=== PATIENT | female | born 1950 | race Caucasian/White ===

== ENCOUNTER 2017-01-17 09:24 | Emergency (ER) | payer MEDICARE, OTHER ==
[2017-01-17] MEDS ORDERED: SODIUM CHLORIDE 0.9% 1,000 ML IV STA (09:45)
[2017-01-17] MEDS ORDERED: ONDANSETRON 4 MG/2 ML VIAL IVP STA (09:45)
[2017-01-17] MEDS ORDERED: ACETAMINOPHEN IV (For NPO) 1,000 MG in SALINE 100 100ML.BAG IVPB STA (09:46)
--- NOTE | 2017-01-17 09:56 | ED ---
General Adult HPI - General Chief complaint: ENT Stated complaint: hip pain Time Seen by Provider: 01/17/17 09:39 Source: patient, RN notes reviewed Mode of arrival: ambulatory Limitations: no limitations - History of Present Illness Initial comments: 66-year-old female who presents emergency room today with multiple. Per patient does admit some chronic left hip pain after hip replacement. She admits that she's had a sore throat for 3 days. States she's been using some cough drops. Admits that she's had some nausea and vomiting and diarrhea for the past 3 days as well. She denies any other recent travel other than coming up from [place]. She states her is here trying to get some business taken care of. Patient admits some abdominal cramping. She denies any signs of blood in the emesis or stool. She denies any other complaints or symptoms at this time. Patient denies any recent fever, chills, shortness of breath, chest pain, back pain, numbness or tingling, dysuria or hematuria, constipation, headaches or visual changes, or any other complaints. - Related Data Home Medications Medication Instructions Recorded Confirmed Aspirin [Adult Low Dose Aspirin EC] 81 mg PO DAILY 01/17/17 01/17/17 Esomeprazole Magnesium [NexIUM] 40 mg PO BID 01/17/17 01/17/17 FLUoxetine HCL [PROzac] 40 mg PO DAILY 01/17/17 01/17/17 Folic Acid 1 mg PO BID 01/17/17 01/17/17 Gabapentin [Neurontin] 100 mg PO TID 01/17/17 01/17/17 Insulin Glargine [Lantus] 30 unit SQ HS 01/17/17 01/17/17 Zolpidem Tartrate [Ambien] 10 mg PO HS 01/17/17 01/17/17 diphenhydrAMINE HCL [Benadryl] 25 mg PO HS PRN 01/17/17 01/17/17 Previous Rx's Medication Instructions Recorded Dicyclomine [Bentyl] 10 mg PO QID #20 capsule 01/17/17 Ondansetron Odt [Zofran ODT] 4 mg PO Q8HR PRN #20 tab 01/17/17 Allergies Allergy/AdvReac Type Severity Reaction Status Date / Time iodine Allergy Swelling Verified 01/17/17 09:52 Penicillins Allergy Swelling Verified 01/17/17 09:52 Sulfa (Sulfonamide Allergy Rash/Hives Verified 01/17/17 09:52 Antibiotics) SEAFOOD Allergy Rash/Hives Uncoded 01/17/17 09:52 Review of Systems ROS Statement: Those systems with pertinent positive or pertinent negative responses have been documented in the HPI. ROS Other: All systems not noted in ROS Statement are negative. Past Medical History Past Medical History: Diabetes Mellitus Additional Past Medical History / Comment(s): anemia History of Any Multi-Drug Resistant Organisms: None Reported Past Surgical History: Joint Replacement Past Psychological History: Bipolar, Depression Smoking Status: Never smoker Past Alcohol Use History: None Reported Past Drug Use History: None Reported General Exam - General Exam Comments Initial Comments: General: The patient is awake and alert, in no distress, and does not appear acutely ill. Eye: Pupils are equal, round and reactive to light, extra-ocular movements are intact. No nystagmus. There is normal conjunctiva bilaterally. No signs of icterus. Ears, nose, mouth and throat: There are moist mucous membranes and no oral lesions. Neck: The neck is supple, there is no tenderness or JVD. Cardiovascular: There is a regular rate and rhythm. No murmur, rub or gallop is appreciated. Respiratory: Lungs are clear to auscultation, respirations are non-labored, breath sounds are equal. No wheezes, stridor, rales, or rhonchi. Gastrointestinal: Soft, non-distended, non-tender abdomen without masses or organomegaly noted. There is no rebound or guarding present. No CVA tenderness. Bowel sounds are unremarkable. Musculoskeletal: Normal ROM, no tenderness. Strength 5/5. Sensation intact. Pulses equal bilaterally 2+. Neurological: A&O x 3. CN II-XII intact, There are no obvious motor or sensory deficits. Coordination appears grossly intact. Speech is normal. Skin: Skin is warm and dry and no rashes or lesions are noted. Psychiatric: Cooperative, appropriate mood & affect, normal judgment. Limitations: no limitations Course Vital Signs 01/17/17 09:26 Temperature 98.1 F Pulse Rate 114 H Respiratory 18 Rate Blood Pressure 188/79 O2 Sat by Pulse 98 Oximetry Medical Decision Making - Medical Decision Making Case discussed in detail with attending physician Dr. Hadley. Patient reexamined at this time shows no signs of distress resting comfortably. Patient has been reviewed. Does show hemoglobin 8.7. Patient does admit to history anemia states she usually runs between 9 and 10. Patient's remaining labs have been reviewed. At this time patient's feeling better after fluids here in the emergency room. She does admit some nausea vomiting diarrhea over the last 3 days. Patient guaiac negative here in the emergency room. Patient will be discharged advised close follow-up the family doctor over the next 2 days. Advised return here to emergency room if any symptoms increase or worsen or for any other concerns. - Lab Data Result diagrams: 01/17/17 10:19 01/17/17 10:19 Lab Results 01/17/17 01/17/17 01/17/17 Range/Units 10:19 10:19 10:19 WBC 2.8 L (3.8-10.6) k/uL RBC 2.66 L (3.80-5.40) m/uL Hgb 8.7 L (11.4-16.0) gm/dL Hct 26.2 L (34.0-46.0) % MCV 98.7 (80.0-100.0) fL MCH 32.8 (25.0-35.0) pg MCHC 33.3 (31.0-37.0) g/dL RDW 19.1 H (11.5-15.5) % Plt Count 250 (150-450) k/uL Neutrophils % 66 % Lymphocytes % 26 % Monocytes % 4 % Eosinophils % 1 % Basophils % 1 % Neutrophils # 1.8 (1.3-7.7) k/uL Lymphocytes # 0.7 L (1.0-4.8) k/uL Monocytes # 0.1 (0-1.0) k/uL Eosinophils # 0.0 (0-0.7) k/uL Basophils # 0.0 (0-0.2) k/uL Anisocytosis Slight Macrocytosis Slight Sodium 138 (137-145) mmol/L Potassium 3.7 (3.5-5.1) mmol/L Chloride 103 (98-107) mmol/L Carbon Dioxide 25 (22-30) mmol/L Anion Gap 10 mmol/L BUN 7 (7-17) mg/dL Creatinine 0.40 L (0.52-1.04) mg/dL Est GFR (MDRD) Af Amer >60 (>60 ml/min/1.73 sqM) Est GFR (MDRD) Non-Af >60 (>60 ml/min/1.73 sqM) Glucose 205 H (74-99) mg/dL Calcium 8.7 (8.4-10.2) mg/dL Total Bilirubin 1.8 H (0.2-1.3) mg/dL AST 67 H (14-36) U/L ALT 100 H (9-52) U/L Alkaline Phosphatase 165 H (38-126) U/L Total Protein 6.4 (6.3-8.2) g/dL Albumin 3.4 L (3.5-5.0) g/dL Amylase <30 L (30-110) U/L Lipase 46 (23-300) U/L Urine Color Yellow Urine Appearance Clear (Clear) Urine pH 7.5 (5.0-8.0) Ur Specific Brule 1.011 (1.001-1.035) Urine Protein 3+ H (Negative) Urine Glucose (UA) Trace H (Negative) Urine Ketones Negative (Negative) Urine Blood Small H (Negative) Urine Nitrite Negative (Negative) Urine Bilirubin Negative (Negative) Urine Urobilinogen <2.0 (<2.0) mg/dL Ur Leukocyte Esterase Small H (Negative) Urine RBC 2 (0-5) /hpf Urine WBC 15 H (0-5) /hpf Ur Squamous Epith Cells 1 (0-4) /hpf Urine Bacteria Rare H (None) /hpf Urine Mucus Rare H (None) /hpf Group A Strep Rapid (Negative) 01/17/17 Range/Units 10:19 WBC (3.8-10.6) k/uL RBC (3.80-5.40) m/uL Hgb (11.4-16.0) gm/dL Hct (34.0-46.0) % MCV (80.0-100.0) fL MCH (25.0-35.0) pg MCHC (31.0-37.0) g/dL RDW (11.5-15.5) % Plt Count (150-450) k/uL Neutrophils % % Lymphocytes % % Monocytes % % Eosinophils % % Basophils % % Neutrophils # (1.3-7.7) k/uL Lymphocytes # (1.0-4.8) k/uL Monocytes # (0-1.0) k/uL Eosinophils # (0-0.7) k/uL Basophils # (0-0.2) k/uL Anisocytosis Macrocytosis Sodium (137-145) mmol/L Potassium (3.5-5.1) mmol/L Chloride (98-107) mmol/L Carbon Dioxide (22-30) mmol/L Anion Gap mmol/L BUN (7-17) mg/dL Creatinine (0.52-1.04) mg/dL Est GFR (MDRD) Af Amer (>60 ml/min/1.73 sqM) Est GFR (MDRD) Non-Af (>60 ml/min/1.73 sqM) Glucose (74-99) mg/dL Calcium (8.4-10.2) mg/dL Total Bilirubin (0.2-1.3) mg/dL AST (14-36) U/L ALT (9-52) U/L Alkaline Phosphatase (38-126) U/L Total Protein (6.3-8.2) g/dL Albumin (3.5-5.0) g/dL Amylase (30-110) U/L Lipase (23-300) U/L Urine Color Urine Appearance (Clear) Urine pH (5.0-8.0) Ur Specific Brule (1.001-1.035) Urine Protein (Negative) Urine Glucose (UA) (Negative) Urine Ketones (Negative) Urine Blood (Negative) Urine Nitrite (Negative) Urine Bilirubin (Negative) Urine Urobilinogen (<2.0) mg/dL Ur Leukocyte Esterase (Negative) Urine RBC (0-5) /hpf Urine WBC (0-5) /hpf Ur Squamous Epith Cells (0-4) /hpf Urine Bacteria (None) /hpf Urine Mucus (None) /hpf Group A Strep Rapid Negative (Negative) Disposition Clinical Impression: Nausea and vomiting Disposition: HOME SELF-CARE Condition: Good Instructions: Acute Nausea and Vomiting (ED) Additional Instructions: Please use medication as discussed. Please follow-up with family doctor in the next 2 days of symptoms have not improved. Please return to emergency room if the symptoms increase or worsen or for any other concerns. Prescriptions: Dicyclomine [Bentyl] 10 mg PO QID #20 capsule Ondansetron Odt [Zofran ODT] 4 mg PO Q8HR PRN #20 tab PRN Reason: Nausea Referrals: None,Stated [Primary Care Provider] - 1-2 days Time of Disposition: 11:50
[2017-01-17 10:45] LABS: CH 33.1; CHCM 33.6; HCT 26.2 % (34.0-46.0); HDW 2.73; HGB 8.7 gm/dL (11.4-16.0); MCH 32.8 pg (25.0-35.0); MCHC 33.3 g/dL (31.0-37.0); MCV 98.7 fL (80.0-100.0); Mean Platelet Volume 9.4; RBC 2.66 m/uL (3.80-5.40); RDW 19.1 % (11.5-15.5); WBC 2.8 k/uL (3.8-10.6); WBC (Perox) 2.85
[2017-01-17 10:46] LABS: Anisocytosis Slight; Basophils % (A) 1 %; Eosinophils % (A) 1 %; Luc # (Auto) 0.07; Luc % (Auto) 2; Lymphocytes # (A) 0.7 k/uL (1.0-4.8); Lymphocytes % (A) 26 %; Macrocytosis Slight; Monocytes # (A) 0.1 k/uL (0-1.0); Monocytes % (A) 4 %; Neutrophils # (A) 1.8 k/uL (1.3-7.7); Neutrophils % (A) 66 %
[2017-01-17 10:48] LABS: Appearance,Urine Clear (Clear); Bacteria,Urine Rare /hpf; Bilirubin,Urine Negative (Negative); Glucose,Urine (UA) Trace (Negative); Ketones,Urine Negative (Negative); Leukocyte Esterase,Urine Small (Negative); Mucus,Urine Rare /hpf; Nitrite,Urine Negative (Negative); PH, Urine 7.5 (5.0-8.0); Particle Count 6307; Protein,Urine 3+ (Negative); RBC,Urine 2 /hpf (0-5); Specific Gravity,Urine 1.011 (1.001-1.035); Squamous Epithelial Cell,Urine 1 /hpf (0-4); UA Billing (MACRO vs. MICRO) MICRO; Urobilinogen,Urine <2.0 mg/dL (<2.0); WBC,Urine 15 /hpf (0-5)
--- NOTE | 2017-01-17 10:53 | XR ---
EXAMINATION TYPE: XR KUB DATE OF EXAM: 01/17/2017 10:39 AM CLINICAL HISTORY: Abdominal pain and vomiting TECHNIQUE: 2 supine KUB images of the abdomen are obtained. COMPARISON: None. FINDINGS: Scattered gas is seen in non-distended small bowel loops. Gas and fecal material is seen in non-distended colon. Scattered pelvic phleboliths are present. Metallic hardware from left hip arthr oplasty is seen. There is vertebroplasty at L1 level. No pneumoperitoneum is present. Lung bases are clear. Cholecystectomy clips are noted. IMPRESSION: Overall nonobstructive bowel gas pattern.
[2017-01-17 10:58] LABS: ALT 100 U/L (9-52); AST 67 U/L (14-36); Alkaline Phosphatase 165 U/L (38-126); Amylase <30 U/L (30-110); Blood Urea Nitrogen 7 mg/dL (7-17); Calcium 8.7 mg/dL (8.4-10.2); Carbon Dioxide 25 mmol/L (22-30); Glucose 205 mg/dL (74-99); Non-African American GFR(MDRD) >60 (>60 ml/min/1.73 sqM); Potassium 3.7 mmol/L (3.5-5.1); Sodium 138 mmol/L (137-145); Total Bilirubin 1.8 mg/dL (0.2-1.3); Total Protein 6.4 g/dL (6.3-8.2)
[2017-01-17 11:00] LABS: Anion Gap 10 mmol/L; Chloride 103 mmol/L (98-107)
[2017-01-17 12:03] VITALS: BP 126/58; PULSE 93; RESP 16; TEMP 97.8
== END 2017-01-17 12:03 | disposition home or self-care (01) ==
LOC: EC 09:24
DX: R11.2 Nausea with vomiting, unspecified (principal); G89.29 Other chronic pain; M25.552 Pain in left hip; R19.7 Diarrhea, unspecified; J02.9 Acute pharyngitis, unspecified; R05 Cough; R10.9 Unspecified abdominal pain; E11.9 Type 2 diabetes mellitus without complications; F31.9 Bipolar disorder, unspecified; D64.9 Anemia, unspecified; Z96.642 Presence of left artificial hip joint; Z88.0 Allergy status to penicillin; Z88.2 Allergy status to sulfonamides; Z91.013 Allergy to seafood; Z91.048 Other nonmedicinal substance allergy status; Z79.4 Long term (current) use of insulin; Z79.82 Long term (current) use of aspirin; Z79.899 Other long term (current) drug therapy
CPT/HCPCS: 99284; 96374; 36415; 80053; 82150; 83690; 85025; 81001; 87081; 87430; 74000; J2405; J0131

== ENCOUNTER 2017-08-31 11:46 | Inpatient (IN) | payer MEDICARE, OTHER ==
[2017-08-31 13:10] LABS: Anisocytosis Moderate; Basophils % (A) 0 %; Eosinophils # (A) 0.1 k/uL (0-0.7); Eosinophils % (A) 3 %; Hypochromasia Slight; Lymphocytes # (A) 1.2 k/uL (1.0-4.8); Lymphocytes % (A) 49 %; MCH 31.5 pg (25.0-35.0); MCHC 31.8 g/dL (31.0-37.0); MCV 98.9 fL (80.0-100.0); Macrocytosis Moderate; Mean Platelet Volume 9.1; Monocytes # (A) 0.1 k/uL (0-1.0); Monocytes % (A) 3 %; Neutrophils % (A) 42 %; Platelet Count 176 k/uL (150-450); RBC 1.69 m/uL (3.80-5.40); WBC 2.3 k/uL (3.8-10.6)
[2017-08-31 13:15] LABS: INR 1.1 (<1.2); Partial Thromboplastin Time 25.4 sec (22.0-30.0); Prothrombin Time 10.8 sec (9.0-12.0)
[2017-08-31 13:16] LABS: HCT 16.7 % (34.0-46.0); HGB 5.3 gm/dL (11.4-16.0)
[2017-08-31 13:21] LABS: ALT 83 U/L (9-52); AST 67 U/L (14-36); Albumin 2.3 g/dL (3.5-5.0); Alkaline Phosphatase 114 U/L (38-126); Anion Gap 7 mmol/L; Blood Urea Nitrogen 17 mg/dL (7-17); Calcium 7.3 mg/dL (8.4-10.2); Carbon Dioxide 27 mmol/L (22-30); Chloride 106 mmol/L (98-107); Glucose 136 mg/dL (74-99); Magnesium 1.7 mg/dL (1.6-2.3); Potassium 3.9 mmol/L (3.5-5.1); Sodium 140 mmol/L (137-145); Total Bilirubin 0.6 mg/dL (0.2-1.3); Total Protein 4.8 g/dL (6.3-8.2)
[2017-08-31] MEDS ORDERED: FUROSEMIDE 10 MG/ML 4 ML VIAL IV PRN (14:29)
[2017-08-31] MEDS ORDERED: ONDANSETRON 4 MG/2 ML VIAL IVP PRN (14:32)
[2017-08-31] MEDS ORDERED: NALOXONE 0.4 MG/ML 1 ML VIAL IV PRN (14:32)
--- NOTE | 2017-08-31 14:32 | ED ---
Weakness HPI - General Chief complaint: Weakness Stated complaint: Weakness Time Seen by Provider: 08/31/17 11:53 Source: patient Mode of arrival: EMS Limitations: no limitations - History of Present Illness Initial comments: Patient presents with generalized weakness. She states that she has a history of myelodysplastic syndrome. Her weakness has been getting worse. She denies any belly or back pain. She has no chest pain. She has shortness of breath. Nothing makes her symptoms better or worse. She has taken no medication for the symptoms. She had routine lab work done at her nursing facility. They found her to be very anemic. - Related Data Home Medications Medication Instructions Recorded Confirmed Esomeprazole Magnesium [NexIUM] 40 mg PO BID 01/17/17 08/31/17 Insulin Glargine [Lantus] 20 unit SQ HS 01/17/17 08/31/17 FLUoxetine HCL [PROzac] 40 mg PO DAILY 08/31/17 08/31/17 Gabapentin [Neurontin] 300 mg PO QID 08/31/17 08/31/17 clonazePAM [KlonoPIN] 1 mg PO TID PRN 08/31/17 08/31/17 Previous Rx's Medication Instructions Recorded Zolpidem Tartrate [Ambien] 10 mg PO HS #20 tablet 03/03/17 Allergies Allergy/AdvReac Type Severity Reaction Status Date / Time codeine Allergy Swelling Verified 08/31/17 12:24 iodine Allergy Swelling Verified 08/31/17 12:24 iron Allergy Swelling Verified 08/31/17 12:24 Penicillins Allergy Swelling Verified 08/31/17 12:24 Sulfa (Sulfonamide Allergy Swelling Verified 08/31/17 12:24 Antibiotics) SEAFOOD Allergy Swelling Uncoded 08/31/17 12:24 Review of Systems ROS Statement: Those systems with pertinent positive or pertinent negative responses have been documented in the HPI. ROS Other: All systems not noted in ROS Statement are negative. Past Medical History Past Medical History: Diabetes Mellitus Additional Past Medical History / Comment(s): anemia, myelobastoma anemia, leukemia, aricept shots (last on 08/01/2017). no chemo or radiation as of 2017 History of Any Multi-Drug Resistant Organisms: MRSA Date of last positivie culture/infection: 02/08/17 MDRO Source:: URINE Past Surgical History: Joint Replacement Additional Past Surgical History / Comment(s): left hip rx, right foot and ankle rx, back fusion "in the middle" Past Psychological History: Bipolar, Depression Smoking Status: Former smoker Past Alcohol Use History: None Reported Past Drug Use History: None Reported General Exam Limitations: no limitations General appearance: alert, in no apparent distress Head exam: Present: atraumatic, normocephalic, normal inspection Eye exam: Present: normal appearance, PERRL, EOMI. Absent: scleral icterus, conjunctival injection, periorbital swelling ENT exam: Present: normal exam, mucous membranes moist Neck exam: Present: normal inspection. Absent: tenderness, meningismus, lymphadenopathy Respiratory exam: Present: normal lung sounds bilaterally. Absent: respiratory distress, wheezes, rales, rhonchi, stridor Cardiovascular Exam: Present: regular rate, normal rhythm, normal heart sounds. Absent: systolic murmur, diastolic murmur, rubs, gallop, clicks GI/Abdominal exam: Present: soft, normal bowel sounds. Absent: distended, tenderness, guarding, rebound, rigid Extremities exam: Present: normal inspection, full ROM, normal capillary refill. Absent: tenderness, pedal edema, joint swelling, calf tenderness Back exam: Present: normal inspection Neurological exam: Present: alert, oriented X3, CN II-XII intact Psychiatric exam: Present: normal affect, normal mood Skin exam: Present: warm, dry, intact, normal color. Absent: rash Course Vital Signs 08/31/17 08/31/17 08/31/17 12:00 12:59 13:04 Temperature 98.3 F Pulse Rate 97 90 87 Respiratory Rate Blood Pressure 103/53 82/45 102/50 O2 Sat by Pulse 98 97 96 Oximetry EKG Findings - EKG Comments: EKG Findings:: Twelve-lead EKG shows ventricular rate 96 bpm, normal DC interval and Tom complexes, no ST elevation or depression, interpreted by me as normal sinus rhythm. Medical Decision Making - Medical Decision Making Patient presents with shortness of breath, weakness. Laboratory workup reveals profound anemia. I have ordered transfusion of packed red blood cells. Patient will be admitted to the hospital. - Lab Data Result diagrams: 08/31/17 12:50 08/31/17 12:50 Lab Results 08/31/17 08/31/17 08/31/17 Range/Units 12:50 12:50 12:50 WBC 2.3 L (3.8-10.6) k/uL RBC 1.69 L (3.80-5.40) m/uL Hgb 5.3 L* D (11.4-16.0) gm/dL Hct 16.7 L* (34.0-46.0) % MCV 98.9 (80.0-100.0) fL MCH 31.5 (25.0-35.0) pg MCHC 31.8 (31.0-37.0) g/dL RDW 23.0 H (11.5-15.5) % Plt Count 176 (150-450) k/uL Neutrophils % 42 % Lymphocytes % 49 % Monocytes % 3 % Eosinophils % 3 % Basophils % 0 % Neutrophils # 1.0 L (1.3-7.7) k/uL Lymphocytes # 1.2 (1.0-4.8) k/uL Monocytes # 0.1 (0-1.0) k/uL Eosinophils # 0.1 (0-0.7) k/uL Basophils # 0.0 (0-0.2) k/uL Hypochromasia Slight Anisocytosis Moderate Macrocytosis Moderate PT 10.8 (9.0-12.0) sec INR 1.1 (<1.2) APTT 25.4 (22.0-30.0) sec Sodium 140 (137-145) mmol/L Potassium 3.9 (3.5-5.1) mmol/L Chloride 106 (98-107) mmol/L Carbon Dioxide 27 (22-30) mmol/L Anion Gap 7 mmol/L BUN 17 (7-17) mg/dL Creatinine 0.47 L (0.52-1.04) mg/dL Est GFR (CKD-EPI)AfAm >90 (>60 ml/min/1.73 sqM) Est GFR (CKD-EPI)NonAf >90 (>60 ml/min/1.73 sqM) Glucose 136 H (74-99) mg/dL Calcium 7.3 L (8.4-10.2) mg/dL Magnesium 1.7 (1.6-2.3) mg/dL Total Bilirubin 0.6 (0.2-1.3) mg/dL AST 67 H (14-36) U/L ALT 83 H (9-52) U/L Alkaline Phosphatase 114 (38-126) U/L Troponin I (0.000-0.034) ng/mL Total Protein 4.8 L (6.3-8.2) g/dL Albumin 2.3 L (3.5-5.0) g/dL Stool Occult Blood (Negative) Blood Type Blood Type Recheck Antibody Screen Crossmatch Spec Expiration Date 08/31/17 08/31/17 08/31/17 Range/Units 12:50 12:50 12:50 WBC (3.8-10.6) k/uL RBC (3.80-5.40) m/uL Hgb (11.4-16.0) gm/dL Hct (34.0-46.0) % MCV (80.0-100.0) fL MCH (25.0-35.0) pg MCHC (31.0-37.0) g/dL RDW (11.5-15.5) % Plt Count (150-450) k/uL Neutrophils % % Lymphocytes % % Monocytes % % Eosinophils % % Basophils % % Neutrophils # (1.3-7.7) k/uL Lymphocytes # (1.0-4.8) k/uL Monocytes # (0-1.0) k/uL Eosinophils # (0-0.7) k/uL Basophils # (0-0.2) k/uL Hypochromasia Anisocytosis Macrocytosis PT (9.0-12.0) sec INR (<1.2) APTT (22.0-30.0) sec Sodium (137-145) mmol/L Potassium (3.5-5.1) mmol/L Chloride (98-107) mmol/L Carbon Dioxide (22-30) mmol/L Anion Gap mmol/L BUN (7-17) mg/dL Creatinine (0.52-1.04) mg/dL Est GFR (CKD-EPI)AfAm (>60 ml/min/1.73 sqM) Est GFR (CKD-EPI)NonAf (>60 ml/min/1.73 sqM) Glucose (74-99) mg/dL Calcium (8.4-10.2) mg/dL Magnesium (1.6-2.3) mg/dL Total Bilirubin (0.2-1.3) mg/dL AST (14-36) U/L ALT (9-52) U/L Alkaline Phosphatase (38-126) U/L Troponin I 0.024 (0.000-0.034) ng/mL Total Protein (6.3-8.2) g/dL Albumin (3.5-5.0) g/dL Stool Occult Blood Negative (Negative) Blood Type A Positive Blood Type Recheck CABO Indicated Antibody Screen NEGATIVE Crossmatch See Detail Spec Expiration Date 09/03/20178 Disposition Clinical Impression: Anemia Disposition: ADMITTED IP TO THIS [facility] Condition: Serious Is patient prescribed a controlled substance at discharge?: No Referrals: Axel Perez MD [Primary Care Provider] - 1-2 days
[2017-08-31 19:09] LABS: Appearance,Urine Cloudy (Clear); Bacteria,Urine Many /hpf; Bilirubin,Urine Negative (Negative); Blood,Urine Small (Negative); Color,Urine Yellow; Glucose,Urine (UA) Negative (Negative); Hyaline Casts,Urine 2 /lpf (0-2); Ketones,Urine Negative (Negative); Leukocyte Esterase,Urine Small (Negative); Mucus,Urine Rare /hpf; Nitrite,Urine Negative (Negative); Protein,Urine 1+ (Negative); Specific Gravity,Urine 1.013 (1.001-1.035); Squamous Epithelial Cell,Urine <1 /hpf (0-4); Urobilinogen,Urine <2.0 mg/dL (<2.0); WBC,Urine 29 /hpf (0-5)
[2017-08-31] MEDS: GABAPENTIN 300 MG CAP PO SCH ×2 (20:31→22:10)
[2017-08-31] MEDS ORDERED: clonazePAM 1 MG TAB PO PRN (20:52)
[2017-08-31] MEDS ORDERED: ZOLPIDEM 10 MG TAB PO SCH (21:00)
[2017-08-31] MEDS ORDERED: INSULIN DETEMIR 100 UNIT/ML 10 ML VIAL SQ SCH (21:00)
[2017-08-31] MEDS: FAMOTIDINE 20 MG TAB PO SCH (22:10)
[2017-08-31] MEDS: PANTOPRAZOLE 40 MG TABLET PO SCH (22:10)
--- NOTE | 2017-08-31 23:00 | HP ---
HISTORY AND PHYSICAL CHIEF COMPLAINTS: Generalized weakness and anemia. HISTORY OF PRESENT ILLNESS: This 67-year-old woman with past medical history of multiple medical problems including COPD, diabetes, GERD, sleep apnea, history of myelodysplastic syndrome, history of bipolar depression being followed by Dr. Perez in the outpatient setting was receiving treatment from hematology Oncology and periodic transfusions. Dr. Perez checked hemoglobin and it was found to be low and the patient was directed to go to the hospital. Current hemoglobin is 5.3, transfusion arranged. There is no history of fever, rigors. No history of headache, loss of consciousness, seizures at this time. Patient also had apparent UTI also. PAST MEDICAL HISTORY: History of myelodysplastic syndrome, history of COPD, history of diabetes, GERD, sleep apnea, history of appendectomy, cholecystectomy. MEDICATIONS: Prior to admission include home medications are: 1. Klonopin 1 mg p.o. t.i.d. p.r.n. 2. Ambien 10 mg q.h.s. p.r.n. 3. Lantus 20 units subcu q.h.s. 4. Neurontin 300 mg p.o. q.i.d. 5. Prozac 40 mg. 6. Nexium 40 mg p.o. b.i.d. ALLERGIES: CODEINE, IODINE, IRON, PENICILLIN, SULFA, SEAFOOD. FAMILY HISTORY: History myocardial infarction, alcoholism. SOCIAL HISTORY: Previous history of smoking, no history of alcohol intake. REVIEW OF SYSTEMS: ENT: No diminished vision, no diminished hearing. Cardiovascular no angina. Respiratory: No cough. No hemoptysis. GI no nausea or vomiting. : No dysuria. NERVOUS SYSTEM: As mentioned earlier. Allergies: No asthma or hayfever. MUSCULOSKELETAL: As mentioned earlier. Hematology/oncology: As mentioned earlier. Endocrine: history of diabetes. No hypothyroidism. Constitutional: As mentioned earlier. Dermatology negative. Rheumatology: As mentioned earlier. Psychiatric: As mentioned earlier. PHYSICAL EXAMINATION: Alert and oriented x2. Pulse 81. Blood pressure 130/60, respiration 18, temperature 99.9, pulse ox 98% on room air. HEENT is conjunctivae pale. Oral mucosa moist. Neck is no jugular venous distention. No carotid bruit. No lymph node enlargement. Cardiovascular: S1-S2. No S3. No S4. Respiratory: Breath sounds diminished in the bases. A few rhonchi. No crackles. ABDOMEN: Soft, nontender. No mass palpable. Legs no edema. No swelling. NERVOUS SYSTEM: Higher functions as mentioned earlier, moves all 4 limbs. No focal deficits. Lymphatics: No lymph nodes palpable in the neck, axillae or groin. Skin no ulcers, rash or bleeding. LAB STUDIES: WBC 2.3, hemoglobin is 5.3. Other labs are noted. ASSESSMENT: 1. Severe anemia secondary to myelodysplastic syndrome. 2. Leukopenia. 3. Urinary tract infection. 4. Chronic obstructive pulmonary disease. 5. Diabetes type 2. 6. Gastroesophageal reflux disease. 7. Sleep apnea. 8. History of bipolar depression. 9. Remote history of nicotine dependence. RECOMMENDATIONS AND DISCUSSION: In this 67-year-old woman who presented with multiple complex medical issues, we will monitor the patient closely. Continue the current medications, continue symptomatic treatment. Management and two units of transfusions. Otherwise I would also recommend labs in the morning. Resume the home medications and we will follow the patient closely and further recommendations to follow. A copy of dictation being forwarded to Dr. Perez, who is the primary physician. MMODL / IJN: [id number] /
[2017-09-01 05:53] LABS: Glucose,Whole Blood 114 mg/dL (75-99)
[2017-09-01] MEDS: PANTOPRAZOLE 40 MG TABLET PO SCH (06:37)
[2017-09-01 06:38] LABS: Anion Gap 9 mmol/L; Blood Urea Nitrogen 16 mg/dL (7-17); Calcium 8.3 mg/dL (8.4-10.2); Carbon Dioxide 29 mmol/L (22-30); Chloride 103 mmol/L (98-107); Glucose 110 mg/dL (74-99); Potassium 4.4 mmol/L (3.5-5.1); Sodium 141 mmol/L (137-145)
[2017-09-01 07:08] LABS: Anisocytosis Moderate; HCT 26.1 % (34.0-46.0); MCH 30.9 pg (25.0-35.0); MCHC 33.5 g/dL (31.0-37.0); Macrocytosis Slight; Mean Platelet Volume 8.7; Platelet Count 188 k/uL (150-450); Poikilocytosis Slight; RBC 2.83 m/uL (3.80-5.40); WBC 3.5 k/uL (3.8-10.6)
[2017-09-01 07:34] LABS: HGB 8.7 gm/dL (11.4-16.0)
[2017-09-01 07:35] LABS: MCV 92.3 fL (80.0-100.0)
[2017-09-01 08:20] VITALS: RESP 18
[2017-09-01] MEDS: GABAPENTIN 300 MG CAP PO SCH ×2 (08:25→12:06)
[2017-09-01] MEDS: FAMOTIDINE 20 MG TAB PO SCH (08:26)
[2017-09-01 08:40] LABS: Eosinophils # (M) 0.21 k/uL (0-0.7); Lymphocytes # (M) 1.79 k/uL (1.0-4.8); Monocytes # (M) 0.14 k/uL (0-1.0); Neutrophils # (M) 1.37 k/uL (1.3-7.7); Neutrophils % (M) 39 %; Nucleated Red Blood Cells 0 /100 WBC (0-0); Total Cells Counted 100
[2017-09-01] MEDS ORDERED: FLUoxetine HCL 20 MG CAP PO SCH (09:00)
[2017-09-01] MEDS ORDERED: traMADol 50 MG TAB PO PRN (09:26)
[2017-09-01 11:36] VITALS: BP 139/75; PULSE 88; TEMP 97.8
[2017-09-01 12:02] LABS: Glucose,Whole Blood 112 mg/dL (75-99)
[2017-09-01 15:29] LABS: Hemoglobin A1C 6.5 % (4.0-6.0)
--- NOTE | 2017-09-02 00:46 | DS ---
DISCHARGE SUMMARY DATE OF SERVICE: 09/01/2017 FINAL DIAGNOSES: 1. Severe anemia secondary to myelodysplastic syndrome. 2. Leukopenia. 3. Urinary tract infection. 4. Chronic obstructive pulmonary disease. 5. Diabetes type 2. 6. Gastroesophageal reflux disease. DISCHARGE DISPOSITION: The patient being discharged in stable condition with guarded prognosis. HISTORY OF PRESENT ILLNESS: This 67-year-old woman with past medical history of myelodysplastic syndrome was admitted with severe anemia, transfused 2 units and hemoglobin improved to 8.7. The patient is being discharged in a stable condition with a guarded prognosis. On exam, vitals are stable. CARDIOVASCULAR: S1 and S2. ABDOMEN: Soft. NERVOUS SYSTEM: No focal deficits. DISCHARGE MEDICATIONS AND ADVICE: 1. Diet is cardiac diet. 2. Activity until follow up. 3. Follow up with Dr. Perez as advised. 4. Follow up with Hematology/Oncology as advised. MEDICATIONS: 1. Klonopin 1 mg t.i.d. p.r.n. 2. Nexium 40 mg p.o. b.i.d. 3. Prozac 40 mg p.o. daily. 4. Neurontin 200 mg p.o. q.i.d. 5. Lantus 20 units subcu q.h.s. 6. Ambien 10 mg p.o. q.h.s. Once again, the patient is being discharged in stable condition with guarded prognosis. MMODL / IJN: [id number] /
== END 2017-09-01 13:10 | disposition home or self-care (01) | DRG 812 ==
LOC: EC 11:46 → 6SEL 14:32
PROVIDERS: ADMIT Hospitalist; ATTEND Hospitalist
PROC: 30233N1 Transfusion of Nonautologous Red Blood Cells into Peripheral Vein, Percutaneous Approach (ICD-10-PCS; principal; 2017-08-31)
DX: D46.9 Myelodysplastic syndrome, unspecified (principal); N39.0 Urinary tract infection, site not specified; D63.8 Anemia in other chronic diseases classified elsewhere; E11.9 Type 2 diabetes mellitus without complications; F31.9 Bipolar disorder, unspecified; G47.30 Sleep apnea, unspecified; J44.9 Chronic obstructive pulmonary disease, unspecified; K21.9 Gastro-esophageal reflux disease without esophagitis; Z82.49 Family history of ischemic heart disease and other diseases of the circulatory system; Z87.891 Personal history of nicotine dependence; Z81.1 Family history of alcohol abuse and dependence; Z88.2 Allergy status to sulfonamides; Z88.8 Allergy status to other drugs, medicaments and biological substances; Z88.5 Allergy status to narcotic agent; Z88.0 Allergy status to penicillin; Z91.013 Allergy to seafood; Z79.4 Long term (current) use of insulin; Z79.899 Other long term (current) drug therapy
CPT/HCPCS: 36415; 80048; 80053; 81001; 82150; 82272; 82746; 83036; 83735; 84439; 84443; 84481; 84484; 85025; 85027; 85610; 85730; 86677; 86850; 86900; 86901; 86920; 93005; 99285

== ENCOUNTER 2017-11-02 11:49 | Inpatient (IN) | payer MEDICARE, OTHER ==
[2017-11-02] MEDS ORDERED: HYDROcodone/APAP 10-325MG 1 EACH TAB PO PRN (12:55)
[2017-11-02] MEDS ORDERED: HYDROcodone/APAP 5-325MG 1 EACH TAB PO PRN (13:36)
[2017-11-02] MEDS ORDERED: NALOXONE 0.4 MG/ML 1 ML VIAL IV PRN (13:36)
[2017-11-02] MEDS ORDERED: ALBUTEROL INHALER 60 PUFF/8 GM INHALER INHALATION PRN (13:55)
[2017-11-02] MEDS ORDERED: clonazePAM 1 MG TAB PO PRN (13:55)
--- NOTE | 2017-11-02 13:55 | P.HPIM ---
History of Present Illness 67-year-old female came in for sent to medical anemia patient was seen in the Dr. Esquivel's clinic was sent here because of symptoms of lightheadedness fatigue found to have hemoglobin of around 5.5 patient will receive 2 units of hemoglobin patient does have history of mild dysplastic syndrome. Patient does have a less discoloration of the skin patient may have hyperbilirubinemia will order LDH, reticulocyte count and the comprehensive metabolic profile. Patient other symptoms including dry cough block and a chest x-ray and patient is also complaining of right flank pain has been there for sometime, chronic secondary to bruising his kidney as per the patient. Patient denied any other symptoms denied any dysuria denied any nausea vomiting diarrhea. Review of Systems REVIEW OF SYSTEMS: CONSTITUTIONAL: As mentioned in HPI HEENT: No recent visual problems or hearing problems. Denied any sore throat. CARDIOVASCULAR: No chest pain, orthopnea, PND, no palpitations, no syncope. PULMONARY: No shortness of breath, no cough, no hemoptysis. GASTROINTESTINAL: No diarrhea, no nausea, no vomiting, no abdominal pain. Normoactive bowel sounds. NEUROLOGICAL: No headaches, no weakness, no numbness. HEMATOLOGICAL: Denies any bleeding or petechiae. GENITOURINARY: Denies any burning micturition, frequency, or urgency. MUSCULOSKELETAL/RHEUMATOLOGICAL: Denies any joint pain, swelling, or any muscle pain. ENDOCRINE: Denies any polyuria or polydipsia. The rest of the 14-point review of systems is negative. Past Medical History Past Medical History: Cancer, COPD, Diabetes Mellitus, Eye Disorder, GERD/Reflux , Sleep Apnea/CPAP/BIPAP Additional Past Medical History / Comment(s): Myelodysplastic syndrome, leukemia -started oral chemo about 1 week ago, myoblastic anemia, IDDM type II, PATRICIA without device, thoracic back pain, R eye cataract. History of Any Multi-Drug Resistant Organisms: MRSA Date of last positivie culture/infection: 02/08/17 MDRO Source:: URINE Past Surgical History: Appendectomy, Cholecystectomy, Hysterectomy, Joint Replacement, Tonsillectomy Additional Past Surgical History / Comment(s): left hip fracture with sugery, right foot and right ankle fractures with sx, thoracic back fusion, lt eye cataract, partial hysterectomy, "dislocation rt shoulder-put back in place", rt chest mediport, colonoscopy. Past Anesthesia/Blood Transfusion Reactions: Blood Transfusion Reaction Additional Past Anesthesia/Blood Transfusion Reaction / Comment(s): with a blood transfusion got hives/itching was given benadryl Smoking Status: Former smoker - Past Family History Mother Additional Family Medical History / Comment(s): alcoholic Father Family Medical History: Myocardial Infarction ([place]) Additional Family Medical History / Comment(s): Father of a [place] at the age of 65yrs. Medications and Allergies Home Medications Medication Instructions Recorded Confirmed Type Zolpidem Tartrate [Ambien] 10 mg PO HS #20 tablet 03/03/17 11/02/17 Rx FLUoxetine HCL [PROzac] 40 mg PO DAILY 08/31/17 11/02/17 History clonazePAM [KlonoPIN] 1 mg PO DAILY PRN 08/31/17 11/02/17 History Albuterol Sulfate [Proair Hfa] 1 puff INHALATION RT-Q6H PRN 11/02/17 11/02/17 History Deferasirox [Jadenu] 90 mg PO DAILY 11/02/17 11/02/17 History Deferasirox [Jadenu] 720 mg PO DAILY 11/02/17 11/02/17 History Epoetin Chris [Procrit] 40,000 unit SQ WEEKLY PRN 11/02/17 11/02/17 History Folic Acid 1 mg PO BID 11/02/17 11/02/17 History Gabapentin 600 mg PO QID 11/02/17 11/02/17 History Hydrocodone/Acetaminophen [[place] 1 tab PO DAILY PRN 11/02/17 11/02/17 History 10-325] Lenalidomide [Revlimid] 10 mg PO DAILY 11/02/17 11/02/17 History Allergies Allergy/AdvReac Type Severity Reaction Status Date / Time codeine Allergy Unknown Verified 11/02/17 13:31 iodine Allergy Swelling Verified 11/02/17 13:31 iron Allergy Swelling Verified 11/02/17 13:31 Penicillins Allergy Swelling Verified 11/02/17 13:31 shellfish derived [Shellfish] Allergy Swelling Verified 11/02/17 13:31 Sulfa (Sulfonamide Allergy Swelling Verified 11/02/17 13:31 Antibiotics) SEAFOOD Allergy Swelling Uncoded 08/31/17 12:24 Physical Exam Vitals: Vital Signs Temp Pulse Resp BP Pulse Ox 11/02/17 12:38 97.3 F L 99 16 107/54 100 Intake and Output 11/01/17 11/02/17 11/02/17 22:59 06:59 14:59 Other: Weight 55.792 kg PHYSICAL EXAMINATION: GENERAL: The patient is alert and oriented x3, not in any acute distress. Well developed, well nourished. Patient does have a little discoloration of skin HEENT: Pupils are round and equally reacting to light. EOMI. does have scleral icterus. No conjunctival pallor. Normocephalic, atraumatic. No pharyngeal erythema. No thyromegaly. CARDIOVASCULAR: S1 and S2 present. No murmurs, rubs, or gallops. PULMONARY: Chest is clear to auscultation, no wheezing or crackles. ABDOMEN: Soft, nontender, nondistended, normoactive bowel sounds. No palpable organomegaly. MUSCULOSKELETAL: No joint swelling or deformity. EXTREMITIES: No cyanosis, clubbing, or pedal edema. NEUROLOGICAL: Gross neurological examination did not reveal any focal deficits. SKIN: No rashes. Thrombosis Risk Factor Assmnt - Choose All That Apply Any of the Below Risk Factors Present?: Yes Each Factor Represents 1 point: Abnormal pulmonary function (COPD) Other Risk Factors: Yes Each Risk Factor Represents 2 Points: Age 61-74 years, Malignancy Other congenital or acquired thrombophilia - If yes, enter type in comment: No Thrombosis Risk Factor Assessment Total Risk Factor Score: 5 Thrombosis Risk Factor Assessment Level: High Risk Assessment and Plan Plan: -Symptomatic anemia: Patient will receive 2 units of blood transfusion at [place] was consulted patient does have mild dysplastic syndrome. -Possible hyperbilirubinemia because of his discoloration of the skin will await [facility] metabolic profile depending on that we'll do further workup -Type 2 diabetes mellitus: We'll continue her home regimen -sleep apnea -Bipolar disorder For above-mentioned chronic medical problems patient will be resumed and continued on appropriate home medications.
--- NOTE | 2017-11-02 14:08 | XR ---
EXAMINATION TYPE: XR chest 1V DATE OF EXAM: 11/02/2017 COMPARISON: NONE HISTORY: 67-year-old female with cough and shortness of breath TECHNIQUE: Single frontal view of the chest is obtained. FINDINGS: Right anterior chest wall injection port with catheter tip at the caval atrial junction. Heart upper limits of normal in size. Aorta and pulmonary vasculature within normal limits. Focal patchy density projecting just adjacent to the right-sided chest port. Left-sided chest wall generator device with l alessandro extending to the lung bases of the neck. Surgical lewis at the right glenoid. No pleural effus ion. IMPRESSION: Focal patchy density projecting at the right upper lobe adjacent to the chest port. Developing pneumo raulito here is difficult to exclude. Follow-up recommended to ensure clearance after treatment.
[2017-11-02] MEDS: GABAPENTIN 300 MG CAP PO SCH ×2 (14:11→16:16)
[2017-11-02 15:11] LABS: Reticulocyte % 1.1 % (0.5-2.0)
[2017-11-02 15:28] LABS: ALT 65 U/L (9-52); AST 52 U/L (14-36); Albumin 2.8 g/dL (3.5-5.0); Alkaline Phosphatase 108 U/L (38-126); Anion Gap 9 mmol/L; Blood Urea Nitrogen 21 mg/dL (7-17); Calcium 8.8 mg/dL (8.4-10.2); Carbon Dioxide 29 mmol/L (22-30); Chloride 98 mmol/L (98-107); Glucose 148 mg/dL (74-99); LDH 266 U/L (313-618); Potassium 4.6 mmol/L (3.5-5.1); Sodium 136 mmol/L (137-145); Total Bilirubin 2.1 mg/dL (0.2-1.3); Total Protein 5.8 g/dL (6.3-8.2)
[2017-11-02] MEDS: ALBUTEROL NEBULIZED 2.5 MG/3 ML INHALATION PRN ×2 (16:29→20:42)
[2017-11-02] MEDS: HYDROcodone/APAP 10-325MG 1 EACH TAB PO PRN (16:34)
[2017-11-02] MEDS ORDERED: NON-FORMULARY DRUG (Gabapentin [Gabapentin] 600 MG) PO SCH (18:00)
[2017-11-02 20:51] LABS: Glucose,Whole Blood 200 mg/dL (75-99)
[2017-11-02] MEDS ORDERED: FOLIC ACID 1 MG TAB PO SCH (21:00)
[2017-11-02] MEDS: FAMOTIDINE 20 MG TAB PO SCH (21:51)
[2017-11-02] MEDS: FOLIC ACID 1 MG TAB PO SCH (21:52)
[2017-11-02] MEDS: HEPARIN SODIUM,PORCINE 5,000 UNIT/ML 1 ML VIAL SQ SCH (21:52)
[2017-11-02] MEDS: INSULIN DETEMIR 100 UNIT/ML 10 ML VIAL SQ SCH (21:52)
[2017-11-02] MEDS: ZOLPIDEM 10 MG TAB PO PRN (21:53)
[2017-11-02 22:34] LABS: Amorphous Sediment,Urine Occasional /hpf; Appearance,Urine Cloudy (Clear); Bacteria,Urine Many /hpf; Bilirubin,Urine Negative (Negative); Blood,Urine Trace (Negative); Color,Urine Yellow; Glucose,Urine (UA) Negative (Negative); Hyaline Casts,Urine 3 /lpf (0-2); Ketones,Urine Negative (Negative); Leukocyte Esterase,Urine Large (Negative); Mucus,Urine Rare /hpf; Nitrite,Urine Negative (Negative); Protein,Urine 1+ (Negative); RBC,Urine 2 /hpf (0-5); Specific Gravity,Urine 1.014 (1.001-1.035); Squamous Epithelial Cell,Urine 1 /hpf (0-4); Urobilinogen,Urine <2.0 mg/dL (<2.0); WBC,Urine 94 /hpf (0-5)
[2017-11-03] MEDS: GABAPENTIN 300 MG CAP PO SCH ×5 (00:10→23:39)
[2017-11-03 03:30] LABS: Hemoglobin A1C 6.3 % (4.0-6.0)
[2017-11-03 07:04] LABS: Anisocytosis Marked; Basophils % (A) 0 %; Eosinophils # (A) 0.1 k/uL (0-0.7); Eosinophils % (A) 6 %; HCT 22.7 % (34.0-46.0); HGB 7.7 gm/dL (11.4-16.0); Lymphocytes # (A) 0.9 k/uL (1.0-4.8); Lymphocytes % (A) 43 %; MCH 32.7 pg (25.0-35.0); MCHC 34.1 g/dL (31.0-37.0); MCV 96.1 fL (80.0-100.0); Macrocytosis Moderate; Mean Platelet Volume 11.1; Monocytes # (A) 0.1 k/uL (0-1.0); Monocytes % (A) 3 %; Neutrophils % (A) 44 %; Platelet Count 113 k/uL (150-450); Poikilocytosis Slight; RBC 2.36 m/uL (3.80-5.40); WBC 2.2 k/uL (3.8-10.6)
[2017-11-03 07:19] LABS: RDW 25.5 % (11.5-15.5)
[2017-11-03 07:21] LABS: Anion Gap 6 mmol/L; Blood Urea Nitrogen 16 mg/dL (7-17); Calcium 8.1 mg/dL (8.4-10.2); Carbon Dioxide 30 mmol/L (22-30); Chloride 100 mmol/L (98-107); Glucose 96 mg/dL (74-99); Potassium 4.5 mmol/L (3.5-5.1); Sodium 136 mmol/L (137-145)
[2017-11-03 07:32] LABS: Glucose,Whole Blood 101 mg/dL (75-99)
[2017-11-03 08:27] LABS: Large Platelets Present; Ovalocytes Present; Tear Drop Cells Present
[2017-11-03] MEDS: DEFERASIROX PO SCH (08:54)
[2017-11-03] MEDS: DEFERASIROX 720 MG PO SCH (08:54)
[2017-11-03] MEDS: Lenalidomide [Revlimid] 10 MG PO SCH (08:56)
[2017-11-03] MEDS: FAMOTIDINE 20 MG TAB PO SCH ×2 (08:56→21:42)
[2017-11-03] MEDS: HEPARIN SODIUM,PORCINE 5,000 UNIT/ML 1 ML VIAL SQ SCH ×2 (08:56→21:42)
[2017-11-03] MEDS: FLUoxetine HCL 20 MG CAP PO SCH (08:56)
[2017-11-03] MEDS: FOLIC ACID 1 MG TAB PO SCH ×2 (08:56→21:42)
[2017-11-03] MEDS ORDERED: FLUoxetine HCL 20 MG CAP PO SCH (09:00)
[2017-11-03] MEDS ORDERED: DEFERASIROX PO SCH (09:00)
[2017-11-03] MEDS ORDERED: REVLIMID 10MG PO SCH (09:00)
[2017-11-03] MEDS: HYDROcodone/APAP 10-325MG 1 EACH TAB PO PRN (10:43)
[2017-11-03] MEDS: LEVOFLOXACIN 500MG-D5W PMX 500 MG in DEXTROSE/WATER 1 100ML.BAG IVPB SCH (11:35)
[2017-11-03 11:51] LABS: Glucose,Whole Blood 120 mg/dL (75-99)
[2017-11-03 13:25] VITALS: BMI 21.7
[2017-11-03] MEDS: ALBUTEROL NEBULIZED 2.5 MG/3 ML INHALATION PRN ×2 (15:20→20:11)
[2017-11-03 17:21] LABS: Glucose,Whole Blood 140 mg/dL (75-99)
--- NOTE | 2017-11-03 17:24 | P.CONS ---
History of Present Illness - Reason for Consult Consult date: 11/03/17 symptomatic anemia - Chief Complaint SOB - History of Present Illness Mrs. Funez is a pleasant female pt who eventually established care with Dr. Esquivel in Feb 2017 after moving to [place] from [place] in Dec. She was diagnosed with myelodysplastic syndrome around 2009, treated by Dr. Ray in [place], [place], with Aranesp and intermittent blood transfusions , she was also on iron chelation therapy, with desferioxamine. She had not had any treatment or care so she was using the hospital with multiple hospitalizations for symptomatic anemia and getting blood transfusions. Pt was seen once and then went back to [facility]. She did continue Aranesp there q 2 wks and did not require any transfusions. She came back to [place] in late . She has not had any LENNY after coming back to [place]. Her records from [facility] indicated a 5 q deletion which made her a candidate for Revlimid therapy. She was educated on Revlimid and Jadneu treatment 10/29 and was due for 1 week treatment follow up and was seen in office yesterday, she was found to be profoundly anemic with Hgb 5.5, symptomatic with SOB, MEME and weakness. She denied bleeding, fever, recent illness/infections, appetite is fair, no nausea, vomiting, diarrhea, constipation, she is having difficulty ambulating, no swelling or pain today, she cannot remember if she took the medications or not, she cannot remember if they were delivered to her home. She feels better after transfusion. Review of Systems 10 point ROS as stated in HPI Past Medical History Past Medical History: Cancer, COPD, Diabetes Mellitus, Eye Disorder, GERD/Reflux , Sleep Apnea/CPAP/BIPAP Additional Past Medical History / Comment(s): Myelodysplastic syndrome, leukemia -started oral chemo about 1 week ago, myoblastic anemia, IDDM type II, PATRICIA without device, thoracic back pain, R eye cataract. History of Any Multi-Drug Resistant Organisms: MRSA Year Discovered:: 02/08/17 MDRO Source:: URINE Past Surgical History: Appendectomy, Cholecystectomy, Hysterectomy, Joint Replacement, Tonsillectomy Additional Past Surgical History / Comment(s): left hip fracture with sugery, right foot and right ankle fractures with sx, thoracic back fusion, lt eye cataract, partial hysterectomy, "dislocation rt shoulder-put back in place", rt chest mediport, colonoscopy. Past Anesthesia/Blood Transfusion Reactions: Blood Transfusion Reaction Additional Past Anesthesia/Blood Transfusion Reaction / Comm: with a blood transfusion got hives/itching was given benadryl Smoking Status: Former smoker - Past Family History Mother Additional Family Medical History / Comment(s): alcoholic Father Family Medical History: Myocardial Infarction ([place]) Additional Family Medical History / Comment(s): Father of a [place] at the age of 65yrs. Medications and Allergies Home Medications Medication Instructions Recorded Confirmed Type Zolpidem Tartrate [Ambien] 10 mg PO HS #20 tablet 03/03/17 11/02/17 Rx FLUoxetine HCL [PROzac] 40 mg PO DAILY 08/31/17 11/02/17 History clonazePAM [KlonoPIN] 1 mg PO DAILY PRN 08/31/17 11/02/17 History Albuterol Sulfate [Proair Hfa] 1 puff INHALATION RT-Q6H PRN 11/02/17 11/02/17 History Deferasirox [Jadenu] 90 mg PO DAILY 11/02/17 11/02/17 History Deferasirox [Jadenu] 720 mg PO DAILY 11/02/17 11/02/17 History Epoetin Chris [Procrit] 40,000 unit SQ WEEKLY PRN 11/02/17 11/02/17 History Folic Acid 1 mg PO BID 11/02/17 11/02/17 History Gabapentin 600 mg PO QID 11/02/17 11/02/17 History Hydrocodone/Acetaminophen [[place] 1 tab PO DAILY PRN 11/02/17 11/02/17 History 10-325] Lenalidomide [Revlimid] 10 mg PO DAILY 11/02/17 11/02/17 History Allergies Allergy/AdvReac Type Severity Reaction Status Date / Time codeine Allergy Unknown Verified 11/02/17 13:31 iodine Allergy Swelling Verified 11/02/17 13:31 iron Allergy Swelling Verified 11/02/17 13:31 Penicillins Allergy Swelling Verified 11/02/17 13:31 shellfish derived [Shellfish] Allergy Swelling Verified 11/02/17 13:31 Sulfa (Sulfonamide Allergy Swelling Verified 11/02/17 13:31 Antibiotics) SEAFOOD Allergy Swelling Uncoded 08/31/17 12:24 Physical Exam Vitals: Vital Signs Temp Pulse Pulse Resp BP BP Pulse Ox 11/03/17 06:03 98.7 F 76 18 124/58 98 11/03/17 01:45 97.9 F 97 18 122/58 95 11/03/17 01:30 97.9 F 91 18 114/55 97 11/03/17 01:00 97.9 F 99 18 119/59 96 11/03/17 00:30 97.8 F 18 L 96 H 109/58 98 11/03/17 00:00 89 16 116/56 11/02/17 23:30 97.6 F 99 18 129/60 95 11/02/17 23:15 97.5 F L 96 18 116/60 95 11/02/17 23:00 97.8 F 99 18 119/59 95 11/02/17 22:43 97.0 F L 96 18 115/56 96 11/02/17 22:33 98 F 96 16 115/56 100 11/02/17 20:56 104 H 11/02/17 20:50 97.8 F 89 18 105/53 100 11/02/17 20:42 100 11/02/17 19:08 97.8 F 103 H 18 108/50 97 11/02/17 18:38 97.8 F 102 H 18 110/50 98 11/02/17 18:08 97.7 F 101 H 18 107/52 97 11/02/17 17:54 97.8 F 103 H 12 110/55 97 11/02/17 17:38 98 F 104 H 12 109/51 97 11/02/17 17:28 96.5 F L 104 H 12 117/57 96 11/02/17 16:38 102 H 11/02/17 16:29 100 11/02/17 15:35 97.2 F L 107 H 16 122/52 98 Intake and Output 11/02/17 11/03/17 11/03/17 22:59 06:59 14:59 Intake Total 550 310 Balance 550 310 Intake: Oral 240 Blood Product 310 310 Rc Irr As1 Unit 0 310 [id number] Rc Irr As1 Unit 310 [id number] Other: Voiding Method Toilet Toilet # Voids 1 1 Weight 55.792 kg Results CBC & Chem 7: 11/03/17 06:32 11/03/17 06:32 Labs: Abnormal Lab Results - Last 24 Hours (Table) 11/02/17 11/02/17 11/02/17 Range/Units 14:40 14:40 14:40 WBC (3.8-10.6) k/uL RBC (3.80-5.40) m/uL Hgb (11.4-16.0) gm/dL Hct (34.0-46.0) % RDW (11.5-15.5) % Plt Count (150-450) k/uL Neutrophils # (1.3-7.7) k/uL Lymphocytes # (1.0-4.8) k/uL Sodium 136 L (137-145) mmol/L BUN 21 H (7-17) mg/dL Creatinine (0.52-1.04) mg/dL Glucose 148 H (74-99) mg/dL POC Glucose (mg/dL) (75-99) mg/dL Hemoglobin A1c 6.3 H (4.0-6.0) % Calcium (8.4-10.2) mg/dL Total Bilirubin 2.1 H (0.2-1.3) mg/dL AST 52 H (14-36) U/L ALT 65 H (9-52) U/L Lactate Dehydrogenase 266 L (313-618) U/L Total Protein 5.8 L (6.3-8.2) g/dL Albumin 2.8 L (3.5-5.0) g/dL Urine Appearance (Clear) Urine Protein (Negative) Urine Blood (Negative) Ur Leukocyte Esterase (Negative) Urine WBC (0-5) /hpf Urine WBC Clumps (None) /hpf Amorphous Sediment (None) /hpf Urine Bacteria (None) /hpf Hyaline Casts (0-2) /lpf Urine Mucus (None) /hpf Crossmatch See Detail 11/02/17 11/02/17 11/03/17 Range/Units 20:50 21:45 06:32 WBC 2.2 L (3.8-10.6) k/uL RBC 2.36 L (3.80-5.40) m/uL Hgb 7.7 L (11.4-16.0) gm/dL Hct 22.7 L (34.0-46.0) % RDW 25.5 H (11.5-15.5) % Plt Count 113 L (150-450) k/uL Neutrophils # 1.0 L (1.3-7.7) k/uL Lymphocytes # 0.9 L (1.0-4.8) k/uL Sodium (137-145) mmol/L BUN (7-17) mg/dL Creatinine (0.52-1.04) mg/dL Glucose (74-99) mg/dL POC Glucose (mg/dL) 200 H (75-99) mg/dL Hemoglobin A1c (4.0-6.0) % Calcium (8.4-10.2) mg/dL Total Bilirubin (0.2-1.3) mg/dL AST (14-36) U/L ALT (9-52) U/L Lactate Dehydrogenase (313-618) U/L Total Protein (6.3-8.2) g/dL Albumin (3.5-5.0) g/dL Urine Appearance Cloudy H (Clear) Urine Protein 1+ H (Negative) Urine Blood Trace H (Negative) Ur Leukocyte Esterase Large H (Negative) Urine WBC 94 H (0-5) /hpf Urine WBC Clumps Many H (None) /hpf Amorphous Sediment Occasional H (None) /hpf Urine Bacteria Many H (None) /hpf Hyaline Casts 3 H (0-2) /lpf Urine Mucus Rare H (None) /hpf Crossmatch 11/03/17 11/03/17 11/03/17 Range/Units 06:32 07:09 11:39 WBC (3.8-10.6) k/uL RBC (3.80-5.40) m/uL Hgb (11.4-16.0) gm/dL Hct (34.0-46.0) % RDW (11.5-15.5) % Plt Count (150-450) k/uL Neutrophils # (1.3-7.7) k/uL Lymphocytes # (1.0-4.8) k/uL Sodium 136 L (137-145) mmol/L BUN (7-17) mg/dL Creatinine 0.47 L (0.52-1.04) mg/dL Glucose (74-99) mg/dL POC Glucose (mg/dL) 101 H 120 H (75-99) mg/dL Hemoglobin A1c (4.0-6.0) % Calcium 8.1 L (8.4-10.2) mg/dL Total Bilirubin (0.2-1.3) mg/dL AST (14-36) U/L ALT (9-52) U/L Lactate Dehydrogenase (313-618) U/L Total Protein (6.3-8.2) g/dL Albumin (3.5-5.0) g/dL Urine Appearance (Clear) Urine Protein (Negative) Urine Blood (Negative) Ur Leukocyte Esterase (Negative) Urine WBC (0-5) /hpf Urine WBC Clumps (None) /hpf Amorphous Sediment (None) /hpf Urine Bacteria (None) /hpf Hyaline Casts (0-2) /lpf Urine Mucus (None) /hpf Crossmatch Microbiology - Last 24 Hours (Table) 11/02/17 21:45 Urine Culture - Preliminary Urine,Clean Catch Assessment and Plan (1) Anemia Narrative/Plan: Symptomatic, S/P 2 units PRBCs with appropriate increase in Hgb, less symptomatic, conservative transfusions to keep Hgb 7 range. Current Visit: Yes Status: Chronic Priority: High Code(s): D64.9 - ANEMIA , UNSPECIFIED SNOMED Code(s): 212535627 (2) MDS (myelodysplastic syndrome) Narrative/Plan: Pt blood counts are being affected due to MDS, and will continue to be affected without treatment. Pt was supposed to start revlimid but, she cannot remember if she did. We will check with specialty pharmacy to see if drug delivered and then try to confirm with . Current Visit: Yes Status: Acute Priority: High Code(s): D46.9 - MYELODYSPLASTIC SYNDROME, UNSPECIFIED SNOMED Code(s): 536910830 (3) Iron overload due to repeated red blood cell transfusions Narrative/Plan: Pt was also supposed to start chelation treatment with oral deferasirox, pt not sure if she has, again will confirm with specialty pharmacy delivery and with if taking Current Visit: Yes Status: Acute Priority: High Code(s): E83.111 - HEMOCHROMATOSIS DUE TO REPEATED RED BLOOD CELL TRANSFUSIONS SNOMED Code(s): 720211218 (4) COPD (chronic obstructive pulmonary disease) Current Visit: Yes Status: Chronic Priority: Medium Code(s): J44.9 - CHRONIC OBSTRUCTIVE PULMONARY DISEASE, UNSPECIFIED SNOMED Code(s): 43849485 (5) Weakness Current Visit: Yes Status: Chronic Priority: Medium Code(s): R53.1 - WEAKNESS SNOMED Code(s): 34788751 Plan: Dr. Esquivel has recommended conservative transfusions only and to start the recommended oral therapies. The revlimid will reduce the disease burden in the marrow which will help her Hgb. Chelation can help reduce organ damage from the transfusion iron overload. Pt verbalized understanding. Due to multiple medical diagnoses affecting mobility wheelchair is recommended for family to assist with transport of pt. Doctor attests:I have performed a history and physical exam of this pt, discussed with dictator. I agree with dictated note, documented as a scribe.
--- NOTE | 2017-11-03 17:25 | PN ---
PROGRESS NOTE DATE OF SERVICE: 11/03/2017 This 67-year-old woman who was admitted with anemia had hemoglobin 5.2, after transfusion hemoglobin increased to 7.7. Patient also had features of UTI. No chest pain. No palpitations. No fever. The patient complained of some tiredness at this time. There is no history of fever, rigors or chills. EXAM: Alert and oriented x3. The pulse is 76. Blood pressure 124/58, respiration 18, temperature 98.7, pulse ox 98% on room air. HEENT: Conjunctivae pale. Oral mucosa moist. NECK: No jugular venous distention. No carotid bruit. No lymph node enlargement. Cardiovascular systems: S1, S2. Respiration: Breath sounds diminished in the bases. Scattered rhonchi. No crackles. ABDOMEN: Soft, nontender. LEGS: No edema. No swelling. CENTRAL NERVOUS SYSTEM: No focal deficits. LAB STUDIES: WBC 2.8, hemoglobin 7.7, platelets 113. Sodium is 136. UA noted. ASSESSMENT: 1. Symptomatic anemia, status post transfusion. 2. Acute urinary tract infection present on admission. 3. Possible hyperbilirubinemia. 4. Diabetes type 2. 5. Sleep apnea. 6. Bipolar. 7. Gait dysfunction. RECOMMENDATIONS AND DISCUSSION: In this 67-year-old woman who presented with multiple medical issues, at this time, I recommend to continue the current medications, continue symptomatic treatment, management and I would recommend initiate broad-spectrum IV antibiotics. Follow the cultures. I would also recommend continue to monitor. Prognosis guarded. Further recommendations to follow. See orders for further details. I will order a hepatitis panel also. MMODL / IJN: [id number] /
[2017-11-03] MEDS: traMADol 50 MG TAB PO PRN (19:32)
[2017-11-03 20:21] LABS: Glucose,Whole Blood 161 mg/dL (75-99)
[2017-11-03] MEDS: ZOLPIDEM 10 MG TAB PO PRN (21:42)
[2017-11-03] MEDS: INSULIN DETEMIR 100 UNIT/ML 10 ML VIAL SQ SCH (21:43)
[2017-11-04 00:38] LABS: Hepatitis A Antibody IgM Non-Reactive (Non-Reactive); Hepatitis B Core IgM Non-Reactive (Non-Reactive)
[2017-11-04] MEDS: GABAPENTIN 300 MG CAP PO SCH ×4 (06:15→23:04)
[2017-11-04 07:11] LABS: Glucose,Whole Blood 80 mg/dL (75-99)
[2017-11-04] MEDS: ALBUTEROL NEBULIZED 2.5 MG/3 ML INHALATION PRN ×3 (08:19→18:53)
[2017-11-04] MEDS: FOLIC ACID 1 MG TAB PO SCH ×2 (08:52→20:41)
[2017-11-04] MEDS: FAMOTIDINE 20 MG TAB PO SCH ×2 (08:52→20:41)
[2017-11-04] MEDS: FLUoxetine HCL 20 MG CAP PO SCH (08:52)
[2017-11-04] MEDS: DEFERASIROX PO SCH (08:52)
[2017-11-04] MEDS: Lenalidomide [Revlimid] 10 MG PO SCH (08:53)
[2017-11-04] MEDS: HEPARIN SODIUM,PORCINE 5,000 UNIT/ML 1 ML VIAL SQ SCH ×2 (08:54→20:41)
[2017-11-04] MEDS: DEFERASIROX 720 MG PO SCH (08:54)
[2017-11-04 11:11] LABS: Glucose,Whole Blood 169 mg/dL (75-99)
[2017-11-04 12:13] LABS: Anisocytosis Marked; Basophils % (A) 1 %; Eosinophils # (A) 0.1 k/uL (0-0.7); Eosinophils % (A) 6 %; HCT 21.6 % (34.0-46.0); Hypochromasia Slight; Lymphocytes # (A) 0.5 k/uL (1.0-4.8); Lymphocytes % (A) 34 %; MCH 32.4 pg (25.0-35.0); MCHC 31.8 g/dL (31.0-37.0); Macrocytosis Marked; Mean Platelet Volume 10.5; Monocytes # (A) 0.1 k/uL (0-1.0); Monocytes % (A) 4 %; Neutrophils # (A) 0.8 k/uL (1.3-7.7); Neutrophils % (A) 53 %; RBC 2.13 m/uL (3.80-5.40)
[2017-11-04 12:17] LABS: HGB 6.9 gm/dL (11.4-16.0); MCV 101.7 fL (80.0-100.0); RDW 25.6 % (11.5-15.5); WBC 1.6 k/uL (3.8-10.6)
[2017-11-04] MEDS: HYDROcodone/APAP 10-325MG 1 EACH TAB PO PRN (12:21)
[2017-11-04] MEDS: LEVOFLOXACIN 500MG-D5W PMX 500 MG in DEXTROSE/WATER 1 100ML.BAG IVPB SCH (12:23)
[2017-11-04 12:39] LABS: Platelet Count 86 k/uL (150-450); Poikilocytosis (M) Present
[2017-11-04 17:09] LABS: Glucose,Whole Blood 161 mg/dL (75-99)
--- NOTE | 2017-11-04 17:47 | PN ---
PROGRESS NOTE DATE OF SERVICE: 11/04/2017 This 67-year-old woman with a past medical history of multiple medical problems was admitted with severe anemia and myelodysplastic syndrome. Patient also has UTI. Hemoglobin was 7.6 yesterday after transfusion. Today it is 6.9. There is no history of any fever, rigor or chills. No history of headache, loss of consciousness, seizures. No chest pain or palpitation. One unit of transfusion has been arranged. Irradiated red cells need to be given. Past medical history reviewed. PHYSICAL EXAMINATION: Patient is alert and oriented x3. Vitals are noted stable. Continues pale. CARDIOVASCULAR SYSTEM: S1, S2 muffled. No S3. No S4. RESPIRATORY SYSTEM: Breath sounds diminished at the bases. No rhonchi. No crackles. ABDOMEN: Soft, non-tender. No mass palpable. LEGS: No edema. No swelling. NERVOUS SYSTEM: Higher functions as mentioned earlier. Moves all 4 limbs. No focal motor or sensory deficit. LYMPHATICS: No lymph node palpable in neck, axillae or groin. SKIN: No ulcer, rash, bleeding. LABS AT THIS TIME: Labs are noted. ASSESSMENT: 1. Symptomatic anemia secondary to myelodysplastic syndrome, status post transfusion. 2. Acute urinary tract infection, present on admission. 3. Possible hyperbilirubinemia. 4. Diabetes mellitus, type 2. 5. Sleep apnea. 6. Bipolar. 7. Gait dysfunction. RECOMMENDATIONS AND DISCUSSION: I recommend to continue current medication, continue symptomatic treatment. Otherwise at this time I recommend 1 unit transfusion. Check hemoglobin tomorrow. Otherwise, continue the rest of the medications, including antibiotics. Further recommendations to follow. MMODL / IJN: [id number] /
[2017-11-04 20:24] LABS: Glucose,Whole Blood 168 mg/dL (75-99)
[2017-11-04] MEDS: traMADol 50 MG TAB PO PRN (20:40)
[2017-11-04] MEDS: INSULIN DETEMIR 100 UNIT/ML 10 ML VIAL SQ SCH (20:41)
[2017-11-04] MEDS: ZOLPIDEM 10 MG TAB PO PRN (20:44)
[2017-11-04 23:38] VITALS: RESP 16
[2017-11-05 01:21] VITALS: PULSE 83
[2017-11-05 05:37] VITALS: BP 118/62; TEMP 98.1
[2017-11-05] MEDS: GABAPENTIN 300 MG CAP PO SCH (05:46)
[2017-11-05 07:43] LABS: Glucose,Whole Blood 75 mg/dL (75-99)
[2017-11-05 08:07] LABS: Anisocytosis Marked; Basophils % (A) 0 %; Eosinophils # (A) 0.2 k/uL (0-0.7); Eosinophils % (A) 7 %; HCT 26.1 % (34.0-46.0); Lymphocytes # (A) 0.8 k/uL (1.0-4.8); Lymphocytes % (A) 36 %; MCH 32.4 pg (25.0-35.0); MCHC 32.9 g/dL (31.0-37.0); MCV 98.5 fL (80.0-100.0); Macrocytosis Moderate; Monocytes # (A) 0.1 k/uL (0-1.0); Monocytes % (A) 4 %; Neutrophils # (A) 1.1 k/uL (1.3-7.7); Neutrophils % (A) 50 %; Poikilocytosis Slight; RBC 2.65 m/uL (3.80-5.40); RDW 24.1 % (11.5-15.5); WBC 2.1 k/uL (3.8-10.6)
[2017-11-05 08:08] LABS: HGB 8.6 gm/dL (11.4-16.0); Platelet Count 88 k/uL (150-450)
[2017-11-05] MEDS ORDERED: LEVOFLOXACIN 500 MG TAB PO SCH (09:00)
[2017-11-05] MEDS: DEFERASIROX PO SCH (09:21)
[2017-11-05] MEDS: DEFERASIROX 720 MG PO SCH (09:21)
[2017-11-05] MEDS: Lenalidomide [Revlimid] 10 MG PO SCH (09:21)
[2017-11-05] MEDS: FAMOTIDINE 20 MG TAB PO SCH (09:22)
[2017-11-05] MEDS: FLUoxetine HCL 20 MG CAP PO SCH (09:22)
[2017-11-05] MEDS: HEPARIN SODIUM,PORCINE 5,000 UNIT/ML 1 ML VIAL SQ SCH (09:23)
[2017-11-05] MEDS: FOLIC ACID 1 MG TAB PO SCH (09:23)
--- NOTE | 2017-11-05 17:57 | DS ---
DISCHARGE SUMMARY FINAL DIAGNOSES: 1. Symptomatic anemia secondary to myelodysplastic syndrome, status post transfusions, multiple. 2. Acute urinary tract infection present on admission. 3. Possible hyperbilirubinemia. 4. Diabetes type 2. 5. Sleep apnea. 6. Bipolar. 7. Gait dysfunction. DISCHARGE DISPOSITION: The patient is being discharged in stable condition with guarded prognosis. HISTORY OF PRESENT ILLNESS: This 67 -year-old woman with past medical history of multiple medical problems , was admitted with anemia. Patient was transfused. Patient improved significantly. The patient also had urinary tract infection treated with antibiotics. Hemoglobin is stabilized at 8.6. At this time white count 2.1. Recommended outpatient followup. On exam, vital signs stable. CARDIOVASCULAR: S1, S2 muffled. Abdomen soft. Nervous system: No focal deficits. DISCHARGE ADVICE AND MEDICATIONS: 1. Diet is cardiac diet. 2. Activity limited until followup. 3. Follow up with primary. MEDICATIONS ARE: 1. Albuterol p.r.n. 2. Klonopin 1 mg p.o. daily. 3. Gidnu 720 mg p.o. daily and 90 mg p.o. daily. 4. Procrit 44,000 daily. 5. Prozac 40 mg p.o. daily. 6. Folic acid 1 mg p.o. b.i.d. 7. Gabapentin 600 mg p.o. q.i.d. 8. Hydrocodone 1 tablet p.o. daily. 9. Revlimid 10 mg p.o. daily. 10.Levaquin 500 daily for 5 days. 11.Ambien 10 mg p.o. q.h.s. Follow up with Dr. Perez and Dr. Esquivel as recommended. Once again, the patient is being discharged in stable condition with guarded prognosis. MMODL / IJN: [id number] / MTDD
== END 2017-11-05 11:50 | disposition home or self-care (01) | DRG 812 ==
LOC: 5ONC 12:11
PROVIDERS: ADMIT Internal Medicine; ATTEND Internal Medicine
PROC: 30243N1 Transfusion of Nonautologous Red Blood Cells into Central Vein, Percutaneous Approach (ICD-10-PCS; principal; 2017-11-02)
DX: D46.9 Myelodysplastic syndrome, unspecified (principal); N39.0 Urinary tract infection, site not specified; D63.8 Anemia in other chronic diseases classified elsewhere; E11.9 Type 2 diabetes mellitus without complications; E83.111 Hemochromatosis due to repeated red blood cell transfusions; F31.9 Bipolar disorder, unspecified; G47.33 Obstructive sleep apnea (adult) (pediatric); J44.9 Chronic obstructive pulmonary disease, unspecified; K21.9 Gastro-esophageal reflux disease without esophagitis; H26.9 Unspecified cataract; R26.9 Unspecified abnormalities of gait and mobility; E80.6 Other disorders of bilirubin metabolism; Z79.899 Other long term (current) drug therapy; Z90.710 Acquired absence of both cervix and uterus; Z87.891 Personal history of nicotine dependence; Z86.14 Personal history of Methicillin resistant Staphylococcus aureus infection; Z90.49 Acquired absence of other specified parts of digestive tract; Z98.1 Arthrodesis status; Z96.60 Presence of unspecified orthopedic joint implant; Z98.42 Cataract extraction status, left eye; Z88.5 Allergy status to narcotic agent; Z88.0 Allergy status to penicillin; Z88.2 Allergy status to sulfonamides; Z91.041 Radiographic dye allergy status; Z91.013 Allergy to seafood; Z82.49 Family history of ischemic heart disease and other diseases of the circulatory system
CPT/HCPCS: 71045; 80048; 80053; 80074; 81001; 83036; 83615; 85025; 85045; 86850; 86900; 86901; 86920; 87040; 87077; 87086; 87186; 94640

== ENCOUNTER 2017-11-14 16:37 | Inpatient (IN) | payer MEDICARE, OTHER ==
[2017-11-14] MEDS ORDERED: HYDROcodone/APAP 10-325MG 1 EACH TAB PO PRN (19:06)
[2017-11-14] MEDS ORDERED: clonazePAM 1 MG TAB PO PRN (19:07)
[2017-11-14] MEDS ORDERED: SODIUM CHLORIDE 0.9% 1,000 ML IV SCH (19:15)
--- NOTE | 2017-11-14 19:32 | XR ---
EXAMINATION TYPE: XR chest 2V DATE OF EXAM: 11/14/2017 COMPARISON: 11/02/2017 HISTORY: Possible pneumonia. Myelodysplastic syndrome. TECHNIQUE: Frontal and lateral views of the chest are obtained. FINDINGS: Heart and mediastinum are normal. There is small linear density at the left lung base. The re is no heart failure. There is right central venous catheter with tip in the superior vena cava. Th ere is no pneumothorax. There is a neurostimulator over the left axilla. There is no pleural effusion . IMPRESSION: Small area of subsegmental atelectasis at the left lung base is new compared to old exam . No pulmonary consolidation.
[2017-11-14 19:53] LABS: Anisocytosis Moderate; Hypochromasia Slight; MCH 33.1 pg (25.0-35.0); MCHC 32.3 g/dL (31.0-37.0); MCV 102.5 fL (80.0-100.0); Macrocytosis Marked; Mean Platelet Volume 11.2; RBC 1.82 m/uL (3.80-5.40); RDW 21.3 % (11.5-15.5)
[2017-11-14 20:02] LABS: ALT 146 U/L (9-52); AST 124 U/L (14-36); Albumin 2.7 g/dL (3.5-5.0); Alkaline Phosphatase 159 U/L (38-126); Anion Gap 9 mmol/L; Blood Urea Nitrogen 23 mg/dL (7-17); Calcium 7.8 mg/dL (8.4-10.2); Carbon Dioxide 27 mmol/L (22-30); Chloride 101 mmol/L (98-107); Glucose 121 mg/dL (74-99); Magnesium 1.5 mg/dL (1.6-2.3); Phosphorus 4.8 mg/dL (2.5-4.5); Potassium 4.1 mmol/L (3.5-5.1); Sodium 137 mmol/L (137-145); Total Bilirubin 1.7 mg/dL (0.2-1.3); Total Protein 5.3 g/dL (6.3-8.2)
[2017-11-14 20:05] LABS: HCT 18.6 % (34.0-46.0)
[2017-11-14 20:08] LABS: Creatine Kinase <20 U/L (30-135)
[2017-11-14 20:17] LABS: Creatine Kinase MB <0.2 ng/mL (0.0-2.4)
[2017-11-14] MEDS ORDERED: ZOLPIDEM 10 MG TAB PO SCH (21:00)
[2017-11-14] MEDS ORDERED: ALBUTEROL NEBULIZED 2.5 MG/3 ML INHALATION PRN (21:02)
[2017-11-14] MEDS ORDERED: Magnesium Replacement Protocol 1 EACH MISC MISCELLANE PRN (21:04)
[2017-11-14] MEDS: GABAPENTIN 300 MG CAP PO SCH (21:11)
[2017-11-14 21:26] LABS: Band Neutrophils % 6 %; Eosinophils # (M) 0.34 k/uL (0-0.7); Lymphocytes # (M) 0.58 k/uL (1.0-4.8); Monocytes # (M) 0.06 k/uL (0-1.0); Neutrophils % (M) 33 %; Nucleated Red Blood Cells 0 /100 WBC (0-0); Total Cells Counted 100
[2017-11-14 21:33] LABS: Poikilocytosis (M) Present; Polychromasia Present; Tear Drop Cells Present
[2017-11-14 21:34] LABS: Large Platelets Present; Platelet Count 46 k/uL (150-450)
[2017-11-14 21:37] LABS: Appearance,Urine Clear (Clear); Bilirubin,Urine Negative (Negative); Blood,Urine Moderate (Negative); Color,Urine Light Red; Glucose,Urine (UA) Negative (Negative); Ketones,Urine Negative (Negative); Leukocyte Esterase,Urine Negative (Negative); Mucus,Urine Occasional /hpf; Nitrite,Urine Negative (Negative); PH, Urine 5.5 (5.0-8.0); Protein,Urine 1+ (Negative); RBC,Urine 1 /hpf (0-5); Specific Gravity,Urine 1.016 (1.001-1.035); Squamous Epithelial Cell,Urine 1 /hpf (0-4); Urobilinogen,Urine <2.0 mg/dL (<2.0); WBC,Urine 2 /hpf (0-5)
[2017-11-14] MEDS ORDERED: INSULIN DETEMIR 100 UNIT/ML 10 ML VIAL SQ SCH (22:30)
[2017-11-15 01:02] VITALS: RESP 16
[2017-11-15] MEDS: MAGNESIUM SULFATE-D5W PMX 1 GM in DEXTROSE/WATER 1 100ML.BAG IVPB SCH ×2 (03:42→04:44)
[2017-11-15 05:38] LABS: Glucose,Whole Blood 163 mg/dL (75-99)
[2017-11-15 06:36] LABS: ALT 138 U/L (9-52); AST 113 U/L (14-36); Albumin 2.4 g/dL (3.5-5.0); Alkaline Phosphatase 138 U/L (38-126); Anion Gap 8 mmol/L; Blood Urea Nitrogen 22 mg/dL (7-17); Calcium 7.7 mg/dL (8.4-10.2); Carbon Dioxide 27 mmol/L (22-30); Chloride 102 mmol/L (98-107); Glucose 143 mg/dL (74-99); Magnesium 2.5 mg/dL (1.6-2.3); Potassium 4.2 mmol/L (3.5-5.1); Sodium 137 mmol/L (137-145); Total Bilirubin 1.6 mg/dL (0.2-1.3); Total Protein 4.9 g/dL (6.3-8.2)
--- NOTE | 2017-11-15 07:03 | P.CONS ---
History of Present Illness - Reason for Consult Consult date: 11/15/17 Symptomatic Anemia Requesting physician: Jose Eduardo Nichole - Chief Complaint Weakness, Dizziness - History of Present Illness Mrs. Funez is a pleasant female pt who eventually established care with Dr. Esquivel in Feb 2017 after moving to [place] from [place] in Dec. She was diagnosed with myelodysplastic syndrome around 2009, treated by Dr. Ray in [place], [place], with Aranesp and intermittent blood transfusions , she was also on iron chelation therapy, with desferioxamine. She had not had any treatment or care so she was using the hospital with multiple hospitalizations for symptomatic anemia and getting blood transfusions. Pt was seen once and then went back to [facility]. She did continue Aranesp there q 2 wks and did not require any transfusions. She came back to [place] in late . She has not had any LENNY after coming back to [place]. THis has been reordered and plan to restart as outpatient. Her records from [facility] indicated a 5 q deletion which made her a candidate for Revlimid therapy. Revlimid Was ordered and was to begin around 11/02/2017 and Jadenue was all ordered as a chelating agent secondary to need for chronic transfusion support. She was seen in office on Tuesday, very weak, fatigue, unsteady. Subjective signs of fever with chills and malaise, although no thermometer. Her hemoglobin 6 in office and with her overall symptoms, pancytopenia and need for Leuko- reduced, irradiated blood products she was admitted for infection work-up and transfusion support. Since beginning her Revlimid she has had a significant drop in platelet Count, although it is not completely clear when she began, she is a poor historian when it comes to her medications. Her assists. Review of Systems A 14 point review of systems assessed and completed and all negative except HPI Past Medical History Past Medical History: Cancer, COPD, Diabetes Mellitus, Eye Disorder, GERD/Reflux , Sleep Apnea/CPAP/BIPAP Additional Past Medical History / Comment(s): Myelodysplastic syndrome, leukemia -PT TOOK ORAL CHEMO TODAY 11-14-17, myoblastic anemia, IDDM type II, PATRICIA without device, thoracic back pain, R eye cataract. History of Any Multi-Drug Resistant Organisms: MRSA Year Discovered:: 02/08/17 MDRO Source:: URINE Past Surgical History: Appendectomy, Cholecystectomy, Hysterectomy, Joint Replacement, Tonsillectomy Additional Past Surgical History / Comment(s): left hip fracture with sugery, right foot and right ankle fractures with sx, thoracic back fusion, lt eye cataract, partial hysterectomy, "dislocation rt shoulder-put back in place", rt chest mediport, colonoscopy. Past Anesthesia/Blood Transfusion Reactions: Blood Transfusion Reaction Additional Past Anesthesia/Blood Transfusion Reaction / Comm: with a blood transfusion got hives/itching was given benadryl Smoking Status: Former smoker - Past Family History Mother Additional Family Medical History / Comment(s): alcoholic Father Family Medical History: Myocardial Infarction ([place]) Additional Family Medical History / Comment(s): Father of a [place] at the age of 65yrs. Medications and Allergies Home Medications Medication Instructions Recorded Confirmed Type Zolpidem Tartrate [Ambien] 10 mg PO HS #20 tablet 03/03/17 11/14/17 Rx FLUoxetine HCL [PROzac] 40 mg PO DAILY 08/31/17 11/14/17 History clonazePAM [KlonoPIN] 1 mg PO DAILY PRN 08/31/17 11/14/17 History Albuterol Sulfate [Proair Hfa] 1 puff INHALATION RT-Q6H PRN 11/02/17 11/14/17 History Deferasirox [Jadenu] 90 mg PO DAILY 11/02/17 11/14/17 History Deferasirox [Jadenu] 720 mg PO DAILY 11/02/17 11/14/17 History Epoetin Chris [Procrit] 40,000 unit SQ WEEKLY PRN 11/02/17 11/14/17 History Folic Acid 1 mg PO BID 11/02/17 11/14/17 History Gabapentin 600 mg PO QID 11/02/17 11/14/17 History Hydrocodone/Acetaminophen [[place] 1 tab PO DAILY PRN 11/02/17 11/14/17 History 10-325] Lenalidomide [Revlimid] 10 mg PO DAILY 11/02/17 11/14/17 History Insulin Glargine [Lantus] 20 unit SQ HS 11/14/17 11/14/17 History Allergies Allergy/AdvReac Type Severity Reaction Status Date / Time codeine Allergy Unknown Verified 11/14/17 20:04 iodine Allergy Swelling Verified 11/14/17 20:04 iron Allergy Swelling Verified 11/14/17 20:04 Penicillins Allergy Swelling Verified 11/14/17 20:04 shellfish derived [Shellfish] Allergy Swelling Verified 11/14/17 20:04 Sulfa (Sulfonamide Allergy Swelling Verified 11/14/17 20:04 Antibiotics) SEAFOOD Allergy Swelling Uncoded 08/31/17 12:24 Physical Exam Vitals: Vital Signs Temp Pulse Pulse Resp BP BP Pulse Ox 11/15/17 03:41 98.3 F 81 81 16 113/56 113/56 98 11/15/17 02:10 98.5 F 85 16 100/51 97 11/15/17 01:40 98.5 F 87 16 100/53 96 11/15/17 01:30 98.5 F 87 16 106/56 96 11/15/17 00:59 98.1 F 85 16 103/55 98 11/14/17 23:15 98.3 F 88 18 109/54 95 11/14/17 22:53 98.3 F 84 16 97/58 98 11/14/17 22:23 98.2 F 82 16 97/52 98 11/14/17 22:13 98.3 F 84 16 104/54 98 11/14/17 20:00 77 16 11/14/17 19:50 98.2 F 77 18 102/77 99 11/14/17 19:15 77 20 11/14/17 19:13 97.7 F 77 20 113/72 100 Intake and Output 11/14/17 11/14/17 11/15/17 14:59 22:59 06:59 Intake Total 220 1560 Output Total 150 200 Balance 70 1360 Intake: Intake, IV Titration 100 200 Amount Magnesium Sulfate-D5w Pmx 200 1 gm In Dextrose/Water 1 100ml.bag @ 100 mls/hr IVPB Q1H MONAE Rx#: [id number] Sodium Chloride 0.9% 1, 100 000 ml @ 50 mls/hr IV . Q20H MONAE Rx#:[id number] Oral 120 120 Blood Product 0 1240 Rc Irr As1 Unit 0 310 [id number] Rc Irr As1 Unit 310 [id number] Output: Urine 150 200 Other: Voiding Method Toilet Toilet Weight 58.3 kg 59.7 kg Thin, Chronicall Ill in appearance - Constitutional General appearance: no acute distress, thin - EENT Eyes: PERRLA, poor dentition ENT: NA/AT, normal oropharynx - Neck Supple, Trachea Midline - Respiratory Respiratory: bilateral: diminished (Lower Lobes bbasilar, No increased effort) - Cardiovascular Rhythm: regular Heart sounds: normal: S1, S2 - Gastrointestinal General gastrointestinal: normal bowel sounds, soft - Integumentary Integumentary: pale - Neurologic No focal Defect Neurologic: CNII-XII intact - Musculoskeletal Musculoskeletal: generalized weakness, strength equal bilaterally - Psychiatric Psychiatric: A&O x's 3, appropriate affect, intact judgment & insight Results CBC & Chem 7: 11/15/17 05:37 11/15/17 05:37 Labs: Abnormal Lab Results - Last 24 Hours (Table) 11/14/17 11/14/17 11/14/17 Range/Units 19:14 19:27 19:27 WBC 1.6 L* (3.8-10.6) k/uL RBC 1.82 L (3.80-5.40) m/uL Hgb 6.0 L* D (11.4-16.0) gm/dL Hct 18.6 L* (34.0-46.0) % MCV 102.5 H (80.0-100.0) fL RDW 21.3 H (11.5-15.5) % Plt Count 46 L* (150-450) k/uL Neutrophils # (Manual) 0.60 L (1.3-7.7) k/uL Lymphocytes # (Manual) 0.58 L (1.0-4.8) k/uL BUN (7-17) mg/dL Glucose (74-99) mg/dL POC Glucose (mg/dL) (75-99) mg/dL Calcium (8.4-10.2) mg/dL Phosphorus (2.5-4.5) mg/dL Magnesium (1.6-2.3) mg/dL Total Bilirubin (0.2-1.3) mg/dL AST (14-36) U/L ALT (9-52) U/L Alkaline Phosphatase (38-126) U/L Total Creatine Kinase <20 L (30-135) U/L Total Protein (6.3-8.2) g/dL Albumin (3.5-5.0) g/dL Urine Protein (Negative) Urine Blood (Negative) Urine Mucus (None) /hpf Crossmatch See Detail 11/14/17 11/14/17 11/15/17 Range/Units 19:27 21:15 05:36 WBC (3.8-10.6) k/uL RBC (3.80-5.40) m/uL Hgb (11.4-16.0) gm/dL Hct (34.0-46.0) % MCV (80.0-100.0) fL RDW (11.5-15.5) % Plt Count (150-450) k/uL Neutrophils # (Manual) (1.3-7.7) k/uL Lymphocytes # (Manual) (1.0-4.8) k/uL BUN 23 H (7-17) mg/dL Glucose 121 H (74-99) mg/dL POC Glucose (mg/dL) 163 H (75-99) mg/dL Calcium 7.8 L (8.4-10.2) mg/dL Phosphorus 4.8 H (2.5-4.5) mg/dL Magnesium 1.5 L (1.6-2.3) mg/dL Total Bilirubin 1.7 H (0.2-1.3) mg/dL AST 124 H (14-36) U/L ALT 146 H (9-52) U/L Alkaline Phosphatase 159 H (38-126) U/L Total Creatine Kinase (30-135) U/L Total Protein 5.3 L (6.3-8.2) g/dL Albumin 2.7 L (3.5-5.0) g/dL Urine Protein 1+ H (Negative) Urine Blood Moderate H (Negative) Urine Mucus Occasional H (None) /hpf Crossmatch Microbiology - Last 24 Hours (Table) 11/14/17 21:15 Urine Culture - Preliminary Urine,Voided Chest x-ray: report reviewed Assessment and Plan Plan: Assessment anf Recommendations: 1. Pancytopenia - Secondary to Underlying MDS and Treatment with Revlimid Macrocytic Anemia - - Chronic Transfusion Support - On Jadnu (Chelating Agent) - Transfusions with Leuko-Reduced, Irradiated Blood Products when Hemoglobin is less than 7 - Check MMA and CBC this AM THrombocytopenia - Secondary to underlying MDS and Revlimid - Hold Revlimid until Somewhat Recover, as platelet devrease may be increased with Revlimid, it is important to continue treatment for MDS. MOnitor Signs and symptoms of bleeding. Neutropenia - Secondary to underlying MDS and potenially worsened with Treatment of Revlimid - Monitor for s/s infection - If Summers Cultures negative and remains afebrile continue to mointor, then will likely resume revlimid sfter discharged 2. Elevated Liver Transiminitis - Increased Ferritin secondary to Chronic need for Blood Transfusion Support - COntinue on Chelating Agent with Jadnu - Will Check Coags today with drop in platelets, RBC idenified in Urine Sample DISPO PLAN: Stable blood Counts, Remains afebrile, OK to discharge today from Our standpoint, will have CBC check and DIRECTOR HOME HEALTH visit on Physician Attestation: I have completed the full history and physical of this patient and agree with above dictation by yM Pabon NP Dictated as a scribe.
[2017-11-15 07:12] LABS: INR 1.1 (<1.2); Prothrombin Time 10.5 sec (9.0-12.0)
[2017-11-15 07:21] LABS: Anisocytosis Slight; Basophils % (A) 0 %; Eosinophils # (A) 0.1 k/uL (0-0.7); Eosinophils % (A) 7 %; Lymphocytes # (A) 0.8 k/uL (1.0-4.8); Lymphocytes % (A) 40 %; MCH 31.6 pg (25.0-35.0); MCHC 32.3 g/dL (31.0-37.0); MCV 97.9 fL (80.0-100.0); Macrocytosis Slight; Mean Platelet Volume 11.2; Monocytes # (A) 0.1 k/uL (0-1.0); Monocytes % (A) 4 %; Neutrophils # (A) 0.9 k/uL (1.3-7.7); Neutrophils % (A) 46 %; RBC 2.65 m/uL (3.80-5.40); RDW 19.4 % (11.5-15.5)
[2017-11-15] MEDS ORDERED: PANTOPRAZOLE 40 MG TABLET PO SCH (07:30)
[2017-11-15 07:34] LABS: Platelet Count 42 k/uL (150-450); WBC 1.9 k/uL (3.8-10.6)
[2017-11-15 07:35] LABS: HGB 8.4 gm/dL (11.4-16.0)
[2017-11-15] MEDS ORDERED: JADENU PO SCH (09:00)
[2017-11-15] MEDS ORDERED: DEFERASIROX PO SCH (09:00)
[2017-11-15] MEDS ORDERED: FLUoxetine HCL 20 MG CAP PO SCH (09:00)
[2017-11-15] MEDS: GABAPENTIN 300 MG CAP PO SCH (09:29)
[2017-11-15 09:34] VITALS: BP 112/59; PULSE 83; TEMP 97
[2017-11-15 10:03] VITALS: BMI 24.0
--- NOTE | 2017-11-15 10:18 | ECHOF ---
Referral Reason:troponin MEASUREMENTS -------- HEIGHT: 157.5 cm WEIGHT: 59.4 kg BP: 113/56 RVIDd: 2.8 cm (< 3.3) IVSd: 1.0 cm (0.6 - 1.1) LVIDd: 4.6 cm (3.9 - 5.3) LVPWd: 1.6 cm (0.6 - 1.1) IVSs: 1.5 cm LVIDs: 3.3 cm LVPWs: 2.2 cm LA Diam: 3.8 cm (2.7 - 3.8) LAESV Index (A-L): 31.89 ml/m Ao Diam: 3.4 cm (2.0 - 3.7) AV Cusp: 1.9 cm (1.5 - 2.6) MV EXCURSION: 19.523 mm (> 18.000) MV EF SLOPE: 114 mm/s (70 - 150) EPSS: 0.7 cm MV E [place]: 0.84 m/s MV DecT: 251 ms MV A [place]: 0.66 m/s MV E/A Ratio: 1.27 RAP: 5.00 mmHg RVSP: 37.23 mmHg FINDINGS -------- Sinus rhythm. This was a technically good study. The left ventricular size is normal. Left ventricular wall thickness is normal. Overall left vent ricular systolic function is low-normal with, an EF between 50 - 55 %. The right ventricle is normal in size. LA is midly dilated 29-33ml/m2. The right atrium is normal in size. There is mild aortic valve sclerosis. Mild mitral regurgitation is present. Mild tricuspid regurgitation present. There is mild pulmonary hypertension. The right ventricular systolic pressure, as measured by Doppler, is 37.23mmHg. Trace/mild (physiologic) pulmonic regurgitation. The aortic root size is normal. Normal inferior vena cava with normal inspiratory collapse consistent with estimated right atrial pre ssure of 5 mmHg. There is no pericardial effusion. CONCLUSIONS -------- 1. Sinus rhythm. 2. This was a technically good study. 3. The left ventricular size is normal. 4. Left ventricular wall thickness is normal. 5. Overall left ventricular systolic function is low-normal with, an EF between 50 - 55 %. 6. The right ventricle is normal in size. 7. LA is midly dilated 29-33ml/m2. 8. The right atrium is normal in size. 9. There is mild aortic valve sclerosis. 10. Mild mitral regurgitation is present. 11. Mild tricuspid regurgitation present. 12. There is mild pulmonary hypertension. 13. The right ventricular systolic pressure, as measured by Doppler, is 37.23mmHg. 14. Trace/mild (physiologic) pulmonic regurgitation. 15. The aortic root size is normal. 16. Normal inferior vena cava with normal inspiratory collapse consistent with estimated right atrial pressure of 5 mmHg. 17. There is no pericardial effusion. HIGHWAY TRUCK DRIVER: Jenny Harris RDCS
--- NOTE | 2017-11-15 11:48 | CONS ---
CONSULTATION CHIEF COMPLAINT: Elevated troponin. This is a 67-year-old lady with history of myelodysplastic syndrome who is on oral chemotherapy and intermittent blood transfusions, COPD, diabetes, sleep apnea, who presented to hospital primarily complaining of fatigue and tiredness and was found to have profound anemia with a hemoglobin of 6. She had been transfused and the hemoglobin had gone up to 8.4 and she is feeling better. She has pancytopenia with a white cell count of 1.6 and platelet count of 46. Her troponin came back slightly elevated at 0.042 for which Cardiology had been consulted. She does not have any chest pain. We do not have an EKG on her. Rhythm strips show that she is in sinus rhythm. At the time of my evaluation, she appears comfortable at rest and free of symptoms and is eager to go home. I believe the troponin elevation is related to profound anemia and supply demand mismatch. I will obtain a 2D echo to repeat another set of troponin and obtain an EKG. She does not require further cardiac workup at this time. PAST MEDICAL HISTORY: Significant for diabetes, myelodysplastic syndrome and pancytopenia. MEDICATIONS: At home include insulin, Ambien, [place], Neurontin, folic acid, Prozac, Procrit, Klonopin. Multiple drug allergies including CODEINE, IODINE, IRON, PENICILLIN, SHELLFISH, SULFIDE, SEAFOOD. FAMILY HISTORY: Negative for premature coronary artery disease. SOCIAL HISTORY: Negative for smoking, EtOH abuse or drug abuse. REVIEW OF SYSTEMS: HEENT is unremarkable. CARDIAC: As described above. RESPIRATORY: Negative. GI: Negative. GENITOURINARY: Negative. ALLERGY/IMMUNOLOGY: Negative. SKIN: Negative. MUSCULOSKELETAL: Significant for arthritis. PSYCHOSOCIAL: Negative. ENDOCRINE: Negative CONSTITUTIONAL: Negative. ONCOLOGICAL: Significant for myelodysplastic syndrome. PHYSICAL EXAM: Comfortable at rest. Afebrile. Heart rate is 80 beats and blood pressure is 112/59, respiratory rate is 18, O2 sat is 97% on room and there is no jugular venous distention. Carotid upstroke is diminished. There is no bruit. Chest exam reveals good air entry bilaterally. heart exam reveals first and second heart sounds. No gallop. No murmur. No rub. Abdomen is soft, nontender. Exam of extremities did not reveal any edema. Peripheral pulses are felt. ASSESSMENT: 1. Elevated troponin. 2. Myelodysplastic syndrome with severe symptomatic anemia. PLAN: I will obtain an echo, EKG and a set of troponin. She does not require further cardiac workup at this time. I believe troponin elevation is due to supply-demand mismatch and Plavix. MMDOROTHYL / IJN: [id number] /
--- NOTE | 2017-11-15 13:08 | P.DS ---
Providers Date of admission: 11/14/17 18:09 Attending physician: Jose Eduardo Nichole Consults: 11/14/17 21:01 Consult Physician Routine Consulting Provider: Curly Esquivel Consult Reason/Comments: anemia Do you want consulting provider notified?: Yes, Notify in am 11/15/17 07:02 Consult Physician Routine Consulting Provider: Chelita Guerrero Consult Reason/Comments: elevated troponin Do you want consulting provider notified?: Yes Primary care physician: [facility] Course: Please refer to my HPI Patient Condition at Discharge: Stable Plan - Discharge Summary Discharge Rx Participant: Yes New Discharge Prescriptions: No Action Zolpidem Tartrate [Ambien] 10 mg PO HS #20 tablet clonazePAM [KlonoPIN] 1 mg PO DAILY PRN PRN Reason: Anxiety FLUoxetine HCL [PROzac] 40 mg PO DAILY Hydrocodone/Acetaminophen [[place] 10-325] 1 tab PO DAILY PRN PRN Reason: Pain Epoetin Chris [Procrit] 40,000 unit SQ WEEKLY PRN PRN Reason: HGB <11 Albuterol Sulfate [Proair Hfa] 1 puff INHALATION RT-Q6H PRN PRN Reason: Shortness Of Breath Gabapentin 600 mg PO QID Deferasirox [Jadenu] 90 mg PO DAILY Deferasirox [Jadenu] 720 mg PO DAILY Folic Acid 1 mg PO BID Lenalidomide [Revlimid] 10 mg PO DAILY Insulin Glargine [Lantus] 20 unit SQ HS Discharge Medication List Zolpidem Tartrate [Ambien] 10 mg PO HS #20 tablet 03/03/17 [Rx] FLUoxetine HCL [PROzac] 40 mg PO DAILY 08/31/17 [History] clonazePAM [KlonoPIN] 1 mg PO DAILY PRN 08/31/17 [History] Albuterol Sulfate [Proair Hfa] 1 puff INHALATION RT-Q6H PRN 11/02/17 [History] Deferasirox [Jadenu] 90 mg PO DAILY 11/02/17 [History] Deferasirox [Jadenu] 720 mg PO DAILY 11/02/17 [History] Epoetin Chris [Procrit] 40,000 unit SQ WEEKLY PRN 11/02/17 [History] Folic Acid 1 mg PO BID 11/02/17 [History] Gabapentin 600 mg PO QID 11/02/17 [History] Hydrocodone/Acetaminophen [[place] 10-325] 1 tab PO DAILY PRN 11/02/17 [History] Lenalidomide [Revlimid] 10 mg PO DAILY 11/02/17 [History] Insulin Glargine [Lantus] 20 unit SQ HS 11/14/17 [History] Follow up Appointment(s)/Referral(s): Axel Perez MD [Primary Care Provider] - 11/22/17 1:20 pm My Pabon ANPBC [Nurse Practitioner] - 11/17/17 1:00 pm Patient Instructions/Handouts: Myelodysplastic Syndromes (DC) Activity/Diet/Wound Care/Special Instructions: [facility] ([phone]) and [facility] ([phone]) both deliver to the home. Discharge Disposition: HOME SELF-CARE
--- NOTE | 2017-11-15 13:08 | P.HPIM ---
History of Present Illness Patient is a very pleasant 67-year-old female known to me from her previous hospitalization came in for elective blood transfusion patient requires irradiated blood cells because of her minor dysplastic syndrome patient received blood transfusion after which a patient the hemoglobin went up to 8.2 and patient is being discharged today. Patient is on chelating agent desferioxamine because of elevated ferritin in the body because of multiple transfusions in the past. Patient also has mildly elevated liver enzymes which are fairly stable. Patient is clinically doing well denied any fever chills nausea vomiting. 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 Patient will be discharged today Review of Systems REVIEW OF SYSTEMS: CONSTITUTIONAL: No fever, no malaise, no fatigue. HEENT: No recent visual problems or hearing problems. Denied any sore throat. CARDIOVASCULAR: No chest pain, orthopnea, PND, no palpitations, no syncope. PULMONARY: No shortness of breath, no cough, no hemoptysis. GASTROINTESTINAL: No diarrhea, no nausea, no vomiting, no abdominal pain. Normoactive bowel sounds. NEUROLOGICAL: No headaches, no weakness, no numbness. HEMATOLOGICAL: Denies any bleeding or petechiae. GENITOURINARY: Denies any burning micturition, frequency, or urgency. MUSCULOSKELETAL/RHEUMATOLOGICAL: Denies any joint pain, swelling, or any muscle pain. ENDOCRINE: Denies any polyuria or polydipsia. The rest of the 14-point review of systems is negative. Past Medical History Past Medical History: Cancer, COPD, Diabetes Mellitus, Eye Disorder, GERD/Reflux , Sleep Apnea/CPAP/BIPAP Additional Past Medical History / Comment(s): Myelodysplastic syndrome, leukemia -PT TOOK ORAL CHEMO TODAY 11-14-17, myoblastic anemia, IDDM type II, PATRICIA without device, thoracic back pain, R eye cataract. History of Any Multi-Drug Resistant Organisms: MRSA Date of last positivie culture/infection: 02/08/17 MDRO Source:: URINE Past Surgical History: Appendectomy, Cholecystectomy, Hysterectomy, Joint Replacement, Tonsillectomy Additional Past Surgical History / Comment(s): left hip fracture with sugery, right foot and right ankle fractures with sx, thoracic back fusion, lt eye cataract, partial hysterectomy, "dislocation rt shoulder-put back in place", rt chest mediport, colonoscopy. Past Anesthesia/Blood Transfusion Reactions: Blood Transfusion Reaction Additional Past Anesthesia/Blood Transfusion Reaction / Comment(s): with a blood transfusion got hives/itching was given benadryl Smoking Status: Former smoker - Past Family History Mother Additional Family Medical History / Comment(s): alcoholic Father Family Medical History: Myocardial Infarction ([place]) Additional Family Medical History / Comment(s): Father of a [place] at the age of 65yrs. Medications and Allergies Home Medications Medication Instructions Recorded Confirmed Type Zolpidem Tartrate [Ambien] 10 mg PO HS #20 tablet 03/03/17 11/14/17 Rx FLUoxetine HCL [PROzac] 40 mg PO DAILY 08/31/17 11/14/17 History clonazePAM [KlonoPIN] 1 mg PO DAILY PRN 08/31/17 11/14/17 History Albuterol Sulfate [Proair Hfa] 1 puff INHALATION RT-Q6H PRN 11/02/17 11/14/17 History Deferasirox [Jadenu] 90 mg PO DAILY 11/02/17 11/14/17 History Deferasirox [Jadenu] 720 mg PO DAILY 11/02/17 11/14/17 History Epoetin Chris [Procrit] 40,000 unit SQ WEEKLY PRN 11/02/17 11/14/17 History Folic Acid 1 mg PO BID 11/02/17 11/14/17 History Gabapentin 600 mg PO QID 11/02/17 11/14/17 History Hydrocodone/Acetaminophen [[place] 1 tab PO DAILY PRN 11/02/17 11/14/17 History 10-325] Lenalidomide [Revlimid] 10 mg PO DAILY 11/02/17 11/14/17 History Insulin Glargine [Lantus] 20 unit SQ HS 11/14/17 11/14/17 History Allergies Allergy/AdvReac Type Severity Reaction Status Date / Time codeine Allergy Unknown Verified 11/14/17 20:04 iodine Allergy Swelling Verified 11/14/17 20:04 iron Allergy Swelling Verified 11/14/17 20:04 Penicillins Allergy Swelling Verified 11/14/17 20:04 shellfish derived [Shellfish] Allergy Swelling Verified 11/14/17 20:04 Sulfa (Sulfonamide Allergy Swelling Verified 11/14/17 20:04 Antibiotics) SEAFOOD Allergy Swelling Uncoded 08/31/17 12:24 Physical Exam Vitals: Vital Signs Temp Pulse Pulse Resp BP BP Pulse Ox 11/15/17 08:00 97 F L 83 16 112/59 97 11/15/17 03:41 98.3 F 81 81 16 113/56 113/56 98 11/15/17 02:10 98.5 F 85 16 100/51 97 11/15/17 01:40 98.5 F 87 16 100/53 96 11/15/17 01:30 98.5 F 87 16 106/56 96 11/15/17 00:59 98.1 F 85 16 103/55 98 11/14/17 23:15 98.3 F 88 18 109/54 95 11/14/17 22:53 98.3 F 84 16 97/58 98 11/14/17 22:23 98.2 F 82 16 97/52 98 11/14/17 22:13 98.3 F 84 16 104/54 98 11/14/17 20:00 77 16 11/14/17 19:50 98.2 F 77 18 102/77 99 11/14/17 19:15 77 20 11/14/17 19:13 97.7 F 77 20 113/72 100 Intake and Output 11/14/17 11/15/17 11/15/17 22:59 06:59 14:59 Intake Total 220 1560 120 Output Total 150 200 Balance 70 1360 120 Intake: Intake, IV Titration 100 200 Amount Magnesium Sulfate-D5w Pmx 200 1 gm In Dextrose/Water 1 100ml.bag @ 100 mls/hr IVPB Q1H [facility] Rx#: [id number] Sodium Chloride 0.9% 1, 100 000 ml @ 50 mls/hr IV . Q20H [facility] Rx#:[id number] Oral 120 120 120 Blood Product 0 1240 Rc Irr As1 Unit 0 310 [id number] Rc Irr As1 Unit 310 [id number] Output: Urine 150 200 Other: Voiding Method Toilet Toilet Toilet Weight 58.3 kg 59.7 kg 59.7 kg PHYSICAL EXAMINATION: GENERAL: The patient is alert and oriented x3, not in any acute distress. Well developed, well nourished. HEENT: Pupils are round and equally reacting to light. EOMI. No scleral icterus. Patient does have conjunctival pallor. Normocephalic, atraumatic. No pharyngeal erythema. No thyromegaly. CARDIOVASCULAR: S1 and S2 present. No murmurs, rubs, or gallops. PULMONARY: Chest is clear to auscultation, no wheezing or crackles. ABDOMEN: Soft, nontender, nondistended, normoactive bowel sounds. No palpable organomegaly. MUSCULOSKELETAL: No joint swelling or deformity. EXTREMITIES: No cyanosis, clubbing, or pedal edema. NEUROLOGICAL: Gross neurological examination did not reveal any focal deficits. SKIN: No rashes. Results CBC & Chem 7: 11/15/17 05:37 11/15/17 05:37 Labs: Abnormal Lab Results - Last 24 Hours (Table) 11/14/17 11/14/17 11/14/17 Range/Units 19:14 19:27 19:27 WBC 1.6 L* (3.8-10.6) k/uL RBC 1.82 L (3.80-5.40) m/uL Hgb 6.0 L* D (11.4-16.0) gm/dL Hct 18.6 L* (34.0-46.0) % MCV 102.5 H (80.0-100.0) fL RDW 21.3 H (11.5-15.5) % Plt Count 46 L* (150-450) k/uL Neutrophils # (1.3-7.7) k/uL Neutrophils # (Manual) 0.60 L (1.3-7.7) k/uL Lymphocytes # (1.0-4.8) k/uL Lymphocytes # (Manual) 0.58 L (1.0-4.8) k/uL BUN (7-17) mg/dL Creatinine (0.52-1.04) mg/dL Glucose (74-99) mg/dL POC Glucose (mg/dL) (75-99) mg/dL Calcium (8.4-10.2) mg/dL Phosphorus (2.5-4.5) mg/dL Magnesium (1.6-2.3) mg/dL Total Bilirubin (0.2-1.3) mg/dL AST (14-36) U/L ALT (9-52) U/L Alkaline Phosphatase (38-126) U/L Total Creatine Kinase <20 L (30-135) U/L Troponin I (0.000-0.034) ng/mL Total Protein (6.3-8.2) g/dL Albumin (3.5-5.0) g/dL Urine Protein (Negative) Urine Blood (Negative) Urine Mucus (None) /hpf Crossmatch See Detail 11/14/17 11/14/17 11/15/17 Range/Units 19:27 21:15 05:36 WBC (3.8-10.6) k/uL RBC (3.80-5.40) m/uL Hgb (11.4-16.0) gm/dL Hct (34.0-46.0) % MCV (80.0-100.0) fL RDW (11.5-15.5) % Plt Count (150-450) k/uL Neutrophils # (1.3-7.7) k/uL Neutrophils # (Manual) (1.3-7.7) k/uL Lymphocytes # (1.0-4.8) k/uL Lymphocytes # (Manual) (1.0-4.8) k/uL BUN 23 H (7-17) mg/dL Creatinine (0.52-1.04) mg/dL Glucose 121 H (74-99) mg/dL POC Glucose (mg/dL) 163 H (75-99) mg/dL Calcium 7.8 L (8.4-10.2) mg/dL Phosphorus 4.8 H (2.5-4.5) mg/dL Magnesium 1.5 L (1.6-2.3) mg/dL Total Bilirubin 1.7 H (0.2-1.3) mg/dL AST 124 H (14-36) U/L ALT 146 H (9-52) U/L Alkaline Phosphatase 159 H (38-126) U/L Total Creatine Kinase (30-135) U/L Troponin I (0.000-0.034) ng/mL Total Protein 5.3 L (6.3-8.2) g/dL Albumin 2.7 L (3.5-5.0) g/dL Urine Protein 1+ H (Negative) Urine Blood Moderate H (Negative) Urine Mucus Occasional H (None) /hpf Crossmatch 11/15/17 11/15/17 11/15/17 Range/Units 05:37 05:37 05:37 WBC 1.9 L* (3.8-10.6) k/uL RBC 2.65 L (3.80-5.40) m/uL Hgb 8.4 L D (11.4-16.0) gm/dL Hct 26.0 L (34.0-46.0) % MCV (80.0-100.0) fL RDW 19.4 H (11.5-15.5) % Plt Count 42 L* (150-450) k/uL Neutrophils # 0.9 L (1.3-7.7) k/uL Neutrophils # (Manual) (1.3-7.7) k/uL Lymphocytes # 0.8 L (1.0-4.8) k/uL Lymphocytes # (Manual) (1.0-4.8) k/uL BUN 22 H (7-17) mg/dL Creatinine 0.49 L (0.52-1.04) mg/dL Glucose 143 H (74-99) mg/dL POC Glucose (mg/dL) (75-99) mg/dL Calcium 7.7 L (8.4-10.2) mg/dL Phosphorus (2.5-4.5) mg/dL Magnesium 2.5 H (1.6-2.3) mg/dL Total Bilirubin 1.6 H (0.2-1.3) mg/dL AST 113 H (14-36) U/L ALT 138 H (9-52) U/L Alkaline Phosphatase 138 H (38-126) U/L Total Creatine Kinase (30-135) U/L Troponin I 0.042 H* (0.000-0.034) ng/mL Total Protein 4.9 L (6.3-8.2) g/dL Albumin 2.4 L (3.5-5.0) g/dL Urine Protein (Negative) Urine Blood (Negative) Urine Mucus (None) /hpf Crossmatch 11/15/17 Range/Units 10:23 WBC (3.8-10.6) k/uL RBC (3.80-5.40) m/uL Hgb (11.4-16.0) gm/dL Hct (34.0-46.0) % MCV (80.0-100.0) fL RDW (11.5-15.5) % Plt Count (150-450) k/uL Neutrophils # (1.3-7.7) k/uL Neutrophils # (Manual) (1.3-7.7) k/uL Lymphocytes # (1.0-4.8) k/uL Lymphocytes # (Manual) (1.0-4.8) k/uL BUN (7-17) mg/dL Creatinine (0.52-1.04) mg/dL Glucose (74-99) mg/dL POC Glucose (mg/dL) (75-99) mg/dL Calcium (8.4-10.2) mg/dL Phosphorus (2.5-4.5) mg/dL Magnesium (1.6-2.3) mg/dL Total Bilirubin (0.2-1.3) mg/dL AST (14-36) U/L ALT (9-52) U/L Alkaline Phosphatase (38-126) U/L Total Creatine Kinase (30-135) U/L Troponin I 0.043 H* (0.000-0.034) ng/mL Total Protein (6.3-8.2) g/dL Albumin (3.5-5.0) g/dL Urine Protein (Negative) Urine Blood (Negative) Urine Mucus (None) /hpf Crossmatch Microbiology - Last 24 Hours (Table) 11/14/17 21:15 Urine Culture - Preliminary Urine,Voided Thrombosis Risk Factor Assmnt - Choose All That Apply Any of the Below Risk Factors Present?: No Other Risk Factors: Yes Each Risk Factor Represents 2 Points: Age 61-74 years Other congenital or acquired thrombophilia - If yes, enter type in comment: No Thrombosis Risk Factor Assessment Total Risk Factor Score: 2 Thrombosis Risk Factor Assessment Level: Low Risk Assessment and Plan Plan: -Symptomatically anemia: Status post blood transfusion patient does have an cytopenia secondary to minor dysplastic syndrome. Serial blood transfusion with the irradiated PRBC. -Mild transaminitis fairly stable secondary probably secondary to increased ferritin and patient is on a chelating agent for that -Type 2 diabetes mellitus -COPD without any acute exacerbation Heparin sleep apnea Patient will continue rest of home medications without any changes patient will follow-up with the PCP as an outpatient and Dr. sEquivel as an outpatient.
[2017-11-16 10:10] LABS: WBC 1.6 k/uL (3.8-10.6)
[2017-11-20] MEDS ORDERED: EPOETIN ALFA 40000 UNIT SQ SCH (09:00)
== END 2017-11-15 11:30 | disposition home or self-care (01) | DRG 810 ==
LOC: 6SEL 18:09
PROVIDERS: ADMIT Hospitalist; ATTEND Hospitalist
PROC: 30233N1 Transfusion of Nonautologous Red Blood Cells into Peripheral Vein, Percutaneous Approach (ICD-10-PCS; principal; 2017-11-14)
DX: D61.818 Other pancytopenia (principal); D46.9 Myelodysplastic syndrome, unspecified; E11.9 Type 2 diabetes mellitus without complications; G47.33 Obstructive sleep apnea (adult) (pediatric); J44.9 Chronic obstructive pulmonary disease, unspecified; K21.9 Gastro-esophageal reflux disease without esophagitis; Z79.4 Long term (current) use of insulin; Z79.899 Other long term (current) drug therapy; Z82.49 Family history of ischemic heart disease and other diseases of the circulatory system; Z87.891 Personal history of nicotine dependence; Z90.710 Acquired absence of both cervix and uterus; R74.8 Abnormal levels of other serum enzymes; Z88.2 Allergy status to sulfonamides; Z88.8 Allergy status to other drugs, medicaments and biological substances; Z88.3 Allergy status to other anti-infective agents; Z88.5 Allergy status to narcotic agent; Z88.0 Allergy status to penicillin; Z91.013 Allergy to seafood; Z90.49 Acquired absence of other specified parts of digestive tract; Z98.1 Arthrodesis status; Z98.42 Cataract extraction status, left eye
CPT/HCPCS: 71046; 80053; 81001; 82550; 82553; 83735; 83921; 84100; 84484; 85025; 85610; 86850; 86900; 86901; 86920; 87040; 87086; 93306

== ENCOUNTER 2017-11-28 10:07 | Inpatient (IN) | payer MEDICARE, OTHER ==
[2017-11-28] MEDS ORDERED: SODIUM CHLORIDE 0.9% 1,000 ML IV STA (10:43)
[2017-11-28] MEDS ORDERED: MORPHINE SULFATE 4 MG/ML SYRINGE IVP STA (10:43)
--- NOTE | 2017-11-28 10:44 | ED ---
General Adult HPI - General Chief complaint: Recheck/Abnormal Lab/Rx Stated complaint: abn labs Time Seen by Provider: 11/28/17 10:42 Source: patient, family, RN notes reviewed, old records reviewed Mode of arrival: ambulatory Limitations: no limitations - History of Present Illness Initial comments: This is a 67-year-old female the ER for evaluation. This patient presents for evaluation regards to weakness. Patient has no history of leukemia, known history of anemia. Patient states her hemoglobin most recently has been 5.3. She feels very weak lightheaded and dizzy. Denies bleeding or bladder, denies bleeding in her stool, no vomiting of blood - Related Data Home Medications Medication Instructions Recorded Confirmed FLUoxetine HCL [PROzac] 40 mg PO DAILY 08/31/17 11/28/17 Deferasirox [Jadenu] 90 mg PO DAILY 11/02/17 11/28/17 Deferasirox [Jadenu] 720 mg PO DAILY 11/02/17 11/28/17 Epoetin Chris [Procrit] 40,000 unit SQ REECE 11/02/17 11/28/17 Gabapentin 600 mg PO QID 11/02/17 11/28/17 Lenalidomide [Revlimid] 10 mg PO DAILY 11/02/17 11/28/17 Insulin Glargine [Lantus] See Protocol SQ HS PRN 11/14/17 11/28/17 Previous Rx's Medication Instructions Recorded Zolpidem Tartrate [Ambien] 10 mg PO HS #20 tablet 03/03/17 Allergies Allergy/AdvReac Type Severity Reaction Status Date / Time codeine Allergy Unknown Verified 11/28/17 11:09 iodine Allergy Swelling Verified 11/28/17 11:09 iron Allergy Swelling Verified 11/28/17 11:09 Penicillins Allergy Swelling Verified 11/28/17 11:09 shellfish derived [Shellfish] Allergy Swelling Verified 11/28/17 11:09 Sulfa (Sulfonamide Allergy Swelling Verified 11/28/17 11:09 Antibiotics) SEAFOOD Allergy Swelling Uncoded 11/28/17 10:34 Review of Systems ROS Statement: Those systems with pertinent positive or pertinent negative responses have been documented in the HPI. ROS Other: All systems not noted in ROS Statement are negative. Past Medical History Past Medical History: Cancer, COPD, Diabetes Mellitus, Eye Disorder, GERD/Reflux , Sleep Apnea/CPAP/BIPAP Additional Past Medical History / Comment(s): Myelodysplastic syndrome, leukemia -PT TOOK ORAL CHEMO TODAY 11-14-17, myoblastic anemia, IDDM type II, PATRICIA without device, thoracic back pain, R eye cataract. History of Any Multi-Drug Resistant Organisms: MRSA Date of last positivie culture/infection: 02/08/17 MDRO Source:: URINE Past Surgical History: Appendectomy, Cholecystectomy, Hysterectomy, Joint Replacement, Tonsillectomy Additional Past Surgical History / Comment(s): left hip fracture with sugery, right foot and right ankle fractures with sx, thoracic back fusion, lt eye cataract, partial hysterectomy, "dislocation rt shoulder-put back in place", rt chest mediport, colonoscopy. Past Anesthesia/Blood Transfusion Reactions: Blood Transfusion Reaction Additional Past Anesthesia/Blood Transfusion Reaction / Comment(s): with a blood transfusion got hives/itching was given benadryl Past Psychological History: Anxiety, Bipolar, Depression Smoking Status: Former smoker Past Alcohol Use History: None Reported Past Drug Use History: None Reported - Past Family History Mother Additional Family Medical History / Comment(s): alcoholic Father Family Medical History: Myocardial Infarction ([place]) Additional Family Medical History / Comment(s): Father of a [place] at the age of 65yrs. General Exam Limitations: no limitations General appearance: alert, in no apparent distress Head exam: Present: atraumatic, normocephalic, normal inspection Eye exam: Present: normal appearance, PERRL, EOMI. Absent: scleral icterus, conjunctival injection, periorbital swelling ENT exam: Present: normal exam, mucous membranes moist Neck exam: Present: normal inspection. Absent: tenderness, meningismus, lymphadenopathy Respiratory exam: Present: normal lung sounds bilaterally. Absent: respiratory distress, wheezes, rales, rhonchi, stridor Cardiovascular Exam: Present: regular rate, normal rhythm, normal heart sounds. Absent: systolic murmur, diastolic murmur, rubs, gallop, clicks GI/Abdominal exam: Present: soft, normal bowel sounds. Absent: distended, tenderness, guarding, rebound, rigid Extremities exam: Present: normal inspection, full ROM, normal capillary refill. Absent: tenderness, pedal edema, joint swelling, calf tenderness Back exam: Present: normal inspection Neurological exam: Present: alert, oriented X3, CN II-XII intact Psychiatric exam: Present: normal affect, normal mood Skin exam: Present: warm, dry, intact, normal color. Absent: rash Course Vital Signs 11/28/17 10:30 Temperature 98.1 F Pulse Rate 82 Respiratory 18 Rate Blood Pressure 111/71 O2 Sat by Pulse 100 Oximetry EKG Findings - EKG Comments: EKG Findings:: EKG shows sinus rhythm rate of 83, MN 134, QRS 86, QTc 455 Medical Decision Making - Medical Decision Making 67 female DEL with leukemia on chemo, will be admitted for transfusion in regards to chronic and low anemia - Lab Data Result diagrams: 11/28/17 10:50 11/28/17 10:50 Lab Results 11/28/17 11/28/17 11/28/17 Range/Units 10:50 10:50 10:50 WBC 2.8 L (3.8-10.6) k/uL RBC 1.66 L (3.80-5.40) m/uL Hgb 5.3 L* D (11.4-16.0) gm/dL Hct 16.4 L* (34.0-46.0) % MCV 99.2 (80.0-100.0) fL MCH 32.0 (25.0-35.0) pg MCHC 32.2 (31.0-37.0) g/dL RDW 19.3 H (11.5-15.5) % Plt Count 10 L* D (150-450) k/uL Neutrophils % Not Reportable Neutrophils % (Manual) 19 % Lymphocytes % Not Reportable Lymphocytes % (Manual) 39 % Monocytes % Not Reportable Monocytes % (Manual) 1 % Eosinophils % Not Reportable Eosinophils % (Manual) 41 % Basophils % Not Reportable Neutrophils # Not Reportable Neutrophils # (Manual) 0.53 L (1.3-7.7) k/uL Lymphocytes # Not Reportable Lymphocytes # (Manual) 1.09 (1.0-4.8) k/uL Monocytes # Not Reportable Monocytes # (Manual) 0.03 (0-1.0) k/uL Eosinophils # Not Reportable Eosinophils # (Manual) 1.15 H (0-0.7) k/uL Basophils # Not Reportable Nucleated RBCs 0 (0-0) /100 WBC Manual Slide Review Performed Anisocytosis Slight Macrocytosis Moderate PT (9.0-12.0) sec INR (<1.2) APTT (22.0-30.0) sec Sodium 140 (137-145) mmol/L Potassium 4.0 (3.5-5.1) mmol/L Chloride 106 (98-107) mmol/L Carbon Dioxide 27 (22-30) mmol/L Anion Gap 7 mmol/L BUN 18 H (7-17) mg/dL Creatinine 0.48 L (0.52-1.04) mg/dL Est GFR (CKD-EPI)AfAm >90 (>60 ml/min/1.73 sqM) Est GFR (CKD-EPI)NonAf >90 (>60 ml/min/1.73 sqM) Glucose 136 H (74-99) mg/dL Calcium 8.0 L (8.4-10.2) mg/dL Magnesium 1.8 (1.6-2.3) mg/dL Total Bilirubin 1.3 (0.2-1.3) mg/dL AST 103 H (14-36) U/L ALT 177 H (9-52) U/L Alkaline Phosphatase 171 H (38-126) U/L Total Creatine Kinase <20 L (30-135) U/L CK-MB (CK-2) <0.2 (0.0-2.4) ng/mL CK-MB (CK-2) Rel Index Troponin I 0.063 H* (0.000-0.034) ng/mL Total Protein 5.1 L (6.3-8.2) g/dL Albumin 2.8 L (3.5-5.0) g/dL Lipase 36 (23-300) U/L Blood Type Blood Type Recheck Antibody Screen Spec Expiration Date 11/28/17 11/28/17 Range/Units 10:50 10:50 WBC (3.8-10.6) k/uL RBC (3.80-5.40) m/uL Hgb (11.4-16.0) gm/dL Hct (34.0-46.0) % MCV (80.0-100.0) fL MCH (25.0-35.0) pg MCHC (31.0-37.0) g/dL RDW (11.5-15.5) % Plt Count (150-450) k/uL Neutrophils % Neutrophils % (Manual) % Lymphocytes % Lymphocytes % (Manual) % Monocytes % Monocytes % (Manual) % Eosinophils % Eosinophils % (Manual) % Basophils % Neutrophils # Neutrophils # (Manual) (1.3-7.7) k/uL Lymphocytes # Lymphocytes # (Manual) (1.0-4.8) k/uL Monocytes # Monocytes # (Manual) (0-1.0) k/uL Eosinophils # Eosinophils # (Manual) (0-0.7) k/uL Basophils # Nucleated RBCs (0-0) /100 WBC Manual Slide Review Anisocytosis Macrocytosis PT 10.0 (9.0-12.0) sec INR 1.0 (<1.2) APTT 22.7 (22.0-30.0) sec Sodium (137-145) mmol/L Potassium (3.5-5.1) mmol/L Chloride (98-107) mmol/L Carbon Dioxide (22-30) mmol/L Anion Gap mmol/L BUN (7-17) mg/dL Creatinine (0.52-1.04) mg/dL Est GFR (CKD-EPI)AfAm (>60 ml/min/1.73 sqM) Est GFR (CKD-EPI)NonAf (>60 ml/min/1.73 sqM) Glucose (74-99) mg/dL Calcium (8.4-10.2) mg/dL Magnesium (1.6-2.3) mg/dL Total Bilirubin (0.2-1.3) mg/dL AST (14-36) U/L ALT (9-52) U/L Alkaline Phosphatase (38-126) U/L Total Creatine Kinase (30-135) U/L CK-MB (CK-2) (0.0-2.4) ng/mL CK-MB (CK-2) Rel Index Troponin I (0.000-0.034) ng/mL Total Protein (6.3-8.2) g/dL Albumin (3.5-5.0) g/dL Lipase (23-300) U/L Blood Type A Positive Blood Type Recheck No Antibody Screen NEGATIVE Spec Expiration Date 12/01/2017 - 235 Disposition Clinical Impression: Anemia, Weakness, MDS (myelodysplastic syndrome) Disposition: ADMITTED IP TO THIS [facility] Condition: Fair Is patient prescribed a controlled substance at d/c from ED?: No
[2017-11-28 11:12] LABS: Anisocytosis Slight; MCHC 32.2 g/dL (31.0-37.0); MCV 99.2 fL (80.0-100.0); Macrocytosis Moderate; Mean Platelet Volume 14.5; RBC 1.66 m/uL (3.80-5.40); RDW 19.3 % (11.5-15.5); WBC 2.8 k/uL (3.8-10.6)
[2017-11-28 11:16] LABS: Partial Thromboplastin Time 22.7 sec (22.0-30.0)
[2017-11-28 11:26] LABS: HGB 5.3 gm/dL (11.4-16.0)
[2017-11-28 11:29] LABS: HCT 16.4 % (34.0-46.0)
[2017-11-28 11:31] LABS: ALT 177 U/L (9-52); AST 103 U/L (14-36); Albumin 2.8 g/dL (3.5-5.0); Alkaline Phosphatase 171 U/L (38-126); Anion Gap 7 mmol/L; Blood Urea Nitrogen 18 mg/dL (7-17); Carbon Dioxide 27 mmol/L (22-30); Chloride 106 mmol/L (98-107); Glucose 136 mg/dL (74-99); Lipase 36 U/L (23-300); Magnesium 1.8 mg/dL (1.6-2.3); Sodium 140 mmol/L (137-145); Total Bilirubin 1.3 mg/dL (0.2-1.3); Total Protein 5.1 g/dL (6.3-8.2)
[2017-11-28 11:42] LABS: Eosinophils # (M) 1.15 k/uL (0-0.7); Lymphocytes # (M) 1.09 k/uL (1.0-4.8); Monocytes # (M) 0.03 k/uL (0-1.0); Neutrophils # (M) 0.53 k/uL (1.3-7.7); Neutrophils % (M) 19 %; Nucleated Red Blood Cells 0 /100 WBC (0-0); Total Cells Counted 100
[2017-11-28 11:43] LABS: Platelet Count 10 k/uL (150-450)
[2017-11-28 11:45] LABS: Creatine Kinase <20 U/L (30-135)
[2017-11-28 11:57] LABS: Creatine Kinase MB <0.2 ng/mL (0.0-2.4)
[2017-11-28 12:02] LABS: Troponin I 0.063 ng/mL (0.000-0.034)
[2017-11-28] MEDS: MORPHINE SULFATE 4 MG/ML SYRINGE IVP PRN (16:22)
[2017-11-28] MEDS: ZOLPIDEM 10 MG TAB PO SCH (20:32)
[2017-11-28] MEDS: INSULIN DETEMIR 100 UNIT/ML 10 ML VIAL SQ SCH (20:33)
[2017-11-28] MEDS: GABAPENTIN 300 MG CAP PO SCH ×2 (20:33→20:35)
--- NOTE | 2017-11-28 21:58 | HP ---
HISTORY AND PHYSICAL CHIEF COMPLAINTS: Generalized tiredness and weakness and anemia. HISTORY OF PRESENT ILLNESS: This 67-year-old woman with a past medical history of myelodysplastic syndrome with multiple transfusions, history of hyperbilirubinemia, diabetes mellitus, type 2, bipolar, gait dysfunction, being followed by Dr. Perez in the outpatient setting, was noted to have extreme tiredness and weakness. The patient came to [facility] and hemoglobin was found to be 5.3 and platelets of 10. Patient was admitted for further evaluation and treatment. There is no history of any active bleeding. No history of chest pain, palpitations, history of headache, loss of consciousness, seizures. Multiple abnormalities, including troponin elevated up to 0.063 and elevated AST and ALT were also noted. Platelet transfusion and blood transfusion are also being arranged. PAST MEDICAL HISTORY: 1. History of myelodysplastic syndrome. 2. History of COPD. 3. History of diabetes mellitus, type 2. 4. GERD. 5. Sleep apnea. 6. History of urine MRSA. HOME MEDICATIONS: 1. Ambien 10 mg p.o. at bedtime. 2. Revlimid 10 mg p.o. daily. 3. Lantus at bedtime p.r.n. 4. Gabapentin 600 mg p.o. q.i.d. 5. Prozac 40 mg p.o. daily. 6. Procrit 40,000 subcutaneously. 7. Jadenu 90 mg p.o. daily. 8. Jadenu 720 mg p.o. daily. ALLERGIES: 1. CODEINE. 2. IODINE. 3. IRON. 4. PENICILLIN. 5. SHELLFISH. 6. SULFA. 7. SEAFOOD. FAMILY HISTORY: History of myocardial infarction and alcohol. SOCIAL HISTORY: No history of smoking. No history of alcohol intake. REVIEW OF SYSTEMS: ENT: No diminished hearing. No diminished vision. CARDIOVASCULAR SYSTEM: No angina, palpitations. RESPIRATORY SYSTEM: No cough, hemoptysis. GI: No nausea, vomiting. : No dysuria or retention. NERVOUS SYSTEM: No numbness, weakness. ALLERGY/IMMUNOLOGY: No asthma, hayfever. MUSCULOSKELETAL: As mentioned earlier. HEMATOLOGY/ONCOLOGY: As mentioned earlier. ENDOCRINE: Diabetes mellitus. CONSTITUTIONAL: As mentioned earlier. DERMATOLOGY: Negative. RHEUMATOLOGY: Negative. PSYCHIATRY: As mentioned earlier. PHYSICAL EXAMINATION: Patient is alert and oriented x3. Pulse 83, blood pressure 117/60, respiration 18, temperature 98.1, pulse ox 94% on room air. HEENT: Conjunctivae pale. Oral mucosa moist. NECK: No jugular venous distention. No carotid bruit. No lymph node enlargement. CARDIOVASCULAR SYSTEM: S1, S2 muffled. No S3. No S4. RESPIRATORY SYSTEM: Breath sounds diminished at the bases. Scattered rhonchi. No crackles. ABDOMEN: Soft, non-tender. No mass palpable. LEGS: No edema. No swelling. NERVOUS SYSTEM: Higher functions as mentioned earlier. Moves all 4 limbs. No focal motor or sensory deficit. LYMPHATICS: No lymph node palpable in neck, axillae or groin. SKIN: No ulcer, rash, bleeding. LABS: WBC 2.8, hemoglobin 5.3, platelets 10, eosinophils 1.15. INR is 1. Sodium 140, potassium 4, creatinine 0.48, glucose 136, calcium 8. AST is 103. ALT is 177. Troponin 0.063. Albumin is 2.8. ASSESSMENT: 1. Severe anemia, possibly secondary to MDS acute exacerbation. 2. Severe thrombocytopenia. 3. Severe pancytopenia. 4. History of MDS. 5. Elevated AST ALT, possibly hepatitis. 6. Troponin 0.063, indeterminate. 7. History of chronic obstructive pulmonary disease. 8. Diabetes mellitus, type 2. 9. Gastroesophageal reflux disease. 10.Sleep apnea. 11.History of leukemia with myeloblastic anemia. 12.History of Methicillin-resistant Staphylococcus aureus. 13.History of anxiety, bipolar, depression. RECOMMENDATIONS AND DISCUSSION: In this 67-year-old woman who presented with multiple complex medical issues, we will monitor the patient closely. At least 2 units of platelet transfusion have been arranged. The patient also had multiple other medical problems, including elevated AST and ALT, which have been fluctuating. Will repeat the labs. We will also obtain evaluation by Dr. Esquivel regarding the possible leukemic transformation. Troponins are noted. I would recommend remote telemetry and cardiology consultation as well. Overall prognosis is extremely guarded. I would also recommend medication reconciliation. Discussed with the family and discussed with staff. Further recommendations to follow. See orders for further details. A 2D echo with Doppler which was done earlier this year by Cardiology showed ejection fraction about 50% to 55%. A copy of this dictation is being forwarded to Dr. Perez, who is the primary physician. MMODL / IJN: [id number] /
[2017-11-29] MEDS: MORPHINE SULFATE 4 MG/ML SYRINGE IVP PRN ×3 (05:28→19:22)
[2017-11-29 07:06] LABS: Glucose,Whole Blood 84 mg/dL (75-99)
[2017-11-29] MEDS: INSULIN ASPART 100 UNIT/ML 1 ML 10 ML VIAL SQ SCH ×4 (07:45→20:44)
[2017-11-29 08:11] LABS: Anion Gap 3 mmol/L; Blood Urea Nitrogen 18 mg/dL (7-17); Calcium 7.7 mg/dL (8.4-10.2); Carbon Dioxide 26 mmol/L (22-30); Chloride 109 mmol/L (98-107); Glucose 79 mg/dL (74-99); Potassium 3.8 mmol/L (3.5-5.1); Sodium 138 mmol/L (137-145)
[2017-11-29 08:19] LABS: Anisocytosis Slight; MCH 31.8 pg (25.0-35.0); MCHC 32.8 g/dL (31.0-37.0); MCV 96.9 fL (80.0-100.0); Macrocytosis Slight; Mean Platelet Volume 11.4; RBC 1.94 m/uL (3.80-5.40); RDW 18.9 % (11.5-15.5); WBC 2.1 k/uL (3.8-10.6)
[2017-11-29 08:22] LABS: HCT 18.8 % (34.0-46.0); HGB 6.2 gm/dL (11.4-16.0)
[2017-11-29 08:24] LABS: Platelet Count 9 k/uL (150-450)
[2017-11-29] MEDS: FLUoxetine HCL 20 MG CAP PO SCH (09:18)
[2017-11-29] MEDS: LENALIDOMIDE 10 MG PO SCH (09:39)
[2017-11-29] MEDS: DEFERASIROX PO SCH (09:40)
[2017-11-29] MEDS: DEFERASIROX 180 MG PO SCH (09:41)
[2017-11-29] MEDS: GABAPENTIN 300 MG CAP PO SCH ×4 (09:42→23:00)
[2017-11-29 10:39] LABS: Eosinophils # (M) 0.76 k/uL (0-0.7); Lymphocytes # (M) 1.07 k/uL (1.0-4.8); Monocytes # (M) 0.06 k/uL (0-1.0); Neutrophils # (M) 0.21 k/uL (1.3-7.7); Neutrophils % (M) 10 %; Nucleated Red Blood Cells 0 /100 WBC (0-0); Total Cells Counted 100
--- NOTE | 2017-11-29 11:01 | P.CRDCN ---
History of Present Illness History of present illness: Mrs. Funez is a pleasant 67-year-old female past medical history significant for myelodysplasia, diabetes mellitus, gastroesophageal reflux disease and former tobacco use. She denies history of coronary artery disease. We have been asked to see her in consultation for elevated troponins. She was sent in by her primary care physician for low hemoglobin of 5.3. She follows with Dr. Esquivel for myelodysplasia. She denies black or bloody stools or any acute blood loss recently. She complains of intermittent non-specific chest tightness in left precordial region and shortness of breath with exertion over the last few days. She denies dizziness, nausea, vomiting, palpitations or diaphoresis. She was seen here in November for similar situation with anemia and mildly elevated troponin. Most recent echocardiogram 11/2017 reveals low-normal LV systolic function with EF 50-55%, mildly dilated LA, mild AV sclerosis, mild MR, mild TR and mild PH with RVSP 37.23 mmHg. Laboratory data reviewed, hemoglobin on admission 5.3 after 1 unit packed red blood cells repeat this morning 6.2, WBC 2.1, platelets 9, sodium 138, potassium 3.8, creatinine 0.5, magnesium on admission 1.8. Troponin on admission 0.063. Current medications include Ambien, Revlimid, Lantus, gabapentin, Prozac, Procardia and Jadenu. Review of Systems At the time of my exam: CONSTITUTIONAL: Denies fever. Denies chills. EYES: Denies blurred vision. Denies vision changes. Denies eye pain. EARS, NOSE, MOUTH & THROAT: Denies headache. Denies sore throat. Denies ear pain. CARDIOVASCULAR: Denies chest pain. Denies shortness of breath. Denies orthopnea. Denies PND. Denies palpitations. RESPIRATORY: Denies cough. GASTROINTESTINAL: Denies abdominal pain. Denies diarrhea. Denies constipation. Denies nausea. Denies vomiting. MUSCULOSKELETAL: Denies myalgias. INTEGUMENTARY: Denies pruitis. Denies rash. NEUROLOGIC: Denies numbness. Denies tingling. Denies weakness. PSYCHIATRIC: Denies anxiety. Denies depression. ENDOCRINE: Denies fatigue. Denies weight change. Denies polydipsia. Denies polyurina. GENITOURINARY: Denies burning, hematuria or urgency with micturation. HEMATOLOGIC: Denies history of anemia. Denies bleeding. Past Medical History Past Medical History: Cancer, COPD, Diabetes Mellitus, Eye Disorder, GERD/Reflux , Sleep Apnea/CPAP/BIPAP Additional Past Medical History / Comment(s): Myelodysplastic syndrome, leukemia -on oral chemo, myoblastic anemia, IDDM type II, PATRICIA without device, thoracic back pain, R eye cataract.uti, rt eye cataract History of Any Multi-Drug Resistant Organisms: MRSA, Other MDRO Date of last positivie culture/infection: 02/08/17-mrsa MDRO Source:: URINE-mrsa Past Surgical History: Appendectomy, Cholecystectomy, Hysterectomy, Joint Replacement, Tonsillectomy Additional Past Surgical History / Comment(s): left hip fracture with sugery, right foot and right ankle fractures with sx, thoracic back fusion, lt eye cataract, partial hysterectomy, "dislocation rt shoulder-put back in place", rt chest mediport, colonoscopy. Past Anesthesia/Blood Transfusion Reactions: Blood Transfusion Reaction Additional Past Anesthesia/Blood Transfusion Reaction / Comment(s): with a blood transfusion got hives/itching was given benadryl Smoking Status: Former smoker - Past Family History Mother Additional Family Medical History / Comment(s): alcoholic Father Family Medical History: Myocardial Infarction ([place]) Additional Family Medical History / Comment(s): Father of a [place] at the age of 65yrs. Medications and Allergies Home Medications Medication Instructions Recorded Confirmed Type Zolpidem Tartrate [Ambien] 10 mg PO HS #20 tablet 03/03/17 11/28/17 Rx FLUoxetine HCL [PROzac] 40 mg PO DAILY 08/31/17 11/28/17 History Deferasirox [Jadenu] 90 mg PO DAILY 11/02/17 11/28/17 History Deferasirox [Jadenu] 720 mg PO DAILY 11/02/17 11/28/17 History Epoetin Chris [Procrit] 40,000 unit SQ GREENE 11/02/17 11/28/17 History Gabapentin 600 mg PO QID 11/02/17 11/28/17 History Lenalidomide [Revlimid] 10 mg PO DAILY 11/02/17 11/28/17 History Insulin Glargine [Lantus] See Protocol SQ HS PRN 11/14/17 11/28/17 History Allergies Allergy/AdvReac Type Severity Reaction Status Date / Time codeine Allergy Unknown Verified 11/28/17 11:09 iodine Allergy Swelling Verified 11/28/17 11:09 iron Allergy Swelling Verified 11/28/17 11:09 Penicillins Allergy Swelling Verified 11/28/17 11:09 shellfish derived [Shellfish] Allergy Swelling Verified 11/28/17 11:09 Sulfa (Sulfonamide Allergy Swelling Verified 11/28/17 11:09 Antibiotics) SEAFOOD Allergy Swelling Uncoded 11/28/17 10:34 Physical Exam Vitals: Vital Signs Temp Pulse Pulse Resp BP BP Pulse Ox 11/29/17 06:14 97.9 F 87 16 132/62 95 11/29/17 03:52 98 F 87 22 141/65 95 11/29/17 01:33 98.2 F 88 22 128/57 11/29/17 01:05 92 20 11/29/17 01:03 98.5 F 83 20 123/57 11/29/17 00:53 98.4 F 92 22 110/56 94 L 11/29/17 00:31 98.6 F 92 14 106/46 11/28/17 21:25 97.8 F 92 18 125/60 94 L 11/28/17 18:35 68 18 98 11/28/17 16:20 83 18 117/60 94 L 11/28/17 13:29 83 18 136/94 99 11/28/17 10:30 98.1 F 82 18 111/71 100 Intake and Output 11/28/17 11/29/17 11/29/17 22:59 06:59 14:59 Intake Total 1420 Balance 1420 Intake: Intake, IV Titration 800 Amount Sodium Chloride 0.9% 1, 800 000 ml @ 100 mls/hr IV . Q10H STA Rx#:[id number] Blood Product 620 Rc Irr As1 Unit 310 [id number] Other: Weight 58.196 kg Blood pressure 132/62 heart rate 87 afebrile maintaining oxygen saturation on room air GENERAL: This is a 67-year-old female in no apparent distress at the time of my examination. HEENT: Head is atraumatic, normocephalic. Pupils are equal, round. Sclerae anicteric. Conjunctivae are clear. Mucous membranes of the mouth are moist. Neck is supple. There is no jugular venous distention. No carotid bruit is heard. LUNGS: Clear to auscultation no wheezes, rales or rhonchi. No chest wall tenderness is noted on palpation or with deep breathing. HEART: Regular rate and rhythm without murmurs, rubs or gallops. S1 and S2 heard. ABDOMEN: Soft, nontender. Bowel sounds are heard. No organomegaly noted. EXTREMITIES: No evidence of peripheral edema and no calf tenderness noted. VASCULAR: Radial and dorsalis pedis pulses palpated, no evidence of clubbing. NEUROLOGIC: Patient is awake, alert and oriented x3. Results 11/29/17 07:29 11/29/17 07:29 Cardiac Enzymes 11/28/17 11/28/17 Range/Units 10:50 10:50 AST 103 H (14-36) U/L CK-MB (CK-2) <0.2 (0.0-2.4) ng/mL Troponin I 0.063 H* (0.000-0.034) ng/mL Coagulation 11/28/17 Range/Units 10:50 PT 10.0 (9.0-12.0) sec APTT 22.7 (22.0-30.0) sec CBC 11/28/17 11/29/17 Range/Units 10:50 07:29 WBC 2.8 L 2.1 L (3.8-10.6) k/uL RBC 1.66 L 1.94 L (3.80-5.40) m/uL Hgb 5.3 L* D 6.2 L* (11.4-16.0) gm/dL Hct 16.4 L* 18.8 L* (34.0-46.0) % Plt Count 10 L* D 9 L* (150-450) k/uL Comprehensive Metabolic Panel 11/28/17 11/29/17 Range/Units 10:50 07:29 Sodium 140 138 (137-145) mmol/L Potassium 4.0 3.8 (3.5-5.1) mmol/L Chloride 106 109 H (98-107) mmol/L Carbon Dioxide 27 26 (22-30) mmol/L BUN 18 H 18 H (7-17) mg/dL Creatinine 0.48 L 0.50 L (0.52-1.04) mg/dL Glucose 136 H 79 (74-99) mg/dL Calcium 8.0 L 7.7 L (8.4-10.2) mg/dL AST 103 H (14-36) U/L ALT 177 H (9-52) U/L Alkaline Phosphatase 171 H (38-126) U/L Total Protein 5.1 L (6.3-8.2) g/dL Albumin 2.8 L (3.5-5.0) g/dL Current Medications Generic Name Dose Route Start Last Admin Trade Name Freq PRN Reason Stop Dose Admin Darbepoetin Chris 100 mcg 12/04/17 09:00 Aranesp SQ Greene@0900 MONAE Fluoxetine HCl 40 mg 11/29/17 09:00 11/29/17 09:18 Prozac PO 40 mg DAILY MONAE Administration Gabapentin 600 mg 11/28/17 18:00 11/29/17 09:42 Neurontin PO 600 mg QID MONAE Administration Insulin Aspart 0 unit 11/29/17 07:30 11/29/17 07:45 Novolog SQ Not Given ACHS [facility] Protocol Insulin Detemir 15 unit 11/28/17 21:00 11/28/17 20:33 Levemir SQ 15 unit HS MONAE Administration Morphine Sulfate 4 mg 11/28/17 14:52 11/29/17 05:28 Morphine Sulfate (Inj) IVP 4 mg Q4HR PRN Administration Pain Patient's Own Med ( 720 mg 11/29/17 09:00 11/29/17 09:41 Deferasirox [Jadenu] PO 720 mg 180 Mg) DAILY MONAE Administration Patient's Own Med ( 90 mg 11/29/17 09:00 11/29/17 09:40 Deferasirox [Jadenu] PO 90 mg 90 Mg) DAILY MONAE Administration Patient's Own Med ( 10 mg 11/29/17 09:00 11/29/17 09:39 Lenalidomide [ PO 10 mg Revlimid] 10 Mg) DAILY MONAE Administration Zolpidem Tartrate 10 mg 11/28/17 21:00 11/28/17 20:32 Ambien PO 10 mg HS MONAE Administration Intake and Output 11/28/17 11/29/17 11/29/17 22:59 06:59 14:59 Intake Total 1420 Balance 1420 Intake: Intake, IV Titration 800 Amount Sodium Chloride 0.9% 1, 800 000 ml @ 100 mls/hr IV . Q10H STA Rx#:[id number] Blood Product 620 Rc Irr As1 Unit 310 [id number] Other: Weight 58.196 kg 11/29/17 07:29 18 07:29 Assessment and Plan Assessment: ASSESSMENT Myelodysplastic syndrome Elevated troponin, not indicative of an acute coronary event. Secondary to oxygen supply demand mismatch due to anemia COPD, history of Diabetes mellitus PLAN Obtain EKG. No need for repeat echocardiogram. Study from earlier this month reviewed. Mild troponin leak related to oxygen supply demand mismatch. Thank you kindly for this consultation. Nurse Practitioner note has been reviewed, I agree with a documented findings and plan of care. Patient was seen and examined.
[2017-11-29 11:37] LABS: Glucose,Whole Blood 101 mg/dL (75-99)
--- NOTE | 2017-11-29 16:11 | PN ---
PROGRESS NOTE DATE OF SERVICE: 11/29/2017. This 67-year-old woman who was admitted with severe anemia, pancytopenia and thrombocytopenia is being closely monitored after 1 unit of platelets and RBC transfusion. Still the patient has thrombocytopenia as well as anemia. Hematology- Oncology following the patient closely. No chest pain. No palpitations. No fever. EXAM: Alert and oriented x3. Pulse is 85, blood pressure 127/76, respiration 14, temperature 98.1, pulse ox 98% on room air. HEENT: Conjunctivae pale. NECK: No jugular venous distention. CARDIOVASCULAR: S1, S2. RESPIRATORY: Breath sounds diminished in the bases. No rhonchi, no crackles. ABDOMEN: Soft, nontender. LEGS: No focal deficits. LABS: WBC 2.1, hemoglobin 6.2, and platelets are 9. Glucose 101. Troponin 0.075. ASSESSMENT: 1. Severe anemia possibly secondary to myelodysplastic syndrome acute exacerbation. 2. Severe thrombocytopenia. 3. Severe pancytopenia. 4. History of MDS. 5. Increased AST ALT, possibly hepatitis. 6. Troponin 0.06 indeterminate. 7. History of chronic obstructive pulmonary disease. 8. Diabetes mellitus type 2. 9. Gastroesophageal reflux disease. 10.Sleep apnea. 11.History of leukemia with myeloblasts. 12.History of MRSA. 13.History of anxiety, bipolar depression. RECOMMENDATIONS AND DISCUSSION: I recommend to continue current management, continue with symptomatic treatment. Otherwise at this time, will monitor closely. One more unit of platelet transfusion. Closely follow with Cardiology. Prognosis guarded because of above mentioned multiple complex medical issues. further recommendations to follow. MMODL / IJN: [id number] /
[2017-11-29 17:05] LABS: Glucose,Whole Blood 130 mg/dL (75-99)
--- NOTE | 2017-11-29 18:43 | P.CONS ---
History of Present Illness - Reason for Consult Consult date: 11/29/17 MDS, on treatment Requesting physician: Lui Avila - Chief Complaint anemia - History of Present Illness Mrs. Funez is a pleasant female who moved to [place] from [place] 12/30, she was diagnosed with myelodysplastic syndrome around 2009, treated by Dr. Rya in [place], [place], with aranesp and intermittent blood transfusions, she did iron chelation therapy with desferrioxamine. patient was seen twice in the hospital in late 2016 secondary to symptoms of anemia, patient did not follow-up after an initial visit in the office in February 2017 as she went back to [place]. She returned to [place] in July 2017. 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 She started Revlimid and Jadenu in 10/31, along with Procrit weekly. She has required PRBC transfusions several times in the last month. She is tolerating treatment fairly well, denied, fever, nausea, vomiting, mild upset stomach after meds, occasional palpitations, appetite fair, denies bleeding, diarrhea, pain or swelling. Review of Systems 10 point review of systems is as stated in HPI Past Medical History Past Medical History: Cancer, COPD, Diabetes Mellitus, Eye Disorder, GERD/Reflux , Sleep Apnea/CPAP/BIPAP Additional Past Medical History / Comment(s): Myelodysplastic syndrome, leukemia -on oral chemo, myoblastic anemia, IDDM type II, PATRICIA without device, thoracic back pain, R eye cataract.uti, rt eye cataract History of Any Multi-Drug Resistant Organisms: MRSA, Other MDRO Year Discovered:: 02/08/17-mrsa MDRO Source:: URINE-mrsa Past Surgical History: Appendectomy, Cholecystectomy, Hysterectomy, Joint Replacement, Tonsillectomy Additional Past Surgical History / Comment(s): left hip fracture with sugery, right foot and right ankle fractures with sx, thoracic back fusion, lt eye cataract, partial hysterectomy, "dislocation rt shoulder-put back in place", rt chest mediport, colonoscopy. Past Anesthesia/Blood Transfusion Reactions: Blood Transfusion Reaction Additional Past Anesthesia/Blood Transfusion Reaction / Comm: with a blood transfusion got hives/itching was given benadryl Smoking Status: Former smoker - Past Family History Mother Additional Family Medical History / Comment(s): alcoholic Father Family Medical History: Myocardial Infarction ([place]) Additional Family Medical History / Comment(s): Father of a [place] at the age of 65yrs. Medications and Allergies Home Medications Medication Instructions Recorded Confirmed Type Zolpidem Tartrate [Ambien] 10 mg PO HS #20 tablet 03/03/17 11/28/17 Rx FLUoxetine HCL [PROzac] 40 mg PO DAILY 08/31/17 11/28/17 History Deferasirox [Jadenu] 90 mg PO DAILY 11/02/17 11/28/17 History Deferasirox [Jadenu] 720 mg PO DAILY 11/02/17 11/28/17 History Epoetin Chris [Procrit] 40,000 unit SQ REECE 11/02/17 11/28/17 History Gabapentin 600 mg PO QID 11/02/17 11/28/17 History Lenalidomide [Revlimid] 10 mg PO DAILY 11/02/17 11/28/17 History Insulin Glargine [Lantus] See Protocol SQ HS PRN 11/14/17 11/28/17 History Allergies Allergy/AdvReac Type Severity Reaction Status Date / Time codeine Allergy Unknown Verified 11/28/17 11:09 iodine Allergy Swelling Verified 11/28/17 11:09 iron Allergy Swelling Verified 11/28/17 11:09 Penicillins Allergy Swelling Verified 11/28/17 11:09 shellfish derived [Shellfish] Allergy Swelling Verified 11/28/17 11:09 Sulfa (Sulfonamide Allergy Swelling Verified 11/28/17 11:09 Antibiotics) SEAFOOD Allergy Swelling Uncoded 11/28/17 10:34 Physical Exam Vitals: Vital Signs Temp Pulse Pulse Resp BP BP Pulse Ox 11/29/17 17:41 97.7 F 87 14 122/66 94 L 11/29/17 17:11 98.5 F 82 14 105/57 94 L 11/29/17 17:01 98.2 F 82 14 122/55 94 L 11/29/17 15:03 98.1 F 85 14 127/76 96 11/29/17 14:41 122/53 11/29/17 14:36 97.7 F 83 20 96 11/29/17 13:29 98.1 F 81 14 122/66 94 L 11/29/17 12:59 98.1 F 84 14 135/77 97 11/29/17 12:49 98.0 F 85 14 140/73 96 11/29/17 06:14 97.9 F 87 16 132/62 95 11/29/17 03:52 98 F 87 22 141/65 95 11/29/17 01:33 98.2 F 88 22 128/57 11/29/17 01:05 92 20 11/29/17 01:03 98.5 F 83 20 123/57 11/29/17 00:53 98.4 F 92 22 110/56 94 L 11/29/17 00:31 98.6 F 92 14 106/46 11/28/17 21:25 97.8 F 92 18 125/60 94 L 11/28/17 18:35 68 18 98 Intake and Output 11/29/17 11/29/17 11/29/17 06:59 14:59 22:59 Intake Total 1420 800 310 Balance 1420 800 310 Intake: Intake, IV Titration 800 800 Amount Sodium Chloride 0.9% 1, 800 800 000 ml @ 100 mls/hr IV . Q10H STA Rx#:[id number] Blood Product 620 0 310 Platelet Irr Pheresis 2 0 Acda Unit [id number] Rc Irr As1 Unit 0 310 [id number] Rc Irr As1 Unit 310 [id number] Other: Weight 58.196 kg - Constitutional General appearance: average body habitus, cooperative, no acute distress - EENT Eyes: anicteric sclerae, normal appearance ENT: hearing grossly normal, normal oropharynx - Neck Neck: no lymphadenopathy - Respiratory Respiratory: bilateral: CTA - Cardiovascular Rhythm: regular Heart sounds: normal: S1, S2 leg Peripheral Edema: bilateral: None - Gastrointestinal General gastrointestinal: no absent bowel sounds, no decreased bowel sounds, no distended, no hepatomegaly, no hyperactive bowel sounds, normal bowel sounds, no organomegaly, no rigid, no scaphoid, soft, no splenomegaly, no tenderness, no umbilical hernia, no ventral hernia - Integumentary Integumentary: pale - Neurologic Neurologic: CNII-XII intact - Musculoskeletal Musculoskeletal: strength equal bilaterally - Psychiatric Psychiatric: A&O x's 3, appropriate affect, intact judgment & insight Results CBC & Chem 7: 11/29/17 07:29 11/29/17 07:29 Labs: Abnormal Lab Results - Last 24 Hours (Table) 11/28/17 11/29/17 11/29/17 Range/Units 10:50 07:29 07:29 WBC 2.1 L (3.8-10.6) k/uL RBC 1.94 L (3.80-5.40) m/uL Hgb 6.2 L* (11.4-16.0) gm/dL Hct 18.8 L* (34.0-46.0) % RDW 18.9 H (11.5-15.5) % Plt Count 9 L* (150-450) k/uL Neutrophils # (Manual) 0.21 L (1.3-7.7) k/uL Eosinophils # (Manual) 0.76 H (0-0.7) k/uL Chloride 109 H (98-107) mmol/L BUN 18 H (7-17) mg/dL Creatinine 0.50 L (0.52-1.04) mg/dL POC Glucose (mg/dL) (75-99) mg/dL Calcium 7.7 L (8.4-10.2) mg/dL Troponin I (0.000-0.034) ng/mL Crossmatch See Detail 11/29/17 11/29/17 11/29/17 Range/Units 07:29 11:34 17:03 WBC (3.8-10.6) k/uL RBC (3.80-5.40) m/uL Hgb (11.4-16.0) gm/dL Hct (34.0-46.0) % RDW (11.5-15.5) % Plt Count (150-450) k/uL Neutrophils # (Manual) (1.3-7.7) k/uL Eosinophils # (Manual) (0-0.7) k/uL Chloride (98-107) mmol/L BUN (7-17) mg/dL Creatinine (0.52-1.04) mg/dL POC Glucose (mg/dL) 101 H 130 H (75-99) mg/dL Calcium (8.4-10.2) mg/dL Troponin I 0.075 H* (0.000-0.034) ng/mL Crossmatch Assessment and Plan (1) MDS (myelodysplastic syndrome) Narrative/Plan: Treatment was just started. It is common for blood counts to initially drop and to require transfusions. Patient will continue on Revlimid for 2-3 more weeks before decisions are made about treatment. Continue Procrit 40,000 units weekly for anemia. Transfuse conservatively to keep hemoglobin greater than 7 Current Visit: Yes Status: Chronic Priority: Medium Code(s): D46.9 - MYELODYSPLASTIC SYNDROME, UNSPECIFIED SNOMED Code(s): 242784388 (2) Iron overload due to repeated red blood cell transfusions Narrative/Plan: patient will continue on prescribed chelation therapy. Current Visit: No Status: Chronic Priority: High Code(s): E83.111 - HEMOCHROMATOSIS DUE TO REPEATED RED BLOOD CELL TRANSFUSIONS SNOMED Code(s): 036970836 Plan: Patient is okay from a Hem/Onc on standpoint to be discharged after transfusion if she is stable and cleared by Attending Doctor attests: I performed a history and physical examination of this patient, discussed with dictator. I agree with dictators note, documented as a scribe.
[2017-11-29 19:17] LABS: Hemoglobin A1C 6.1 % (4.0-6.0)
[2017-11-29 19:59] LABS: Glucose,Whole Blood 156 mg/dL (75-99)
[2017-11-29] MEDS: INSULIN DETEMIR 100 UNIT/ML 10 ML VIAL SQ SCH (20:44)
[2017-11-29] MEDS: ZOLPIDEM 10 MG TAB PO SCH (20:44)
[2017-11-30 07:14] LABS: Glucose,Whole Blood 69 mg/dL (75-99)
[2017-11-30 07:36] LABS: Anisocytosis Slight; Basophils % (A) 1 %; Eosinophils # (A) 0.5 k/uL (0-0.7); Eosinophils % (A) 21 %; HCT 20.2 % (34.0-46.0); Lymphocytes % (A) 42 %; MCV 93.9 fL (80.0-100.0); Macrocytosis Slight; Mean Platelet Volume 10.7; Monocytes # (A) 0.1 k/uL (0-1.0); Monocytes % (A) 3 %; Neutrophils # (A) 0.7 k/uL (1.3-7.7); Neutrophils % (A) 31 %; RBC 2.15 m/uL (3.80-5.40); RDW 18.1 % (11.5-15.5); WBC 2.3 k/uL (3.8-10.6)
[2017-11-30 07:39] LABS: Glucose,Whole Blood 86 mg/dL (75-99)
[2017-11-30 07:50] LABS: HGB 6.7 gm/dL (11.4-16.0)
[2017-11-30 07:51] LABS: Platelet Count 19 k/uL (150-450)
[2017-11-30 08:18] LABS: Anion Gap 2 mmol/L; Blood Urea Nitrogen 16 mg/dL (7-17); Calcium 7.5 mg/dL (8.4-10.2); Carbon Dioxide 28 mmol/L (22-30); Chloride 108 mmol/L (98-107); Glucose 64 mg/dL (74-99); Potassium 4.1 mmol/L (3.5-5.1); Sodium 138 mmol/L (137-145)
[2017-11-30 08:42] LABS: Poikilocytosis (M) Present
[2017-11-30] MEDS: INSULIN ASPART 100 UNIT/ML 1 ML 10 ML VIAL SQ SCH ×2 (09:24→13:28)
[2017-11-30] MEDS: DEFERASIROX PO SCH (09:25)
[2017-11-30] MEDS: LENALIDOMIDE 10 MG PO SCH (09:26)
[2017-11-30] MEDS: DEFERASIROX 180 MG PO SCH (09:26)
[2017-11-30] MEDS: FLUoxetine HCL 20 MG CAP PO SCH (09:27)
[2017-11-30] MEDS: GABAPENTIN 300 MG CAP PO SCH ×2 (09:27→13:29)
[2017-11-30] MEDS: MORPHINE SULFATE 4 MG/ML SYRINGE IVP PRN (09:31)
[2017-11-30 11:19] LABS: Glucose,Whole Blood 115 mg/dL (75-99)
[2017-11-30 11:55] VITALS: RESP 14
[2017-11-30 12:37] VITALS: TEMP 98
[2017-11-30 15:29] VITALS: BP 119/62; PULSE 81
--- NOTE | 2017-11-30 18:42 | DS ---
DISCHARGE SUMMARY FINAL DIAGNOSIS: 1. Severe anemia, possibly secondary to myelodysplastic syndrome, acute exacerbation. 2. Severe thrombocytopenia and severe pancytopenia. 3. History of MDS. 4. Increased AST ALT, possibly hepatitis. 5. Troponin 0.06, indeterminate. 6. Chronic obstructive pulmonary disease. 7. Diabetes type 2. 8. Gastroesophageal reflux disease. 9. Sleep apnea. 10.History of leukemia with myeloblasts. 11.History of MRSA. 12.Anxiety/bipolar depression. DISCHARGED DISPOSITION: Patient being discharged in a stable condition with guarded prognosis. HISTORY OF PRESENT ILLNESS: This 67-year-old woman with a past medical history of multiple medical problems was admitted with severe anemia and also thrombocytopenia. After transfusions, hemoglobin improved to 6.7 and platelets are 19 and the patient being discharged in stable condition with guarded prognosis. On exam, vital signs are stable. Cardiac system: S1, S2. Abdomen soft. Nervous system: No focal deficits. DISCHARGE ADVICE AND MEDICATIONS: 1. Discharge diet is cardiac diet. 2. Activity limited until followup. 3. Follow up with Dr. Perez in 2-3 days. 4. Follow up with Dr. Esquivel as advised. MEDICATIONS ARE: 1. Jadenu 810 mg p.o. daily. 2. Procrit 40,000 subcu Tuesday. 3. Prozac 40 mg p.o. daily. 4. Gabapentin 600 mg q.i.d. 5. Revlimid 10 mg p.o. daily. 6. Lantus 10 units subcu q.h.s. 7. Ambien 10 mg q.h.s. MMODL / IJN: [id number] /
[2017-12-04] MEDS ORDERED: DARBEPOETIN ALFA 100MCG/0.5ML SYRINGE SQ SCH (09:00)
== END 2017-11-30 16:33 | disposition home or self-care (01) | DRG 812 ==
LOC: EC 10:07 → 6SEL 11:16 → 5ONC 16:41
PROVIDERS: ADMIT Hospitalist; ATTEND Hospitalist
PROC: 30243R1 Transfusion of Nonautologous Platelets into Central Vein, Percutaneous Approach (ICD-10-PCS; principal; 2017-11-29)
PROC: 30243N1 Transfusion of Nonautologous Red Blood Cells into Central Vein, Percutaneous Approach (ICD-10-PCS; 2017-11-29)
DX: D46.9 Myelodysplastic syndrome, unspecified (principal); D61.818 Other pancytopenia; C95.90 Leukemia, unspecified not having achieved remission; E83.111 Hemochromatosis due to repeated red blood cell transfusions; J44.9 Chronic obstructive pulmonary disease, unspecified; K21.9 Gastro-esophageal reflux disease without esophagitis; G47.33 Obstructive sleep apnea (adult) (pediatric); H26.9 Unspecified cataract; E11.9 Type 2 diabetes mellitus without complications; F31.9 Bipolar disorder, unspecified; R26.9 Unspecified abnormalities of gait and mobility; F41.9 Anxiety disorder, unspecified; R77.9 Abnormality of plasma protein, unspecified; Z79.4 Long term (current) use of insulin; Z79.899 Other long term (current) drug therapy; Z86.14 Personal history of Methicillin resistant Staphylococcus aureus infection; Z90.49 Acquired absence of other specified parts of digestive tract; Z90.710 Acquired absence of both cervix and uterus; Z98.1 Arthrodesis status; Z98.42 Cataract extraction status, left eye; Z87.891 Personal history of nicotine dependence; Z96.60 Presence of unspecified orthopedic joint implant; Z88.2 Allergy status to sulfonamides; Z88.8 Allergy status to other drugs, medicaments and biological substances; Z88.5 Allergy status to narcotic agent; Z88.0 Allergy status to penicillin; Z91.013 Allergy to seafood; Z82.49 Family history of ischemic heart disease and other diseases of the circulatory system; Z81.1 Family history of alcohol abuse and dependence
CPT/HCPCS: 36415; 80048; 80053; 82550; 82553; 83036; 83690; 83735; 84484; 85025; 85610; 85730; 86850; 86900; 86901; 86920; 93005; 96361; 96374; 96376; 99284

== ENCOUNTER → 2017-12-06 | Outpatient (CLI) | payer MEDICARE, OTHER ==
--- NOTE | 2017-12-06 10:36 | US ---
EXAMINATION TYPE: US abdomen complete DATE OF EXAM: 12/06/2017 COMPARISON: 02/08/2017 CLINICAL HISTORY: R94.5 Abnormal liver function. Lower abdominal pain, elevated liver enzymes, cholec ystectomy EXAM MEASUREMENTS: Liver Length: 14.6 cm Gallbladder Wall: Surgically absent CBD: 0.5 cm Spleen: 10.3 cm Right Kidney: 11.2 x 3.5 x 4.6 cm Left Kidney: 10.0 x 4.9 x 4.1 cm Pancreas: visualized portions appear slightly heterogeneous, limited evaluation due to overlying bow el Liver: heterogeneous with perihepatic fluid and somewhat lobulated margins suspicious for underlying hepatocellular disease and early cirrhosis. Gallbladder: Surgically absent Evidence for sonographic Curtis's sign: no CBD: wnl Spleen: wnl Right Kidney: no evidence of hydronephrosis Left Kidney: cystic areas noted, largest lower pole = 1.2 x 1.2 x 1.2cm Upper IVC: wnl Abd Aorta: wnl Bilateral pleural effusions Free fluid adjacent to liver and spleen IMPRESSION: 1. Coarsened hepatic echotexture and perihepatic fluid with subtle lobulated hepatic contour. Finding s are concerning for hepatocellular disease and early cirrhosis. Correlate with liver function tests to determine the need for random liver biopsy. 2. Suboptimal evaluation of the pancreas although it is slightly heterogenous and could relate to und erlying acute or chronic pancreatitis. 2. Incidentally noted partially visualized pleural effusions although they appear small.
== END | disposition home or self-care (01) ==
LOC: RADUSWWP 08:12
PROVIDERS: ATTEND Internal Medicine Hematology & Oncology
DX: R94.5 Abnormal results of liver function studies (principal)
CPT/HCPCS: 76700

== ENCOUNTER 2017-12-07 11:49 | Inpatient (IN) | payer MEDICARE, OTHER ==
--- NOTE | 2017-12-07 12:52 | ED ---
General Adult HPI - General Chief complaint: Recheck/Abnormal Lab/Rx Stated complaint: Needs Blood Tranfusion Time Seen by Provider: 12/07/17 12:00 Source: patient, RN notes reviewed Mode of arrival: wheelchair Limitations: no limitations - History of Present Illness Initial comments: This is a 67-year-old female presents emergency Department with a known history of leukemia and was told to come to the emergency department because her platelets and hemoglobin is low. Patient stated her hemoglobin was 6 something. Patient states she's been lightheaded and feeling very weak lately. Patient states she is undergoing chemo for her leukemia. Patient denies any chest pain palpitations difficulty breathing [place] of breath. Patient denies any headache patient denies numbness or focal weakness. Patient denies any increase in abdominal pain she states she's had abdominal pain for quite a while now but it is unchanged. Patient denies any vomiting or diarrhea. Patient denies any recent fever chills or cough. - Related Data Home Medications Medication Instructions Recorded Confirmed FLUoxetine HCL [PROzac] 40 mg PO DAILY 08/31/17 12/07/17 Deferasirox [Jadenu] 90 mg PO DAILY 11/02/17 12/07/17 Deferasirox [Jadenu] 720 mg PO DAILY 11/02/17 12/07/17 Epoetin Chris [Procrit] 40,000 unit SQ REECE 11/02/17 12/07/17 Gabapentin 600 mg PO QID 11/02/17 12/07/17 Lenalidomide [Revlimid] 10 mg PO DAILY 11/02/17 12/07/17 Esomeprazole Magnesium [NexIUM] 40 mg PO DAILY 12/07/17 12/07/17 Previous Rx's Medication Instructions Recorded Zolpidem Tartrate [Ambien] 10 mg PO HS #20 tablet 03/03/17 Insulin Glargine [Lantus] 10 unit SQ HS #1 vial 11/30/17 Allergies Allergy/AdvReac Type Severity Reaction Status Date / Time codeine Allergy Unknown Verified 12/07/17 12:54 iodine Allergy Swelling Verified 12/07/17 12:54 iron Allergy Unknown Verified 12/07/17 12:54 Penicillins Allergy Rash/Hives Verified 12/07/17 12:54 quetiapine [From Seroquel] Allergy Unknown Verified 12/07/17 13:21 shellfish derived [Shellfish] Allergy Swelling Verified 12/07/17 12:54 Sulfa (Sulfonamide Allergy Rash/Hives Verified 12/07/17 12:54 Antibiotics) SEAFOOD Allergy Swelling Uncoded 12/07/17 11:57 Review of Systems ROS Statement: Those systems with pertinent positive or pertinent negative responses have been documented in the HPI. ROS Other: All systems not noted in ROS Statement are negative. Past Medical History Past Medical History: Cancer, COPD, Diabetes Mellitus, Eye Disorder, GERD/Reflux , Sleep Apnea/CPAP/BIPAP Additional Past Medical History / Comment(s): Myelodysplastic syndrome, leukemia -on oral chemo, myoblastic anemia, IDDM type II, PATRICIA without device, thoracic back pain, R eye cataract.uti, rt eye cataract History of Any Multi-Drug Resistant Organisms: MRSA, Other MDRO Date of last positivie culture/infection: 02/08/17-mrsa MDRO Source:: URINE-mrsa Past Surgical History: Appendectomy, Cholecystectomy, Hysterectomy, Joint Replacement, Tonsillectomy Additional Past Surgical History / Comment(s): left hip fracture with sugery, right foot and right ankle fractures with sx, thoracic back fusion, lt eye cataract, partial hysterectomy, "dislocation rt shoulder-put back in place", rt chest mediport, colonoscopy. Past Anesthesia/Blood Transfusion Reactions: Blood Transfusion Reaction Additional Past Anesthesia/Blood Transfusion Reaction / Comment(s): with a blood transfusion got hives/itching was given benadryl Past Psychological History: Anxiety, Bipolar, Depression Smoking Status: Former smoker Past Alcohol Use History: None Reported Past Drug Use History: None Reported - Past Family History Mother Additional Family Medical History / Comment(s): alcoholic Father Family Medical History: Myocardial Infarction (PR) Additional Family Medical History / Comment(s): Father of a PR at the age of 65yrs. General Exam - General Exam Comments Initial Comments: GENERAL: Patient is well-developed and well-nourished. Patient is nontoxic and well- hydrated and is in mild distress. ENT: Neck is soft and supple. No significant lymphadenopathy is noted. Oropharynx is clear. Moist mucous membranes. EYES: The sclera were anicteric and conjunctiva were pink and moist. Extraocular movements were intact and pupils were equal round and reactive to light. Eyelids were unremarkable. PULMONARY: Unlabored respirations. Good breath sounds bilaterally. No audible rales rhonchi or wheezing was noted. CARDIOVASCULAR: There is a regular rate and rhythm without any murmurs gallops or rubs. ABDOMEN: Soft and nontender with normal bowel sounds. SKIN: Skin is clear with no lesions or rashes and otherwise unremarkable. NEUROLOGIC: Patient is alert and oriented x3. Cranial nerves II through XII are grossly intact. Motor and sensory are also intact. Normal speech, volume and content. Symmetrical smile. MUSCULOSKELETAL: Normal extremities with adequate strength and full range of motion. LYMPHATICS: No significant lymphadenopathy is noted PSYCHIATRIC: Normal psychiatric evaluation. Limitations: no limitations Course Vital Signs 12/07/17 11:55 Temperature 98.1 F Pulse Rate 87 Respiratory 20 Rate Blood Pressure 133/54 O2 Sat by Pulse 98 Oximetry Medical Decision Making - Medical Decision Making I spoke with Dr. Sierra Esquivel while the patient admitted and wanted the patient blood and platelets. Patient will be admitted for 23 observation. - Lab Data Result diagrams: 12/07/17 13:00 12/07/17 13:00 Lab Results 12/07/17 12/07/17 12/07/17 Range/Units 09:00 13:00 13:00 WBC 1.5 L* (3.8-10.6) k/uL RBC 1.93 L (3.80-5.40) m/uL Hgb 6.3 L* (11.4-16.0) gm/dL Hct 18.6 L* (34.0-46.0) % MCV 96.2 (80.0-100.0) fL MCH 32.6 (25.0-35.0) pg MCHC 33.9 (31.0-37.0) g/dL RDW 17.1 H (11.5-15.5) % Plt Count 6 L* D (150-450) k/uL Neutrophils % (Manual) 14 % Lymphocytes % (Manual) 61 % Monocytes % (Manual) 1 % Eosinophils % (Manual) 24 % Neutrophils # (Manual) 0.21 L (1.3-7.7) k/uL Lymphocytes # (Manual) 0.92 L (1.0-4.8) k/uL Monocytes # (Manual) 0.02 (0-1.0) k/uL Eosinophils # (Manual) 0.36 (0-0.7) k/uL Nucleated RBCs 0 (0-0) /100 WBC Manual Slide Review Performed Poikilocytosis (manual Present Anisocytosis Slight Macrocytosis Slight PT (9.0-12.0) sec INR (<1.2) APTT (22.0-30.0) sec Sodium (137-145) mmol/L Potassium (3.5-5.1) mmol/L Chloride (98-107) mmol/L Carbon Dioxide (22-30) mmol/L Anion Gap mmol/L BUN (7-17) mg/dL Creatinine (0.52-1.04) mg/dL Est GFR (CKD-EPI)AfAm (>60 ml/min/1.73 sqM) Est GFR (CKD-EPI)NonAf (>60 ml/min/1.73 sqM) Glucose (74-99) mg/dL Calcium (8.4-10.2) mg/dL Magnesium (1.6-2.3) mg/dL Total Bilirubin (0.2-1.3) mg/dL AST (14-36) U/L ALT (9-52) U/L Alkaline Phosphatase (38-126) U/L Total Creatine Kinase <20 L (30-135) U/L Total Protein (6.3-8.2) g/dL Albumin (3.5-5.0) g/dL Blood Type A Positive Blood Type Recheck No Antibody Screen NEGATIVE Crossmatch See Detail Transfuse Platelets 12/07/2017 Spec Expiration Date 12/10/2017 - 229912/07/17 12/07/17 Range/Units 13:00 13:00 WBC (3.8-10.6) k/uL RBC (3.80-5.40) m/uL Hgb (11.4-16.0) gm/dL Hct (34.0-46.0) % MCV (80.0-100.0) fL MCH (25.0-35.0) pg MCHC (31.0-37.0) g/dL RDW (11.5-15.5) % Plt Count (150-450) k/uL Neutrophils % (Manual) % Lymphocytes % (Manual) % Monocytes % (Manual) % Eosinophils % (Manual) % Neutrophils # (Manual) (1.3-7.7) k/uL Lymphocytes # (Manual) (1.0-4.8) k/uL Monocytes # (Manual) (0-1.0) k/uL Eosinophils # (Manual) (0-0.7) k/uL Nucleated RBCs (0-0) /100 WBC Manual Slide Review Poikilocytosis (manual Anisocytosis Macrocytosis PT 10.5 (9.0-12.0) sec INR 1.1 (<1.2) APTT 22.8 (22.0-30.0) sec Sodium 137 (137-145) mmol/L Potassium 4.0 (3.5-5.1) mmol/L Chloride 106 (98-107) mmol/L Carbon Dioxide 27 (22-30) mmol/L Anion Gap 4 mmol/L BUN 15 (7-17) mg/dL Creatinine 0.49 L (0.52-1.04) mg/dL Est GFR (CKD-EPI)AfAm >90 (>60 ml/min/1.73 sqM) Est GFR (CKD-EPI)NonAf >90 (>60 ml/min/1.73 sqM) Glucose 214 H (74-99) mg/dL Calcium 7.9 L (8.4-10.2) mg/dL Magnesium 1.6 (1.6-2.3) mg/dL Total Bilirubin 1.7 H (0.2-1.3) mg/dL AST 78 H (14-36) U/L ALT 127 H (9-52) U/L Alkaline Phosphatase 171 H (38-126) U/L Total Creatine Kinase (30-135) U/L Total Protein 4.7 L (6.3-8.2) g/dL Albumin 2.5 L (3.5-5.0) g/dL Blood Type Blood Type Recheck Antibody Screen Crossmatch Transfuse Platelets Spec Expiration Date Disposition Clinical Impression: Anemia, Thrombocytopenia, History of leukemia Disposition: ADMITTED IP TO THIS [facility] Referrals: Axel Perez MD [Primary Care Provider] - 1-2 days Time of Disposition: 14:07
[2017-12-07 13:31] LABS: Anisocytosis Slight; MCH 32.6 pg (25.0-35.0); MCHC 33.9 g/dL (31.0-37.0); MCV 96.2 fL (80.0-100.0); Macrocytosis Slight; Mean Platelet Volume 11.8; RBC 1.93 m/uL (3.80-5.40); RDW 17.1 % (11.5-15.5)
[2017-12-07 13:38] LABS: HCT 18.6 % (34.0-46.0)
[2017-12-07 13:41] LABS: INR 1.1 (<1.2); Partial Thromboplastin Time 22.8 sec (22.0-30.0); Prothrombin Time 10.5 sec (9.0-12.0)
[2017-12-07 13:42] LABS: ALT 127 U/L (9-52); AST 78 U/L (14-36); Albumin 2.5 g/dL (3.5-5.0); Alkaline Phosphatase 171 U/L (38-126); Anion Gap 4 mmol/L; Blood Urea Nitrogen 15 mg/dL (7-17); Calcium 7.9 mg/dL (8.4-10.2); Carbon Dioxide 27 mmol/L (22-30); Chloride 106 mmol/L (98-107); Glucose 214 mg/dL (74-99); Magnesium 1.6 mg/dL (1.6-2.3); Sodium 137 mmol/L (137-145); Total Bilirubin 1.7 mg/dL (0.2-1.3); Total Protein 4.7 g/dL (6.3-8.2)
[2017-12-07 13:43] LABS: WBC 1.5 k/uL (3.8-10.6)
[2017-12-07 13:44] LABS: HGB 6.3 gm/dL (11.4-16.0)
[2017-12-07 13:49] LABS: Eosinophils # (M) 0.36 k/uL (0-0.7); Lymphocytes # (M) 0.92 k/uL (1.0-4.8); Monocytes # (M) 0.02 k/uL (0-1.0); Neutrophils # (M) 0.21 k/uL (1.3-7.7); Neutrophils % (M) 14 %; Nucleated Red Blood Cells 0 /100 WBC (0-0); Poikilocytosis (M) Present; Total Cells Counted 100
[2017-12-07 13:50] LABS: Platelet Count 6 k/uL (150-450)
[2017-12-07 13:52] LABS: Creatine Kinase <20 U/L (30-135)
[2017-12-07 14:05] LABS: Creatine Kinase MB 0.4 ng/mL (0.0-2.4)
[2017-12-07 14:07] LABS: Troponin I 0.088 ng/mL (0.000-0.034)
[2017-12-07] MEDS ORDERED: HYDROcodone/APAP 5-325MG 1 EACH TAB PO STA (15:25)
[2017-12-07] MEDS ORDERED: TEMAZEPAM 15 MG CAP PO PRN (15:27)
[2017-12-07] MEDS ORDERED: ACETAMINOPHEN TAB 500 MG TAB PO PRN (15:27)
[2017-12-07] MEDS ORDERED: ALPRAZolam 0.25 MG TAB PO PRN (15:27)
--- NOTE | 2017-12-07 16:32 | HP ---
HISTORY AND PHYSICAL CHIEF COMPLAINTS: Anemia and thrombocytopenia. HISTORY OF PRESENT ILLNESS: This is a 67 -year-old woman with a past medical history of myelodysplastic syndrome, history of iron overload, history of MDS, AST, ALT, COPD, diabetes, GERD, sleep apnea, being followed by Dr. Perez and Hematology/Oncology team in the outpatient setting recently admitted to [facility] with complaints of anemia, thrombocytopenic. Patient had patient had transfusion. Patient improved significantly. Patient evaluated in the office today and the hemoglobin was found to be 6.3. Platelets were 610. The patient was directed to [facility] for further evaluation. There is no history of fever, rigors. No history of headache, loss of consciousness or seizures. PAST MEDICAL HISTORY: Myelodysplastic syndrome, history of COPD, diabetes, GERD, history of appendectomy, cholecystectomy, history of leukemia transformation. MEDICATIONS: Prior to admission include home medications include: 1. Lantus 10 units subcu q.h.s. 2. Procrit 40,000 subcu Tuesday. 3. Ambien 10 mg q.h.s. 4. Revlimid 10 mg daily. 5. Prozac 40 mg daily. 6. Gabapentin 600 mg q.i.d. 7. Nexium 40 mg p.o. daily. 8. Jadnu 90 mg p.o. daily and 70 mg p.o. daily. ALLERGIES: ARE CODEINE , IODINE, IRON, PENICILLIN, SEROQUEL, SHELLFISH, SULFA, SEAFOOD. FAMILY HISTORY: History of myocardial infarction and alcohol. SOCIAL HISTORY: Previous history of smoking. No history of current smoking. No history of current alcohol intake. REVIEW OF SYSTEMS: ENT: Diminished hearing and vision. CARDIOVASCULAR: No angina or palpitations. RESPIRATIONS: No cough. GI mentioned earlier. : As mentioned earlier. CENTRAL NERVOUS SYSTEM: No numbness or weakness. ALLERGY/IMMUNOLOGY: No asthma or hayfever. MUSCULOSKELETAL as mentioned earlier. HEMATOLOGY/ONCOLOGY: As mentioned earlier. ENDOCRINE: As mentioned earlier. CONSTITUTIONAL: As mentioned earlier. DERMATOLOGY: Negative. RHEUMATOLOGY: Negative. PSYCHIATRY: As mentioned earlier. PHYSICAL EXAMINATION: GENERAL: Alert and oriented x3. VITAL SIGNS: Pulse is 82. Blood pressure 130/67. Respiration 18. Temperature is 98 degrees, pulse ox 98% on room air HEENT: Conjunctivae pale. Oral mucosa moist. NECK is no jugular venous distention. No carotid bruit. No lymph node enlargement. CARDIOVASCULAR system: S1, S2 muffled. RESPIRATORY: Breath sounds diminished in the bases. No rhonchi. No crackles. ABDOMEN: Soft, nontender. No mass. LEGS are no edema. No swelling. CENTRAL NERVOUS SYSTEM: No focal deficits. LABS: WBC 1.5, hemoglobin 6.3, platelets 6 and glucose 214. Total bilirubin is 1.7. ASSESSMENT: 1. Severe anemia, thrombocytopenia, pancytopenia secondary to myelodysplastic syndrome. 2. History of iron overload from repeated transfusions. 3. Increased bilirubin. 4. Increased AST/ALT. 5. Diabetes type 2. 6. Troponin 0.088 indeterminate which is rather chronic in nature. 7. Chronic obstructive pulmonary disease. 8. Diabetes type 2. 9. Gastroesophageal reflux disease. 10.Sleep apnea. 11.History of leukemia with myeloblasts. 12.History of Methicillin-resistant Staphylococcus aureus. 13.Anxiety/bipolar depression. RECOMMENDATIONS AND DISCUSSION: In this 67-year-old woman who presented with multiple complex medical issues, we will monitor the patient closely. Continue the current medications, management and symptomatic treatment. Recommend transfusions and I would also recommend closely follow with Hematology/Oncology. Guarded prognosis. Further recommendations. See orders for details. MMODL / IJN: [id number] / MTDD
[2017-12-07] MEDS: GABAPENTIN 300 MG CAP PO SCH ×2 (19:25→21:32)
[2017-12-07] MEDS: INSULIN ASPART 100 UNIT/ML 1 ML 10 ML VIAL SQ SCH ×2 (20:56→21:33)
[2017-12-07] MEDS ORDERED: INSULIN DETEMIR 100 UNIT/ML 10 ML VIAL SQ SCH (21:00)
[2017-12-07] MEDS ORDERED: ZOLPIDEM 10 MG TAB PO SCH (21:00)
[2017-12-07 21:04] VITALS: BMI 23.6
[2017-12-07 21:30] LABS: Glucose,Whole Blood 120 mg/dL (75-99)
[2017-12-08 06:28] LABS: Glucose,Whole Blood 130 mg/dL (75-99)
[2017-12-08 06:32] LABS: Anisocytosis Slight; HCT 21.4 % (34.0-46.0); HGB 7.2 gm/dL (11.4-16.0); MCH 31.7 pg (25.0-35.0); MCHC 33.8 g/dL (31.0-37.0); MCV 93.6 fL (80.0-100.0); RBC 2.28 m/uL (3.80-5.40); RDW 17.5 % (11.5-15.5)
[2017-12-08] MEDS: INSULIN ASPART 100 UNIT/ML 1 ML 10 ML VIAL SQ SCH ×2 (06:34→11:54)
[2017-12-08 06:45] LABS: Platelet Count 18 k/uL (150-450); WBC 1.5 k/uL (3.8-10.6)
[2017-12-08 07:26] LABS: Anion Gap 3 mmol/L; Blood Urea Nitrogen 13 mg/dL (7-17); Calcium 8.1 mg/dL (8.4-10.2); Carbon Dioxide 27 mmol/L (22-30); Chloride 106 mmol/L (98-107); Glucose 119 mg/dL (74-99); Potassium 4.2 mmol/L (3.5-5.1); Sodium 136 mmol/L (137-145)
[2017-12-08] MEDS ORDERED: PANTOPRAZOLE 40 MG TABLET PO SCH (07:30)
[2017-12-08 07:47] LABS: Eosinophils # (M) 0.54 k/uL (0-0.7); Lymphocytes # (M) 0.78 k/uL (1.0-4.8); Monocytes # (M) 0.03 k/uL (0-1.0); Neutrophils # (M) 0.17 k/uL (1.3-7.7); Neutrophils % (M) 11 %; Nucleated Red Blood Cells 0 /100 WBC (0-0); Total Cells Counted 200
[2017-12-08] MEDS: GABAPENTIN 300 MG CAP PO SCH ×2 (08:32→11:55)
[2017-12-08 08:48] LABS: Hemoglobin A1C 6.7 % (4.0-6.0)
[2017-12-08] MEDS ORDERED: DEFERASIROX PO SCH ×2 (09:00)
[2017-12-08] MEDS ORDERED: NON-FORMULARY DRUG (Esomeprazole Magnesium [Nexium] 40 MG) PO SCH (09:00)
[2017-12-08] MEDS ORDERED: Lenalidomide [Revlimid] PO SCH (09:00)
[2017-12-08] MEDS ORDERED: FLUoxetine HCL 20 MG CAP PO SCH (09:00)
[2017-12-08 09:10] VITALS: TEMP 97.4
[2017-12-08 11:28] VITALS: BP 134/77; PULSE 80; RESP 16
[2017-12-08] MEDS ORDERED: HYDROcodone/APAP 10-325MG 1 EACH TAB PO PRN (11:38)
[2017-12-08 11:59] LABS: Glucose,Whole Blood 145 mg/dL (75-99)
--- NOTE | 2017-12-08 18:35 | P.CONS ---
History of Present Illness - Reason for Consult Consult date: 12/08/17 MDS on treatment Requesting physician: Lui Donaldson - Chief Complaint abn labs - History of Present Illness Please refer to Consult dated 11/29 for malignancy history details. Pt is admitted for observation until blood products can be administered. Pt denies any acute physical c/o, no MEME, chest pain, palpitations, bleeding or pain. She continues on Revlimid and Jadenu as prescribed. Review of Systems See HPI Past Medical History Past Medical History: Cancer, COPD, Diabetes Mellitus, Eye Disorder, GERD/Reflux , Sleep Apnea/CPAP/BIPAP Additional Past Medical History / Comment(s): Myelodysplastic syndrome, leukemia -on oral chemo, myoblastic anemia, IDDM type II, PATRICIA without device, thoracic back pain, R eye cataract.uti, rt eye cataract History of Any Multi-Drug Resistant Organisms: MRSA, Other MDRO Year Discovered:: 02/08/17-mrsa MDRO Source:: URINE-mrsa Past Surgical History: Appendectomy, Cholecystectomy, Hysterectomy, Joint Replacement, Tonsillectomy Additional Past Surgical History / Comment(s): left hip fracture with sugery, right foot and right ankle fractures with sx, thoracic back fusion, lt eye cataract, partial hysterectomy, "dislocation rt shoulder-put back in place", rt chest mediport, colonoscopy. Past Anesthesia/Blood Transfusion Reactions: Blood Transfusion Reaction Additional Past Anesthesia/Blood Transfusion Reaction / Comm: with a blood transfusion got hives/itching was given benadryl Past Psychological History: Anxiety, Bipolar, Depression Additional Psychological History / Comment(s): Pt resides with her spouse of 28 yrs at [facility]. She has 2 walkers and a wheelchair that has no legs-soon to get new wheelchair. She does not drive and her spouse does not drive d/t seizures. She gets to [facility] by using her walker or her spouse pushes her in her wheelchair of they use [employer] or [employer] on [employer] [address]. Smoking Status: Former smoker Past Alcohol Use History: None Reported Additional Past Alcohol Use History / Comment(s): started smoking `1974 and quit 2010 smoked 1.5 ppd. Past Drug Use History: None Reported - Past Family History Mother Additional Family Medical History / Comment(s): alcoholic Father Family Medical History: Myocardial Infarction ([place]) Additional Family Medical History / Comment(s): Father of a [place] at the age of 65yrs. Medications and Allergies Home Medications Medication Instructions Recorded Confirmed Type Zolpidem Tartrate [Ambien] 10 mg PO HS #20 tablet 03/03/17 12/07/17 Rx FLUoxetine HCL [PROzac] 40 mg PO DAILY 08/31/17 12/07/17 History Deferasirox [Jadenu] 90 mg PO DAILY 11/02/17 12/07/17 History Deferasirox [Jadenu] 720 mg PO DAILY 11/02/17 12/07/17 History Epoetin Chris [Procrit] 40,000 unit SQ REECE 11/02/17 12/07/17 History Gabapentin 600 mg PO QID 11/02/17 12/07/17 History Lenalidomide [Revlimid] 10 mg PO DAILY 11/02/17 12/07/17 History Insulin Glargine [Lantus] 10 unit SQ HS #1 vial 11/30/17 12/07/17 Rx Esomeprazole Magnesium [NexIUM] 40 mg PO DAILY 12/07/17 12/07/17 History Acetaminophen Tab [Tylenol] 500 mg PO Q6HR PRN tab 12/08/17 Rx Allergies Allergy/AdvReac Type Severity Reaction Status Date / Time codeine Allergy Unknown Verified 12/07/17 12:54 iodine Allergy Swelling Verified 12/07/17 12:54 iron Allergy Unknown Verified 12/07/17 12:54 Penicillins Allergy Rash/Hives Verified 12/07/17 12:54 quetiapine [From Seroquel] Allergy Unknown Verified 12/07/17 13:21 shellfish derived [Shellfish] Allergy Swelling Verified 12/07/17 12:54 Sulfa (Sulfonamide Allergy Rash/Hives Verified 12/07/17 12:54 Antibiotics) SEAFOOD Allergy Swelling Uncoded 12/07/17 11:57 Physical Exam Vitals: Vital Signs Temp Pulse Pulse Resp BP BP Pulse Ox 12/08/17 11:27 97.4 F L 80 16 134/77 99 12/08/17 08:00 97.4 F L 96 18 136/63 94 L 12/08/17 04:00 97.1 F L 78 16 129/70 98 12/07/17 21:35 97.9 F 67 16 106/55 99 12/07/17 20:39 98.4 F 78 16 162/88 98 12/07/17 19:21 98.3 F 79 18 152/87 12/07/17 18:57 98.4 F 85 16 163/95 Intake and Output 12/08/17 12/08/17 12/08/17 06:59 14:59 22:59 Intake Total 480 600 Balance 480 600 Intake: Oral 480 600 Other: Voiding Method Toilet # Voids 2 2 Weight 60.5 kg - Constitutional General appearance: average body habitus, cooperative, no acute distress - EENT Eyes: anicteric sclerae - Respiratory Respiratory: bilateral: CTA - Cardiovascular Heart sounds: normal: S1, S2 leg Peripheral Edema: bilateral: None - Gastrointestinal General gastrointestinal: normal bowel sounds, soft - Neurologic Neurologic: CNII-XII intact - Musculoskeletal Musculoskeletal: strength equal bilaterally - Psychiatric Psychiatric: A&O x's 3, appropriate affect, intact judgment & insight Results CBC & Chem 7: 12/08/17 06:02 12/08/17 06:02 Labs: Abnormal Lab Results - Last 24 Hours (Table) 12/07/17 12/07/17 12/08/17 Range/Units 13:00 21:26 06:02 WBC 1.5 L* (3.8-10.6) k/uL RBC 2.28 L (3.80-5.40) m/uL Hgb 7.2 L (11.4-16.0) gm/dL Hct 21.4 L (34.0-46.0) % RDW 17.5 H (11.5-15.5) % Plt Count 18 L* D (150-450) k/uL Neutrophils # (Manual) 0.17 L (1.3-7.7) k/uL Lymphocytes # (Manual) 0.78 L (1.0-4.8) k/uL Sodium (137-145) mmol/L Creatinine (0.52-1.04) mg/dL Glucose (74-99) mg/dL POC Glucose (mg/dL) 120 H (75-99) mg/dL Hemoglobin A1c 6.7 H (4.0-6.0) % Calcium (8.4-10.2) mg/dL 12/08/17 12/08/17 12/08/17 Range/Units 06:02 06:26 11:35 WBC (3.8-10.6) k/uL RBC (3.80-5.40) m/uL Hgb (11.4-16.0) gm/dL Hct (34.0-46.0) % RDW (11.5-15.5) % Plt Count (150-450) k/uL Neutrophils # (Manual) (1.3-7.7) k/uL Lymphocytes # (Manual) (1.0-4.8) k/uL Sodium 136 L (137-145) mmol/L Creatinine 0.46 L (0.52-1.04) mg/dL Glucose 119 H (74-99) mg/dL POC Glucose (mg/dL) 130 H 145 H (75-99) mg/dL Hemoglobin A1c (4.0-6.0) % Calcium 8.1 L (8.4-10.2) mg/dL Assessment and Plan (1) Anemia Narrative/Plan: Transfused Status: Chronic Priority: High Code(s): D64.9 - ANEMIA, UNSPECIFIED SNOMED Code(s): 923444665 (2) Thrombocytopenia Narrative/Plan: Transfused Status: Chronic Priority: High Code(s): D69.6 - THROMBOCYTOPENIA, UNSPECIFIED SNOMED Code(s): 907369566 (3) Iron overload due to repeated red blood cell transfusions Narrative/Plan: Treating with Jadenu-cont treatment Status: Chronic Priority: Medium Code(s): E83.111 - HEMOCHROMATOSIS DUE TO REPEATED RED BLOOD CELL TRANSFUSIONS SNOMED Code(s): 961840649 (4) MDS (myelodysplastic syndrome) Narrative/Plan: Underlying cause of anemia and thrombocytopenia. Cont revlimid. Plans are for at least 3 mo of therapy as the benefits may not be notable for some time. Status: Chronic Priority: Medium Code(s): D46.9 - MYELODYSPLASTIC SYNDROME, UNSPECIFIED SNOMED Code(s): 527919719 Plan: Going to try and adjust pt follow up appts so that she is seen before requiring admission to hospital for critically low labs.
--- NOTE | 2017-12-08 20:48 | DS ---
DISCHARGE SUMMARY FINAL DIAGNOSES: 1. Severe anemia, thrombocytopenia, pancytopenia secondary to myelodysplastic syndrome. 2. History of iron overload from repeated transfusions. 3. Increased bilirubin. 4. Increased AST, ALT. 5. Diabetes mellitus type 2. 6. Troponin 0.8, indeterminate, which is rather chronic in nature. 7. Chronic obstructive pulmonary disease. 8. Gastroesophageal reflux disease. 9. Sleep apnea. 10.History of leukemia with myeloblasts. 11.History of methicillin-resistant Staphylococcus aureus. 12.Anxiety. 13.Bipolar depression. DISCHARGE DISPOSITION: The patient will be discharged in stable condition with guarded prognosis. HISTORY: This 67-year-old woman with a past medical history of multiple medical problems admitted with anemia, thrombocytopenia. Patient was transfused, improved significantly. Hemoglobin improved to 7.2, platelets 18. EXAM: Vitals are stable. CARDIOVASCULAR: S1, S2 muffled. ABDOMEN: Soft, nontender. DISCHARGE ADVICE AND MEDICATIONS: Diet is cardiac. Activity limited until followup. Follow up with Dr. Perez in 2 -[address] Esquivel as advised. MEDICATIONS: 1. Jadenu 720+ 90 mg p.o. daily. 2. Procrit 40,000 subcu Tuesday. 3. esmoprazole 40 mg p.o. daily. 4. Prozac 40 mg p.o. daily. 5. Gabapentin 600 mg p.o. q.i.d. 6. Revlimid 10 mg p.o. daily. 7. Tylenol 500 mg every 6 hours p.r.n. 8. Lantus 10 units subcu q.h.s. 9. Ambien 10 mg q.h.s. Once again, the patient will be discharged in stable condition with a guarded prognosis. MMODL / IJN: [id number] / MTDD
[2017-12-11] MEDS ORDERED: DARBEPOETIN ALFA 100MCG/0.5ML SYRINGE SQ SCH (09:00)
== END 2017-12-08 14:37 | disposition home or self-care (01) | DRG 812 ==
LOC: EC 11:49 → 6SEL 14:03 → OBSVTOIN 12-08 09:14
PROVIDERS: ADMIT Hospitalist; ATTEND Hospitalist
PROC: 30233R1 Transfusion of Nonautologous Platelets into Peripheral Vein, Percutaneous Approach (ICD-10-PCS; principal; 2017-12-07)
PROC: 30233N1 Transfusion of Nonautologous Red Blood Cells into Peripheral Vein, Percutaneous Approach (ICD-10-PCS; principal; 2017-12-07)
DX: D46.9 Myelodysplastic syndrome, unspecified (principal); D61.818 Other pancytopenia; C95.90 Leukemia, unspecified not having achieved remission; J44.9 Chronic obstructive pulmonary disease, unspecified; E11.9 Type 2 diabetes mellitus without complications; K21.9 Gastro-esophageal reflux disease without esophagitis; G47.33 Obstructive sleep apnea (adult) (pediatric); E83.111 Hemochromatosis due to repeated red blood cell transfusions; F31.9 Bipolar disorder, unspecified; F41.9 Anxiety disorder, unspecified; R77.8 Other specified abnormalities of plasma proteins; Z92.21 Personal history of antineoplastic chemotherapy; Z90.49 Acquired absence of other specified parts of digestive tract; Z90.711 Acquired absence of uterus with remaining cervical stump; Z79.4 Long term (current) use of insulin; Z79.899 Other long term (current) drug therapy; Z82.49 Family history of ischemic heart disease and other diseases of the circulatory system; Z86.14 Personal history of Methicillin resistant Staphylococcus aureus infection; Z87.891 Personal history of nicotine dependence; Z90.710 Acquired absence of both cervix and uterus; Z98.1 Arthrodesis status; Z88.2 Allergy status to sulfonamides; Z91.041 Radiographic dye allergy status; Z88.5 Allergy status to narcotic agent; Z88.0 Allergy status to penicillin; Z91.013 Allergy to seafood
CPT/HCPCS: 36415; 76700; 80048; 80053; 82550; 82553; 83036; 83735; 84484; 85025; 85610; 85730; 86850; 86900; 86901; 86920; 99284

== ENCOUNTER → 2018-01-04 | Outpatient (CLI) | payer MEDICARE, OTHER | END | disposition home or self-care (01) | LOC: LABWHC1 16:30 | PROVIDERS: ATTEND Internal Medicine Hematology & Oncology | DX: Z53.9 Procedure and treatment not carried out, unspecified reason (principal) | CPT/HCPCS: 86850; 86900; 86901; 86920 ==

== ENCOUNTER 2018-01-23 10:35 | Inpatient (IN) | payer MEDICARE, OTHER ==
--- NOTE | 2018-01-23 11:10 | ED ---
General Adult HPI - General Stated complaint: Weakness/Dizziness Time Seen by Provider: 01/23/18 10:35 Source: RN notes reviewed - History of Present Illness Initial comments: This a 67-year-old female who presents emergency Department complaining that she is fatigued and weak and also mildly short of breath. Patient states this happens all the time when her hemoglobin gets down. Patient thinks her hemoglobin is low again today. Patient states hemoglobin is usually low because she has leukemia and every few weeks her hemoglobin drops. Patient denies any chest pain or palpitations. Patient denies any recent fever chills or cough. Patient denies abdominal pain patient denies nausea vomiting diarrhea. Patient denies any black or bloody stools. Patient denies any lightheadedness or dizziness. - Related Data Home Medications Medication Instructions Recorded Confirmed Deferasirox [Jadenu] 90 mg PO DAILY 11/02/17 01/23/18 Deferasirox [Jadenu] 720 mg PO DAILY 11/02/17 01/23/18 Epoetin Chris [Procrit] 40,000 unit SQ REECE 11/02/17 01/23/18 Gabapentin 600 mg PO QID 11/02/17 01/23/18 Esomeprazole Magnesium [NexIUM] 40 mg PO DAILY 12/07/17 01/23/18 Allergies Allergy/AdvReac Type Severity Reaction Status Date / Time codeine Allergy Unknown Verified 01/23/18 11:09 iodine Allergy Swelling Verified 01/23/18 11:09 iron Allergy Unknown Verified 01/23/18 11:09 Penicillins Allergy Rash/Hives Verified 01/23/18 11:09 quetiapine [From Seroquel] Allergy Unknown Verified 01/23/18 11:09 shellfish derived [Shellfish] Allergy Swelling Verified 01/23/18 11:09 Sulfa (Sulfonamide Allergy Rash/Hives Verified 01/23/18 11:09 Antibiotics) SEAFOOD Allergy Swelling Uncoded 01/23/18 11:09 Review of Systems ROS Statement: Those systems with pertinent positive or pertinent negative responses have been documented in the HPI. ROS Other: All systems not noted in ROS Statement are negative. Past Medical History Past Medical History: Cancer, COPD, Diabetes Mellitus, Eye Disorder, GERD/Reflux , Sleep Apnea/CPAP/BIPAP Additional Past Medical History / Comment(s): Myelodysplastic syndrome, leukemia -on oral chemo, myoblastic anemia, IDDM type II, PATRICIA without device, thoracic back pain, R eye cataract.uti, rt eye cataract History of Any Multi-Drug Resistant Organisms: MRSA, Other MDRO Date of last positivie culture/infection: 02/08/17-mrsa MDRO Source:: URINE-mrsa Past Surgical History: Appendectomy, Cholecystectomy, Hysterectomy, Joint Replacement, Tonsillectomy Additional Past Surgical History / Comment(s): left hip fracture with sugery, right foot and right ankle fractures with sx, thoracic back fusion, lt eye cataract, partial hysterectomy, "dislocation rt shoulder-put back in place", rt chest mediport, colonoscopy. Past Anesthesia/Blood Transfusion Reactions: Blood Transfusion Reaction Additional Past Anesthesia/Blood Transfusion Reaction / Comment(s): with a blood transfusion got hives/itching was given benadryl Smoking Status: Former smoker - Past Family History Mother Additional Family Medical History / Comment(s): alcoholic Father Family Medical History: Myocardial Infarction ([place]) Additional Family Medical History / Comment(s): Father of a [place] at the age of 65yrs. General Exam - General Exam Comments Initial Comments: GENERAL: Patient is well-developed and well-nourished. Patient is nontoxic and well- hydrated and is in mild distress. ENT: Neck is soft and supple. No significant lymphadenopathy is noted. Oropharynx is clear. Moist mucous membranes. Neck has full range of motion without eliciting any pain. EYES: The sclera were anicteric and conjunctiva were pink and moist. Extraocular movements were intact and pupils were equal round and reactive to light. Eyelids were unremarkable. PULMONARY: Unlabored respirations. Good breath sounds bilaterally. No audible rales rhonchi or wheezing was noted. CARDIOVASCULAR: There is a regular rate and rhythm without any murmurs gallops or rubs. ABDOMEN: Soft and nontender with normal bowel sounds. No palpable organomegaly was noted. There is no palpable pulsatile mass. SKIN: Skin is pale NEUROLOGIC: Patient is alert and oriented x3. Cranial nerves II through XII are grossly intact. Motor and sensory are also intact. Normal speech, volume and content. Symmetrical smile. MUSCULOSKELETAL: Normal extremities with adequate strength and full range of motion. No lower extremity swelling or edema. No calf tenderness. LYMPHATICS: No significant lymphadenopathy is noted PSYCHIATRIC: Normal psychiatric evaluation. Course Vital Signs 01/23/18 01/23/18 11: 12:26 Temperature 98.0 F Pulse Rate 103 H 102 H Respiratory 18 18 Rate Blood Pressure 119/68 100/79 O2 Sat by Pulse 99 100 Oximetry Medical Decision Making - Medical Decision Making EKG shows sinus tachycardia at 103 bpm SD interval 132 QRS is 76 QT interval 04 QTC is 398. Patient's EKG shows no ST segment elevation or depression Chest x-ray shows large pleural effusion on the left that was new from an old x- ray in November. - Lab Data Result diagrams: 01/23/18 11:30 01/23/18 11:30 Lab Results 01/23/18 01/23/18 01/23/18 Range/Units 11:30 11:30 11:30 WBC 4.5 (3.8-10.6) k/uL RBC 2.42 L (3.80-5.40) m/uL Hgb 8.9 L (11.4-16.0) gm/dL Hct 28.7 L (34.0-46.0) % MCV 118.3 H D (80.0-100.0) fL MCH 36.8 H (25.0-35.0) pg MCHC 31.1 (31.0-37.0) g/dL RDW 25.1 H (11.5-15.5) % PT (9.0-12.0) sec INR (<1.2) APTT (22.0-30.0) sec Sodium (137-145) mmol/L Potassium (3.5-5.1) mmol/L Chloride (98-107) mmol/L Carbon Dioxide (22-30) mmol/L Anion Gap mmol/L BUN (7-17) mg/dL Creatinine (0.52-1.04) mg/dL Est GFR (CKD-EPI)AfAm (>60 ml/min/1.73 sqM) Est GFR (CKD-EPI)NonAf (>60 ml/min/1.73 sqM) Glucose (74-99) mg/dL Calcium (8.4-10.2) mg/dL Total Bilirubin (0.2-1.3) mg/dL AST (14-36) U/L ALT (9-52) U/L Alkaline Phosphatase (38-126) U/L Total Creatine Kinase <20 L (30-135) U/L CK-MB (CK-2) 1.0 (0.0-2.4) ng/mL CK-MB (CK-2) Rel Index Troponin I 0.191 H* (0.000-0.034) ng/mL Total Protein (6.3-8.2) g/dL Albumin (3.5-5.0) g/dL Blood Type A Positive Blood Type Recheck No Antibody Screen NEGATIVE Spec Expiration Date 01/26/2018 - 232901/23/18 01/23/18 Range/Units 11:30 11:30 WBC (3.8-10.6) k/uL RBC (3.80-5.40) m/uL Hgb (11.4-16.0) gm/dL Hct (34.0-46.0) % MCV (80.0-100.0) fL MCH (25.0-35.0) pg MCHC (31.0-37.0) g/dL RDW (11.5-15.5) % PT 11.8 (9.0-12.0) sec INR 1.2 H (<1.2) APTT 36.4 H (22.0-30.0) sec Sodium 135 L (137-145) mmol/L Potassium 4.6 (3.5-5.1) mmol/L Chloride 101 (98-107) mmol/L Carbon Dioxide 21 L (22-30) mmol/L Anion Gap 13 mmol/L BUN 60 H (7-17) mg/dL Creatinine 0.96 (0.52-1.04) mg/dL Est GFR (CKD-EPI)AfAm 71 (>60 ml/min/1.73 sqM) Est GFR (CKD-EPI)NonAf 61 (>60 ml/min/1.73 sqM) Glucose 437 H (74-99) mg/dL Calcium 9.1 (8.4-10.2) mg/dL Total Bilirubin 3.9 H (0.2-1.3) mg/dL AST 122 H (14-36) U/L ALT 214 H (9-52) U/L Alkaline Phosphatase 226 H (38-126) U/L Total Creatine Kinase (30-135) U/L CK-MB (CK-2) (0.0-2.4) ng/mL CK-MB (CK-2) Rel Index Troponin I (0.000-0.034) ng/mL Total Protein 5.6 L (6.3-8.2) g/dL Albumin 2.7 L (3.5-5.0) g/dL Blood Type Blood Type Recheck Antibody Screen Spec Expiration Date Disposition Clinical Impression: Fatigue, Pleural effusion, Elevated troponin, Elevated liver enzymes Disposition: ADMITTED IP TO THIS HOSP Referrals: Axel Perez MD [Primary Care Provider] - 1-2 days Time of Disposition: 13:13
[2018-01-23 11:55] LABS: INR 1.2 (<1.2); Partial Thromboplastin Time 36.4 sec (22.0-30.0); Prothrombin Time 11.8 sec (9.0-12.0)
--- NOTE | 2018-01-23 11:59 | XR ---
EXAMINATION TYPE: XR chest 2V DATE OF EXAM: 01/23/2018 COMPARISON: November 14, 2017 HISTORY: Shortness of breath TECHNIQUE: Frontal and lateral views of the chest are obtained. FINDINGS: Scattered senescent parenchymal changes noted. Hyperinflation compatible with COPD. Increased left lower lobe density with pleural effusion. Infiltrate or atelectasis not excluded. Ther e is evidence of cardiomegaly. No evidence for congestive failure at this time. MediPort catheter is in place. Mediastinal structures are stable and grossly unremarkable. No evidence for hilar prominence. Degenerative changes dorsal spine. IMPRESSION: 1. Increased left lower lobe density with pleural effusion. Infiltrate or atelectasis not excluded. T here is evidence of cardiomegaly.
[2018-01-23 12:04] LABS: Creatine Kinase <20 U/L (30-135)
[2018-01-23 12:09] LABS: Anisocytosis Marked; HCT 28.7 % (34.0-46.0); HGB 8.9 gm/dL (11.4-16.0); Hypochromasia Marked; MCH 36.8 pg (25.0-35.0); MCHC 31.1 g/dL (31.0-37.0); Macrocytosis Marked; Mean Platelet Volume 14.2; Platelet Count 24 k/uL (150-450); RBC 2.42 m/uL (3.80-5.40)
[2018-01-23 12:14] LABS: Albumin 2.7 g/dL (3.5-5.0); Calcium 9.1 mg/dL (8.4-10.2); Potassium 4.6 mmol/L (3.5-5.1); Total Bilirubin 3.9 mg/dL (0.2-1.3); Total Protein 5.6 g/dL (6.3-8.2)
[2018-01-23 12:42] LABS: Troponin I 0.191 ng/mL (0.000-0.034)
[2018-01-23 13:00] LABS: RDW 25.1 % (11.5-15.5)
[2018-01-23 13:01] LABS: MCV 118.3 fL (80.0-100.0)
[2018-01-23] MEDS ORDERED: SODIUM CHLORIDE 0.9% 1,000 ML IV ONE (13:13)
[2018-01-23] MEDS: SODIUM CHLORIDE 0.9% 1,000 ML IV SCH ×2 (13:49→23:29)
[2018-01-23 13:56] LABS: Band Neutrophils % 1 %; Metamyelocytes % 1 %; Neutrophils % (M) 77 %; Nucleated Red Blood Cells 2 /100 WBC (0-0); Total Cells Counted 200
[2018-01-23 13:57] LABS: Lymphocytes # (M) 0.79 k/uL (1.0-4.8); Metamyelocytes # (M) 0.04 k/uL (0); Monocytes # (M) 0.22 k/uL (0-1.0); Poikilocytosis (M) Present; WBC 4.4 k/uL (3.8-10.6)
[2018-01-23 13:58] LABS: Polychromasia Present; RBC Fragments Present; Target Cells Present
--- NOTE | 2018-01-23 14:35 | P.HPIM ---
History of Present Illness This is a pleasant 67 years old female with past medical history of COPD, insulin-dependent diabetes mellitus, GERD, sleep apnea , myelodysplastic syndrome, leukemia on chemotherapy, blood transfusion reaction [times/itching] and MRSA infection. Presents because of chest pain on the left side, nonradiating, comes and goes over the last 2 days associated with dyspnea, orthopnea and generalized weakness. Patient denies any change in urine or bowel habits. She denies fever. And emergency room patient was noticed to be slightly tachycardic at 102-103. TROPONIN WERE ELEVATED AT 0.191, PREVIOUS TROPONIN WERE 0.08 AND 0.04 ON 2017. WBC 4.4, HEMOGLOBIN 8.9. PLATELETS LOW AT 24 Review of Systems CONSTITUTIONAL: No fever, no malaise, no fatigue. HEENT: No recent visual problems or hearing problems. Denied any sore throat. CARDIOVASCULAR: No orthopnea, PND, no palpitations, no syncope. PULMONARY: No shortness of breath, no cough, no hemoptysis. GASTROINTESTINAL: No diarrhea, no nausea, no vomiting, no abdominal pain. Normoactive bowel sounds. NEUROLOGICAL: No headaches, no weakness, no numbness. HEMATOLOGICAL: Denies any bleeding or petechiae. GENITOURINARY: Denies any burning micturition, frequency, or urgency. MUSCULOSKELETAL/RHEUMATOLOGICAL: Denies any joint pain, swelling, or any muscle pain. ENDOCRINE: Denies any polyuria or polydipsia. Past Medical History Past Medical History: Cancer, COPD, Diabetes Mellitus, Eye Disorder, GERD/Reflux , Sleep Apnea/CPAP/BIPAP Additional Past Medical History / Comment(s): Myelodysplastic syndrome, leukemia -on oral chemo, myoblastic anemia, IDDM type II, PATRICIA without device, thoracic back pain, R eye cataract.uti, rt eye cataract History of Any Multi-Drug Resistant Organisms: MRSA, Other MDRO Date of last positivie culture/infection: 02/08/17-mrsa MDRO Source:: URINE-mrsa Past Surgical History: Appendectomy, Cholecystectomy, Hysterectomy, Joint Replacement, Tonsillectomy Additional Past Surgical History / Comment(s): left hip fracture with sugery, right foot and right ankle fractures with sx, thoracic back fusion, lt eye cataract, partial hysterectomy, "dislocation rt shoulder-put back in place", rt chest mediport, colonoscopy. Past Anesthesia/Blood Transfusion Reactions: Blood Transfusion Reaction Additional Past Anesthesia/Blood Transfusion Reaction / Comment(s): with a blood transfusion got hives/itching was given benadryl Smoking Status: Former smoker - Past Family History Mother Additional Family Medical History / Comment(s): alcoholic Father Family Medical History: Myocardial Infarction ([place]) Additional Family Medical History / Comment(s): Father of a [place] at the age of 65yrs. Medications and Allergies Home Medications Medication Instructions Recorded Confirmed Type Deferasirox [Jadenu] 90 mg PO DAILY 11/02/17 01/23/18 History Deferasirox [Jadenu] 720 mg PO DAILY 11/02/17 01/23/18 History Epoetin Chris [Procrit] 40,000 unit SQ REECE 11/02/17 01/23/18 History Gabapentin 600 mg PO QID 11/02/17 01/23/18 History Esomeprazole Magnesium [NexIUM] 40 mg PO DAILY 12/07/17 01/23/18 History Allergies Allergy/AdvReac Type Severity Reaction Status Date / Time codeine Allergy Unknown Verified 01/23/18 11:09 iodine Allergy Swelling Verified 01/23/18 11:09 iron Allergy Unknown Verified 01/23/18 11:09 Penicillins Allergy Rash/Hives Verified 01/23/18 11:09 quetiapine [From Seroquel] Allergy Unknown Verified 01/23/18 11:09 shellfish derived [Shellfish] Allergy Swelling Verified 01/23/18 11:09 Sulfa (Sulfonamide Allergy Rash/Hives Verified 01/23/18 11:09 Antibiotics) SEAFOOD Allergy Swelling Uncoded 01/23/18 11:09 Physical Exam Vitals: Vital Signs Temp Pulse Resp BP Pulse Ox 01/23/18 13:49 103 H 18 96/65 98 01/23/18 12:26 102 H 18 100/79 100 01/23/18 11:09 98.0 F 103 H 18 119/68 99 Intake and Output 01/22/18 01/23/18 01/23/18 22:59 06:59 14:59 Other: Weight 77.111 kg GENERAL: The patient is alert and oriented x3, not in any acute distress. Well developed, well nourished. HEENT: Pupils are round and equally reacting to light. EOMI. No scleral icterus. No conjunctival pallor. Normocephalic, atraumatic. No pharyngeal erythema. No thyromegaly. CARDIOVASCULAR: S1 and S2 present. No murmurs, rubs, or gallops. PULMONARY: Chest is clear to auscultation, no wheezing or crackles. ABDOMEN: Soft, nontender, nondistended, normoactive bowel sounds. No palpable organomegaly. MUSCULOSKELETAL: No joint swelling or deformity. EXTREMITIES: No cyanosis, clubbing, or pedal edema. NEUROLOGICAL: Gross neurological examination did not reveal any focal deficits. SKIN: No rashes. Results CBC & Chem 7: 01/23/18 11:30 01/23/18 11:30 Labs: Abnormal Lab Results - Last 24 Hours (Table) 01/23/18 01/23/18 01/23/18 Range/Units 11:30 11:30 11:30 RBC 2.42 L (3.80-5.40) m/uL Hgb 8.9 L (11.4-16.0) gm/dL Hct 28.7 L (34.0-46.0) % MCV 118.3 H D (80.0-100.0) fL MCH 36.8 H (25.0-35.0) pg RDW 25.1 H (11.5-15.5) % Plt Count 24 L (150-450) k/uL Lymphocytes # (Manual) 0.79 L (1.0-4.8) k/uL Metamyelocytes # (Man) 0.04 H (0) k/uL Nucleated RBCs 2 H (0-0) /100 WBC INR (<1.2) APTT (22.0-30.0) sec Sodium 135 L (137-145) mmol/L Carbon Dioxide 21 L (22-30) mmol/L BUN 60 H (7-17) mg/dL Glucose 437 H (74-99) mg/dL Total Bilirubin 3.9 H (0.2-1.3) mg/dL AST 122 H (14-36) U/L ALT 214 H (9-52) U/L Alkaline Phosphatase 226 H (38-126) U/L Total Creatine Kinase <20 L (30-135) U/L Troponin I 0.191 H* (0.000-0.034) ng/mL Total Protein 5.6 L (6.3-8.2) g/dL Albumin 2.7 L (3.5-5.0) g/dL 01/23/18 Range/Units 11:30 RBC (3.80-5.40) m/uL Hgb (11.4-16.0) gm/dL Hct (34.0-46.0) % MCV (80.0-100.0) fL MCH (25.0-35.0) pg RDW (11.5-15.5) % Plt Count (150-450) k/uL Lymphocytes # (Manual) (1.0-4.8) k/uL Metamyelocytes # (Man) (0) k/uL Nucleated RBCs (0-0) /100 WBC INR 1.2 H (<1.2) APTT 36.4 H (22.0-30.0) sec Sodium (137-145) mmol/L Carbon Dioxide (22-30) mmol/L BUN (7-17) mg/dL Glucose (74-99) mg/dL Total Bilirubin (0.2-1.3) mg/dL AST (14-36) U/L ALT (9-52) U/L Alkaline Phosphatase (38-126) U/L Total Creatine Kinase (30-135) U/L Troponin I (0.000-0.034) ng/mL Total Protein (6.3-8.2) g/dL Albumin (3.5-5.0) g/dL Assessment and Plan Assessment: Chest pain with Elevated troponin, rule out cardiac cause. 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 Plan: This is a pleasant 67 years old female presents with fatigue and dyspnea, found to have elevated troponin of 0.19. Continue with same treatment. Continue with symptomatic treatment. Resume home medications. Monitor lytes and vitals. Cardiology consult.Hematology/Oncology input for myelodysplastic syndrome and history of leukemia. DVT and GI prophylaxis. Further recommendation is based on the clinical course of the patient DVT prophylaxis: No heparin in view of low platelets GI prophylaxis: Pepcid PT/OT: Hold for now Prognosis is guarded
[2018-01-23 15:23] LABS: Glucose,Whole Blood 430 mg/dL (75-99)
[2018-01-23 17:03] LABS: Glucose,Whole Blood 385 mg/dL (75-99)
[2018-01-23] MEDS: INSULIN ASPART 100 UNIT/ML 1 ML 10 ML VIAL SQ SCH ×2 (17:12→23:00)
[2018-01-23 22:54] LABS: Glucose,Whole Blood 298 mg/dL (75-99)
[2018-01-23] MEDS: FAMOTIDINE 20 MG/2 ML VIAL IV SCH (23:00)
[2018-01-24 06:11] LABS: Glucose,Whole Blood 179 mg/dL (75-99)
[2018-01-24] MEDS: INSULIN ASPART 100 UNIT/ML 1 ML 10 ML VIAL SQ SCH ×4 (06:14→21:48)
[2018-01-24 06:33] LABS: Albumin 2.7 g/dL (3.5-5.0); Potassium 4.6 mmol/L (3.5-5.1); Total Bilirubin 4.2 mg/dL (0.2-1.3); Total Protein 5.5 g/dL (6.3-8.2)
[2018-01-24 07:05] LABS: Anisocytosis Marked; Basophils % (A) 1 %; Eosinophils % (A) 1 %; HGB 8.7 gm/dL (11.4-16.0); Hypochromasia Marked; Lymphocytes # (A) 1.3 k/uL (1.0-4.8); Lymphocytes % (A) 36 %; MCH 37.1 pg (25.0-35.0); MCV 119.6 fL (80.0-100.0); Macrocytosis Marked; Mean Platelet Volume 14.5; Monocytes # (A) 0.2 k/uL (0-1.0); Monocytes % (A) 5 %; Neutrophils % (A) 55 %; RBC 2.34 m/uL (3.80-5.40); WBC 3.7 k/uL (3.8-10.6)
[2018-01-24 07:19] LABS: RDW 25.3 % (11.5-15.5)
[2018-01-24 07:20] LABS: Platelet Count 19 k/uL (150-450)
[2018-01-24 08:00] LABS: Mixed Population RBC Present; Poikilocytosis (M) Present; Polychromasia Present
[2018-01-24] MEDS: FAMOTIDINE 20 MG/2 ML VIAL IV SCH ×2 (08:06→21:56)
[2018-01-24] MEDS: SODIUM CHLORIDE 0.9% 1,000 ML IV SCH (08:06)
--- NOTE | 2018-01-24 09:18 | P.CRDCN ---
History of Present Illness Consult date: 01/24/18 Requesting physician: Randolph E An Consult reason: chest pain Chief complaint: Chest pain History of present illness: This is a 67-year-old female with history of diabetes, myelodysplasia , hyperlipidemia, GERD, prior tobacco use, leukemia, on chemotherapy, sleep apnea, who presented to the hospital with symptoms of chest discomfort. Patient describes his symptoms as chest pressure and heaviness, she states that she had associated shortness of breath and mild diaphoresis, she denies any nausea. Patient had been in the hospital in November of this year with similar symptoms, she was noted at that time to have abnormality in her troponin which was felt to be secondary to supply and demand mismatch she did have an echocardiogram with Doppler study performed in November which revealed an ejection fraction of 50-55%. EKG performed on this admission showed sinus tachycardia with nonspecific ST-T wave changes. Chest x-ray showed increased left lower lobe density with pleural effusion. Blood pressure on arrival 120/60 with a heart rate of 103, 99% on room air. Blood pressure this morning 98/60 with a heart rate of 114, 97% on room air. White blood cell count 3.7, hemoglobin 8.7 , platelet count 19. Sodium 134, potassium 4.6, BUN 61, creatinine 0.9. Blood glucose on arrival 437, 171 this morning. Total bilirubin 4.2 AST 128 ALT 202 alk phos 2:15 BNP level 10,400. Troponin 0.19, 0.21, 0.20. At the time of my examination this morning, patient feels quite sleepy, she denies any chest discomfort at present. Upon review of the patient's prior troponins when she was here in November, her troponins went from 0.04 to.08. Past Medical History Past Medical History: Cancer, COPD, Diabetes Mellitus, Eye Disorder, GERD/Reflux , Sleep Apnea/CPAP/BIPAP Additional Past Medical History / Comment(s): Myelodysplastic syndrome, leukemia -on oral chemo, myoblastic anemia, IDDM type II, PATRICIA without device, thoracic back pain, R eye cataract.uti, rt eye cataract History of Any Multi-Drug Resistant Organisms: MRSA, Other MDRO Date of last positivie culture/infection: 02/08/17-mrsa MDRO Source:: URINE-mrsa Past Surgical History: Appendectomy, Cholecystectomy, Hysterectomy, Joint Replacement, Tonsillectomy Additional Past Surgical History / Comment(s): left hip fracture with sugery, right foot and right ankle fractures with sx, thoracic back fusion, lt eye cataract, partial hysterectomy, "dislocation rt shoulder-put back in place", rt chest mediport, colonoscopy. Past Anesthesia/Blood Transfusion Reactions: Blood Transfusion Reaction Additional Past Anesthesia/Blood Transfusion Reaction / Comment(s): with a blood transfusion got hives/itching was given benadryl Smoking Status: Former smoker - Past Family History Mother Additional Family Medical History / Comment(s): alcoholic Father Family Medical History: Myocardial Infarction ([place]) Additional Family Medical History / Comment(s): Father of a [place] at the age of 65yrs. Medications and Allergies Home Medications Medication Instructions Recorded Confirmed Type Deferasirox [Jadenu] 90 mg PO DAILY 11/02/17 01/23/18 History Deferasirox [Jadenu] 720 mg PO DAILY 11/02/17 01/23/18 History Epoetin Chris [Procrit] 40,000 unit SQ REECE 11/02/17 01/23/18 History Gabapentin 600 mg PO QID 11/02/17 01/23/18 History Esomeprazole Magnesium [NexIUM] 40 mg PO DAILY 12/07/17 01/23/18 History Allergies Allergy/AdvReac Type Severity Reaction Status Date / Time codeine Allergy Unknown Verified 01/23/18 11:09 iodine Allergy Swelling Verified 01/23/18 11:09 iron Allergy Unknown Verified 01/23/18 11:09 Penicillins Allergy Rash/Hives Verified 01/23/18 11:09 quetiapine [From Seroquel] Allergy Unknown Verified 01/23/18 11:09 shellfish derived [Shellfish] Allergy Swelling Verified 01/23/18 11:09 Sulfa (Sulfonamide Allergy Rash/Hives Verified 01/23/18 11:09 Antibiotics) SEAFOOD Allergy Swelling Uncoded 01/23/18 11:09 Physical Exam Vitals: Vital Signs Temp Pulse Pulse Resp BP BP Pulse Ox 01/24/18 08:06 97.6 F 114 H 18 98/66 97 01/24/18 04:00 97.5 F L 118 H 17 104/71 98 01/23/18 23:56 97.5 F L 70 16 103/65 97 01/23/18 23:03 97.1 F L 01/23/18 22:06 53 L 18 119/72 98 01/23/18 21:35 99 18 104/67 99 01/23/18 19:56 97.9 F 100 18 104/65 99 01/23/18 17:42 102 H 18 120/79 97 01/23/18 17:14 106 H 18 115/96 97 01/23/18 15:25 104 H 18 124/69 98 01/23/18 13:49 103 H 18 96/65 98 01/23/18 12:26 102 H 18 100/79 100 01/23/18 11:09 98.0 F 103 H 18 119/68 99 Intake and Output 01/23/18 01/24/18 01/24/18 22:59 06:59 14:59 Intake Total 1000 120 Balance 1000 120 Intake: Intake, IV Titration 1000 Amount Sodium Chloride 0.9% 1, 1000 000 ml @ 100 mls/hr IV . Q10H ONE Rx#:[id number] Oral 120 Other: Weight 63.1 kg PHYSICAL EXAMINATION: GENERAL: 67-year-old female in no acute distress at the time of my examination HEENT: Head is atraumatic, normocephalic. Pupils equal, round. Sclera anicteric. Conjunctiva are clear. Mucous membranes of the mouth are moist. Neck is supple. There is no elevated jugular venous pressure. No carotid bruit is heard. HEART EXAMINATION: Heart S1, S2 normal. No murmur or gallop heard. CHEST EXAMINATION: Lungs are clear to auscultation and precussion. No chest wall tenderness is noted on palpation or with deep breathing. ABDOMEN: Soft, nontender. Bowel sounds are heard. No organomegaly noted. EXTREMITIES: 2+ peripheral pulses with no evidence of peripheral edema and no calf tenderness noted. NEUROLOGIC patient is awake, alert and oriented ?-3. . Results 01/24/18 05:57 01/24/18 05:57 Cardiac Enzymes 01/23/18 01/23/18 01/23/18 Range/Units 11:30 11:30 17:40 AST 122 H (14-36) U/L CK-MB (CK-2) 1.0 (0.0-2.4) ng/mL Troponin I 0.191 H* 0.212 H* (0.000-0.034) ng/mL 01/24/18 01/24/18 Range/Units 00:18 05:57 AST 128 H (14-36) U/L CK-MB (CK-2) (0.0-2.4) ng/mL Troponin I 0.209 H* (0.000-0.034) ng/mL Coagulation 01/23/18 Range/Units 11:30 PT 11.8 (9.0-12.0) sec APTT 36.4 H (22.0-30.0) sec CBC 01/23/18 01/24/18 Range/Units 11:30 05:57 WBC 4.4 3.7 L (3.8-10.6) k/uL RBC 2.42 L 2.34 L (3.80-5.40) m/uL Hgb 8.9 L 8.7 L (11.4-16.0) gm/dL Hct 28.7 L 28.0 L (34.0-46.0) % Plt Count 24 L 19 L* (150-450) k/uL Comprehensive Metabolic Panel 01/23/18 01/24/18 Range/Units 11:30 05:57 Sodium 135 L 134 L (137-145) mmol/L Potassium 4.6 4.6 (3.5-5.1) mmol/L Chloride 101 106 (98-107) mmol/L Carbon Dioxide 21 L 22 (22-30) mmol/L BUN 60 H 61 H (7-17) mg/dL Creatinine 0.96 0.91 (0.52-1.04) mg/dL Glucose 437 H 171 H (74-99) mg/dL Calcium 9.1 9.0 (8.4-10.2) mg/dL AST 122 H 128 H (14-36) U/L ALT 214 H 202 H (9-52) U/L Alkaline Phosphatase 226 H 215 H (38-126) U/L Total Protein 5.6 L 5.5 L (6.3-8.2) g/dL Albumin 2.7 L 2.7 L (3.5-5.0) g/dL Current Medications Generic Name Dose Route Start Last Admin Trade Name Freq PRN Reason Stop Dose Admin Famotidine 20 mg 01/23/18 21:00 01/24/18 08:06 Pepcid IV 20 mg Q12HR MONAE Administration Insulin Aspart 0 unit 01/23/18 17:30 01/24/18 06:14 Novolog SQ 2 unit ACHS MONAE Administration Protocol Intake and Output 01/23/18 01/24/18 01/24/18 22:59 06:59 14:59 Intake Total 1000 120 Balance 1000 120 Intake: Intake, IV Titration 1000 Amount Sodium Chloride 0.9% 1, 1000 000 ml @ 100 mls/hr IV . Q10H ONE Rx#:[id number] Oral 120 Other: Weight 63.1 kg 01/24/18 05:57 01/24/18 05:57 EKG Interpretations (text) EKG shows a sinus tachycardia with nonspecific ST-T wave changes. Assessment and Plan Plan: Assessment and plan #1 chest discomfort which patient describes as chest heaviness with associated diaphoresis and shortness of breath. EKG shows a sinus tachycardia with nonspecific ST-T wave changes. Troponins 0.19, 0.21, 0.20. #2 elevated liver enzymes #3 COPD #4 diabetes #5 sleep apnea #6 myelodysplastic syndrome #7 leukemia on chemotherapy #8 history of MRSA #9 prior history of smoking #10 elevated BNP level, chest x-ray shows increased left lower lobe density with pleural effusion. Plan Patient did have an echocardiogram with Doppler study performed in November which revealed a normal left ventricular systolic function. Because of the significantly elevated BNP level, we will discontinue the IV fluids which have been going at 100 mL per hour. Patient is not currently on an aspirin because of the thrombocytopenia, not on a statin at this time because of abnormal liver enzymes, not on beta alana because of hypotension. We will request a d-dimer , add small dose of nitro paste, further recommendations to follow. DNP note has been reviewed, I agree with a documented findings and plan of care. Patient was seen and examined.
[2018-01-24 11:19] LABS: Glucose,Whole Blood 207 mg/dL (75-99)
--- NOTE | 2018-01-24 11:34 | ECHOF ---
Referral Reason:elevated troponin MEASUREMENTS -------- HEIGHT: 160.0 cm WEIGHT: 63.0 kg BP: 104/71 RVIDd: 3.6 cm (< 3.3) IVSd: 1.2 cm (0.6 - 1.1) LVIDd: 4.7 cm (3.9 - 5.3) LVPWd: 1.2 cm (0.6 - 1.1) IVSs: 1.4 cm LVIDs: 4.2 cm LVPWs: 1.6 cm LA Diam: 3.3 cm (2.7 - 3.8) LAESV Index (A-L): 32.29 ml/m Ao Diam: 3.3 cm (2.0 - 3.7) AV Cusp: 1.9 cm (1.5 - 2.6) MV EXCURSION: 18.525 mm (> 18.000) MV EF SLOPE: 147 mm/s (70 - 150) EPSS: 1.6 cm MV E Timur: 0.67 m/s MV DecT: 234 ms MV A Timur: 0.34 m/s MV E/A Ratio: 2.00 RAP: 15.00 mmHg RVSP: 39.68 mmHg FINDINGS -------- This was a technically good study. The left ventricular size is normal. There is borderline concentric left ventricular hypertrophy. Overall left ventricular systolic function is severely impaired with, an EF < 20%. The right ventricle is mildly enlarged. LA is midly dilated 29-33ml/m2. The right atrium is normal in size. The aortic valve is trileaflet and appears structurally normal. The mitral valve leaflets are mildly thickened. Mild mitral annular calcification present. Mild-t o-moderate mitral regurgitation is present. Mild tricuspid regurgitation present. There is mild pulmonary hypertension. The right ventricular systolic pressure, as measured by Doppler, is 39.68mmHg. Trace/mild (physiologic) pulmonic regurgitation. The aortic root size is normal. The inferior vena cava is dilated with poor inspiratory collapse which is consistent with estimated r ight atrial pressure of 15 mmHg. There is a trivial pericardial effusion present. Moderate Pleural Effusion. CONCLUSIONS -------- 1. This was a technically good study. 2. The left ventricular size is normal. 3. There is borderline concentric left ventricular hypertrophy. 4. Overall left ventricular systolic function is severely impaired with, an EF < 20%. 5. The right ventricle is mildly enlarged. 6. LA is midly dilated 29-33ml/m2. 7. The right atrium is normal in size. 8. The aortic valve is trileaflet and appears structurally normal. 9. The mitral valve leaflets are mildly thickened. 10. Mild mitral annular calcification present. 11. [id number] mitral regurgitation is present. 12. Mild tricuspid regurgitation present. 13. There is mild pulmonary hypertension. 14. The right ventricular systolic pressure, as measured by Doppler, is 39.68mmHg. 15. Trace/mild (physiologic) pulmonic regurgitation. 16. The aortic root size is normal. 17. The inferior vena cava is dilated with poor inspiratory collapse which is consistent with estimat ed right atrial pressure of 15 mmHg. 18. There is a trivial pericardial effusion present. 19. Moderate Pleural Effusion. LIFE ENRICHMENT ASSISTANT: Jenny Harris RDCS
[2018-01-24] MEDS: METOPROLOL TARTRATE 12.5 MG TAB PO SCH ×3 (11:50→23:00)
[2018-01-24] MEDS: NITROGLYCERIN OINT 1 INCH/GM PACKET TOPICAL SCH ×3 (11:50→23:00)
[2018-01-24] MEDS ORDERED: ADENOSINE 3 MG/ML 2 ML VIAL IVP ONE (13:18)
--- NOTE | 2018-01-24 13:33 | P.CONS ---
History of Present Illness - Reason for Consult Consult date: 01/24/18 Treatment for MDS and hemachromotosis Requesting physician: Randolph E Sheet - Chief Complaint chest pain - History of Present Illness Mrs. Funez is a very pleasant female patient of Dr. Esquivel with a history of myelodysplastic syndrome diagnosed around 2009 in [place]. Patient was treated with Aranesp and intermittent blood transfusions which in turn will lead to the need for iron chelation therapy. Patient has moved to [place], back to [place] and back to [place] in the last 2 years. Patient was most recently on Revlimid and dexamethasone for treatment of MDS, Procrit for anemia and Regis new for iron chelation therapy. Due to her persistently low counts despite therapy she had a bone marrow on 01/04/2018, consistent with RA ROS, no increased blasts, fish was negative and 5 every deletion was no longer noted. Revlimid was discontinued. The plan was to continue iron chelation therapy, supportive transfusions conservatively for anemia and thrombocytopenia and continue Procrit. Further discussion regarding chemotherapy was planned in the next few weeks. Patient states she came to the hospital due to persistent, progressive tiredness , also chest pain radiating across the chest, associated with nausea and some shortness of breath. Patient states feeling better since admission. She denied vision changes, difficulty swallowing, vomiting, abdominal pain, persistent diarrhea or constipation, bleeding or swelling. Patient is being followed by cardiology for elevated troponins. Patient's bilirubin and LFTs are also noted to be elevated. Review of Systems 10 point ROS as stated in HPI Past Medical History Past Medical History: Cancer, COPD, Diabetes Mellitus, Eye Disorder, GERD/Reflux , Sleep Apnea/CPAP/BIPAP Additional Past Medical History / Comment(s): Myelodysplastic syndrome, leukemia -on oral chemo, myoblastic anemia, IDDM type II, PATRICIA without device, thoracic back pain, R eye cataract.uti, rt eye cataract History of Any Multi-Drug Resistant Organisms: MRSA, Other MDRO Year Discovered:: 02/08/17-mrsa MDRO Source:: URINE-mrsa Past Surgical History: Appendectomy, Cholecystectomy, Hysterectomy, Joint Replacement, Tonsillectomy Additional Past Surgical History / Comment(s): left hip fracture with sugery, right foot and right ankle fractures with sx, thoracic back fusion, lt eye cataract, partial hysterectomy, "dislocation rt shoulder-put back in place", rt chest mediport, colonoscopy. Past Anesthesia/Blood Transfusion Reactions: Blood Transfusion Reaction Additional Past Anesthesia/Blood Transfusion Reaction / Comm: with a blood transfusion got hives/itching was given benadryl Past Psychological History: Unable to Obtain Smoking Status: Former smoker Past Alcohol Use History: Unable to Obtain Past Drug Use History: Unable to Obtain - Past Family History Mother Additional Family Medical History / Comment(s): alcoholic Father Family Medical History: Myocardial Infarction (MT) Additional Family Medical History / Comment(s): Father of a MT at the age of 65yrs. Medications and Allergies Home Medications Medication Instructions Recorded Confirmed Type Deferasirox [Jadenu] 90 mg PO DAILY 11/02/17 01/23/18 History Deferasirox [Jadenu] 720 mg PO DAILY 11/02/17 01/23/18 History Epoetin Chris [Procrit] 40,000 unit SQ REECE 11/02/17 01/23/18 History Gabapentin 600 mg PO QID 11/02/17 01/23/18 History Esomeprazole Magnesium [NexIUM] 40 mg PO DAILY 12/07/17 01/23/18 History Allergies Allergy/AdvReac Type Severity Reaction Status Date / Time codeine Allergy Unknown Verified 01/23/18 11:09 iodine Allergy Swelling Verified 01/23/18 11:09 iron Allergy Unknown Verified 01/23/18 11:09 Penicillins Allergy Rash/Hives Verified 01/23/18 11:09 quetiapine [From Seroquel] Allergy Unknown Verified 01/23/18 11:09 shellfish derived [Shellfish] Allergy Swelling Verified 01/23/18 11:09 Sulfa (Sulfonamide Allergy Rash/Hives Verified 01/23/18 11:09 Antibiotics) SEAFOOD Allergy Swelling Uncoded 01/23/18 11:09 Physical Exam Vitals: Vital Signs Temp Pulse Pulse Resp BP BP Pulse Ox 01/24/18 12:00 97.7 F 98 16 102/61 98 01/24/18 08:06 97.6 F 114 H 18 98/66 97 01/24/18 04:00 97.5 F L 118 H 17 104/71 98 01/23/18 23:56 97.5 F L 70 16 103/65 97 01/23/18 23:03 97.1 F L 01/23/18 22:06 53 L 18 119/72 98 09/10/18 21:35 99 18 104/67 99 01/23/18 19:56 97.9 F 100 18 104/65 99 01/23/18 17:42 102 H 18 120/79 97 01/23/18 17:14 106 H 18 115/96 97 01/23/18 15:25 104 H 18 124/69 98 01/23/18 13:49 103 H 18 96/65 98 Intake and Output 01/23/18 01/24/18 01/24/18 22:59 06:59 14:59 Intake Total 1000 360 Balance 1000 360 Intake: Intake, IV Titration 1000 Amount Sodium Chloride 0.9% 1, 1000 000 ml @ 100 mls/hr IV . Q10H ONE Rx#:[id number] Oral 360 Other: Weight 63.1 kg - Constitutional General appearance: average body habitus, cooperative, no acute distress - EENT Eyes: anicteric sclerae, EOMI, normal appearance ENT: normal oropharynx - Neck Neck: no lymphadenopathy - Respiratory Respiratory: bilateral: CTA, diminished (bases) - Cardiovascular Rhythm: regular leg Peripheral Edema: bilateral: Trace - Gastrointestinal General gastrointestinal: normal bowel sounds, soft - Integumentary Integumentary: pale - Musculoskeletal Musculoskeletal: generalized weakness - Psychiatric Psychiatric: A&O x's 3, appropriate affect, intact judgment & insight Results CBC & Chem 7: 01/24/18 05:57 01/24/18 05:57 Labs: Abnormal Lab Results - Last 24 Hours (Table) 01/23/18 01/23/18 01/23/18 Range/Units 11:30 15:20 16:59 WBC (3.8-10.6) k/uL RBC 2.42 L (3.80-5.40) m/uL Hgb 8.9 L (11.4-16.0) gm/dL Hct 28.7 L (34.0-46.0) % MCV 118.3 H D (80.0-100.0) fL MCH 36.8 H (25.0-35.0) pg RDW 25.1 H (11.5-15.5) % Plt Count 24 L (150-450) k/uL Lymphocytes # (Manual) 0.79 L (1.0-4.8) k/uL Metamyelocytes # (Man) 0.04 H (0) k/uL Nucleated RBCs 2 H (0-0) /100 WBC D-Dimer (<0.60) mg/L FEU Sodium (137-145) mmol/L BUN (7-17) mg/dL Glucose (74-99) mg/dL POC Glucose (mg/dL) 430 H 385 H (75-99) mg/dL Total Bilirubin (0.2-1.3) mg/dL AST (14-36) U/L ALT (9-52) U/L Alkaline Phosphatase (38-126) U/L Troponin I (0.000-0.034) ng/mL Total Protein (6.3-8.2) g/dL Albumin (3.5-5.0) g/dL 01/23/18 01/23/18 01/24/18 Range/Units 17:40 22:52 00:18 WBC (3.8-10.6) k/uL RBC (3.80-5.40) m/uL Hgb (11.4-16.0) gm/dL Hct (34.0-46.0) % MCV (80.0-100.0) fL MCH (25.0-35.0) pg RDW (11.5-15.5) % Plt Count (150-450) k/uL Lymphocytes # (Manual) (1.0-4.8) k/uL Metamyelocytes # (Man) (0) k/uL Nucleated RBCs (0-0) /100 WBC D-Dimer (<0.60) mg/L FEU Sodium (137-145) mmol/L BUN (7-17) mg/dL Glucose (74-99) mg/dL POC Glucose (mg/dL) 298 H (75-99) mg/dL Total Bilirubin (0.2-1.3) mg/dL AST (14-36) U/L ALT (9-52) U/L Alkaline Phosphatase (38-126) U/L Troponin I 0.212 H* 0.209 H* (0.000-0.034) ng/mL Total Protein (6.3-8.2) g/dL Albumin (3.5-5.0) g/dL 09/11/18 09/11/18 09/11/18 Range/Units 05:57 05:57 06:08 WBC 3.7 L (3.8-10.6) k/uL RBC 2.34 L (3.80-5.40) m/uL Hgb 8.7 L (11.4-16.0) gm/dL Hct 28.0 L (34.0-46.0) % MCV 119.6 H (80.0-100.0) fL MCH 37.1 H (25.0-35.0) pg RDW 25.3 H (11.5-15.5) % Plt Count 19 L* (150-450) k/uL Lymphocytes # (Manual) (1.0-4.8) k/uL Metamyelocytes # (Man) (0) k/uL Nucleated RBCs (0-0) /100 WBC D-Dimer (<0.60) mg/L FEU Sodium 134 L (137-145) mmol/L BUN 61 H (7-17) mg/dL Glucose 171 H (74-99) mg/dL POC Glucose (mg/dL) 179 H (75-99) mg/dL Total Bilirubin 4.2 H (0.2-1.3) mg/dL AST 128 H (14-36) U/L ALT 202 H (9-52) U/L Alkaline Phosphatase 215 H (38-126) U/L Troponin I (0.000-0.034) ng/mL Total Protein 5.5 L (6.3-8.2) g/dL Albumin 2.7 L (3.5-5.0) g/dL 01/24/18 01/24/18 Range/Units 09:49 11:13 WBC (3.8-10.6) k/uL RBC (3.80-5.40) m/uL Hgb (11.4-16.0) gm/dL Hct (34.0-46.0) % MCV (80.0-100.0) fL MCH (25.0-35.0) pg RDW (11.5-15.5) % Plt Count (150-450) k/uL Lymphocytes # (Manual) (1.0-4.8) k/uL Metamyelocytes # (Man) (0) k/uL Nucleated RBCs (0-0) /100 WBC D-Dimer 2.17 H (<0.60) mg/L FEU Sodium (137-145) mmol/L BUN (7-17) mg/dL Glucose (74-99) mg/dL POC Glucose (mg/dL) 207 H (75-99) mg/dL Total Bilirubin (0.2-1.3) mg/dL AST (14-36) U/L ALT (9-52) U/L Alkaline Phosphatase (38-126) U/L Troponin I (0.000-0.034) ng/mL Total Protein (6.3-8.2) g/dL Albumin (3.5-5.0) g/dL Assessment and Plan (1) Anemia Narrative/Plan: Anemia is multifactorial including myelodysplastic syndrome as well as chronic kidney disease. Patient is transfusion dependent, on epogen. No transfusion today for hemoglobin of 8.7. We will verify last dose of epogen and supplement as appropriate. Current Visit: Yes Status: Chronic Priority: Medium Code(s): D64.9 - ANEMIA, UNSPECIFIED SNOMED Code(s): 096202333 (2) Iron overload due to repeated red blood cell transfusions Narrative/Plan: Suspect as an underlying cause for elevated bilirubin and liver enzymes. Continue Jadenu iron chelation therapy Current Visit: Yes Status: Chronic Priority: Medium Code(s): E83.111 - HEMOCHROMATOSIS DUE TO REPEATED RED BLOOD CELL TRANSFUSIONS SNOMED Code(s): 875531510 (3) MDS (myelodysplastic syndrome) Narrative/Plan: Patient recently had bone marrow biopsy and aspirate. She is no longer 5 every deletion therefore, Revlimid is no longer indicated. The most recent plan of care is for conservative transfusions as needed, continue erythropoietin supplementation and iron chelation therapy with Jadenu. Patient will follow-up with Dr. Esquivel Current Visit: Yes Status: Chronic Priority: Medium Code(s): D46.9 - MYELODYSPLASTIC SYNDROME, UNSPECIFIED SNOMED Code(s): 291886735 (4) Thrombocytopenia Narrative/Plan: Secondary to MDS, pt has needed plt transfusions recently. Transfuse for plt <10K or if symptomatic. No asa, NSAIDs, anticoagulation. Close monitoring for bleeding Current Visit: No Status: Chronic Priority: High Code(s): D69.6 - THROMBOCYTOPENIA, UNSPECIFIED SNOMED Code(s): 989747368
[2018-01-24] MEDS ORDERED: DILTIAZEM DRIP BOLUS FROM BAG 1 MG SOLN IV ONE (13:40)
[2018-01-24] MEDS ORDERED: DILTIAZEM 50 MG in SODIUM CHLORIDE 0.9% 40 ML IV SCH (13:45)
--- NOTE | 2018-01-24 15:11 | P.PN ---
Subjective This is a pleasant 67 years old female with past medical history of COPD, insulin-dependent diabetes mellitus, GERD, sleep apnea , myelodysplastic syndrome, leukemia on chemotherapy, blood transfusion reaction [times/itching] and MRSA infection. Presents because of chest pain on the left side, nonradiating, comes and goes over the last 2 days associated with dyspnea, orthopnea and generalized weakness. Patient denies any change in urine or bowel habits. She denies fever. And emergency room patient was noticed to be slightly tachycardic at 102-103. TROPONIN WERE ELEVATED AT 0.191, PREVIOUS TROPONIN WERE 0.08 AND 0.04 ON 2017. WBC 4.4, HEMOGLOBIN 8.9. PLATELETS LOW AT 24 01/24/2018 Patient feels a little better, she still have some chest discomfort and still dyspneic. No change in mental status. No fever. Labs reviewed showing pancytopenia with a drop in platelets 219. WBC 3.7K and hemoglobin 8.7. Oncology team evaluated patient and recommended to transfuse platelets when less than 10 K however no need for more chemotherapy, transfuse as needed and follow-up as an outpatient, however they recommended aren't chilly tip therapy with GA DD continue for iron overload from previous multiple red blood cell transfusions. Cardiology was consulted evaluated the patient We'll check liver ultrasound and hepatitis panel. We'll consult GI DC IV fluids as per cardiology Objective - Vital Signs Vital signs: Vital Signs Temp 97.6 F 01/24/18 08:06 Pulse 118 H 01/24/18 08:06 Resp 18 01/24/18 08:06 BP 98/66 01/24/18 08:06 Pulse Ox 97 01/24/18 08:06 Intake & Output 01/23/18 01/24/18 01/24/18 18:59 06:59 18:59 Intake Total 1000 120 Balance 1000 120 Weight 77.111 kg 63.1 kg Intake: Intake, IV Titration 1000 Amount Sodium Chloride 0.9% 1, 1000 000 ml @ 100 mls/hr IV . Q10H ONE Rx#:[id number] Oral 120 - Exam GENERAL: The patient is alert and oriented x3, not in any acute distress. Well developed, well nourished. HEENT: Pupils are round and equally reacting to light. EOMI. No scleral icterus. No conjunctival pallor. Normocephalic, atraumatic. No pharyngeal erythema. No thyromegaly. CARDIOVASCULAR: S1 and S2 present. No murmurs, rubs, or gallops. PULMONARY: Chest is clear to auscultation, no wheezing or crackles. ABDOMEN: Soft, nontender, nondistended, normoactive bowel sounds. No palpable organomegaly. MUSCULOSKELETAL: No joint swelling or deformity. EXTREMITIES: No cyanosis, clubbing, or pedal edema. NEUROLOGICAL: Gross neurological examination did not reveal any focal deficits. SKIN: No rashes. - Labs CBC & Chem 7: 01/24/18 05:57 01/24/18 05:57 Labs: Abnormal Lab Results - Last 24 Hours (Table) 01/23/18 01/23/18 01/23/18 Range/Units 11:30 11:30 11:30 WBC (3.8-10.6) k/uL RBC 2.42 L (3.80-5.40) m/uL Hgb 8.9 L (11.4-16.0) gm/dL Hct 28.7 L (34.0-46.0) % MCV 118.3 H D (80.0-100.0) fL MCH 36.8 H (25.0-35.0) pg RDW 25.1 H (11.5-15.5) % Plt Count 24 L (150-450) k/uL Lymphocytes # (Manual) 0.79 L (1.0-4.8) k/uL Metamyelocytes # (Man) 0.04 H (0) k/uL Nucleated RBCs 2 H (0-0) /100 WBC INR (<1.2) APTT (22.0-30.0) sec D-Dimer (<0.60) mg/L FEU Sodium 135 L (137-145) mmol/L Carbon Dioxide 21 L (22-30) mmol/L BUN 60 H (7-17) mg/dL Glucose 437 H (74-99) mg/dL POC Glucose (mg/dL) (75-99) mg/dL Total Bilirubin 3.9 H (0.2-1.3) mg/dL AST 122 H (14-36) U/L ALT 214 H (9-52) U/L Alkaline Phosphatase 226 H (38-126) U/L Total Creatine Kinase <20 L (30-135) U/L Troponin I 0.191 H* (0.000-0.034) ng/mL Total Protein 5.6 L (6.3-8.2) g/dL Albumin 2.7 L (3.5-5.0) g/dL 01/23/18 01/23/18 01/23/18 Range/Units 11:30 15:20 16:59 WBC (3.8-10.6) k/uL RBC (3.80-5.40) m/uL Hgb (11.4-16.0) gm/dL Hct (34.0-46.0) % MCV (80.0-100.0) fL MCH (25.0-35.0) pg RDW (11.5-15.5) % Plt Count (150-450) k/uL Lymphocytes # (Manual) (1.0-4.8) k/uL Metamyelocytes # (Man) (0) k/uL Nucleated RBCs (0-0) /100 WBC INR 1.2 H (<1.2) APTT 36.4 H (22.0-30.0) sec D-Dimer (<0.60) mg/L FEU Sodium (137-145) mmol/L Carbon Dioxide (22-30) mmol/L BUN (7-17) mg/dL Glucose (74-99) mg/dL POC Glucose (mg/dL) 430 H 385 H (75-99) mg/dL Total Bilirubin (0.2-1.3) mg/dL AST (14-36) U/L ALT (9-52) U/L Alkaline Phosphatase (38-126) U/L Total Creatine Kinase (30-135) U/L Troponin I (0.000-0.034) ng/mL Total Protein (6.3-8.2) g/dL Albumin (3.5-5.0) g/dL 01/23/18 01/23/18 01/24/18 Range/Units 17:40 22:52 00:18 WBC (3.8-10.6) k/uL RBC (3.80-5.40) m/uL Hgb (11.4-16.0) gm/dL Hct (34.0-46.0) % MCV (80.0-100.0) fL MCH (25.0-35.0) pg RDW (11.5-15.5) % Plt Count (150-450) k/uL Lymphocytes # (Manual) (1.0-4.8) k/uL Metamyelocytes # (Man) (0) k/uL Nucleated RBCs (0-0) /100 WBC INR (<1.2) APTT (22.0-30.0) sec D-Dimer (<0.60) mg/L FEU Sodium (137-145) mmol/L Carbon Dioxide (22-30) mmol/L BUN (7-17) mg/dL Glucose (74-99) mg/dL POC Glucose (mg/dL) 298 H (75-99) mg/dL Total Bilirubin (0.2-1.3) mg/dL AST (14-36) U/L ALT (9-52) U/L Alkaline Phosphatase (38-126) U/L Total Creatine Kinase (30-135) U/L Troponin I 0.212 H* 0.209 H* (0.000-0.034) ng/mL Total Protein (6.3-8.2) g/dL Albumin (3.5-5.0) g/dL 01/24/18 01/24/18 01/24/18 Range/Units 05:57 05:57 06:08 WBC 3.7 L (3.8-10.6) k/uL RBC 2.34 L (3.80-5.40) m/uL Hgb 8.7 L (11.4-16.0) gm/dL Hct 28.0 L (34.0-46.0) % MCV 119.6 H (80.0-100.0) fL MCH 37.1 H (25.0-35.0) pg RDW 25.3 H (11.5-15.5) % Plt Count 19 L* (150-450) k/uL Lymphocytes # (Manual) (1.0-4.8) k/uL Metamyelocytes # (Man) (0) k/uL Nucleated RBCs (0-0) /100 WBC INR (<1.2) APTT (22.0-30.0) sec D-Dimer (<0.60) mg/L FEU Sodium 134 L (137-145) mmol/L Carbon Dioxide (22-30) mmol/L BUN 61 H (7-17) mg/dL Glucose 171 H (74-99) mg/dL POC Glucose (mg/dL) 179 H (75-99) mg/dL Total Bilirubin 4.2 H (0.2-1.3) mg/dL AST 128 H (14-36) U/L ALT 202 H (9-52) U/L Alkaline Phosphatase 215 H (38-126) U/L Total Creatine Kinase (30-135) U/L Troponin I (0.000-0.034) ng/mL Total Protein 5.5 L (6.3-8.2) g/dL Albumin 2.7 L (3.5-5.0) g/dL 01/24/18 01/24/18 Range/Units 09:49 11:13 WBC (3.8-10.6) k/uL RBC (3.80-5.40) m/uL Hgb (11.4-16.0) gm/dL Hct (34.0-46.0) % MCV (80.0-100.0) fL MCH (25.0-35.0) pg RDW (11.5-15.5) % Plt Count (150-450) k/uL Lymphocytes # (Manual) (1.0-4.8) k/uL Metamyelocytes # (Man) (0) k/uL Nucleated RBCs (0-0) /100 WBC INR (<1.2) APTT (22.0-30.0) sec D-Dimer 2.17 H (<0.60) mg/L FEU Sodium (137-145) mmol/L Carbon Dioxide (22-30) mmol/L BUN (7-17) mg/dL Glucose (74-99) mg/dL POC Glucose (mg/dL) 207 H (75-99) mg/dL Total Bilirubin (0.2-1.3) mg/dL AST (14-36) U/L ALT (9-52) U/L Alkaline Phosphatase (38-126) U/L Total Creatine Kinase (30-135) U/L Troponin I (0.000-0.034) ng/mL Total Protein (6.3-8.2) g/dL Albumin (3.5-5.0) g/dL Assessment and Plan Assessment: Chest pain with Elevated troponin, rule out cardiac cause. c++ quant developer is consulted Fatigue and dyspnea Elevated liver enzymes h/o COPD insulin-dependent diabetes mellitus Iron overload from previous multiple blood transfusions GERD sleep apnea h/o myelodysplastic syndrome Pancytopenia with Chronic anemia and thrombocytopenia h/o blood transfusion reaction [times/itching] h/o MRSA infection. Plan: This is a pleasant 67 years old female presents with fatigue and dyspnea, found to have elevated troponin of 0.19. Continue with same treatment. Continue with symptomatic treatment. Resume home medications. Monitor lytes and vitals. Cardiology consult.Hematology/Oncology input for myelodysplastic syndrome and history of leukemia. DVT and GI prophylaxis. Further recommendation is based on the clinical course of the patient DVT prophylaxis: No heparin in view of low platelets GI prophylaxis: Pepcid PT/OT: Hold for now Prognosis is guarded
[2018-01-24 16:11] LABS: Glucose,Whole Blood 169 mg/dL (75-99)
[2018-01-24 17:13] LABS: Hemoglobin A1C 7.4 % (4.0-6.0)
--- NOTE | 2018-01-24 20:12 | US ---
EXAMINATION TYPE: US liver DATE OF EXAM: 01/24/2018 COMPARISON: Ultrasound 12/06/2017 CLINICAL HISTORY: Elevated liver enzymes. Elevated liver enzymes. FINDINGS: Liver Length: 15.1 cm. Liver: Heterogenous fluid visualized. Gallbladder Wall: Surgically absent. CBD: 0.5 cm Right Kidney: 9.5 x 3.9 x 4.7 cm. Two anechoic foci measuring approximately 1 cm., consistent with c ysts. No hydronephrosis. Pancreas: Negative as seen. Heterogenous tail obscured by overlying bowel gas; duct partially visuali zed. IMPRESSION: 1. NO ACUTE ABDOMINAL PROCESS. 2. BILATERAL PLEURAL EFFUSIONS INCIDENTALLY NOTED.
[2018-01-24 20:52] LABS: Glucose,Whole Blood 144 mg/dL (75-99)
[2018-01-25] MEDS ORDERED: SODIUM CHLORIDE 0.9% 500 ML IV ONE ×4 (00:15→04:46)
[2018-01-25] MEDS ORDERED: AZTREONAM 1 GM in SODIUM CHLORIDE 0.9% 50 ML IVPB SCH (01:30)
[2018-01-25 01:58] LABS: Glucose,Whole Blood 164 mg/dL (75-99)
[2018-01-25 02:02] LABS: Appearance,Urine Cloudy (Clear); Bacteria,Urine Many /hpf; Bilirubin,Urine Negative (Negative); Blood,Urine Negative (Negative); Color,Urine Dark Brown; Glucose,Urine (UA) Negative (Negative); Hyaline Casts,Urine 157 /lpf (0-2); Ketones,Urine Negative (Negative); Leukocyte Esterase,Urine Small (Negative); Mucus,Urine Rare /hpf; Nitrite,Urine Negative (Negative); Protein,Urine 1+ (Negative); RBC,Urine 1 /hpf (0-5); Specific Gravity,Urine 1.016 (1.001-1.035); Squamous Epithelial Cell,Urine 1 /hpf (0-4); WBC,Urine 6 /hpf (0-5)
[2018-01-25 02:26] LABS: Magnesium 2.1 mg/dL (1.6-2.3); Phosphorus 4.8 mg/dL (2.5-4.5)
[2018-01-25] MEDS ORDERED: LEVOFLOXACIN 750MG-D5W PMX 750 MG in DEXTROSE/WATER 1 150ML.BAG IVPB ONE (02:51)
[2018-01-25] MEDS ORDERED: NALOXONE 0.4 MG/ML 1 ML VIAL IV PRN (04:14)
[2018-01-25] MEDS: NOREPINEPHRINE 16 MG in SODIUM CHLORIDE 0.9% 250 ML IV SCH ×2 (05:25→19:24)
[2018-01-25 05:56] LABS: Albumin 2.7 g/dL (3.5-5.0); Calcium 8.7 mg/dL (8.4-10.2); Magnesium 2.2 mg/dL (1.6-2.3); Phosphorus 5.1 mg/dL (2.5-4.5); Potassium 5.4 mmol/L (3.5-5.1); Total Bilirubin 4.5 mg/dL (0.2-1.3); Total Protein 5.7 g/dL (6.3-8.2)
[2018-01-25 06:16] LABS: Anisocytosis Marked; Basophils % (A) 0 %; Eosinophils % (A) 0 %; HCT 29.9 % (34.0-46.0); HGB 9.4 gm/dL (11.4-16.0); Hypochromasia Marked; Lymphocytes # (A) 1.1 k/uL (1.0-4.8); Lymphocytes % (A) 30 %; MCH 38.2 pg (25.0-35.0); MCHC 31.5 g/dL (31.0-37.0); Macrocytosis Marked; Mean Platelet Volume 14.2; Monocytes # (A) 0.2 k/uL (0-1.0); Monocytes % (A) 4 %; Neutrophils # (A) 2.4 k/uL (1.3-7.7); Neutrophils % (A) 63 %; RBC 2.47 m/uL (3.80-5.40); WBC 3.8 k/uL (3.8-10.6)
[2018-01-25 06:19] LABS: RDW 25.3 % (11.5-15.5)
[2018-01-25 06:20] LABS: Platelet Count 25 k/uL (150-450)
[2018-01-25 06:32] LABS: Target Cells Present
[2018-01-25 06:33] LABS: Basophilic Stippling Present; Large Platelets Present
--- NOTE | 2018-01-25 08:02 | P.CNPUL ---
History of Present Illness Consult date: 01/25/18 Chief complaint: Hypotension History of present illness: 67-year-old female patient with known history of mild dysplasia maintained on a combination of Gleevec and Decadron in addition to history of diabetes, hyperlipidemia and COPD and obstructive sleep apnea. The patient has had chronic complications of mild dysplasia including chronic anemia and thrombocytopenia requiring multiple blood transfusions in the past. The patient came in yesterday to the hospital because of chest pain. She had heaviness in her chest and she had also some increased shortness of breath. No cough. No sputum production. No pleurisy. No hemoptysis. She had a previous echocardiogram that showed a preserved LV function of ejection fraction of 55%. EKG that was performed during this current admission shows some nonspecific ST segment changes. Chest x-ray showed a left-sided pleural effusion. Subsequently the echocardiogram was repeated based on an elevated BNP level of 10,000 and the patient was found to have profound impairment of the LV function with an ejection fraction dropping down to less than 20%. RV is mildly enlarged. There is mild to moderate mitral regurgitation. Moderate pulmonary hypertension with a PA pressure of around 39. The IVC is dilated and there is poor respiratory collapse consistent with estimated right atrial pressure of about 15. There is also a moderate degree of pleural effusion on the left. Troponins were 0.2 0.2 respectively 2. The patient was seen by cardiology. Conservative management was recommended based on her comorbidities and chronic, cytopenia. Around 3 AM this morning, the patient becomes progressively more hypotensive. Her lactic acid was slightly elevated at 2.5 and 2.1. The patient was given a total of 3 L of IV fluids. She coaches for to the ICU. Artline catheter was inserted. She is currently on 20 mics of norepinephrine infusion for blood pressure support. Urine output is also drop. Morning blood work shows a non-anion gap metabolic acidosis with a bicarb level of 18, anion gap of 9, creatinine of 1.1, and the white cell count is at 3.8 with hemoglobin of 9.4. The patient is awake. She is a poor historian. I think she does have an underlying dementia. She does not have a good recollection of the events that led to her coming to the hospital. No she is much aware of her past medical history. LFTs were slightly abnormal yet that is no acute abnormalities on the ultrasound of the liver and gallbladder. The patient has a Mediport and the patient also has a vagal nerve stimulator. No skin rashes. No open wounds or ulceration. No abdominal distention. No nausea. No vomiting. Extremities are somewhat cold and clammy at this point with diminished pulses. Review of Systems Patient is a poor historian. All of the information was obtained from the medical records and from my discussion with the nursing staff. He does not have a good insight on her condition. No she is aware of the details of the medical problems has been treated in the past. She has had previous UTI with E. coli and she has also previous MRSA urinary tract infection. She has obstructive sleep apnea without any treatment. No focal neurological deficit. No headaches. No nausea. No vomiting. No chest pain. No major swelling in lower extremities. Past Medical History Past Medical History: Cancer, COPD, Diabetes Mellitus, Eye Disorder, GERD/Reflux , Sleep Apnea/CPAP/BIPAP Additional Past Medical History / Comment(s): Myelodysplastic syndrome, leukemia -on oral chemo, myoblastic anemia, IDDM type II, PATRICIA without device, thoracic back pain, R eye cataract.uti, rt eye cataract History of Any Multi-Drug Resistant Organisms: MRSA, Other MDRO Date of last positivie culture/infection: 02/08/17-mrsa MDRO Source:: URINE-mrsa Past Surgical History: Appendectomy, Cholecystectomy, Hysterectomy, Joint Replacement, Tonsillectomy Additional Past Surgical History / Comment(s): left hip fracture with sugery, right foot and right ankle fractures with sx, thoracic back fusion, lt eye cataract, partial hysterectomy, "dislocation rt shoulder-put back in place", rt chest mediport, colonoscopy. Past Anesthesia/Blood Transfusion Reactions: Blood Transfusion Reaction Additional Past Anesthesia/Blood Transfusion Reaction / Comment(s): with a blood transfusion got hives/itching was given benadryl Past Psychological History: Unable to Obtain Smoking Status: Former smoker Past Alcohol Use History: Unable to Obtain Past Drug Use History: Unable to Obtain - Past Family History Mother Additional Family Medical History / Comment(s): alcoholic Father Family Medical History: Myocardial Infarction ([place]) Additional Family Medical History / Comment(s): Father of a [place] at the age of 65yrs. Medications and Allergies Home Medications Medication Instructions Recorded Confirmed Type Deferasirox [Jadenu] 90 mg PO DAILY 11/02/17 01/23/18 History Deferasirox [Jadenu] 720 mg PO DAILY 11/02/17 01/23/18 History Epoetin Chris [Procrit] 40,000 unit SQ REECE 11/02/17 01/23/18 History Gabapentin 600 mg PO QID 11/02/17 01/23/18 History Esomeprazole Magnesium [NexIUM] 40 mg PO DAILY 12/07/17 01/23/18 History Insulin Glargine [Lantus] 10 unit SQ HS 01/24/18 01/24/18 History Allergies Allergy/AdvReac Type Severity Reaction Status Date / Time codeine Allergy Unknown Verified 01/23/18 11:09 iodine Allergy Swelling Verified 01/23/18 11:09 iron Allergy Unknown Verified 01/23/18 11:09 Penicillins Allergy Rash/Hives Verified 01/23/18 11:09 quetiapine [From Seroquel] Allergy Unknown Verified 01/23/18 11:09 shellfish derived [Shellfish] Allergy Swelling Verified 01/23/18 11:09 Sulfa (Sulfonamide Allergy Rash/Hives Verified 01/23/18 11:09 Antibiotics) SEAFOOD Allergy Swelling Uncoded 01/23/18 11:09 Physical Exam Vitals: Vital Signs Temp Pulse Pulse Resp BP BP BP 01/25/18 06:15 91 25 H 68/40 01/25/18 06:00 87 10 L 01/25/18 05:45 85 12 01/25/18 05:30 82 01/25/18 05:15 78 29 H 01/25/18 05:00 78 18 01/25/18 04:45 80 25 H 01/25/18 04:30 81 27 H 01/25/18 04:00 97.9 F 80 16 01/25/18 03:20 82 01/25/18 03:10 81 78/58 01/25/18 03:00 90 01/25/18 02:50 83 93/51 01/25/18 02:40 79 93/51 01/25/18 02:30 97.9 F 79 80 18 01/25/18 02:20 84 94/63 01/25/18 02:15 78 91/43 01/25/18 01:40 84/54 01/25/18 01:35 86/56 01/25/18 01:30 84/50 01/25/18 01:25 83/53 01/25/18 01:20 87/53 01/25/18 01:15 97.4 F L 86/50 01/25/18 01:10 76/48 01/25/18 01:05 78/50 01/25/18 00:55 79/54 01/24/18 23:19 97.6 F 83 18 85/58 01/24/18 22:05 87 18 86/55 01/24/18 19:56 97.5 F L 87 18 86/55 01/24/18 16:00 97.8 F 87 16 91/61 01/24/18 12:00 97.7 F 98 16 102/61 01/24/18 08:06 97.6 F 114 H 18 98/66 Pulse Ox 01/25/18 06:15 97 01/25/18 06:00 99 01/25/18 05:45 97 01/25/18 05:30 98 01/25/18 05:15 93 L 01/25/18 05:00 97 01/25/18 04:45 96 01/25/18 04:30 98 01/25/18 04:00 96 01/25/18 03:20 97 01/25/18 03:10 96 01/25/18 03:00 95 01/25/18 02:50 01/25/18 02:40 01/25/18 02:30 95 01/25/18 02:20 94 L 01/25/18 02:15 96 01/25/18 01:40 01/25/18 01:35 01/25/18 01:30 01/25/18 01:25 01/25/18 01:20 01/25/18 01:15 01/25/18 01:10 01/25/18 01:05 01/25/18 00:55 01/24/18 23:19 98 01/24/18 22:05 01/24/18 19:56 97 01/24/18 16:00 96 01/24/18 12:00 98 01/24/18 08:06 97 Intake and Output 01/24/18 01/25/18 01/25/18 22:59 06:59 14:59 Intake Total 1158.936 17.499 Output Total 800 195 Balance -800 963.936 17.499 Intake: IV 1150 Levofloxacin 750Mg-D5w 150 Pmx 750 mg In Dextrose/ Water 1 150ml.bag @ 100 mls/hr IVPB ONCE ONE Rx#: [id number] Sodium Chloride 0.9% 500 1000 ml @ 250 mls/hr IV .Q2H ONE Rx#:[id number] Intake, IV Titration 8.936 17.499 Amount Norepinephrine 16 mg In 8.936 17.499 Sodium Chloride 0.9% 250 ml @ Titrate IV .Q0M [facility] Rx#:[id number] Output: Urine 800 195 Other: Voiding Method Toilet Indwelling Catheter Gen. appearance, comfortable awake following commands and answering questions. 9 acute distress. Not agitated. Head exam was generally normal. There was no scleral icterus or corneal arcus. Mucous membranes were moist. Neck was supple and with jugular venous distension, thyromegaly, or carotid bruits. Carotids were easily palpable bilaterally. There was no adenopathy. Lungs sounds are diminished bilaterally especially left lung base along with dullness to percussion. Heart sounds are regular, positive S1-S2 and there is no significant murmurs appreciated. The patient has a Mediport over the right anterior chest area. A nerve stimulator is also present over the left lateral chest area also. Abdominal exam revealed normal bowel sounds. The abdomen was soft, non-tender, and without masses, organomegaly, or appreciable enlargement of the abdominal aorta. Examination of the extremities revealed diminished pulses in the radial, femoral and pedal pulses. There was no cyanosis, clubbing or edema. Examination of the skin revealed no evidence of significant rashes, suspicious appearing nevi or other concerning lesions. Neurologic patient will go proximity is without any focal limitation. Results - Laboratory Findings CBC and BMP: 01/25/18 05:23 01/25/18 05:23 PT/INR, D-dimer PT 11.8 sec (9.0-12.0) 01/23/18 11:30 INR 1.2 (<1.2) H 01/23/18 11:30 D-Dimer 2.17 mg/L FEU (<0.60) H 01/24/18 09:49 Abnormal lab findings: Abnormal Labs 01/23/18 01/23/18 01/23/18 11:30 11:30 11:30 WBC RBC 2.42 L Hgb 8.9 L Hct 28.7 L MCV 118.3 H D MCH 36.8 H RDW 25.1 H Plt Count 24 L Lymphocytes # (Manual) 0.79 L Metamyelocytes # (Man) 0.04 H Nucleated RBCs 2 H INR APTT D-Dimer Sodium 135 L Potassium Chloride Carbon Dioxide 21 L BUN 60 H Creatinine Glucose 437 H POC Glucose (mg/dL) Hemoglobin A1c Plasma Lactic Acid Gómez Phosphorus Total Bilirubin 3.9 H AST 122 H ALT 214 H Alkaline Phosphatase 226 H Total Creatine Kinase <20 L Troponin I 0.191 H* Total Protein 5.6 L Albumin 2.7 L Urine Appearance Urine Protein Ur Leukocyte Esterase Urine WBC Urine Bacteria Hyaline Casts Urine Mucus 01/23/18 01/23/18 01/23/18 11:30 15:20 16:59 WBC RBC Hgb Hct MCV MCH RDW Plt Count Lymphocytes # (Manual) Metamyelocytes # (Man) Nucleated RBCs INR 1.2 H APTT 36.4 H D-Dimer Sodium Potassium Chloride Carbon Dioxide BUN Creatinine Glucose POC Glucose (mg/dL) 430 H 385 H Hemoglobin A1c Plasma Lactic Acid Gómez Phosphorus Total Bilirubin AST ALT Alkaline Phosphatase Total Creatine Kinase Troponin I Total Protein Albumin Urine Appearance Urine Protein Ur Leukocyte Esterase Urine WBC Urine Bacteria Hyaline Casts Urine Mucus 01/23/18 01/23/18 01/24/18 17:40 22:52 00:18 WBC RBC Hgb Hct MCV MCH RDW Plt Count Lymphocytes # (Manual) Metamyelocytes # (Man) Nucleated RBCs INR APTT D-Dimer Sodium Potassium Chloride Carbon Dioxide BUN Creatinine Glucose POC Glucose (mg/dL) 298 H Hemoglobin A1c Plasma Lactic Acid Gómez Phosphorus Total Bilirubin AST ALT Alkaline Phosphatase Total Creatine Kinase Troponin I 0.212 H* 0.209 H* Total Protein Albumin Urine Appearance Urine Protein Ur Leukocyte Esterase Urine WBC Urine Bacteria Hyaline Casts Urine Mucus 01/24/18 01/24/18 01/24/18 05:57 05:57 05:57 WBC 3.7 L RBC 2.34 L Hgb 8.7 L Hct 28.0 L MCV 119.6 H MCH 37.1 H RDW 25.3 H Plt Count 19 L* Lymphocytes # (Manual) Metamyelocytes # (Man) Nucleated RBCs INR APTT D-Dimer Sodium 134 L Potassium Chloride Carbon Dioxide BUN 61 H Creatinine Glucose 171 H POC Glucose (mg/dL) Hemoglobin A1c 7.4 H Plasma Lactic Acid Gómez Phosphorus Total Bilirubin 4.2 H AST 128 H ALT 202 H Alkaline Phosphatase 215 H Total Creatine Kinase Troponin I Total Protein 5.5 L Albumin 2.7 L Urine Appearance Urine Protein Ur Leukocyte Esterase Urine WBC Urine Bacteria Hyaline Casts Urine Mucus 01/24/18 01/24/18 01/24/18 06:08 09:49 11:13 WBC RBC Hgb Hct MCV MCH RDW Plt Count Lymphocytes # (Manual) Metamyelocytes # (Man) Nucleated RBCs INR APTT D-Dimer 2.17 H Sodium Potassium Chloride Carbon Dioxide BUN Creatinine Glucose POC Glucose (mg/dL) 179 H 207 H Hemoglobin A1c Plasma Lactic Acid Gómez Phosphorus Total Bilirubin AST ALT Alkaline Phosphatase Total Creatine Kinase Troponin I Total Protein Albumin Urine Appearance Urine Protein Ur Leukocyte Esterase Urine WBC Urine Bacteria Hyaline Casts Urine Mucus 01/24/18 01/24/18 01/24/18 16:08 20:50 23:13 WBC RBC Hgb Hct MCV MCH RDW Plt Count Lymphocytes # (Manual) Metamyelocytes # (Man) Nucleated RBCs INR APTT D-Dimer Sodium Potassium Chloride Carbon Dioxide BUN Creatinine Glucose POC Glucose (mg/dL) 169 H 144 H Hemoglobin A1c Plasma Lactic Acid Gómez 2.5 H* Phosphorus Total Bilirubin AST ALT Alkaline Phosphatase Total Creatine Kinase Troponin I Total Protein Albumin Urine Appearance Urine Protein Ur Leukocyte Esterase Urine WBC Urine Bacteria Hyaline Casts Urine Mucus 01/25/18 01/25/18 01/25/18 01:35 01:38 01:45 WBC RBC Hgb Hct MCV MCH RDW Plt Count Lymphocytes # (Manual) Metamyelocytes # (Man) Nucleated RBCs INR APTT D-Dimer Sodium Potassium Chloride Carbon Dioxide BUN Creatinine Glucose POC Glucose (mg/dL) Hemoglobin A1c Plasma Lactic Acid Gómez 2.1 H* Phosphorus 4.8 H Total Bilirubin AST 170 H ALT 208 H Alkaline Phosphatase Total Creatine Kinase Troponin I Total Protein Albumin Urine Appearance Cloudy H Urine Protein 1+ H Ur Leukocyte Esterase Small H Urine WBC 6 H Urine Bacteria Many H Hyaline Casts 157 H Urine Mucus Rare H 01/25/18 01/25/18 01/25/18 01:56 05:23 05:23 WBC RBC 2.47 L Hgb 9.4 L Hct 29.9 L MCV 121.0 H MCH 38.2 H RDW 25.3 H Plt Count 25 L Lymphocytes # (Manual) Metamyelocytes # (Man) Nucleated RBCs INR APTT D-Dimer Sodium 135 L Potassium 5.4 H Chloride 108 H Carbon Dioxide 18 L BUN 63 H Creatinine 1.19 H Glucose 173 H POC Glucose (mg/dL) 164 H Hemoglobin A1c Plasma Lactic Acid Gómez Phosphorus 5.1 H Total Bilirubin 4.5 H AST 176 H ALT 213 H Alkaline Phosphatase 232 H Total Creatine Kinase Troponin I Total Protein 5.7 L Albumin 2.7 L Urine Appearance Urine Protein Ur Leukocyte Esterase Urine WBC Urine Bacteria Hyaline Casts Urine Mucus 01/25/18 05:23 WBC RBC Hgb Hct MCV MCH RDW Plt Count Lymphocytes # (Manual) Metamyelocytes # (Man) Nucleated RBCs INR APTT D-Dimer Sodium Potassium Chloride Carbon Dioxide BUN Creatinine Glucose POC Glucose (mg/dL) Hemoglobin A1c Plasma Lactic Acid Gómez 3.7 H* Phosphorus Total Bilirubin AST ALT Alkaline Phosphatase Total Creatine Kinase Troponin I Total Protein Albumin Urine Appearance Urine Protein Ur Leukocyte Esterase Urine WBC Urine Bacteria Hyaline Casts Urine Mucus - Diagnostic Findings Chest x-ray: image reviewed Assessment and Plan Plan: Assessment 1 shock with profound hypotension and the patient is currently pressor dependent. This is probably a combination of cardiogenic and septic shock. Other possibilities need to be considered including the possibility of adrenal insufficiency knowing that the patient has been on Decadron an outpatient basis. The patient is profoundly hypotensive currently on 20 mics of norepinephrine infusion for blood pressure support. There is a the recent drop in the left ventricle ejection fraction, global hypokinesis which could be related to underlying atherosclerotic heart disease. Sepsis can also present with a similar picture. 2 mild lactic acidosis 3 CHF with impairment ejection fraction of less than 20% 4 questionable non-ST segment elevation myocardial infarction based on elevated troponins 5 single episode of atrial fibrillation which converted back into sinus 6 myelodysplasia with chronic anemia and thrombocytopenia, maintained on Revlimid and Decadron outpatient basis 7 obstructive sleep apnea currently receiving no treatment 8 diabetes mellitus type 2 9 COPD 10 vagal nerve stimulator 11 Mediport 12 previous history of infection with Enterobacter and MRSA and these are essentially urine checked infections occurred back in 11/02/2017 and 02/08/2017 respectively Plan Continue fluid resuscitation. The patient is currently on normal saline at the rate of 75 mL's an hour. Broaden antibiotic coverage after getting all cultures. Put the patient a combination of Levaquin and vancomycin. Obtain blood cultures. Obtain urine cultures. Inserted another triple-lumen catheter for IV access. Was inserted. Wean off pressors if possible. Check serum cortisol level. May need a stress dose hydrocortisone. Hold metoprolol for now. SCDs in lower extremities. Insulin sliding scale coverage. Monitor lactate. Continue to follow make further recommendations based on her progress. Condition is critical at this point in time. Consult oncology. Consult cardiology.
[2018-01-25] MEDS ORDERED: VANCOMYCIN IV PER PHARMACY 1 EACH MISC MISCELLANE PRN (08:03)
[2018-01-25 08:10] LABS: Glucose,Whole Blood 180 mg/dL (75-99)
[2018-01-25] MEDS: INSULIN ASPART 100 UNIT/ML 1 ML 10 ML VIAL SQ SCH ×4 (08:14→21:03)
[2018-01-25] MEDS: SODIUM CHLORIDE 0.9% 1,000 ML IV SCH ×2 (08:17→21:04)
[2018-01-25] MEDS: NITROGLYCERIN OINT 1 INCH/GM PACKET TOPICAL SCH (08:17)
[2018-01-25] MEDS: METOPROLOL TARTRATE 12.5 MG TAB PO SCH (08:17)
--- NOTE | 2018-01-25 08:36 | XR ---
EXAMINATION TYPE: XR chest 1V DATE OF EXAM: 01/25/2018 HISTORY: Shortness of breath. COMPARISON: 01/23/2018 TECHNIQUE: Single view of the chest is submitted. FINDINGS: Demonstrated are scattered senescent parenchymal change. Left greater than right pleural effusions noted. Suspect underlying atelectasis and/or infiltrate. The heart is stable. Hilar and mediastinal structures are within normal limits. Degenerative changes are seen of the dorsal spine. IMPRESSION: 1. Left greater than right pleural effusions noted. Suspect underlying atelectasis and/or infiltrate .
[2018-01-25] MEDS: ERTAPENEM 1 GM in SODIUM CHLORIDE 0.9% 50 ML IVPB SCH (09:47)
[2018-01-25] MEDS ORDERED: SODIUM CHLORIDE 0.9% 1,000 ML IV ONE (10:38)
[2018-01-25] MEDS: VANCOMYCIN 1,250 MG in SODIUM CHLORIDE 0.9% 250 ML IVPB SCH (10:39)
[2018-01-25] MEDS: PANTOPRAZOLE 40 MG/10 ML VIAL IVP SCH (10:39)
[2018-01-25 11:56] LABS: Glucose,Whole Blood 148 mg/dL (75-99)
--- NOTE | 2018-01-25 12:39 | P.CONS ---
History of Present Illness - Reason for Consult Consult date: 01/25/18 elevated liver enzymes Requesting physician: Randolph E Sheet - Chief Complaint weakness - History of Present Illness 67-year-old female with a history of myelodysplastic syndrome leukemia thrombocytopenia maintained on Revlimid and dexamethasone received iron chelation therapy admitted with 1 month history of progressive fatigue, shortness of breath. Consultation requested for elevated liver enzymes. Admission total bilirubin 3.9. AST 122. ALT 214. AP 226. ProBNP 10,400. BUN 60. Creatinine 0.9. Troponin 0.1-0.2. Hemoglobin 8.9. MCV 118. Platelet 24,000. INR 1.2. Today total bilirubin increase 4.5. AST 176. ALT 213. AP 232. Blood pressures have been labile and hypotensive at times systolic 70's presently receiving intravenous pressors Levophed; being weaned. Liver ultrasound no acute abdominal process. Bilateral pleural effusions incidentally noted. ECHO: EF less than 20 %. No history of known liver disorders, no history of EtOH abuse, no history of hepatitis. Denies abdominal pain. When reviewing prior medical records patient has had intermittent chronic elevation of her liver enzymes and transaminases for more than a year. Ranges; total bilirubin 0.6-4.5. AST 52-176. ALT 65-213. AP 108-232. Hepatitis screen October 2017 nonreactive. Review of Systems Constitutional: Denies fever, chills, sweats, weight gain, or loss. Increased fatigue weakness. HEENT: Negative for migraines, blurred vision or loss, earaches, drainage, tinnitus, oral mucosal lesions, dysphagia, or odynophagia. CARDIAC: Negative for chest pain, arrhythmias, or palpitation. RESPIRATORY: Negative for shortness of breath, hemoptysis, cough, or sputum production. GI: See HPI for pertinent findings. : Negative for hematuria, urgency, frequency, polyuria, or dysuria. GYNc: Denies possibility of . Negative vaginal discharge. MUSCULOSKELETAL: Negative for muscle aches, swelling, arthritis, and arthralgias. NEUROLOGIC: Negative for stroke or TIA. ENDOCRINE: Negative for thyroid problems. SKIN: Negative for rash or itching. PSYCHIATRIC: Negative history for depression and anxiety Past Medical History Past Medical History: Cancer, COPD, Diabetes Mellitus, Eye Disorder, GERD/Reflux , Sleep Apnea/CPAP/BIPAP Additional Past Medical History / Comment(s): Myelodysplastic syndrome, leukemia -on oral chemo, myoblastic anemia, IDDM type II, PATRICIA without device, thoracic back pain, R eye cataract.uti, rt eye cataract History of Any Multi-Drug Resistant Organisms: MRSA, Other MDRO Year Discovered:: 02/08/17-mrsa MDRO Source:: URINE-mrsa Past Surgical History: Appendectomy, Cholecystectomy, Hysterectomy, Joint Replacement, Tonsillectomy Additional Past Surgical History / Comment(s): left hip fracture with sugery, right foot and right ankle fractures with sx, thoracic back fusion, lt eye cataract, partial hysterectomy, "dislocation rt shoulder-put back in place", rt chest mediport, colonoscopy. Past Anesthesia/Blood Transfusion Reactions: Blood Transfusion Reaction Additional Past Anesthesia/Blood Transfusion Reaction / Comm: with a blood transfusion got hives/itching was given benadryl Past Psychological History: Unable to Obtain Smoking Status: Former smoker Past Alcohol Use History: Unable to Obtain Past Drug Use History: Unable to Obtain - Past Family History Mother Additional Family Medical History / Comment(s): alcoholic Father Family Medical History: Myocardial Infarction (SD) Additional Family Medical History / Comment(s): Father of a SD at the age of 65yrs. Medications and Allergies Home Medications Medication Instructions Recorded Confirmed Type Deferasirox [Jadenu] 90 mg PO DAILY 11/02/17 01/23/18 History Deferasirox [Jadenu] 720 mg PO DAILY 11/02/17 01/23/18 History Epoetin Chris [Procrit] 40,000 unit SQ REECE 11/02/17 01/23/18 History Gabapentin 600 mg PO QID 11/02/17 01/23/18 History Esomeprazole Magnesium [NexIUM] 40 mg PO DAILY 12/07/17 01/23/18 History Insulin Glargine [Lantus] 10 unit SQ HS 01/24/18 01/24/18 History Allergies Allergy/AdvReac Type Severity Reaction Status Date / Time codeine Allergy Unknown Verified 01/23/18 11:09 iodine Allergy Swelling Verified 01/23/18 11:09 iron Allergy Unknown Verified 01/23/18 11:09 Penicillins Allergy Rash/Hives Verified 01/23/18 11:09 quetiapine [From Seroquel] Allergy Unknown Verified 01/23/18 11:09 shellfish derived [Shellfish] Allergy Swelling Verified 01/23/18 11:09 Sulfa (Sulfonamide Allergy Rash/Hives Verified 01/23/18 11:09 Antibiotics) SEAFOOD Allergy Swelling Uncoded 01/23/18 11:09 Physical Exam Vitals: Vital Signs Temp Pulse Pulse Resp BP BP BP 01/25/18 11:00 107 H 23 124/71 01/25/18 10:45 99 28 H 01/25/18 10:30 92 24 82/62 01/25/18 10:15 92 20 115/63 01/25/18 10:00 92 21 107/66 01/25/18 09:45 93 36 H 100/63 01/25/18 09:30 102 H 21 105/69 01/25/18 09:15 104 H 32 H 105/69 01/25/18 09:00 97.5 F L 103 H 34 H 01/25/18 08:45 106 H 36 H 01/25/18 08:30 92/62 01/25/18 08:15 95 25 H 01/25/18 08:00 95 24 101/61 01/25/18 07:45 98 19 111/66 01/25/18 07:30 100 22 129/72 01/25/18 07:15 110 H 25 H 01/25/18 07:00 114 H 25 H 01/25/18 06:45 109 H 22 01/25/18 06:30 105 H 27 H 01/25/18 06:15 91 25 H 68/40 01/25/18 06:00 87 10 L 01/25/18 05:45 85 12 01/25/18 05:30 82 01/25/18 05:15 78 29 H 01/25/18 05:00 78 18 01/25/18 04:45 80 25 H 01/25/18 04:30 81 27 H 01/25/18 04:00 97.9 F 80 16 01/25/18 03:20 82 01/25/18 03:10 81 78/58 01/25/18 03:00 90 01/25/18 02:50 83 93/51 01/25/18 02:40 79 93/51 01/25/18 02:30 97.9 F 79 80 18 01/25/18 02:20 84 94/63 01/25/18 02:15 78 91/43 01/25/18 01:40 84/54 01/25/18 01:35 86/56 01/25/18 01:30 84/50 01/25/18 01:25 83/53 01/25/18 01:20 87/53 01/25/18 01:15 97.4 F L 86/50 01/25/18 01:10 76/48 01/25/18 01:05 78/50 01/25/18 00:55 79/54 01/24/18 23:19 97.6 F 83 18 85/58 01/24/18 22:05 87 18 86/55 01/24/18 19:56 97.5 F L 87 18 86/55 01/24/18 16:00 97.8 F 87 16 91/61 Pulse Ox 01/25/18 11:00 100 01/25/18 10:45 98 01/25/18 10:30 98 01/25/18 10:15 99 01/25/18 10:00 97 01/25/18 09:45 97 01/25/18 09:30 95 01/25/18 09:15 98 01/25/18 09:00 97 01/25/18 08:45 94 L 01/25/18 08:30 100 01/25/18 08:15 99 01/25/18 08:00 93 L 01/25/18 07:45 99 01/25/18 07:30 99 01/25/18 07:15 98 01/25/18 07:00 97 01/25/18 06:45 98 01/25/18 06:30 84 L 01/25/18 06:15 97 01/25/18 06:00 99 01/25/18 05:45 97 01/25/18 05:30 98 01/25/18 05:15 93 L 01/25/18 05:00 97 01/25/18 04:45 96 01/25/18 04:30 98 01/25/18 04:00 96 01/25/18 03:20 97 01/25/18 03:10 96 01/25/18 03:00 95 01/25/18 02:50 01/25/18 02:40 01/25/18 02:30 95 01/25/18 02:20 94 L 01/25/18 02:15 96 01/25/18 01:40 01/25/18 01:35 01/25/18 01:30 01/25/18 01:25 01/25/18 01:20 01/25/18 01:15 01/25/18 01:10 01/25/18 01:05 01/25/18 00:55 01/24/18 23:19 98 01/24/18 22:05 01/24/18 19:56 97 01/24/18 16:00 96 Intake and Output 01/24/18 01/25/18 01/25/18 22:59 06:59 14:59 Intake Total 9838.382 7819.803 Output Total 800 200 32 Balance -800 639.698 0602.803 Intake: IV 1170 1495 Levofloxacin 750Mg-D5w 150 Pmx 750 mg In Dextrose/ Water 1 150ml.bag @ 100 mls/hr IVPB ONCE ONE Rx#: [id number] Sodium Chloride 0.9% 1, 225 000 ml @ 75 mls/hr IV . [id number] [facility] Rx#:[id number] Sodium Chloride 0.9% 1, 1000 000 ml @ 999 mls/hr IV . Q1H1M ONE Rx#:[id number] Sodium Chloride 0.9% 500 1020 20 ml @ 250 mls/hr IV .Q2H ONE Rx#:[id number] Vancomycin 1,250 mg In 250 Sodium Chloride 0.9% 250 ml @ 125 mls/hr IVPB Q16H [facility] Rx#:[id number] Intake, IV Titration 8.936 375.803 Amount Ertapenem 1 gm In Sodium 50 Chloride 0.9% 50 ml @ 100 mls/hr IVPB DAILY [facility] Rx #:[id number] Norepinephrine 16 mg In 8.936 100.803 Sodium Chloride 0.9% 250 ml @ Titrate IV .Q0M [facility] Rx#:[id number] Sodium Chloride 0.9% 1, 225 000 ml @ 75 mls/hr IV . [id number] [facility] Rx#:[id number] Output: Urine 800 200 32 Other: Voiding Method Toilet Indwelling Catheter Indwelling Catheter ABP, PAP, CO, CI - Last 8 Hours Arterial Blood Pressure 127/78 Arterial Blood Pressure 115/66 Arterial Blood Pressure 110/69 Arterial Blood Pressure 117/69 Arterial Blood Pressure 115/69 Arterial Blood Pressure 111/69 Arterial Blood Pressure 119/69 Arterial Blood Pressure 119/77 Arterial Blood Pressure 117/75 Arterial Blood Pressure 119/74 Arterial Blood Pressure 122/78 Arterial Blood Pressure 109/72 Arterial Blood Pressure 104/63 Arterial Blood Pressure 120/70 Arterial Blood Pressure 92/83 Arterial Blood Pressure 107/86 General appearance: The patient is alert, oriented, in no acute distress. HET: Head is normocephalic and atraumatic. Pupils are equal and reactive. Oropharynx is clear without lesions. Neck: Supple without lymphadenopathy. Trachea midline. Heart: S1 S2. Regular rate and rhythm. Lungs: No crackles or wheezes are heard. Abdomen: Soft, nontender, nondistended with bowel sounds. No peritoneal signs. No palpable organomegaly or masses. Extremities: Normal skin color and turgor. No cyanosis, rash, ulceration, clubbing, or edema. Radial and pedal pulses are 2/4 bilaterally. Keller with clear yellow urine. Neurological: No focal deficits. Strength and sensation are grossly intact. Results CBC & Chem 7: 01/25/18 05:23 01/25/18 05:23 Labs: Abnormal Lab Results - Last 24 Hours (Table) 01/24/18 01/24/18 01/24/18 Range/Units 05:57 16:08 20:50 RBC (3.80-5.40) m/uL Hgb (11.4-16.0) gm/dL Hct (34.0-46.0) % MCV (80.0-100.0) fL MCH (25.0-35.0) pg RDW (11.5-15.5) % Plt Count (150-450) k/uL ABG Lactic Acid (0.5-1.6) mmol/L Sodium (137-145) mmol/L Potassium (3.5-5.1) mmol/L Chloride (98-107) mmol/L Carbon Dioxide (22-30) mmol/L BUN (7-17) mg/dL Creatinine (0.52-1.04) mg/dL Glucose (74-99) mg/dL POC Glucose (mg/dL) 169 H 144 H (75-99) mg/dL Hemoglobin A1c 7.4 H (4.0-6.0) % Plasma Lactic Acid Gómez (0.7-2.0) mmol/L Phosphorus (2.5-4.5) mg/dL Total Bilirubin (0.2-1.3) mg/dL AST (14-36) U/L ALT (9-52) U/L Alkaline Phosphatase (38-126) U/L Total Protein (6.3-8.2) g/dL Albumin (3.5-5.0) g/dL Urine Appearance (Clear) Urine Protein (Negative) Ur Leukocyte Esterase (Negative) Urine WBC (0-5) /hpf Urine Bacteria (None) /hpf Hyaline Casts (0-2) /lpf Urine Mucus (None) /hpf 01/24/18 01/25/18 01/25/18 Range/Units 23:13 01:35 01:38 RBC (3.80-5.40) m/uL Hgb (11.4-16.0) gm/dL Hct (34.0-46.0) % MCV (80.0-100.0) fL MCH (25.0-35.0) pg RDW (11.5-15.5) % Plt Count (150-450) k/uL ABG Lactic Acid (0.5-1.6) mmol/L Sodium (137-145) mmol/L Potassium (3.5-5.1) mmol/L Chloride (98-107) mmol/L Carbon Dioxide (22-30) mmol/L BUN (7-17) mg/dL Creatinine (0.52-1.04) mg/dL Glucose (74-99) mg/dL POC Glucose (mg/dL) (75-99) mg/dL Hemoglobin A1c (4.0-6.0) % Plasma Lactic Acid G[place]mez 2.5 H* (0.7-2.0) mmol/L Phosphorus 4.8 H (2.5-4.5) mg/dL Total Bilirubin (0.2-1.3) mg/dL AST 170 H (14-36) U/L ALT 208 H (9-52) U/L Alkaline Phosphatase (38-126) U/L Total Protein (6.3-8.2) g/dL Albumin (3.5-5.0) g/dL Urine Appearance Cloudy H (Clear) Urine Protein 1+ H (Negative) Ur Leukocyte Esterase Small H (Negative) Urine WBC 6 H (0-5) /hpf Urine Bacteria Many H (None) /hpf Hyaline Casts 157 H (0-2) /lpf Urine Mucus Rare H (None) /hpf 01/25/18 01/25/18 01/25/18 Range/Units 01:45 01:56 05:23 RBC 2.47 L (3.80-5.40) m/uL Hgb 9.4 L (11.4-16.0) gm/dL Hct 29.9 L (34.0-46.0) % MCV 121.0 H (80.0-100.0) fL MCH 38.2 H (25.0-35.0) pg RDW 25.3 H (11.5-15.5) % Plt Count 25 L (150-450) k/uL ABG Lactic Acid (0.5-1.6) mmol/L Sodium (137-145) mmol/L Potassium (3.5-5.1) mmol/L Chloride (98-107) mmol/L Carbon Dioxide (22-30) mmol/L BUN (7-17) mg/dL Creatinine (0.52-1.04) mg/dL Glucose (74-99) mg/dL POC Glucose (mg/dL) 164 H (75-99) mg/dL Hemoglobin A1c (4.0-6.0) % Plasma Lactic Acid Gómez 2.1 H* (0.7-2.0) mmol/L Phosphorus (2.5-4.5) mg/dL Total Bilirubin (0.2-1.3) mg/dL AST (14-36) U/L ALT (9-52) U/L Alkaline Phosphatase (38-126) U/L Total Protein (6.3-8.2) g/dL Albumin (3.5-5.0) g/dL Urine Appearance (Clear) Urine Protein (Negative) Ur Leukocyte Esterase (Negative) Urine WBC (0-5) /hpf Urine Bacteria (None) /hpf Hyaline Casts (0-2) /lpf Urine Mucus (None) /hpf 01/25/18 01/25/18 01/25/18 Range/Units 05:23 05:23 08:06 RBC (3.80-5.40) m/uL Hgb (11.4-16.0) gm/dL Hct (34.0-46.0) % MCV (80.0-100.0) fL MCH (25.0-35.0) pg RDW (11.5-15.5) % Plt Count (150-450) k/uL ABG Lactic Acid (0.5-1.6) mmol/L Sodium 135 L (137-145) mmol/L Potassium 5.4 H (3.5-5.1) mmol/L Chloride 108 H (98-107) mmol/L Carbon Dioxide 18 L (22-30) mmol/L BUN 63 H (7-17) mg/dL Creatinine 1.19 H (0.52-1.04) mg/dL Glucose 173 H (74-99) mg/dL POC Glucose (mg/dL) 180 H (75-99) mg/dL Hemoglobin A1c (4.0-6.0) % Plasma Lactic Acid G[place]mez 3.7 H* (0.7-2.0) mmol/L Phosphorus 5.1 H (2.5-4.5) mg/dL Total Bilirubin 4.5 H (0.2-1.3) mg/dL AST 176 H (14-36) U/L ALT 213 H (9-52) U/L Alkaline Phosphatase 232 H (38-126) U/L Total Protein 5.7 L (6.3-8.2) g/dL Albumin 2.7 L (3.5-5.0) g/dL Urine Appearance (Clear) Urine Protein (Negative) Ur Leukocyte Esterase (Negative) Urine WBC (0-5) /hpf Urine Bacteria (None) /hpf Hyaline Casts (0-2) /lpf Urine Mucus (None) /hpf 01/25/18 01/25/18 Range/Units 09:30 11:54 RBC (3.80-5.40) m/uL Hgb (11.4-16.0) gm/dL Hct (34.0-46.0) % MCV (80.0-100.0) fL MCH (25.0-35.0) pg RDW (11.5-15.5) % Plt Count (150-450) k/uL ABG Lactic Acid 4.4 H* (0.5-1.6) mmol/L Sodium (137-145) mmol/L Potassium (3.5-5.1) mmol/L Chloride (98-107) mmol/L Carbon Dioxide (22-30) mmol/L BUN (7-17) mg/dL Creatinine (0.52-1.04) mg/dL Glucose (74-99) mg/dL POC Glucose (mg/dL) 148 H (75-99) mg/dL Hemoglobin A1c (4.0-6.0) % Plasma Lactic Acid Gómez (0.7-2.0) mmol/L Phosphorus (2.5-4.5) mg/dL Total Bilirubin (0.2-1.3) mg/dL AST (14-36) U/L ALT (9-52) U/L Alkaline Phosphatase (38-126) U/L Total Protein (6.3-8.2) g/dL Albumin (3.5-5.0) g/dL Urine Appearance (Clear) Urine Protein (Negative) Ur Leukocyte Esterase (Negative) Urine WBC (0-5) /hpf Urine Bacteria (None) /hpf Hyaline Casts (0-2) /lpf Urine Mucus (None) /hpf US - abdomen: report reviewed (Dr. Chaudhry) Assessment and Plan (1) Elevated liver enzymes Narrative/Plan: 67-year-old female with a history of MDS presents with 1 month history of fatigue and weakness shortness of breath with profound hypotension, cardiac ejection fraction of 20%, elevated liver enzymes, elevated pro-BMP, and mild elevation of troponin suggestive of combination of passive venous congestion and ischemic hepatitis. Evidence of chronic elevated transaminases mild hyper- bilirubinemia over the past year cannot exclude an underlying chronic liver disease. Liver ultrasound reported no evidence of acute process recent hepatitis screen nonreactive. Current Visit: Yes Status: Acute Code(s): R74.8 - ABNORMAL LEVELS OF OTHER SERUM ENZYMES SNOMED Code(s): 709834721 (2) Hypotension Current Visit: Yes Status: Acute Code(s): I95.9 - HYPOTENSION, UNSPECIFIED SNOMED Code(s): 48966139 (3) CHF (congestive heart failure) Current Visit: Yes Status: Acute Code(s): I50.9 - HEART FAILURE, UNSPECIFIED SNOMED Code(s): 97027692 (4) Iron overload due to repeated red blood cell transfusions Current Visit: Yes Status: Chronic Priority: Medium Code(s): E83.111 - HEMOCHROMATOSIS DUE TO REPEATED RED BLOOD CELL TRANSFUSIONS SNOMED Code(s): 881097059 (5) MDS (myelodysplastic syndrome) Current Visit: Yes Status: Chronic Priority: Medium Code(s): D46.9 - MYELODYSPLASTIC SYNDROME, UNSPECIFIED SNOMED Code(s): 272264452 Plan: Recommendations: 1. Serologic workup for chronic liver disease. Hypotension is improving IV pressors being weaned. 2. Symptomatic supportive care. Daily CMP. 3. Will follow with you. Thank you for this kind referral and the opportunity to participate in the care of your patient. This consultation was discussed with Dr. Chaudhry. The impression and plan of care have been directed as dictated.
[2018-01-25] MEDS ORDERED: ONDANSETRON 4 MG/2 ML VIAL IVP PRN (12:50)
--- NOTE | 2018-01-25 13:07 | PN ---
PROGRESS NOTE This lady was seen by me yesterday. She has a myelodysplasia, platelet count of about 20,000 or less and she has non ST elevation HI. I recommended an echocardiogram and advised no aggressive intervention in view of multiple comorbid conditions, especially low platelet count. However, she became more hypotensive and came into the ICU. This lady's repeat echo revealed ejection fraction of 20%, about a couple of months ago it was in the 50% range. Clinically the picture appears to be more or less like a sepsis rather than any acute myocardial injury. Her troponin elevation is very modest. It does not support the LV dysfunction that is evident. Vital signs today are stable. S1-S2 heard normally. Short systolic murmur noted. Lungs reveal diminished air entry. Abdomen and lower extremity exam is unchanged. She is on nitro paste and beta alana. We will hold both of these. She is on a Levophed drip to support her blood pressure and clinically the picture seems that of sepsis and therefore from a cardiac standpoint no intervention and Dr. Simental will be managing her critical condition in the form of sepsis and she will be cautiously hydrated and placed on antibiotics. I am recommending another set of blood cultures. Prognosis remains quite guarded. I would not recommend any aggressive intervention with low platelet count of less than 25,000 for this lady. Prognosis remains poor. MMODL / IJN: [id number] /
[2018-01-25] MEDS ORDERED: JADENU PO SCH (14:30)
[2018-01-25] MEDS ORDERED: DARBEPOETIN ALFA 100MCG/0.5ML SYRINGE SQ SCH (15:00)
[2018-01-25 17:12] LABS: Hepatitis A Antibody IgM Non-Reactive (Non-Reactive); Hepatitis B Core IgM Non-Reactive (Non-Reactive)
[2018-01-25] MEDS: JADENU PO SCH (17:13)
[2018-01-25] MEDS: JADENU 180 MG PO SCH (17:13)
[2018-01-25 17:26] LABS: Glucose,Whole Blood 160 mg/dL (75-99)
[2018-01-25] MEDS ORDERED: ACETAMINOPHEN TAB 325 MG TAB PO PRN (20:37)
[2018-01-25 20:45] LABS: Glucose,Whole Blood 165 mg/dL (75-99)
--- NOTE | 2018-01-25 20:45 | P.PN ---
Subjective This is a pleasant 67 years old female with past medical history of COPD, insulin-dependent diabetes mellitus, GERD, sleep apnea , myelodysplastic syndrome, leukemia on chemotherapy, blood transfusion reaction [times/itching] and MRSA infection. Presents because of chest pain on the left side, nonradiating, comes and goes over the last 2 days associated with dyspnea, orthopnea and generalized weakness. Patient denies any change in urine or bowel habits. She denies fever. And emergency room patient was noticed to be slightly tachycardic at 102-103. TROPONIN WERE ELEVATED AT 0.191, PREVIOUS TROPONIN WERE 0.08 AND 0.04 ON 2017. WBC 4.4, HEMOGLOBIN 8.9. PLATELETS LOW AT 24 01/24/2018 Patient feels a little better, she still have some chest discomfort and still dyspneic. No change in mental status. No fever. Labs reviewed showing pancytopenia with a drop in platelets 219. WBC 3.7K and hemoglobin 8.7. Oncology team evaluated patient and recommended to transfuse platelets when less than 10 K however no need for more chemotherapy, transfuse as needed and follow-up as an outpatient, however they recommended aren't chilly tip therapy with GA DD continue for iron overload from previous multiple red blood cell transfusions. Cardiology was consulted evaluated the patient We'll check liver ultrasound and hepatitis panel. We'll consult GI DC IV fluids as per cardiology 01/25/2018 last night pt BP start dropping with systolic blood pressure in 70-80s. depsite fluis boluses , pt was transfered to the ICU with she had central line placed and pt was started on norepinephrine drip and her Blood pressure improved today , pt lethargy and generalized weakness are improved too. pt antibiotic were changed from aztreonam to vancomycin iv and invanze as per critical care team for pt is with septic shock . combined with cardiogenic shock in view of drop in her EF from 55% to 20% during this admission. also pt is found to have elevated creatinine ahd hyperkalemia , nephrology team were consulted too . liver enz are elevated with negative liver US , GI team evaluation is appreciated medications: Jadenu, Epoetin Chris, norepinephrine , zofran, protonix, novolg, invanz, iv vancomyin , Objective - Vital Signs Vital signs: Vital Signs Temp 97.5 F L 01/25/18 09:00 Pulse 107 H 01/25/18 11:00 Resp 23 01/25/18 11:00 BP 124/71 01/25/18 11:00 Pulse Ox 100 01/25/18 11:00 Intake & Output 01/24/18 01/25/18 01/25/18 18:59 06:59 18:59 Intake Total 360 1178.936 545.803 Output Total 600 400 25 Balance -240 778.936 520.803 Intake: IV 1170 170 Levofloxacin 750Mg-D5w 150 Pmx 750 mg In Dextrose/ Water 1 150ml.bag @ 100 mls/hr IVPB ONCE ONE Rx#: [id number] Sodium Chloride 0.9% 1, 150 000 ml @ 75 mls/hr IV . Q25Q43P COUNT INCLUDES THE [facility] Rx#:[id number] Sodium Chloride 0.9% 500 1020 20 ml @ 250 mls/hr IV .Q2H ONE Rx#:[id number] Intake, IV Titration 8.936 375.803 Amount Ertapenem 1 gm In Sodium 50 Chloride 0.9% 50 ml @ 100 mls/hr IVPB DAILY COUNT INCLUDES THE [facility] Rx #:[id number] Norepinephrine 16 mg In 8.936 100.803 Sodium Chloride 0.9% 250 ml @ Titrate IV .Q0M COUNT INCLUDES THE [facility] Rx#:[id number] Sodium Chloride 0.9% 1, 225 000 ml @ 75 mls/hr IV . [id number] COUNT INCLUDES THE [facility] Rx#:[id number] Oral 360 Output: Urine 600 400 25 Other: Voiding Method Indwelling Catheter Indwelling Catheter ABP, PAP, CO, CI - Last Documented Arterial Blood Pressure 127/78 - Exam GENERAL: The patient is alert and oriented x3, not in any acute distress. Well developed, well nourished. HEENT: Pupils are round and equally reacting to light. EOMI. No scleral icterus. No conjunctival pallor. Normocephalic, atraumatic. No pharyngeal erythema. No thyromegaly. CARDIOVASCULAR: S1 and S2 present. No murmurs, rubs, or gallops. PULMONARY: Chest is clear to auscultation, no wheezing or crackles. ABDOMEN: Soft, nontender, nondistended, normoactive bowel sounds. No palpable organomegaly. MUSCULOSKELETAL: No joint swelling or deformity. EXTREMITIES: No cyanosis, clubbing, or pedal edema. NEUROLOGICAL: Gross neurological examination did not reveal any focal deficits. SKIN: No rashes. - Labs CBC & Chem 7: 01/25/18 05:23 01/25/18 05:23 Labs: Abnormal Lab Results - Last 24 Hours (Table) 01/24/18 01/24/18 01/24/18 Range/Units 05:57 16:08 20:50 RBC (3.80-5.40) m/uL Hgb (11.4-16.0) gm/dL Hct (34.0-46.0) % MCV (80.0-100.0) fL MCH (25.0-35.0) pg RDW (11.5-15.5) % Plt Count (150-450) k/uL ABG Lactic Acid (0.5-1.6) mmol/L Sodium (137-145) mmol/L Potassium (3.5-5.1) mmol/L Chloride (98-107) mmol/L Carbon Dioxide (22-30) mmol/L BUN (7-17) mg/dL Creatinine (0.52-1.04) mg/dL Glucose (74-99) mg/dL POC Glucose (mg/dL) 169 H 144 H (75-99) mg/dL Hemoglobin A1c 7.4 H (4.0-6.0) % Plasma Lactic Acid Gómez (0.7-2.0) mmol/L Phosphorus (2.5-4.5) mg/dL Total Bilirubin (0.2-1.3) mg/dL AST (14-36) U/L ALT (9-52) U/L Alkaline Phosphatase (38-126) U/L Total Protein (6.3-8.2) g/dL Albumin (3.5-5.0) g/dL Urine Appearance (Clear) Urine Protein (Negative) Ur Leukocyte Esterase (Negative) Urine WBC (0-5) /hpf Urine Bacteria (None) /hpf Hyaline Casts (0-2) /lpf Urine Mucus (None) /hpf 01/24/18 01/25/18 01/25/18 Range/Units 23:13 01:35 01:38 RBC (3.80-5.40) m/uL Hgb (11.4-16.0) gm/dL Hct (34.0-46.0) % MCV (80.0-100.0) fL MCH (25.0-35.0) pg RDW (11.5-15.5) % Plt Count (150-450) k/uL ABG Lactic Acid (0.5-1.6) mmol/L Sodium (137-145) mmol/L Potassium (3.5-5.1) mmol/L Chloride (98-107) mmol/L Carbon Dioxide (22-30) mmol/L BUN (7-17) mg/dL Creatinine (0.52-1.04) mg/dL Glucose (74-99) mg/dL POC Glucose (mg/dL) (75-99) mg/dL Hemoglobin A1c (4.0-6.0) % Plasma Lactic Acid G[place]me[place] 2.5 H* (0.7-2.0) mmol/L Phosphorus 4.8 H (2.5-4.5) mg/dL Total Bilirubin (0.2-1.3) mg/dL AST 170 H (14-36) U/L ALT 208 H (9-52) U/L Alkaline Phosphatase (38-126) U/L Total Protein (6.3-8.2) g/dL Albumin (3.5-5.0) g/dL Urine Appearance Cloudy H (Clear) Urine Protein 1+ H (Negative) Ur Leukocyte Esterase Small H (Negative) Urine WBC 6 H (0-5) /hpf Urine Bacteria Many H (None) /hpf Hyaline Casts 157 H (0-2) /lpf Urine Mucus Rare H (None) /hpf 01/25/18 01/25/18 01/25/18 Range/Units 01:45 01:56 05:23 RBC 2.47 L (3.80-5.40) m/uL Hgb 9.4 L (11.4-16.0) gm/dL Hct 29.9 L (34.0-46.0) % MCV 121.0 H (80.0-100.0) fL MCH 38.2 H (25.0-35.0) pg RDW 25.3 H (11.5-15.5) % Plt Count 25 L (150-450) k/uL ABG Lactic Acid (0.5-1.6) mmol/L Sodium (137-145) mmol/L Potassium (3.5-5.1) mmol/L Chloride (98-107) mmol/L Carbon Dioxide (22-30) mmol/L BUN (7-17) mg/dL Creatinine (0.52-1.04) mg/dL Glucose (74-99) mg/dL POC Glucose (mg/dL) 164 H (75-99) mg/dL Hemoglobin A1c (4.0-6.0) % Plasma Lactic Acid Góme[place] 2.1 H* (0.7-2.0) mmol/L Phosphorus (2.5-4.5) mg/dL Total Bilirubin (0.2-1.3) mg/dL AST (14-36) U/L ALT (9-52) U/L Alkaline Phosphatase (38-126) U/L Total Protein (6.3-8.2) g/dL Albumin (3.5-5.0) g/dL Urine Appearance (Clear) Urine Protein (Negative) Ur Leukocyte Esterase (Negative) Urine WBC (0-5) /hpf Urine Bacteria (None) /hpf Hyaline Casts (0-2) /lpf Urine Mucus (None) /hpf 01/25/18 01/25/18 01/25/18 Range/Units 05:23 05:23 08:06 RBC (3.80-5.40) m/uL Hgb (11.4-16.0) gm/dL Hct (34.0-46.0) % MCV (80.0-100.0) fL MCH (25.0-35.0) pg RDW (11.5-15.5) % Plt Count (150-450) k/uL ABG Lactic Acid (0.5-1.6) mmol/L Sodium 135 L (137-145) mmol/L Potassium 5.4 H (3.5-5.1) mmol/L Chloride 108 H (98-107) mmol/L Carbon Dioxide 18 L (22-30) mmol/L BUN 63 H (7-17) mg/dL Creatinine 1.19 H (0.52-1.04) mg/dL Glucose 173 H (74-99) mg/dL POC Glucose (mg/dL) 180 H (75-99) mg/dL Hemoglobin A1c (4.0-6.0) % Plasma Lactic Acid G[place]mez 3.7 H* (0.7-2.0) mmol/L Phosphorus 5.1 H (2.5-4.5) mg/dL Total Bilirubin 4.5 H (0.2-1.3) mg/dL AST 176 H (14-36) U/L ALT 213 H (9-52) U/L Alkaline Phosphatase 232 H (38-126) U/L Total Protein 5.7 L (6.3-8.2) g/dL Albumin 2.7 L (3.5-5.0) g/dL Urine Appearance (Clear) Urine Protein (Negative) Ur Leukocyte Esterase (Negative) Urine WBC (0-5) /hpf Urine Bacteria (None) /hpf Hyaline Casts (0-2) /lpf Urine Mucus (None) /hpf 01/25/18 01/25/18 Range/Units 09:30 11:54 RBC (3.80-5.40) m/uL Hgb (11.4-16.0) gm/dL Hct (34.0-46.0) % MCV (80.0-100.0) fL MCH (25.0-35.0) pg RDW (11.5-15.5) % Plt Count (150-450) k/uL ABG Lactic Acid 4.4 H* (0.5-1.6) mmol/L Sodium (137-145) mmol/L Potassium (3.5-5.1) mmol/L Chloride (98-107) mmol/L Carbon Dioxide (22-30) mmol/L BUN (7-17) mg/dL Creatinine (0.52-1.04) mg/dL Glucose (74-99) mg/dL POC Glucose (mg/dL) 148 H (75-99) mg/dL Hemoglobin A1c (4.0-6.0) % Plasma Lactic Acid Gómez (0.7-2.0) mmol/L Phosphorus (2.5-4.5) mg/dL Total Bilirubin (0.2-1.3) mg/dL AST (14-36) U/L ALT (9-52) U/L Alkaline Phosphatase (38-126) U/L Total Protein (6.3-8.2) g/dL Albumin (3.5-5.0) g/dL Urine Appearance (Clear) Urine Protein (Negative) Ur Leukocyte Esterase (Negative) Urine WBC (0-5) /hpf Urine Bacteria (None) /hpf Hyaline Casts (0-2) /lpf Urine Mucus (None) /hpf Assessment and Plan Assessment: septic and cardiogenic shock MICHAEL Chest pain with Elevated troponin, rule out cardiac cause. housing property manager is consulted Fatigue and dyspnea Elevated liver enzymes h/o COPD insulin-dependent diabetes mellitus Iron overload from previous multiple blood transfusions GERD sleep apnea h/o myelodysplastic syndrome Pancytopenia with Chronic anemia and thrombocytopenia h/o blood transfusion reaction [times/itching] h/o MRSA infection. Plan: This is a pleasant 67 years old female presents with fatigue and dyspnea, found to have elevated troponin of 0.19. Continue with same treatment. Continue with symptomatic treatment. Resume home medications. Monitor lytes and vitals. Cardiology consult.Hematology/Oncology input for myelodysplastic syndrome and history of leukemia. DVT and GI prophylaxis. Further recommendation is based on the clinical course of the patient DVT prophylaxis: No heparin in view of low platelets GI prophylaxis: Pepcid PT/OT: Hold for now Prognosis is guarded
[2018-01-26] MEDS: VANCOMYCIN 1,250 MG in SODIUM CHLORIDE 0.9% 250 ML IVPB SCH (02:08)
[2018-01-26 04:24] LABS: Anisocytosis Marked; HGB 8.7 gm/dL (11.4-16.0); Hypochromasia Marked; MCH 37.6 pg (25.0-35.0); MCV 121.2 fL (80.0-100.0); Macrocytosis Marked; Mean Platelet Volume 13.3; RBC 2.31 m/uL (3.80-5.40)
[2018-01-26 04:26] LABS: INR 1.8 (<1.2); Prothrombin Time 16.7 sec (9.0-12.0)
[2018-01-26 04:27] LABS: Platelet Count 25 k/uL (150-450); RDW 25.5 % (11.5-15.5)
[2018-01-26 04:30] LABS: Albumin 2.5 g/dL (3.5-5.0); Calcium 8.3 mg/dL (8.4-10.2); Phosphorus 5.4 mg/dL (2.5-4.5); Potassium 5.3 mmol/L (3.5-5.1); Total Bilirubin 5.6 mg/dL (0.2-1.3); Total Protein 5.1 g/dL (6.3-8.2)
[2018-01-26 04:58] LABS: Lymphocytes # (M) 1.34 k/uL (1.0-4.8); Monocytes # (M) 0.27 k/uL (0-1.0); Neutrophils # (M) 5.09 k/uL (1.3-7.7); Neutrophils % (M) 76 %; Nucleated Red Blood Cells 8 /100 WBC (0-0); Polychromasia Present; Total Cells Counted 200; WBC 6.7 k/uL (3.8-10.6)
[2018-01-26 07:06] LABS: Glucose,Whole Blood 135 mg/dL (75-99)
[2018-01-26] MEDS ORDERED: FUROSEMIDE 10 MG/ML 2 ML VIAL IV ONE (08:01)
[2018-01-26] MEDS ORDERED: DOBUTamine DRIP 500 MG in DEXTROSE/WATER 1 250ML.BAG IV SCH (08:15)
[2018-01-26] MEDS: INSULIN ASPART 100 UNIT/ML 1 ML 10 ML VIAL SQ SCH ×4 (08:22→21:59)
[2018-01-26] MEDS: PANTOPRAZOLE 40 MG/10 ML VIAL IVP SCH (08:35)
[2018-01-26] MEDS: ERTAPENEM 1 GM in SODIUM CHLORIDE 0.9% 50 ML IVPB SCH (08:39)
[2018-01-26] MEDS: JADENU 180 MG PO SCH (08:40)
[2018-01-26] MEDS: JADENU PO SCH (08:41)
[2018-01-26] MEDS: SODIUM CHLORIDE 0.9% 1,000 ML IV SCH (08:43)
--- NOTE | 2018-01-26 09:46 | XR ---
EXAMINATION TYPE: XR chest 1V DATE OF EXAM: 01/26/2018 COMPARISON: 01/25/2018 HISTORY: 67 year-old female shortness of breath TECHNIQUE: Single frontal view of the chest is obtained. FINDINGS: Right anterior chest wall injection port with catheter tip at the cavoatrial junction. Left-sided gen erator device with leads extending to the left base of the neck. Large surgical lewis at the right glenoid. Heart upper limits of normal in size. Continued small to moderate left and small right pleur al effusions with adjacent opacity. IMPRESSION: Stable small to moderate left and small right pleural effusions with adjacent atelectasis and/or cons olidation.
--- NOTE | 2018-01-26 10:05 | PN ---
PROGRESS NOTE Mrs Funez went into probable sepsis yesterday. She is on Levophed and IV fluids. Lactic acid seems to have shown very modest improvement. She is not making much urine and ejection fraction is less than 20%, which could be also be precipitated by sepsis. I am recommending a trial of dobutamine at 2.5 mcg and one dose of Lasix to see if the kidneys opened up. Prognosis remains guarded. Vital signs are stable. She is on Levophed for blood pressure support. S1, S2 heard normally, short systolic murmur noted. Lungs reveal diminished air entry. Abdomen and lower extremities exam is unchanged. MMODL / IJN: [id number] /
--- NOTE | 2018-01-26 10:34 | P.PN ---
Subjective Progress Note Date: 01/26/18 Principal diagnosis: Myelodysplastic syndrome, iron overload secondary to chronic transfusions Patient seen today in follow-up in the ICU. She continues on dobutamine, she is on antibiotics for suspected sepsis. Patient is very weak, no appetite, has difficulty positioning herself, breathing gets labored with minimal activity, denies chest pain, palpitations, or other pain. Objective - Vital Signs Vital signs: Vital Signs Temp 98.1 F 01/26/18 08:00 Pulse 106 H 01/26/18 10:00 Resp 21 01/26/18 10:00 BP 114/57 01/26/18 09:00 Pulse Ox 97 01/26/18 10:00 Intake & Output 01/25/18 01/26/18 01/26/18 18:59 06:59 18:59 Intake Total 2470.803 1317.966 328.136 Output Total 76 140 65 Balance 2394.803 1177.966 263.136 Weight 63.1 kg 77.5 kg Intake: IV 2095 1150 275 Ertapenem 1 gm In Sodium 50 Chloride 0.9% 50 ml @ 100 mls/hr IVPB DAILY [facility] Rx #:[id number] Sodium Chloride 0.9% 1, 825 900 225 000 ml @ 75 mls/hr IV . [id number] [facility] Rx#:[id number] Sodium Chloride 0.9% 1, 1000 000 ml @ 999 mls/hr IV . Q1H1M [facility] Rx#:[id number] Sodium Chloride 0.9% 500 20 ml @ 250 mls/hr IV .Q2H [facility] Rx#:[id number] Vancomycin 1,250 mg In 250 250 Sodium Chloride 0.9% 250 ml @ 125 mls/hr IVPB Q16H [facility] Rx#:[id number] Intake, IV Titration 375.803 167.966 53.136 Amount Ertapenem 1 gm In Sodium 50 Chloride 0.9% 50 ml @ 100 mls/hr IVPB DAILY [facility] Rx #:[id number] Norepinephrine 16 mg In 100.803 167.966 53.136 Sodium Chloride 0.9% 250 ml @ Titrate IV .Q0M [facility] Rx#:[id number] Sodium Chloride 0.9% 1, 225 000 ml @ 75 mls/hr IV . [id number] [facility] Rx#:[id number] Output: Urine 76 140 65 Other: Voiding Method Indwelling Catheter Indwelling Catheter ABP, PAP, CO, CI - Last Documented Arterial Blood Pressure 101/57 - Constitutional General appearance: Present: average body habitus, cooperative, mild distress - EENT Eyes: Present: EOMI - Respiratory Respiratory: bilateral: diminished (Weak inspiratory effort) - Cardiovascular Heart sounds: normal: S1, S2 - Peripheral edema leg Peripheral Edema: bilateral: Trace - Gastrointestinal General gastrointestinal: Present: normal bowel sounds, soft. Absent: absent bowel sounds, decreased bowel sounds, distended, hepatomegaly, hyperactive bowel sounds, organomegaly, rigid, scaphoid, splenomegaly, tenderness, umbilical hernia, ventral hernia - Integumentary Integumentary Comment(s): Patient's skin color is jaundiced/olivares - Neurologic Neurologic: Present: CNII-XII intact - Musculoskeletal Musculoskeletal: Present: generalized weakness - Psychiatric Psychiatric: Present: A&O x's 3, appropriate affect, intact judgment & insight - Labs CBC & Chem 7: 01/26/18 04:10 01/26/18 04:10 Labs: Abnormal Lab Results - Last 24 Hours (Table) 01/25/18 01/25/18 01/25/18 Range/Units 09:30 11:54 14:10 RBC (3.80-5.40) m/uL Hgb (11.4-16.0) gm/dL Hct (34.0-46.0) % MCV (80.0-100.0) fL MCH (25.0-35.0) pg RDW (11.5-15.5) % Plt Count (150-450) k/uL Nucleated RBCs (0-0) /100 WBC PT (9.0-12.0) sec INR (<1.2) ABG Lactic Acid 4.4 H* 3.7 H* (0.5-1.6) mmol/L Sodium (137-145) mmol/L Potassium (3.5-5.1) mmol/L Chloride (98-107) mmol/L Carbon Dioxide (22-30) mmol/L BUN (7-17) mg/dL Creatinine (0.52-1.04) mg/dL Glucose (74-99) mg/dL POC Glucose (mg/dL) 148 H (75-99) mg/dL Calcium (8.4-10.2) mg/dL Phosphorus (2.5-4.5) mg/dL Total Bilirubin (0.2-1.3) mg/dL AST (14-36) U/L ALT (9-52) U/L Alkaline Phosphatase (38-126) U/L Total Protein (6.3-8.2) g/dL Albumin (3.5-5.0) g/dL 01/25/18 01/25/18 01/26/18 Range/Units 17:24 20:44 04:10 RBC 2.31 L (3.80-5.40) m/uL Hgb 8.7 L (11.4-16.0) gm/dL Hct 28.0 L (34.0-46.0) % MCV 121.2 H (80.0-100.0) fL MCH 37.6 H (25.0-35.0) pg RDW 25.5 H (11.5-15.5) % Plt Count 25 L (150-450) k/uL Nucleated RBCs 8 H (0-0) /100 WBC PT (9.0-12.0) sec INR (<1.2) ABG Lactic Acid (0.5-1.6) mmol/L Sodium (137-145) mmol/L Potassium (3.5-5.1) mmol/L Chloride (98-107) mmol/L Carbon Dioxide (22-30) mmol/L BUN (7-17) mg/dL Creatinine (0.52-1.04) mg/dL Glucose (74-99) mg/dL POC Glucose (mg/dL) 160 H 165 H (75-99) mg/dL Calcium (8.4-10.2) mg/dL Phosphorus (2.5-4.5) mg/dL Total Bilirubin (0.2-1.3) mg/dL AST (14-36) U/L ALT (9-52) U/L Alkaline Phosphatase (38-126) U/L Total Protein (6.3-8.2) g/dL Albumin (3.5-5.0) g/dL 01/26/18 01/26/18 01/26/18 Range/Units 04:10 04:10 04:10 RBC (3.80-5.40) m/uL Hgb (11.4-16.0) gm/dL Hct (34.0-46.0) % MCV (80.0-100.0) fL MCH (25.0-35.0) pg RDW (11.5-15.5) % Plt Count (150-450) k/uL Nucleated RBCs (0-0) /100 WBC PT 16.7 H (9.0-12.0) sec INR 1.8 H (<1.2) ABG Lactic Acid 3.7 H* (0.5-1.6) mmol/L Sodium 136 L (137-145) mmol/L Potassium 5.3 H (3.5-5.1) mmol/L Chloride 111 H (98-107) mmol/L Carbon Dioxide 13 L (22-30) mmol/L BUN 64 H (7-17) mg/dL Creatinine 1.51 H (0.52-1.04) mg/dL Glucose 146 H (74-99) mg/dL POC Glucose (mg/dL) (75-99) mg/dL Calcium 8.3 L (8.4-10.2) mg/dL Phosphorus 5.4 H (2.5-4.5) mg/dL Total Bilirubin 5.6 H (0.2-1.3) mg/dL AST 297 H (14-36) U/L ALT 306 H (9-52) U/L Alkaline Phosphatase 227 H (38-126) U/L Total Protein 5.1 L (6.3-8.2) g/dL Albumin 2.5 L (3.5-5.0) g/dL 01/26/18 Range/Units 07:04 RBC (3.80-5.40) m/uL Hgb (11.4-16.0) gm/dL Hct (34.0-46.0) % MCV (80.0-100.0) fL MCH (25.0-35.0) pg RDW (11.5-15.5) % Plt Count (150-450) k/uL Nucleated RBCs (0-0) /100 WBC PT (9.0-12.0) sec INR (<1.2) ABG Lactic Acid (0.5-1.6) mmol/L Sodium (137-145) mmol/L Potassium (3.5-5.1) mmol/L Chloride (98-107) mmol/L Carbon Dioxide (22-30) mmol/L BUN (7-17) mg/dL Creatinine (0.52-1.04) mg/dL Glucose (74-99) mg/dL POC Glucose (mg/dL) 135 H (75-99) mg/dL Calcium (8.4-10.2) mg/dL Phosphorus (2.5-4.5) mg/dL Total Bilirubin (0.2-1.3) mg/dL AST (14-36) U/L ALT (9-52) U/L Alkaline Phosphatase (38-126) U/L Total Protein (6.3-8.2) g/dL Albumin (3.5-5.0) g/dL Microbiology - Last 24 Hours (Table) 01/25/18 01:45 Blood Culture - Preliminary Blood No Growth after 24 hours 01/25/18 01:30 Blood Culture - Preliminary Blood No Growth after 24 hours - Imaging and Cardiology Chest x-ray: report reviewed Assessment and Plan (1) Anemia Narrative/Plan: Secondary to myelodysplastic disease as well as previous treatment. Patient is on ASA every 7 days per nephrology. Continue conservative transfusions for symptomatic anemia. Current Visit: Yes Status: Chronic Priority: Medium Code(s): D64.9 - ANEMIA, UNSPECIFIED SNOMED Code(s): 465022134 (2) Iron overload due to repeated red blood cell transfusions Narrative/Plan: Continue Jaadenu chelation therapy. Dr. Esquivel did discuss with the patient, significant other and critical care team concerns for patient's presentation. Prolonged iron overload will alter cardiac and liver function. Patient's current situation it is not clear if her hypotension and transaminitis is related to sepsis or organ failure from the iron overload. Plan is to continue antibiotics and supportive care. If patient recovers with treatment then the underlying cause would be infection. If patient does not recover, the clinical picture becomes more suspicious for cardiac and liver dysfunction because of iron overload, which would be much more difficult to correct, if able to correct at all. As stated continue chelation therapy. Ferritin level to be checked. Current Visit: Yes Status: Chronic Priority: Medium Code(s): E83.111 - HEMOCHROMATOSIS DUE TO REPEATED RED BLOOD CELL TRANSFUSIONS SNOMED Code(s): 119069772 (3) MDS (myelodysplastic syndrome) Narrative/Plan: Patient was unable to tolerate treatment. Her CBC has actually stabilized with some slight improvements since discontinuing treatment. No treatment planned at this time other than close monitoring. Current Visit: Yes Status: Chronic Priority: Medium Code(s): D46.9 - MYELODYSPLASTIC SYNDROME, UNSPECIFIED SNOMED Code(s): 748415599 (4) Thrombocytopenia Narrative/Plan: Secondary to MDS. Stable counts today, no acute intervention, transfuse for symptomatic thrombocytopenia or if platelets less than 10,000. No asa, NSAIDs, anticoagulation. Close monitoring for bleeding Current Visit: No Status: Chronic Priority: High Code(s): D69.6 - THROMBOCYTOPENIA, UNSPECIFIED SNOMED Code(s): 514550042
[2018-01-26] MEDS ORDERED: PHYTONADIONE 5 MG in SODIUM CHLORIDE 0.9% 50 ML IVPB STA (10:35)
[2018-01-26] MEDS ORDERED: DEXTROSE 5% IN WATER 100 ML with AMIODARONE 150 MG IV ONE ×2 (10:46→19:45)
--- NOTE | 2018-01-26 10:56 | P.PN ---
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 The patient has had chronic complications of mild dysplasia including chronic anemia and thrombocytopenia requiring multiple blood transfusions in the past. The patient came in yesterday to the hospital because of chest pain. She had heaviness in her chest and she had also some increased shortness of breath. No cough. No sputum production. No pleurisy. No hemoptysis. She had a previous echocardiogram that showed a preserved LV function of ejection fraction of 55%. EKG that was performed during this current admission shows some nonspecific ST segment changes. Chest x-ray showed a left-sided pleural effusion. Subsequently the echocardiogram was repeated based on an elevated BNP level of 10,000 and the patient was found to have profound impairment of the LV function with an ejection fraction dropping down to less than 20%. RV is mildly enlarged. There is mild to moderate mitral regurgitation. Moderate pulmonary hypertension with a PA pressure of around 39. The IVC is dilated and there is poor respiratory collapse consistent with estimated right atrial pressure of about 15. There is also a moderate degree of pleural effusion on the left. Troponins were 0.2 0.2 respectively 2. The patient was seen by cardiology. Conservative management was recommended based on her comorbidities and chronic, cytopenia. Around 3 AM this morning, the patient becomes progressively more hypotensive. Her lactic acid was slightly elevated at 2.5 and 2.1. The patient was given a total of 3 L of IV fluids. She coaches for to the ICU. Artline catheter was inserted. She is currently on 20 mics of norepinephrine infusion for blood pressure support. Urine output is also drop. Morning blood work shows a non-anion gap metabolic acidosis with a bicarb level of 18, anion gap of 9, creatinine of 1.1, and the white cell count is at 3.8 with hemoglobin of 9.4. The patient is awake. She is a poor historian. I think she does have an underlying dementia. She does not have a good recollection of the events that led to her coming to the hospital. No she is much aware of her past medical history. LFTs were slightly abnormal yet that is no acute abnormalities on the ultrasound of the liver and gallbladder. The patient has a Mediport and the patient also has a vagal nerve stimulator. No skin rashes. No open wounds or ulceration. No abdominal distention. No nausea. No vomiting. Extremities are somewhat cold and clammy at this point with diminished pulses. On 01/27/2000 milligrams in this patient for a follow-up. As mentioned, the patient got into the intensive care unit because of profound hypotension. Further workup showed a drop in the left with an ejection fraction which was measured to be less than 20%. As such this shock is most likely of a cardiogenic in nature. I also cover this patient for her septic shock knowing that she has had infections in the past with ESBL producing organisms and MRSA. I cover this patient with a combination of Invanz and vancomycin. Nevertheless, the cultures of been negative and the patient has not spiked any fever and a white cell count is at 6.7. The patient was given volume and she responded initially in the pressors dose was gradually wean down to 10-15 mics per norepinephrine infusion per minute. This morning, the she was noted to have a lower urine output. She was given a dose of Lasix. Subsequently was advised to give her dobutamine. Following dobutamine administration, the patient went into atrial fibrillation with rapid ventricular response and he she became hypotensive with systolic blood pressure dropped in the mid 70s. I was about to give the patient amiodarone. During this time the patient converted back to normal sinus rhythm after dobutamine was discontinued. Blood pressure subsequently improved. She is receiving a bicarb infusion knowing that she has a component of non-anion gap metabolic acidosis and this is running at the rate of 75 mL an hour. She has developed an acute kidney injury , probably related to her hypotension and cardiorenal factors. Creatinine is up to 1.5 and a BNP is at 64. Urine output is nor that of 20 mL an hour. Chest x-ray shows some worsening in the volume status and the patient has developed small better pleural effusion and a component of 4 vessel congestion. She is currently on room air oxygen and her pulse ox is above 90%. No chest pain. No angina. Hematologic profile is consistent with myelodysplasia. Her liver function is also worse. Bilirubin is up to 5.9. She had an AST of 297 with a ALP of 306 with an phosphatase of 27. Albumin Is at 2.5. INR Is at 1.8 with a PT of 16.7. Most Recent Lactic Acid Level Is at 3.7. Objective - Vital Signs Vital signs: Vital Signs Temp 98.1 F 01/26/18 08:00 Pulse 106 H 01/26/18 10:00 Resp 21 01/26/18 10:00 BP 114/57 01/26/18 09:00 Pulse Ox 97 01/26/18 10:00 Intake & Output 01/25/18 01/26/18 01/26/18 18:59 06:59 18:59 Intake Total 2470.803 1317.966 328.136 Output Total 76 140 65 Balance 2394.803 1177.966 263.136 Weight 63.1 kg 77.5 kg Intake: IV 2095 1150 275 Ertapenem 1 gm In Sodium 50 Chloride 0.9% 50 ml @ 100 mls/hr IVPB DAILY [facility] Rx #:[id number] Sodium Chloride 0.9% 1, 825 900 225 000 ml @ 75 mls/hr IV . [id number] [facility] Rx#:[id number] Sodium Chloride 0.9% 1, 1000 000 ml @ 999 mls/hr IV . Q1H1M [facility] Rx#:[id number] Sodium Chloride 0.9% 500 20 ml @ 250 mls/hr IV .Q2H [facility] Rx#:[id number] Vancomycin 1,250 mg In 250 250 Sodium Chloride 0.9% 250 ml @ 125 mls/hr IVPB Q16H [facility] Rx#:[id number] Intake, IV Titration 375.803 167.966 53.136 Amount Ertapenem 1 gm In Sodium 50 Chloride 0.9% 50 ml @ 100 mls/hr IVPB DAILY [facility] Rx #:[id number] Norepinephrine 16 mg In 100.803 167.966 53.136 Sodium Chloride 0.9% 250 ml @ Titrate IV .Q0M [facility] Rx#:[id number] Sodium Chloride 0.9% 1, 225 000 ml @ 75 mls/hr IV . [id number] [facility] Rx#:[id number] Output: Urine 76 140 65 Other: Voiding Method Indwelling Catheter Indwelling Catheter ABP, PAP, CO, CI - Last Documented Arterial Blood Pressure 101/57 - Exam Gen. appearance, comfortable awake following commands and answering questions. not acute distress. Not agitated. The patient seems to be slightly jaundiced on today's evaluation. Head exam was generally normal. There was scleral icterus / corneal arcus. Mucous membranes were moist. Neck was supple and with jugular venous distension, thyromegaly, or carotid bruits. Carotids were easily palpable bilaterally. There was no adenopathy. Lungs sounds are diminished bilaterally especially left lung base along with dullness to percussion. There are crackles in lung bases bilaterally. Heart sounds are regular, positive S1-S2 and there is no significant murmurs appreciated. The patient has a Mediport over the right anterior chest area. A nerve stimulator is also present over the left lateral chest area also. Abdominal exam revealed normal bowel sounds. The abdomen was soft, non-tender, and without masses, organomegaly, or appreciable enlargement of the abdominal aorta. Examination of the extremities revealed diminished pulses in the radial, femoral and pedal pulses. There was no cyanosis, clubbing or edema. Examination of the skin revealed no evidence of significant rashes, suspicious appearing nevi or other concerning lesions. Neurologic patient will go proximity is without any focal limitation. - Labs CBC & Chem 7: 01/26/18 04:10 01/26/18 04:10 Labs: Abnormal Lab Results - Last 24 Hours (Table) 01/25/18 01/25/18 01/25/18 Range/Units 11:54 14:10 17:24 RBC (3.80-5.40) m/uL Hgb (11.4-16.0) gm/dL Hct (34.0-46.0) % MCV (80.0-100.0) fL MCH (25.0-35.0) pg RDW (11.5-15.5) % Plt Count (150-450) k/uL Nucleated RBCs (0-0) /100 WBC PT (9.0-12.0) sec INR (<1.2) ABG Lactic Acid 3.7 H* (0.5-1.6) mmol/L Sodium (137-145) mmol/L Potassium (3.5-5.1) mmol/L Chloride (98-107) mmol/L Carbon Dioxide (22-30) mmol/L BUN (7-17) mg/dL Creatinine (0.52-1.04) mg/dL Glucose (74-99) mg/dL POC Glucose (mg/dL) 148 H 160 H (75-99) mg/dL Calcium (8.4-10.2) mg/dL Phosphorus (2.5-4.5) mg/dL Total Bilirubin (0.2-1.3) mg/dL AST (14-36) U/L ALT (9-52) U/L Alkaline Phosphatase (38-126) U/L Total Protein (6.3-8.2) g/dL Albumin (3.5-5.0) g/dL 01/25/18 01/26/18 01/26/18 Range/Units 20:44 04:10 04:10 RBC 2.31 L (3.80-5.40) m/uL Hgb 8.7 L (11.4-16.0) gm/dL Hct 28.0 L (34.0-46.0) % MCV 121.2 H (80.0-100.0) fL MCH 37.6 H (25.0-35.0) pg RDW 25.5 H (11.5-15.5) % Plt Count 25 L (150-450) k/uL Nucleated RBCs 8 H (0-0) /100 WBC PT (9.0-12.0) sec INR (<1.2) ABG Lactic Acid (0.5-1.6) mmol/L Sodium 136 L (137-145) mmol/L Potassium 5.3 H (3.5-5.1) mmol/L Chloride 111 H (98-107) mmol/L Carbon Dioxide 13 L (22-30) mmol/L BUN 64 H (7-17) mg/dL Creatinine 1.51 H (0.52-1.04) mg/dL Glucose 146 H (74-99) mg/dL POC Glucose (mg/dL) 165 H (75-99) mg/dL Calcium 8.3 L (8.4-10.2) mg/dL Phosphorus 5.4 H (2.5-4.5) mg/dL Total Bilirubin 5.6 H (0.2-1.3) mg/dL AST 297 H (14-36) U/L ALT 306 H (9-52) U/L Alkaline Phosphatase 227 H (38-126) U/L Total Protein 5.1 L (6.3-8.2) g/dL Albumin 2.5 L (3.5-5.0) g/dL 01/26/18 01/26/18 01/26/18 Range/Units 04:10 04:10 07:04 RBC (3.80-5.40) m/uL Hgb (11.4-16.0) gm/dL Hct (34.0-46.0) % MCV (80.0-100.0) fL MCH (25.0-35.0) pg RDW (11.5-15.5) % Plt Count (150-450) k/uL Nucleated RBCs (0-0) /100 WBC PT 16.7 H (9.0-12.0) sec INR 1.8 H (<1.2) ABG Lactic Acid 3.7 H* (0.5-1.6) mmol/L Sodium (137-145) mmol/L Potassium (3.5-5.1) mmol/L Chloride (98-107) mmol/L Carbon Dioxide (22-30) mmol/L BUN (7-17) mg/dL Creatinine (0.52-1.04) mg/dL Glucose (74-99) mg/dL POC Glucose (mg/dL) 135 H (75-99) mg/dL Calcium (8.4-10.2) mg/dL Phosphorus (2.5-4.5) mg/dL Total Bilirubin (0.2-1.3) mg/dL AST (14-36) U/L ALT (9-52) U/L Alkaline Phosphatase (38-126) U/L Total Protein (6.3-8.2) g/dL Albumin (3.5-5.0) g/dL Microbiology - Last 24 Hours (Table) 01/25/18 01:45 Blood Culture - Preliminary Blood No Growth after 24 hours 01/25/18 01:30 Blood Culture - Preliminary Blood No Growth after 24 hours Assessment and Plan Plan: Assessment 1 cardiogenic shock with profound hypotension and the patient is currently pressor dependent. The patient is currently on norepinephrine infusion. The patient was unable to tolerate dobutamine as the patient became hypotensive and went into atrial fibrillation with rapid ventricular response. Currently she is back to normal sinus rhythm. Urine output is low. The patient has a shock liver picture related urine output and she is showing signs of multisystem failure. 2 mild lactic acidosis in addition to a component of non-anion gap metabolic acidosis and the patient was started on a bicarb drip 3 CHF with impairment ejection fraction of less than 20% 4 questionable non-ST segment elevation myocardial infarction based on elevated troponins 5 paroxysmal atrial fibrillation which converted back into sinus 6 myelodysplasia with chronic anemia and thrombocytopenia, maintained on Revlimid and Decadron outpatient basis 7 acute kidney injury, secondary to low cardiac output state and cardiorenal factors. 8 diabetes mellitus type 2 9 COPD 10 vagal nerve stimulator 11 Mediport 12 previous history of infection with Enterobacter and MRSA and these are essentially urine checked infections occurred back in 11/02/2017 and 02/08/2017 respectively 13 obstructive sleep apnea Plan Critically ill female patient with advanced cardiomyopathy and cardiogenic shock and signs of multisystem organ failure. Urine output is low. She is a shock liver. Unable to tolerate dobutamine. Continue bicarb drip. Not a candidate for further cardiac intervention based on her underlying hematologic profile and myelodysplasia. Prognosis remains poor. We'll be awaiting further recommendations from cardiology regarding her care. We'll keep in ICU. We'll continue to follow. Continue same antibiotic coverage although the possibility of a septic component is felt to be less likely. The patient has some signs of pulmonary edema and she has a small bilateral pleural effusion slightly worse on the left secondary to her congestion heart failure. Condition is critical. Prognosis poor.
[2018-01-26] MEDS ORDERED: AMIODARONE 450 MG in DEXTROSE 5% IN WATER 250 ML IV SCH ×2 (11:00)
[2018-01-26] MEDS: SODIUM BICARB IV SCH ×2 (11:16)
[2018-01-26] MEDS: NACL IV SCH ×2 (11:16)
[2018-01-26] MEDS: DEXTROSE IV SCH ×2 (11:16)
[2018-01-26 11:22] LABS: Glucose,Whole Blood 150 mg/dL (75-99)
--- NOTE | 2018-01-26 11:45 | P.PN ---
Subjective Progress Note Date: 01/26/18 Principal diagnosis: elevated liver enzymes 67-year-old female with a history of MDS admitted with profound hypotension low cardiac ejection fraction elevated liver enzymes. Patient continues to have low urine output. Liver enzymes PT/INR have increased. INR 1.8. Episode of atrial fibrillation/flutter received amiodarone; dobutamine was discontinued. Still receiving IV pressors Levophed at 12 g an hour. Creatinine has increased to 1.5. Pleural effusions per chest x-ray. Bilirubin 5.9. AST 297. ALT 306. AP 227. She has a history of chronic elevation of liver enzymes over the past year but not to this degree; serologic workup was requested this morning for chronic liver disease evaluation. ABG lactic acid increased 3.7. She's been afebrile. Objective - Vital Signs Vital signs: Vital Signs Temp 98.1 F 01/26/18 08:00 Pulse 106 H 01/26/18 11:00 Resp 13 01/26/18 11:00 BP 114/57 01/26/18 09:00 Pulse Ox 100 01/26/18 11:00 Intake & Output 01/25/18 01/26/18 01/26/18 18:59 06:59 18:59 Intake Total 2470.803 1317.966 403.136 Output Total 76 140 80 Balance 2394.803 1177.966 323.136 Weight 63.1 kg 77.5 kg Intake: IV 2095 1150 350 Ertapenem 1 gm In Sodium 50 Chloride 0.9% 50 ml @ 100 mls/hr IVPB DAILY [facility] Rx #:[id number] Sodium Chloride 0.9% 1, 825 900 300 000 ml @ 75 mls/hr IV . [id number] [facility] Rx#:[id number] Sodium Chloride 0.9% 1, 1000 000 ml @ 999 mls/hr IV . Q1H1M [facility] Rx#:[id number] Sodium Chloride 0.9% 500 20 ml @ 250 mls/hr IV .Q2H [facility] Rx#:[id number] Vancomycin 1,250 mg In 250 250 Sodium Chloride 0.9% 250 ml @ 125 mls/hr IVPB Q16H [facility] Rx#:[id number] Intake, IV Titration 375.803 167.966 53.136 Amount Ertapenem 1 gm In Sodium 50 Chloride 0.9% 50 ml @ 100 mls/hr IVPB DAILY [facility] Rx #:[id number] Norepinephrine 16 mg In 100.803 167.966 53.136 Sodium Chloride 0.9% 250 ml @ Titrate IV .Q0M [facility] Rx#:[id number] Sodium Chloride 0.9% 1, 225 000 ml @ 75 mls/hr IV . [id number] [facility] Rx#:[id number] Output: Urine 76 140 80 Other: Voiding Method Indwelling Catheter Indwelling Catheter ABP, PAP, CO, CI - Last Documented Arterial Blood Pressure 96/68 - Exam General appearance: The patient is alert, oriented, in no acute distress. HET: Head is normocephalic and atraumatic. Pupils are equal and reactive. Oropharynx is clear without lesions. Neck: Supple without lymphadenopathy. Trachea midline. Heart: S1 S2. Regular rate and rhythm. Lungs: Decreased by basilar fine crackles noted. Abdomen: Soft, nontender, nondistended with bowel sounds. No peritoneal signs. No palpable organomegaly or masses. Extremities: Normal skin color and turgor. No cyanosis, rash, ulceration, clubbing, or edema. Radial and pedal pulses are 2/4 bilaterally. Keller clear martinez urine. Neurological: No focal deficits. Strength and sensation are grossly intact. - Labs CBC & Chem 7: 01/26/18 04:10 01/26/18 04:10 Labs: Abnormal Lab Results - Last 24 Hours (Table) 01/25/18 01/25/18 01/25/18 Range/Units 11:54 14:10 17:24 RBC (3.80-5.40) m/uL Hgb (11.4-16.0) gm/dL Hct (34.0-46.0) % MCV (80.0-100.0) fL MCH (25.0-35.0) pg RDW (11.5-15.5) % Plt Count (150-450) k/uL Nucleated RBCs (0-0) /100 WBC PT (9.0-12.0) sec INR (<1.2) ABG Lactic Acid 3.7 H* (0.5-1.6) mmol/L Sodium (137-145) mmol/L Potassium (3.5-5.1) mmol/L Chloride (98-107) mmol/L Carbon Dioxide (22-30) mmol/L BUN (7-17) mg/dL Creatinine (0.52-1.04) mg/dL Glucose (74-99) mg/dL POC Glucose (mg/dL) 148 H 160 H (75-99) mg/dL Calcium (8.4-10.2) mg/dL Phosphorus (2.5-4.5) mg/dL Total Bilirubin (0.2-1.3) mg/dL AST (14-36) U/L ALT (9-52) U/L Alkaline Phosphatase (38-126) U/L Total Protein (6.3-8.2) g/dL Total Protein (PEP) (6.2-8.2) g/dL Albumin (3.5-5.0) g/dL 01/25/18 01/26/18 01/26/18 Range/Units 20:44 04:10 04:10 RBC 2.31 L (3.80-5.40) m/uL Hgb 8.7 L (11.4-16.0) gm/dL Hct 28.0 L (34.0-46.0) % MCV 121.2 H (80.0-100.0) fL MCH 37.6 H (25.0-35.0) pg RDW 25.5 H (11.5-15.5) % Plt Count 25 L (150-450) k/uL Nucleated RBCs 8 H (0-0) /100 WBC PT (9.0-12.0) sec INR (<1.2) ABG Lactic Acid (0.5-1.6) mmol/L Sodium (137-145) mmol/L Potassium (3.5-5.1) mmol/L Chloride (98-107) mmol/L Carbon Dioxide (22-30) mmol/L BUN (7-17) mg/dL Creatinine (0.52-1.04) mg/dL Glucose (74-99) mg/dL POC Glucose (mg/dL) 165 H (75-99) mg/dL Calcium (8.4-10.2) mg/dL Phosphorus (2.5-4.5) mg/dL Total Bilirubin (0.2-1.3) mg/dL AST (14-36) U/L ALT (9-52) U/L Alkaline Phosphatase (38-126) U/L Total Protein (6.3-8.2) g/dL Total Protein (PEP) 5.0 L (6.2-8.2) g/dL Albumin (3.5-5.0) g/dL 01/26/18 01/26/18 01/26/18 Range/Units 04:10 04:10 04:10 RBC (3.80-5.40) m/uL Hgb (11.4-16.0) gm/dL Hct (34.0-46.0) % MCV (80.0-100.0) fL MCH (25.0-35.0) pg RDW (11.5-15.5) % Plt Count (150-450) k/uL Nucleated RBCs (0-0) /100 WBC PT 16.7 H (9.0-12.0) sec INR 1.8 H (<1.2) ABG Lactic Acid 3.7 H* (0.5-1.6) mmol/L Sodium 136 L (137-145) mmol/L Potassium 5.3 H (3.5-5.1) mmol/L Chloride 111 H (98-107) mmol/L Carbon Dioxide 13 L (22-30) mmol/L BUN 64 H (7-17) mg/dL Creatinine 1.51 H (0.52-1.04) mg/dL Glucose 146 H (74-99) mg/dL POC Glucose (mg/dL) (75-99) mg/dL Calcium 8.3 L (8.4-10.2) mg/dL Phosphorus 5.4 H (2.5-4.5) mg/dL Total Bilirubin 5.6 H (0.2-1.3) mg/dL AST 297 H (14-36) U/L ALT 306 H (9-52) U/L Alkaline Phosphatase 227 H (38-126) U/L Total Protein 5.1 L (6.3-8.2) g/dL Total Protein (PEP) (6.2-8.2) g/dL Albumin 2.5 L (3.5-5.0) g/dL 01/26/18 01/26/18 Range/Units 07:04 11:20 RBC (3.80-5.40) m/uL Hgb (11.4-16.0) gm/dL Hct (34.0-46.0) % MCV (80.0-100.0) fL MCH (25.0-35.0) pg RDW (11.5-15.5) % Plt Count (150-450) k/uL Nucleated RBCs (0-0) /100 WBC PT (9.0-12.0) sec INR (<1.2) ABG Lactic Acid (0.5-1.6) mmol/L Sodium (137-145) mmol/L Potassium (3.5-5.1) mmol/L Chloride (98-107) mmol/L Carbon Dioxide (22-30) mmol/L BUN (7-17) mg/dL Creatinine (0.52-1.04) mg/dL Glucose (74-99) mg/dL POC Glucose (mg/dL) 135 H 150 H (75-99) mg/dL Calcium (8.4-10.2) mg/dL Phosphorus (2.5-4.5) mg/dL Total Bilirubin (0.2-1.3) mg/dL AST (14-36) U/L ALT (9-52) U/L Alkaline Phosphatase (38-126) U/L Total Protein (6.3-8.2) g/dL Total Protein (PEP) (6.2-8.2) g/dL Albumin (3.5-5.0) g/dL Microbiology - Last 24 Hours (Table) 01/25/18 01:45 Blood Culture - Preliminary Blood No Growth after 24 hours 01/25/18 01:30 Blood Culture - Preliminary Blood No Growth after 24 hours Assessment and Plan (1) Elevated liver enzymes Narrative/Plan: 67-year-old female with a history of MDS presents with 1 month history of fatigue and weakness shortness of breath with profound hypotension, cardiac ejection fraction of 20%, elevated liver enzymes, elevated pro-BMP, and mild elevation of troponin suggestive of combination of passive venous congestion and ischemic hepatitis. Evidence of chronic elevated transaminases mild hyper- bilirubinemia over the past year cannot exclude an underlying chronic liver disease. Liver ultrasound reported no evidence of acute process recent hepatitis screen nonreactive. Liver enzymes have worsened today. Current Visit: Yes Status: Acute Code(s): R74.8 - ABNORMAL LEVELS OF OTHER SERUM ENZYMES SNOMED Code(s): 208406205 (2) Hypotension Current Visit: Yes Status: Acute Code(s): I95.9 - HYPOTENSION, UNSPECIFIED SNOMED Code(s): 71343973 (3) CHF (congestive heart failure) Current Visit: Yes Status: Acute Code(s): I50.9 - HEART FAILURE, UNSPECIFIED SNOMED Code(s): 24824014 (4) Iron overload due to repeated red blood cell transfusions Current Visit: Yes Status: Chronic Priority: Medium Code(s): E83.111 - HEMOCHROMATOSIS DUE TO REPEATED RED BLOOD CELL TRANSFUSIONS SNOMED Code(s): 057536197 (5) MDS (myelodysplastic syndrome) Current Visit: Yes Status: Chronic Priority: Medium Code(s): D46.9 - MYELODYSPLASTIC SYNDROME, UNSPECIFIED SNOMED Code(s): 797032197 (6) Cardiogenic shock Narrative/Plan: Profound hypotension pressor dependent. Current Visit: Yes Status: Acute Code(s): R57.0 - CARDIOGENIC SHOCK SNOMED Code(s): 11253962 (7) Coagulopathy Current Visit: Yes Status: Acute Code(s): D68.9 - COAGULATION DEFECT, UNSPECIFIED SNOMED Code(s): 10448576 Plan: 1. Overall condition is guarded critical. Liver enzymes and coagulopathy has worsened. Continue with symptomatic supportive measures in the ICU setting. Daily CMP PT/INR. We'll continue to follow with you. Assessment and plan a care discussed with Dr. Chaudhry
[2018-01-26 12:07] LABS: Ceruloplasmin 33.8 mg/dL (20.0-60.0)
--- NOTE | 2018-01-26 12:59 | CDI ---
Last Revision, April 2017 Documentation Clarification Form Date: 01/26/18 From: Ofe Vang RN Admit Date: 01/23/2018 1:13:00 PM Patient Name: Penny Funez Visit Number: [id number] ATTENTION: The Clinical Documentation Specialists (CDI) and [facility] Coding Staff appreciate your assistance in clarifying documentation. Please respond to the clarification below the line at the bottom and electronically sign. The CDI & [facility] Coding staff will review the response and follow-up if needed. Please note: Queries are made part of the Legal Health Record. If you have any questions, please contact the author of this message via ITS. Dr. Ann Simental MD, Can you please render your opinion on the following documentation? Pt. presented with chest pain. Admitted with fatigue, pleural effusion, elevated troponin & elevated liver enzymes History/Risk Factors: Myelodysplastic syndrome, leukemia, myoblastic anemias, IDDM 2, COPD, APNEA, MRSA, ex smoker, UTI Clinical Indicators: VS on admission: T 98.0, P 103, R 18, 119/68, 99% RA BNP on admission: 17913 Echocardiogram Results: EF <20% Chest X Ray: Increased left lower lobe density with pleural effusion. Infiltrate or atelectasis not excluded. There is evidence of cardiomegaly. 01/25 Consult Benson: CHF PN 01/26 Dr. Simental: "signs of pulmonary edema and she has a small bilateral pleural effusion slightly worse on the left secondary to her congestion heart failure". 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 Systolic Heart Failure: Acute Chronic Acute on Chronic Systolic & Diastolic Heart Failure: Acute Chronic Acute on Chronic Heart Failure Unable to Determine Other, please specify Acute systolic heart failure [facility]
[2018-01-26] MEDS: NOREPINEPHRINE 16 MG in SODIUM CHLORIDE 0.9% 250 ML IV SCH (15:30)
[2018-01-26 17:04] LABS: Glucose,Whole Blood 228 mg/dL (75-99)
[2018-01-26 17:28] LABS: Glucose,Whole Blood 210 mg/dL (75-99)
[2018-01-26] MEDS ORDERED: FUROSEMIDE 10 MG/ML 4 ML VIAL IV STA (18:03)
--- NOTE | 2018-01-26 19:53 | CONS ---
CONSULTATION REASON FOR CONSULT: Renal failure. HISTORY OF PRESENT ILLNESS: The patient is a 67-year-old female who was admitted to the hospital with chest pain. The patient was also short of breath. She denies any fever or chills. Patient under has underlying leukemia and is maintained on chemotherapy. She also has underlying COPD, type 2 diabetes. The patient denies any prior history of kidney disease; however, she states that her primary care physician has been keeping an eye on the kidney function. Serum creatinine on admission was 0.96, it is now at 1.5 mg/dL. The patient was hypotensive and transferred to the ICU. She is currently maintained on about 14 mcg of Levophed. Urine output has been at about 15-30 mL an hour. The patient received a dose of Lasix earlier this morning at 20 mg. The urine output is improved as compared to previously was at 0-5 mL an hour yesterday. No complaints of diarrhea prior to admission. PAST MEDICAL HISTORY: 1. Myelodysplastic syndrome being followed by Heme-Onc, status post chemotherapy previously. 2. Acute kidney injury secondary to hypotension, hypoperfusion, oliguric ATN currently nonoliguric with improvement in urine output. 3. Metabolic acidosis, non gap secondary to renal failure and hypotension and lactic acidosis also with an element of gap acidosis as well. I will switch the IV fluids to IV bicarb which will also help with the potassium. 4. Mild hyperkalemia associated with acute kidney injury and oliguria. Expect improvement with improving urine output and initiation of bicarb IV. 5. Hyperphosphatemia associated with acute kidney injury. 6. Anemia, multifactorial associated with underlying malignancy as well as chemotherapy previously being followed by Hematology/Oncology. 7. Hypotension from sepsis. Blood cultures are negative thus far. We will check a urine analysis. PAST SURGICAL HISTORY: Appendectomy, cholecystectomy, hysterectomy, left hip fracture with replacement, MediPort placement, colonoscopy, thoracic spine fusion. SOCIAL HISTORY: Patient is a former smoker. No history of drug abuse or alcohol abuse. MEDICATIONS: Prior to admission included Procrit, gabapentin, Nexium, and can deferasirox for iron chelation. ALLERGIES: Multiple, include CODEINE, IODINE, IRON, PENICILLIN, SEROQUEL, SEAFOOD, SULFA. PHYSICAL EXAMINATION: Patient is comfortable, awake. She is not in any acute distress. Blood pressure is low at 100/70, heart rate 100 per minute. Patient is afebrile. Examination of the heart, S1, S2. Examination of the lungs, bilateral breath sounds are heard. Abdomen is soft, nontender. Examination of the lower extremities shows trace edema. D[employer] REPA[employer] exam is grossly intact. Patient moving all 4 extremities. LABS: Show sodium of 136, potassium 5.3, chloride 111, CO2 13, BUN 64, serum creatinine 1.5. Ferritin was more than 04370, 33.8. PLAN: Change IV fluids to IV bicarb. Continue with fluids. Consider in a dose of Lasix depending on the urine output. I will reassess later this afternoon. Continue to avoid nephrotoxic agents. Repeat labs in a.m. Continue with the Aranesp. We need to be careful with the vancomycin given her renal failure. Monitor levels closely. Thank you for this consultation. We will continue to follow the patient with you during her hospitalization. MMODL / IJN: [id number] /
[2018-01-26 20:40] LABS: Glucose,Whole Blood 242 mg/dL (75-99)
[2018-01-26] MEDS: AMIODARONE 450 MG in DEXTROSE 5% IN WATER 250 ML IV SCH ×2 (20:45)
--- NOTE | 2018-01-26 20:54 | P.PN ---
Subjective This is a pleasant 67 years old female with past medical history of COPD, insulin-dependent diabetes mellitus, GERD, sleep apnea , myelodysplastic syndrome, leukemia on chemotherapy, blood transfusion reaction [times/itching] and MRSA infection. Presents because of chest pain on the left side, nonradiating, comes and goes over the last 2 days associated with dyspnea, orthopnea and generalized weakness. Patient denies any change in urine or bowel habits. She denies fever. And emergency room patient was noticed to be slightly tachycardic at 102-103. TROPONIN WERE ELEVATED AT 0.191, PREVIOUS TROPONIN WERE 0.08 AND 0.04 ON 2017. WBC 4.4, HEMOGLOBIN 8.9. PLATELETS LOW AT 24 01/24/2018 Patient feels a little better, she still have some chest discomfort and still dyspneic. No change in mental status. No fever. Labs reviewed showing pancytopenia with a drop in platelets 219. WBC 3.7K and hemoglobin 8.7. Oncology team evaluated patient and recommended to transfuse platelets when less than 10 K however no need for more chemotherapy, transfuse as needed and follow-up as an outpatient, however they recommended aren't chilly tip therapy with GA DD continue for iron overload from previous multiple red blood cell transfusions. Cardiology was consulted evaluated the patient We'll check liver ultrasound and hepatitis panel. We'll consult GI DC IV fluids as per cardiology 01/25/2018 last night pt BP start dropping with systolic blood pressure in 70-80s. depsite fluis boluses , pt was transfered to the ICU with she had central line placed and pt was started on norepinephrine drip and her Blood pressure improved today , pt lethargy and generalized weakness are improved too. pt antibiotic were changed from aztreonam to vancomycin iv and invanze as per critical care team for pt is with septic shock . combined with cardiogenic shock in view of drop in her EF from 55% to 20% during this admission. also pt is found to have elevated creatinine ahd hyperkalemia , nephrology team were consulted too . liver enz are elevated with negative liver US , GI team evaluation is appreciated 01/26/2018 pt is still on shock state, mostly cardiogenic shock , pt is on norepinephrine drip , pt lethargy and generalized weakness are improved too. however pt remains confused. pt antibiotic were changed from aztreonam to vancomycin iv and invanze as per critical care team for pt is with septic shock. combined with cardiogenic shock in view of drop in her EF from 55% to 20% during this admission. also pt is found to have elevated creatinine ahd hyperkalemia , nephrology team were consulted too . liver enz are elevated with negative liver US ,pt is making 90 cc of urine in the last 2 hours (45 Ml/hr) medications: Jadenu, Epoetin Chris, norepinephrine , zofran, protonix, novolg, invanz, iv vancomyin , Objective - Vital Signs Vital signs: Vital Signs Temp 98.1 F 01/26/18 15:30 Pulse 138 H 01/26/18 19:46 Resp 17 01/26/18 19:00 BP 114/91 01/26/18 19:46 Pulse Ox 99 01/26/18 19:00 Intake & Output 01/26/18 01/26/18 01/27/18 06:59 18:59 06:59 Intake Total 9130.935 1365.437 64.069 Output Total 140 200 Balance 1177.966 853.437 64.069 Weight 77.5 kg 77.5 kg Intake: IV 1150 950 Dextrose 5%-0.9% NaCl 1, 750 000 ml @ 75 mls/hr IV . [id number] MONAE with Sodium Bicarb (1 Meq/ml) 150 ml Rx#:[id number] Ertapenem 1 gm In Sodium 50 Chloride 0.9% 50 ml @ 100 mls/hr IVPB DAILY MONAE Rx #:[id number] Sodium Chloride 0.9% 1, 900 150 000 ml @ 75 mls/hr IV . [id number] MONAE Rx#:[id number] Vancomycin 1,250 mg In 250 Sodium Chloride 0.9% 250 ml @ 125 mls/hr IVPB Q16H MONAE Rx#:[id number] Intake, IV Titration 167.966 103.437 64.069 Amount Norepinephrine 16 mg In 167.966 103.437 64.069 Sodium Chloride 0.9% 250 ml @ Titrate IV .Q0M MONAE Rx#:[id number] Output: Urine 140 200 Other: Voiding Method Indwelling Catheter Indwelling Catheter # Bowel Movements 1 ABP, PAP, CO, CI - Last Documented Arterial Blood Pressure 92/66 - Exam GENERAL: The patient is alert and oriented x3, not in any acute distress. Well developed, well nourished. HEENT: Pupils are round and equally reacting to light. EOMI. No scleral icterus. No conjunctival pallor. Normocephalic, atraumatic. No pharyngeal erythema. No thyromegaly. CARDIOVASCULAR: S1 and S2 present. No murmurs, rubs, or gallops. PULMONARY: Chest is clear to auscultation, no wheezing or crackles. ABDOMEN: Soft, nontender, nondistended, normoactive bowel sounds. No palpable organomegaly. MUSCULOSKELETAL: No joint swelling or deformity. EXTREMITIES: No cyanosis, clubbing, or pedal edema. NEUROLOGICAL: Gross neurological examination did not reveal any focal deficits. SKIN: No rashes. - Labs CBC & Chem 7: 01/26/18 04:10 01/26/18 04:10 Labs: Abnormal Lab Results - Last 24 Hours (Table) 01/25/18 01/26/18 01/26/18 Range/Units 20:44 04:10 04:10 RBC 2.31 L (3.80-5.40) m/uL Hgb 8.7 L (11.4-16.0) gm/dL Hct 28.0 L (34.0-46.0) % MCV 121.2 H (80.0-100.0) fL MCH 37.6 H (25.0-35.0) pg RDW 25.5 H (11.5-15.5) % Plt Count 25 L (150-450) k/uL Nucleated RBCs 8 H (0-0) /100 WBC PT (9.0-12.0) sec INR (<1.2) ABG Lactic Acid (0.5-1.6) mmol/L Sodium (137-145) mmol/L Potassium (3.5-5.1) mmol/L Chloride (98-107) mmol/L Carbon Dioxide (22-30) mmol/L BUN (7-17) mg/dL Creatinine (0.52-1.04) mg/dL Glucose (74-99) mg/dL POC Glucose (mg/dL) 165 H (75-99) mg/dL Calcium (8.4-10.2) mg/dL Phosphorus (2.5-4.5) mg/dL Ferritin (10.0-291.0) ng/mL Total Bilirubin (0.2-1.3) mg/dL AST (14-36) U/L ALT (9-52) U/L Alkaline Phosphatase (38-126) U/L Total Protein (6.3-8.2) g/dL Total Protein (PEP) 5.0 L (6.2-8.2) g/dL Albumin (3.5-5.0) g/dL 01/26/18 01/26/18 01/26/18 Range/Units 04:10 04:10 04:10 RBC (3.80-5.40) m/uL Hgb (11.4-16.0) gm/dL Hct (34.0-46.0) % MCV (80.0-100.0) fL MCH (25.0-35.0) pg RDW (11.5-15.5) % Plt Count (150-450) k/uL Nucleated RBCs (0-0) /100 WBC PT 16.7 H (9.0-12.0) sec INR 1.8 H (<1.2) ABG Lactic Acid 3.7 H* (0.5-1.6) mmol/L Sodium 136 L (137-145) mmol/L Potassium 5.3 H (3.5-5.1) mmol/L Chloride 111 H (98-107) mmol/L Carbon Dioxide 13 L (22-30) mmol/L BUN 64 H (7-17) mg/dL Creatinine 1.51 H (0.52-1.04) mg/dL Glucose 146 H (74-99) mg/dL POC Glucose (mg/dL) (75-99) mg/dL Calcium 8.3 L (8.4-10.2) mg/dL Phosphorus 5.4 H (2.5-4.5) mg/dL Ferritin (10.0-291.0) ng/mL Total Bilirubin 5.6 H (0.2-1.3) mg/dL AST 297 H (14-36) U/L ALT 306 H (9-52) U/L Alkaline Phosphatase 227 H (38-126) U/L Total Protein 5.1 L (6.3-8.2) g/dL Total Protein (PEP) (6.2-8.2) g/dL Albumin 2.5 L (3.5-5.0) g/dL 01/26/18 01/26/18 01/26/18 Range/Units 04:10 07:04 11:20 RBC (3.80-5.40) m/uL Hgb (11.4-16.0) gm/dL Hct (34.0-46.0) % MCV (80.0-100.0) fL MCH (25.0-35.0) pg RDW (11.5-15.5) % Plt Count (150-450) k/uL Nucleated RBCs (0-0) /100 WBC PT (9.0-12.0) sec INR (<1.2) ABG Lactic Acid (0.5-1.6) mmol/L Sodium (137-145) mmol/L Potassium (3.5-5.1) mmol/L Chloride (98-107) mmol/L Carbon Dioxide (22-30) mmol/L BUN (7-17) mg/dL Creatinine (0.52-1.04) mg/dL Glucose (74-99) mg/dL POC Glucose (mg/dL) 135 H 150 H (75-99) mg/dL Calcium (8.4-10.2) mg/dL Phosphorus (2.5-4.5) mg/dL Ferritin >57666.0 H (10.0-291.0) ng/mL Total Bilirubin (0.2-1.3) mg/dL AST (14-36) U/L ALT (9-52) U/L Alkaline Phosphatase (38-126) U/L Total Protein (6.3-8.2) g/dL Total Protein (PEP) (6.2-8.2) g/dL Albumin (3.5-5.0) g/dL 01/26/18 01/26/18 01/26/18 Range/Units 17:02 17:27 20:38 RBC (3.80-5.40) m/uL Hgb (11.4-16.0) gm/dL Hct (34.0-46.0) % MCV (80.0-100.0) fL MCH (25.0-35.0) pg RDW (11.5-15.5) % Plt Count (150-450) k/uL Nucleated RBCs (0-0) /100 WBC PT (9.0-12.0) sec INR (<1.2) ABG Lactic Acid (0.5-1.6) mmol/L Sodium (137-145) mmol/L Potassium (3.5-5.1) mmol/L Chloride (98-107) mmol/L Carbon Dioxide (22-30) mmol/L BUN (7-17) mg/dL Creatinine (0.52-1.04) mg/dL Glucose (74-99) mg/dL POC Glucose (mg/dL) 228 H 210 H 242 H (75-99) mg/dL Calcium (8.4-10.2) mg/dL Phosphorus (2.5-4.5) mg/dL Ferritin (10.0-291.0) ng/mL Total Bilirubin (0.2-1.3) mg/dL AST (14-36) U/L ALT (9-52) U/L Alkaline Phosphatase (38-126) U/L Total Protein (6.3-8.2) g/dL Total Protein (PEP) (6.2-8.2) g/dL Albumin (3.5-5.0) g/dL Microbiology - Last 24 Hours (Table) 01/25/18 01:45 Blood Culture - Preliminary Blood No Growth after 24 hours 01/25/18 01:30 Blood Culture - Preliminary Blood No Growth after 24 hours Assessment and Plan Assessment: septic and cardiogenic shock MICHAEL Chest pain with Elevated troponin, rule out cardiac cause. brick dropper is consulted Fatigue and dyspnea Elevated liver enzymes h/o COPD insulin-dependent diabetes mellitus Iron overload from previous multiple blood transfusions GERD sleep apnea h/o myelodysplastic syndrome Pancytopenia with Chronic anemia and thrombocytopenia h/o blood transfusion reaction [times/itching] h/o MRSA infection. Plan: This is a pleasant 67 years old female presents with fatigue and dyspnea, found to have elevated troponin of 0.19. Continue with same treatment. Continue with symptomatic treatment. Resume home medications. Monitor lytes and vitals. Cardiology consult.Hematology/Oncology input for myelodysplastic syndrome and history of leukemia. DVT and GI prophylaxis. Further recommendation is based on the clinical course of the patient DVT prophylaxis: No heparin in view of low platelets GI prophylaxis: Pepcid PT/OT: Hold for now Prognosis is guarded
[2018-01-27] MEDS: NACL IV SCH ×2 (00:11)
[2018-01-27] MEDS: DEXTROSE IV SCH ×2 (00:11)
[2018-01-27] MEDS: SODIUM BICARB IV SCH ×2 (00:11)
[2018-01-27] MEDS ORDERED: SODIUM CHLORIDE 0.9% 1,000 ML IV SCH (00:15)
[2018-01-27 05:20] LABS: Prothrombin Time 18.2 sec (9.0-12.0)
[2018-01-27 05:27] LABS: Albumin 2.9 g/dL (3.5-5.0); Calcium 8.6 mg/dL (8.4-10.2); Phosphorus 5.9 mg/dL (2.5-4.5); Potassium 5.3 mmol/L (3.5-5.1); Total Bilirubin 8.7 mg/dL (0.2-1.3)
[2018-01-27 05:41] LABS: Anisocytosis Marked; HCT 31.6 % (34.0-46.0); HGB 9.7 gm/dL (11.4-16.0); Hypochromasia Marked; MCH 37.4 pg (25.0-35.0); MCHC 30.8 g/dL (31.0-37.0); MCV 121.5 fL (80.0-100.0); Macrocytosis Marked; Mean Platelet Volume 14.8; RDW 24.9 % (11.5-15.5)
[2018-01-27 05:47] LABS: Platelet Count 26 k/uL (150-450)
[2018-01-27] MEDS: AMIODARONE 450 MG in DEXTROSE 5% IN WATER 250 ML IV SCH ×2 (05:51)
[2018-01-27] MEDS ORDERED: VANCOMYCIN 1,500 MG in SODIUM CHLORIDE 0.9% 250 ML IVPB SCH (06:00)
[2018-01-27 07:12] LABS: Lymphocytes # (M) 0.87 k/uL (1.0-4.8); Monocytes # (M) 0.29 k/uL (0-1.0); Neutrophils # (M) 4.64 k/uL (1.3-7.7); Neutrophils % (M) 80 %; Nucleated Red Blood Cells 13 /100 WBC (0-0); Total Cells Counted 200; WBC 5.8 k/uL (3.8-10.6)
[2018-01-27 07:13] LABS: Basophilic Stippling Present; Howell-Jolly Bodies Present; Target Cells Present
[2018-01-27 07:28] LABS: Glucose,Whole Blood 184 mg/dL (75-99)
[2018-01-27] MEDS: INSULIN ASPART 100 UNIT/ML 1 ML 10 ML VIAL SQ SCH ×4 (07:31→21:14)
--- NOTE | 2018-01-27 07:36 | XR ---
EXAMINATION TYPE: XR chest 1V DATE OF EXAM: 01/27/2018 CLINICAL HISTORY: Difficulty breathing progress study. TECHNIQUE: Single AP portable upright view of the chest is obtained. COMPARISON: Chest x-ray from one day earlier and older studies. FINDINGS: There is stable right-sided internal jugular Mediport catheter. Stimulator device terminat ing in left lower neck is redemonstrated. Overlying EKG leads are again seen. There is persistent cardiomegaly with left basilar opacity silhouetting left heart border and hemidia phragm more prominent versus prior. There is increasing small right pleural effusion and associated r ight basilar atelectasis and/or infiltrate. Upper lungs remain clear without pneumothorax. Osseous st ructures remain demineralized. Surgical changes right glenoid with fixating lewis is redemonstrated . IMPRESSION: There is persistent cardiomegaly with worsening small to moderate-sized left pleural effu prince and worsening small right-sided pleural effusion with associated bibasilar atelectasis and/or in filtrate.
[2018-01-27] MEDS ORDERED: SODIUM BICARB 8.4% 50 ML SYR (1 MEQ/ML) IV ONE (08:48)
[2018-01-27] MEDS ORDERED: SODIUM BICARB 8.4% 50 ML SYR (1 MEQ/ML) ONE (08:48)
--- NOTE | 2018-01-27 08:53 | CDI ---
Documentation Clarification Form Date: 01/27/18 CDS: Ofe Vang RN Admit Date: 01/23/18 Patient Name: Penny Funez ATTENTION: The Clinical Documentation Specialists (CDI) and [facility] Coding Staff appreciate your assistance in clarifying documentation. Please respond to the clarification below the line at the bottom and electronically sign. The CDI & [facility] Coding staff will review the response and follow-up if needed. Please note: Queries are made part of the Legal Health Record. If you have any questions, please contact the author of this message via ITS. Dr. Ann Simental, Documentation of COPD is located in the 01/23 - 01/26. Presented with weakness/dizziness, fatigued, short of breath, elevated troponins and liver enzymes History/Risk Factors: Myelodysplastic syndrome, leukemia, meroblastic anemia, IDDM 2, COPD, GERD, APNEA, MRSA, ex-smoker, UTI, past smoker Clinical Indicators: CXR: Increased left lower lobe density with pleural effusion. Infiltrate or atelectasis not excluded. There is evidence of cardiomegaly. Vital Signs on admission: T 98.0, P 103, R 18, 119/68, 99% RA Lung and Respiratory Assessment: Diminished with fine crackles Treatment: Nebulizers: none Steroids: none Antibiotics: Azteonam IVPB, Ertapenem IVPB, Levofloxacin IVPB, Vancomycin IVPB In your professional opinion, can you please clarify if the above findings and treatment signify any of the following? Acute Exacerbation of Chronic Obstructive Pulmonary Disease (COPD) Acute on Chronic Obstructive Asthma Other condition, please specify Unable to determine The patient does not have COPD. This is an acute exacerbation congestion heart failure MTDD
[2018-01-27] MEDS ORDERED: SODIUM BICARB 8.4% 50 ML VIAL (1 MEQ/ML) IV ONE (09:12)
[2018-01-27] MEDS ORDERED: WATER FOR INJECTION, STERILE 1,000 ML with SODIUM ACETATE 150 MEQ IV SCH ×2 (09:15)
[2018-01-27] MEDS: DEXTROSE 5% IN WATER 1,000 ML with SOD BICARB SYR 8.4% (1 MEQ/ML) 150 ML IV SCH (09:20)
[2018-01-27] MEDS: ERTAPENEM 1 GM in SODIUM CHLORIDE 0.9% 50 ML IVPB SCH (09:50)
[2018-01-27] MEDS: PANTOPRAZOLE 40 MG/10 ML VIAL IVP SCH (09:51)
[2018-01-27] MEDS: NOREPINEPHRINE 16 MG in SODIUM CHLORIDE 0.9% 250 ML IV SCH (10:05)
[2018-01-27] MEDS: JADENU PO SCH (10:44)
[2018-01-27] MEDS: JADENU 180 MG PO SCH (10:44)
[2018-01-27] MEDS: MILRINONE-D5W PMX 20 MG in DEXTROSE/WATER 1 100ML.BAG IV SCH (10:47)
[2018-01-27] MEDS: AMIODARONE 200 MG TAB PO SCH ×2 (10:47→21:10)
[2018-01-27] MEDS: FUROSEMIDE 250 MG in SODIUM CHLORIDE 0.9% 225 ML IVP SCH (11:47)
[2018-01-27] MEDS ORDERED: PHYTONADIONE 5 MG in SODIUM CHLORIDE 0.9% 50 ML IVPB STA (12:12)
--- NOTE | 2018-01-27 12:33 | PN ---
PROGRESS NOTE Mrs Funez has significant LV dysfunction. She is on about 10 to 12 mcg of Levophed. There is acute LV dysfunction noted. Etiology is unclear. Sepsis is not evident. She also has a very scanty urine output and rise in creatinine modestly. I believe she will benefit from Primacor which is being initiated today. Yesterday, we tried dobutamine but she went into atrial fibrillation. We will try Primacor and if there is no improvement, consider ultrafiltration to take some fluid out. Prognosis remains quite poor. She has multiple comorbid conditions including myelodysplasia with a platelet count of about less than 25,000. Blood pressure is 108 on Levophed. S1, S2 heard normally. She is in a sinus rhythm today, but earlier she was in atrial fibrillation. She is on IV amiodarone which I am switching her to oral amiodarone at this time. We will try Primacor and if not ultrafiltration. S1, S2 heard normally, short systolic murmur noted. Lungs reveal diminished air entry. Abdomen and lower extremities exam otherwise is unchanged. Prognosis remains quite poor. MMODL / IJN: [id number] /
--- NOTE | 2018-01-27 12:43 | P.PN ---
Subjective Progress Note Date: 01/27/18 Principal diagnosis: elevated liver enzymes 67-year-old female with a history of MDS admitted with profound hypotension low cardiac ejection fraction elevated liver enzymes. Liver enzymes PT/INR have increased. INR 2.0 despite vitamin K yesterday. Still receiving IV pressors Levophed, inotropic medications; Primacor. Creatinine has increased to 1.8. Pleural effusions per chest x-ray. Bilirubin 8.7. AST 352. ALT 363. AP 268. Objective - Vital Signs Vital signs: Vital Signs Temp 97.8 F 01/27/18 08:00 Pulse 94 01/27/18 11:00 Resp 19 01/27/18 11:00 BP 100/62 01/27/18 11:00 Pulse Ox 96 01/27/18 11:00 Intake & Output 01/26/18 01/27/18 01/27/18 18:59 06:59 18:59 Intake Total 0294.990 0288.882 601.307 Output Total 200 197 60 Balance 998.293 3491.882 541.307 Weight 77.5 kg 73.6 kg 73.6 kg Intake: IV 950 950 375 Dextrose 5%-0.9% NaCl 1, 750 75 300 000 ml @ 75 mls/hr IV . [id number] [facility] with Sodium Bicarb (1 Meq/ml) 150 ml Rx#:[id number] Ertapenem 1 gm In Sodium 50 Chloride 0.9% 50 ml @ 100 mls/hr IVPB DAILY [facility] Rx #:[id number] Sodium Chloride 0.9% 1, 150 750 75 000 ml @ 75 mls/hr IV . [id number] [facility] Rx#:[id number] Vancomycin 1,500 mg In 125 Sodium Chloride 0.9% 250 ml @ 125 mls/hr IVPB Q24H [facility] Rx#:[id number] Intake, IV Titration 103.437 279.882 226.307 Amount Amiodarone 450 mg In 215.813 Dextrose 5% in Water 250 ml @ 1 MG/MIN 34.53 mls/ hr IV .Q7H31M [facility] Rx#: [id number] Milrinone-D5w Pmx 20 mg 13.022 In Dextrose/Water 1 100ml .bag @ 0.3 MCG/KG/MIN 6. 62 mls/hr IV .Q15H7M [facility] Rx#:[id number] Norepinephrine 16 mg In 103.437 64.069 213.285 Sodium Chloride 0.9% 250 ml @ Titrate IV .Q0M [facility] Rx#:[id number] Output: Urine 200 197 60 Other: Voiding Method Indwelling Catheter Indwelling Catheter # Bowel Movements 1 1 ABP, PAP, CO, CI - Last Documented Arterial Blood Pressure 125/60 - Exam General appearance: The patient is alert, oriented, in no acute distress. HET: Head is normocephalic and atraumatic. Pupils are equal and reactive. Oropharynx is clear without lesions. Neck: Supple without lymphadenopathy. Trachea midline. Heart: S1 S2. Regular rate and rhythm. Lungs: Decreased by basilar fine crackles noted. Abdomen: Soft, nontender, nondistended with bowel sounds. No peritoneal signs. No palpable organomegaly or masses. Extremities: Normal skin color and turgor. No cyanosis, rash, ulceration, clubbing, or edema. Radial and pedal pulses are 2/4 bilaterally. Keller clear martinez urine. Neurological: No focal deficits. Strength and sensation are grossly intact. - Labs CBC & Chem 7: 01/27/18 05:03 01/27/18 05:03 Labs: Abnormal Lab Results - Last 24 Hours (Table) 01/26/18 01/26/18 01/26/18 Range/Units 04:10 17:02 17:27 RBC (3.80-5.40) m/uL Hgb (11.4-16.0) gm/dL Hct (34.0-46.0) % MCV (80.0-100.0) fL MCH (25.0-35.0) pg MCHC (31.0-37.0) g/dL RDW (11.5-15.5) % Plt Count (150-450) k/uL Lymphocytes # (Manual) (1.0-4.8) k/uL Nucleated RBCs (0-0) /100 WBC PT (9.0-12.0) sec INR (<1.2) Potassium (3.5-5.1) mmol/L Chloride (98-107) mmol/L Carbon Dioxide (22-30) mmol/L BUN (7-17) mg/dL Creatinine (0.52-1.04) mg/dL Glucose (74-99) mg/dL POC Glucose (mg/dL) 228 H 210 H (75-99) mg/dL Phosphorus (2.5-4.5) mg/dL Ferritin >92170.0 H (10.0-291.0) ng/mL Total Bilirubin (0.2-1.3) mg/dL AST (14-36) U/L ALT (9-52) U/L Alkaline Phosphatase (38-126) U/L Total Protein (6.3-8.2) g/dL Albumin (3.5-5.0) g/dL 01/26/18 01/27/18 01/27/18 Range/Units 20:38 05:03 05:03 RBC 2.60 L (3.80-5.40) m/uL Hgb 9.7 L (11.4-16.0) gm/dL Hct 31.6 L (34.0-46.0) % MCV 121.5 H (80.0-100.0) fL MCH 37.4 H (25.0-35.0) pg MCHC 30.8 L (31.0-37.0) g/dL RDW 24.9 H (11.5-15.5) % Plt Count 26 L (150-450) k/uL Lymphocytes # (Manual) 0.87 L (1.0-4.8) k/uL Nucleated RBCs 13 H (0-0) /100 WBC PT (9.0-12.0) sec INR (<1.2) Potassium 5.3 H (3.5-5.1) mmol/L Chloride 111 H (98-107) mmol/L Carbon Dioxide 12 L (22-30) mmol/L BUN 72 H (7-17) mg/dL Creatinine 1.87 H (0.52-1.04) mg/dL Glucose 183 H (74-99) mg/dL POC Glucose (mg/dL) 242 H (75-99) mg/dL Phosphorus 5.9 H (2.5-4.5) mg/dL Ferritin (10.0-291.0) ng/mL Total Bilirubin 8.7 H (0.2-1.3) mg/dL AST 352 H (14-36) U/L ALT 363 H (9-52) U/L Alkaline Phosphatase 268 H (38-126) U/L Total Protein 6.0 L (6.3-8.2) g/dL Albumin 2.9 L (3.5-5.0) g/dL 01/27/18 01/27/18 Range/Units 05:03 07:26 RBC (3.80-5.40) m/uL Hgb (11.4-16.0) gm/dL Hct (34.0-46.0) % MCV (80.0-100.0) fL MCH (25.0-35.0) pg MCHC (31.0-37.0) g/dL RDW (11.5-15.5) % Plt Count (150-450) k/uL Lymphocytes # (Manual) (1.0-4.8) k/uL Nucleated RBCs (0-0) /100 WBC PT 18.2 H (9.0-12.0) sec INR 2.0 H (<1.2) Potassium (3.5-5.1) mmol/L Chloride (98-107) mmol/L Carbon Dioxide (22-30) mmol/L BUN (7-17) mg/dL Creatinine (0.52-1.04) mg/dL Glucose (74-99) mg/dL POC Glucose (mg/dL) 184 H (75-99) mg/dL Phosphorus (2.5-4.5) mg/dL Ferritin (10.0-291.0) ng/mL Total Bilirubin (0.2-1.3) mg/dL AST (14-36) U/L ALT (9-52) U/L Alkaline Phosphatase (38-126) U/L Total Protein (6.3-8.2) g/dL Albumin (3.5-5.0) g/dL Microbiology - Last 24 Hours (Table) 01/25/18 01:45 Blood Culture - Preliminary Blood No Growth after 48 hours 01/25/18 01:30 Blood Culture - Preliminary Blood No Growth after 48 hours 01/26/18 17:30 Urine Culture - Preliminary Urine,Catheterized Assessment and Plan (1) Elevated liver enzymes Narrative/Plan: 67-year-old female with a history of MDS presents with 1 month history of fatigue and weakness shortness of breath with profound hypotension, cardiac ejection fraction of 20%, elevated liver enzymes, elevated pro-BMP, and mild elevation of troponin suggestive of combination of passive venous congestion and ischemic hepatitis. Evidence of chronic elevated transaminases mild hyper- bilirubinemia over the past year cannot exclude an underlying chronic liver disease. Liver ultrasound reported no evidence of acute process recent hepatitis screen nonreactive. Liver enzymes have worsened today suggestive of decompensated liver failure suspect related to cardiogenic shock low ejection output. Current Visit: Yes Status: Acute Code(s): R74.8 - ABNORMAL LEVELS OF OTHER SERUM ENZYMES SNOMED Code(s): 216974803 (2) Hypotension Current Visit: Yes Status: Acute Code(s): I95.9 - HYPOTENSION, UNSPECIFIED SNOMED Code(s): 30515501 (3) CHF (congestive heart failure) Current Visit: Yes Status: Acute Code(s): I50.9 - HEART FAILURE, UNSPECIFIED SNOMED Code(s): 59897776 (4) Iron overload due to repeated red blood cell transfusions Current Visit: Yes Status: Chronic Priority: Medium Code(s): E83.111 - HEMOCHROMATOSIS DUE TO REPEATED RED BLOOD CELL TRANSFUSIONS SNOMED Code(s): 451221140 (5) MDS (myelodysplastic syndrome) Current Visit: Yes Status: Chronic Priority: Medium Code(s): D46.9 - MYELODYSPLASTIC SYNDROME, UNSPECIFIED SNOMED Code(s): 535224639 (6) Cardiogenic shock Narrative/Plan: Profound hypotension pressor dependent. Current Visit: Yes Status: Acute Code(s): R57.0 - CARDIOGENIC SHOCK SNOMED Code(s): 61214414 (7) Coagulopathy Narrative/Plan: Worsening vitamin K ordered Current Visit: Yes Status: Acute Code(s): D68.9 - COAGULATION DEFECT, UNSPECIFIED SNOMED Code(s): 32026158 Plan: 1. Overall condition is guarded critical. Liver enzymes and coagulopathy has worsened. Consideration for transfer to tertiary center if clinical status does not improve. We'll provide additional doses of vitamin K. Continue with symptomatic supportive measures in the ICU setting. Daily CMP PT/INR. We'll continue to follow with you. Assessment and plan a care discussed with Dr. Chaudhry
[2018-01-27 12:51] LABS: Liver/Kidney Microsome Antibod 1.5 UNITS (<=20)
[2018-01-27 12:52] LABS: Glucose,Whole Blood 193 mg/dL (75-99)
--- NOTE | 2018-01-27 14:01 | P.PN ---
Subjective Progress Note Date: 01/27/18 67-year-old female patient with known history of mild dysplasia maintained on a combination of Gleevec and Decadron in addition to history of diabetes, hyperlipidemia and COPD and obstructive sleep apnea. The patient has had chronic complications of mild dysplasia including chronic anemia and thrombocytopenia requiring multiple blood transfusions in the past. The patient came in yesterday to the hospital because of chest pain. She had heaviness in her chest and she had also some increased shortness of breath. No cough. No sputum production. No pleurisy. No hemoptysis. She had a previous echocardiogram that showed a preserved LV function of ejection fraction of 55%. EKG that was performed during this current admission shows some nonspecific ST segment changes. Chest x-ray showed a left-sided pleural effusion. Subsequently the echocardiogram was repeated based on an elevated BNP level of 10,000 and the patient was found to have profound impairment of the LV function with an ejection fraction dropping down to less than 20%. RV is mildly enlarged. There is mild to moderate mitral regurgitation. Moderate pulmonary hypertension with a PA pressure of around 39. The IVC is dilated and there is poor respiratory collapse consistent with estimated right atrial pressure of about 15. There is also a moderate degree of pleural effusion on the left. Troponins were 0.2 0.2 respectively 2. The patient was seen by cardiology. Conservative management was recommended based on her comorbidities and chronic, cytopenia. Around 3 AM this morning, the patient becomes progressively more hypotensive. Her lactic acid was slightly elevated at 2.5 and 2.1. The patient was given a total of 3 L of IV fluids. She coaches for to the ICU. Artline catheter was inserted. She is currently on 20 mics of norepinephrine infusion for blood pressure support. Urine output is also drop. Morning blood work shows a non-anion gap metabolic acidosis with a bicarb level of 18, anion gap of 9, creatinine of 1.1, and the white cell count is at 3.8 with hemoglobin of 9.4. The patient is awake. She is a poor historian. I think she does have an underlying dementia. She does not have a good recollection of the events that led to her coming to the hospital. No she is much aware of her past medical history. LFTs were slightly abnormal yet that is no acute abnormalities on the ultrasound of the liver and gallbladder. The patient has a Mediport and the patient also has a vagal nerve stimulator. No skin rashes. No open wounds or ulceration. No abdominal distention. No nausea. No vomiting. Extremities are somewhat cold and clammy at this point with diminished pulses. On 01/27/2000 milligrams in this patient for a follow-up. As mentioned, the patient got into the intensive care unit because of profound hypotension. Further workup showed a drop in the left with an ejection fraction which was measured to be less than 20%. As such this shock is most likely of a cardiogenic in nature. I also cover this patient for her septic shock knowing that she has had infections in the past with ESBL producing organisms and MRSA. I cover this patient with a combination of Invanz and vancomycin. Nevertheless, the cultures of been negative and the patient has not spiked any fever and a white cell count is at 6.7. The patient was given volume and she responded initially in the pressors dose was gradually wean down to 10-15 mics per norepinephrine infusion per minute. This morning, the she was noted to have a lower urine output. She was given a dose of Lasix. Subsequently was advised to give her dobutamine. Following dobutamine administration, the patient went into atrial fibrillation with rapid ventricular response and he she became hypotensive with systolic blood pressure dropped in the mid 70s. I was about to give the patient amiodarone. During this time the patient converted back to normal sinus rhythm after dobutamine was discontinued. Blood pressure subsequently improved. She is receiving a bicarb infusion knowing that she has a component of non-anion gap metabolic acidosis and this is running at the rate of 75 mL an hour. She has developed an acute kidney injury , probably related to her hypotension and cardiorenal factors. Creatinine is up to 1.5 and a BNP is at 64. Urine output is nor that of 20 mL an hour. Chest x-ray shows some worsening in the volume status and the patient has developed small better pleural effusion and a component of 4 vessel congestion. She is currently on room air oxygen and her pulse ox is above 90%. No chest pain. No angina. Hematologic profile is consistent with myelodysplasia. Her liver function is also worse. Bilirubin is up to 5.9. She had an AST of 297 with a ALP of 306 with an phosphatase of 27. Albumin Is at 2.5. INR Is at 1.8 with a PT of 16.7. Most Recent Lactic Acid Level Is at 3.7. On 01/27/2018, Penny is being seen for a follow-up. The patient is doing poorly and she is in cardiogenic shock. I discussed this case at length with cardiology. Note that yesterday there was an attempt to put the patient on dobutamine however this attempt failed as the patient became tachycardic and she went into atrial fibrillation with rapid ventricular response. Based on that, dobutamine was stopped and the patient subsequently went back to normal sinus rhythm. On and off she was having still some runs of atrial fibrillation. The patient is awake and alert. She is on room air oxygen. Chest x-ray is showing cardiomegaly and small bilateral pleural effusion and pulmonary asked her congestion and early edema. Hemodynamically she has hypotensive and she has required pressors and currently she is on norepinephrine infusion running at 50 g per KG per minute. Urine output has been low in the order of 20 mL an hour and this was obviously a concern throughout the night. She was given fluid boluses and the net fluid balance is +3.5 L over the past 24 hours yet this was not enough to improve the urine output nor for the blood pressure. The patient is cold and clammy and she has diminished pulses. She has also developed an acute kidney injury in the creatinine is up to 1.8 and the patient has a component of anion and non-anion gap metabolic acidosis. Anion gap is at 16 with a bicarb level of 12 and the patient's creatinine is at 72 with a creatinine of 1.8. Nephrology saw the patient and patient was started on bicarb drip that liver function tests are improving gradually getting worse. Bilirubin is up to 8.7. AST is at 352 with an ALT of sounds 63. Albumin is down to 2.9. The calcium level is at 8.6. Today's potassium level is at 5.3 and the sodium is 139. Sugar is at 193. She is afebrile. The patient's cultures of been all negative. Stop the vancomycin. I kept the patient on IV Invanz as an empiric antibiotic coverage. The patient remains quite thrombocytopenic regarding her underlying lung some mild dysplasia. Objective - Vital Signs Vital signs: Vital Signs Temp 97.6 F 01/27/18 12:00 Pulse 145 H 01/27/18 13:00 Resp 19 09/14/18 13:00 BP 87/52 01/27/18 13:00 Pulse Ox 100 01/27/18 13:00 Intake & Output 01/26/18 01/27/18 01/27/18 18:59 06:59 18:59 Intake Total 2390.989 9732.882 688.594 Output Total 200 197 80 Balance 491.957 4611.882 608.594 Weight 77.5 kg 73.6 kg 73.6 kg Intake: IV 950 950 450 Dextrose 5%-0.9% NaCl 1, 750 75 375 000 ml @ 75 mls/hr IV . [id number] [facility] with Sodium Bicarb (1 Meq/ml) 150 ml Rx#:[id number] Ertapenem 1 gm In Sodium 50 Chloride 0.9% 50 ml @ 100 mls/hr IVPB DAILY [facility] Rx #:[id number] Sodium Chloride 0.9% 1, 150 750 75 000 ml @ 75 mls/hr IV . [id number] [facility] Rx#:[id number] Vancomycin 1,500 mg In 125 Sodium Chloride 0.9% 250 ml @ 125 mls/hr IVPB Q24H [facility] Rx#:[id number] Intake, IV Titration 103.437 279.882 238.594 Amount Amiodarone 450 mg In 215.813 Dextrose 5% in Water 250 ml @ 1 MG/MIN 34.53 mls/ hr IV .Q7H31M [facility] Rx#: [id number] Milrinone-D5w Pmx 20 mg 19.421 In Dextrose/Water 1 100ml .bag @ 0.3 MCG/KG/MIN 6. 62 mls/hr IV .Q15H7M [facility] Rx#:[id number] Norepinephrine 16 mg In 103.437 64.069 219.173 Sodium Chloride 0.9% 250 ml @ Titrate IV .Q0M [facility] Rx#:[id number] Output: Urine 200 197 80 Other: Voiding Method Indwelling Catheter Indwelling Catheter # Bowel Movements 1 1 ABP, PAP, CO, CI - Last Documented Arterial Blood Pressure 92/52 - Exam Gen. appearance, comfortable awake following commands and answering questions. not acute distress. Not agitated. The patient aundiced on today's evaluation. Head exam was generally normal. There was scleral icterus / corneal arcus. Mucous membranes were moist. Neck was supple and with jugular venous distension, thyromegaly, or carotid bruits. Carotids were easily palpable bilaterally. There was no adenopathy. Lungs sounds are diminished bilaterally especially left lung base along with dullness to percussion. There are crackles in lung bases bilaterally. Heart sounds are regular, positive S1-S2 and there is no significant murmurs appreciated. The patient has a Mediport over the right anterior chest area. A nerve stimulator is also present over the left lateral chest area also. Abdominal exam revealed normal bowel sounds. The abdomen was soft, non-tender, and without masses, organomegaly, or appreciable enlargement of the abdominal aorta. Examination of the extremities revealed diminished pulses in the radial, femoral and pedal pulses. There was no cyanosis, clubbing and there is increased edema both in the upper and lower extremities bilaterally. Examination of the skin revealed no evidence of significant rashes, suspicious appearing nevi or other concerning lesions. Neurologic patient will go proximity is without any focal limitation. - Labs CBC & Chem 7: 01/27/18 05:03 01/27/18 05:03 Labs: Abnormal Lab Results - Last 24 Hours (Table) 01/26/18 01/26/18 01/26/18 Range/Units 04:10 17:02 17:27 RBC (3.80-5.40) m/uL Hgb (11.4-16.0) gm/dL Hct (34.0-46.0) % MCV (80.0-100.0) fL MCH (25.0-35.0) pg MCHC (31.0-37.0) g/dL RDW (11.5-15.5) % Plt Count (150-450) k/uL Lymphocytes # (Manual) (1.0-4.8) k/uL Nucleated RBCs (0-0) /100 WBC PT (9.0-12.0) sec INR (<1.2) Potassium (3.5-5.1) mmol/L Chloride (98-107) mmol/L Carbon Dioxide (22-30) mmol/L BUN (7-17) mg/dL Creatinine (0.52-1.04) mg/dL Glucose (74-99) mg/dL POC Glucose (mg/dL) 228 H 210 H (75-99) mg/dL Phosphorus (2.5-4.5) mg/dL Ferritin >02852.0 H (10.0-291.0) ng/mL Total Bilirubin (0.2-1.3) mg/dL AST (14-36) U/L ALT (9-52) U/L Alkaline Phosphatase (38-126) U/L Total Protein (6.3-8.2) g/dL Albumin (3.5-5.0) g/dL 01/26/18 01/27/18 01/27/18 Range/Units 20:38 05:03 05:03 RBC 2.60 L (3.80-5.40) m/uL Hgb 9.7 L (11.4-16.0) gm/dL Hct 31.6 L (34.0-46.0) % MCV 121.5 H (80.0-100.0) fL MCH 37.4 H (25.0-35.0) pg MCHC 30.8 L (31.0-37.0) g/dL RDW 24.9 H (11.5-15.5) % Plt Count 26 L (150-450) k/uL Lymphocytes # (Manual) 0.87 L (1.0-4.8) k/uL Nucleated RBCs 13 H (0-0) /100 WBC PT (9.0-12.0) sec INR (<1.2) Potassium 5.3 H (3.5-5.1) mmol/L Chloride 111 H (98-107) mmol/L Carbon Dioxide 12 L (22-30) mmol/L BUN 72 H (7-17) mg/dL Creatinine 1.87 H (0.52-1.04) mg/dL Glucose 183 H (74-99) mg/dL POC Glucose (mg/dL) 242 H (75-99) mg/dL Phosphorus 5.9 H (2.5-4.5) mg/dL Ferritin (10.0-291.0) ng/mL Total Bilirubin 8.7 H (0.2-1.3) mg/dL AST 352 H (14-36) U/L ALT 363 H (9-52) U/L Alkaline Phosphatase 268 H (38-126) U/L Total Protein 6.0 L (6.3-8.2) g/dL Albumin 2.9 L (3.5-5.0) g/dL 01/27/18 01/27/18 01/27/18 Range/Units 05:03 07:26 12:34 RBC (3.80-5.40) m/uL Hgb (11.4-16.0) gm/dL Hct (34.0-46.0) % MCV (80.0-100.0) fL MCH (25.0-35.0) pg MCHC (31.0-37.0) g/dL RDW (11.5-15.5) % Plt Count (150-450) k/uL Lymphocytes # (Manual) (1.0-4.8) k/uL Nucleated RBCs (0-0) /100 WBC PT 18.2 H (9.0-12.0) sec INR 2.0 H (<1.2) Potassium (3.5-5.1) mmol/L Chloride (98-107) mmol/L Carbon Dioxide (22-30) mmol/L BUN (7-17) mg/dL Creatinine (0.52-1.04) mg/dL Glucose (74-99) mg/dL POC Glucose (mg/dL) 184 H 193 H (75-99) mg/dL Phosphorus (2.5-4.5) mg/dL Ferritin (10.0-291.0) ng/mL Total Bilirubin (0.2-1.3) mg/dL AST (14-36) U/L ALT (9-52) U/L Alkaline Phosphatase (38-126) U/L Total Protein (6.3-8.2) g/dL Albumin (3.5-5.0) g/dL Microbiology - Last 24 Hours (Table) 01/25/18 01:45 Blood Culture - Preliminary Blood No Growth after 48 hours 01/25/18 01:30 Blood Culture - Preliminary Blood No Growth after 48 hours 01/26/18 17:30 Urine Culture - Preliminary Urine,Catheterized Assessment and Plan Plan: Assessment 1 cardiogenic shock with signs of multisystem organ failure. Ferritin responded dobutamine. Currently on pressors and the patient is on norepinephrine infusion at 15 mics. We'll try Primacor as an inotrope to improve the cardiac output. Case was discussed with cardiology. Case was discussed with nephrology. We'll try combination of Primacor and Lasix drip. Meanwhile, the patient shows signs of multisystem organ failure including acute hepatic insufficiency, acute kidney injury and severe metabolic acidosis secondary to cardiogenic shock. 2 metabolic acidosis secondary to above and the patient is currently on a bicarb infusion 3 CHF with impairment ejection fraction of less than 20% 4 questionable non-ST segment elevation myocardial infarction based on elevated troponins 5 paroxysmal atrial fibrillation and the patient is going back and forth between sinus rhythm and atrial fibrillation 6 myelodysplasia with chronic anemia and thrombocytopenia, maintained on Revlimid and Decadron outpatient basis 7 acute kidney injury, secondary to low cardiac output state and cardiorenal factors. 8 diabetes mellitus type 2 9 COPD 10 vagal nerve stimulator 11 Mediport 12 previous history of infection with Enterobacter and MRSA and these are essentially urine checked infections occurred back in 11/02/2017 and 02/08/2017 respectively 13 obstructive sleep apnea 14 acute hepatic insufficiency with elevated bilirubins and LFTs secondary to above Plan Critically ill female patient with advanced cardiomyopathy and cardiogenic shock and signs of multisystem organ failure. Urine output is low. She is a shock liver. Unable to tolerate dobutamine. We'll try a combination of Lasix drip and Primacor. We'll insert a triple lumen catheter. We'll insert a Artline catheter for hemodynamic monitoring. Monitor urine output. Monitor blood pressure. Monitor cardiac rhythm. Continue bicarb drip. Repeat blood work and electrodes within next 6-8 hours. Continued empiric antibiotic coverage with IV Invanz. We'll make further recommendations based on her overall progress. Long-term prognosis poor baseline above-mentioned comorbidities. This is a critically ill female patient in the ICU. I contacted the and extended to have the critical nature of the 's condition. She is a bit confused and encephalopathic and for that reason I want to touch base with the and made sure he understands the critical nature of her condition.
--- NOTE | 2018-01-27 14:24 | PN ---
PROGRESS NOTE Patient is seen for followup for acute kidney injury. Overnight, patient has not had much urine output. She is currently in cardiogenic shock. Levophed is at about 15 mcg. Urine output 10 to 15 mL an hour. Echocardiogram showed ejection fraction of less than 20% with dilated left atrium and right ventricle as well. All cultures are negative. The patient was also quite acidotic and is maintained on bicarb drip. However, she did not get the bicarb drip overnight secondary to limited IV option and is currently having a triple-lumen placed. There is no ongoing GI fluid loss. Lactic acid was elevated at 3.7. Troponin was mildly elevated at 0.2. Cortisol level was not low. The patient was started on dobutamine and had cardiac arrhythmia and A. fib and that was discontinued. This morning she will be started on Primacor. PHYSICAL EXAMINATION: On examination, blood pressure is this morning 100/56, heart rate of 94 per minute. Patient is afebrile. EXAMINATION OF THE HEART: S1, S2. EXAMINATION OF THE LUNGS: Bilateral breath sounds are heard. Minimal basal crackles are heard. Abdomen is soft, nontender. Examination of the lower extremities shows no significant edema. AUDIO VISUAL SPECIALIST exam is grossly intact. LABS: Labs show sodium 139, potassium 5.3, chloride 111, CO2 is 12, BUN 72, serum creatinine 1.87, hemoglobin 9.7 g/dL. AST 352, ALT 268. ASSESSMENT: 1. Acute kidney injury, cardiorenal. Agree with initiation of Primacor. I will also start the patient on Lasix drip. If she does not respond, she will need to be dialyzed mainly for ultrafiltration. 2. Severe cardiomyopathy, ejection fraction of less than 20%. 3. Cardiogenic shock. 4. Severe metabolic acidosis associated with hypotension, hypoperfusion, lactic acidosis and renal failure. The patient did not receive the IV bicarb overnight. She currently has a triple-lumen catheter placed and a bicarb drip will be started now. 5. Mild hyperkalemia associated with acute kidney injury and acidosis, expect improvement with improving urine output and initiation of the bicarb drip with correction of acidosis. 6. Elevated liver enzymes secondary to cardiogenic shock and hypoperfusion. PLAN: Start Lasix drip. Agree with Primacor. If urine output does not case picker, we will plan for ultrafiltration. MMODL / IJN: [id number] /
--- NOTE | 2018-01-27 16:36 | P.PN ---
Subjective Progress Note Date: 01/27/18 The patient had central lines placed today. She also developed A. fib with RVR. She has been placed on Lasix drip with some improvement in urine output. She continues on pressors. No obvious bleeding noted. Objective - Vital Signs Vital signs: Vital Signs Temp 98.5 F 01/27/18 16:00 Pulse 141 H 01/27/18 16:00 Resp 17 01/27/18 16:00 BP 114/51 01/27/18 16:00 Pulse Ox 99 01/27/18 16:00 Intake & Output 01/26/18 01/27/18 01/27/18 18:59 06:59 18:59 Intake Total 1316.085 0239.882 1023.594 Output Total 200 197 225 Balance 071.426 2181.882 798.594 Weight 77.5 kg 73.6 kg 73.6 kg Intake: IV 950 950 785 0.9NS 70 Dextrose 5%-0.9% NaCl 1, 750 75 600 000 ml @ 75 mls/hr IV . [id number] [facility] with Sodium Bicarb (1 Meq/ml) 150 ml Rx#:[id number] Ertapenem 1 gm In Sodium 50 Chloride 0.9% 50 ml @ 100 mls/hr IVPB DAILY [facility] Rx #:[id number] Furosemide 250 mg In 40 Sodium Chloride 0.9% 225 ml @ 10 MG/HR 10 mls/hr IVP .Q24H [facility] Rx#: [id number] Sodium Chloride 0.9% 1, 150 750 75 000 ml @ 75 mls/hr IV . [id number] [facility] Rx#:[id number] Vancomycin 1,500 mg In 125 Sodium Chloride 0.9% 250 ml @ 125 mls/hr IVPB Q24H [facility] Rx#:[id number] Intake, IV Titration 103.437 279.882 238.594 Amount Amiodarone 450 mg In 215.813 Dextrose 5% in Water 250 ml @ 1 MG/MIN 34.53 mls/ hr IV .Q7H31M [facility] Rx#: [id number] Milrinone-D5w Pmx 20 mg 19.421 In Dextrose/Water 1 100ml .bag @ 0.3 MCG/KG/MIN 6. 62 mls/hr IV .Q15H7M [facility] Rx#:[id number] Norepinephrine 16 mg In 103.437 64.069 219.173 Sodium Chloride 0.9% 250 ml @ Titrate IV .Q0M [facility] Rx#:[id number] Output: Urine 200 197 225 Other: Voiding Method Indwelling Catheter Indwelling Catheter Indwelling Catheter # Bowel Movements 1 1 ABP, PAP, CO, CI - Last Documented Arterial Blood Pressure 89/52 - Constitutional Constitutional Comment(s): Weak, lethargic - EENT Eyes: Present: scleral icterus - Respiratory Respiratory: bilateral: diminished - Cardiovascular Rhythm: irregularly irregular Heart sounds: normal: S1, S2 - Gastrointestinal General gastrointestinal: Present: decreased bowel sounds, soft - Integumentary Integumentary: Present: jaundiced - Neurologic Neurologic: Present: CNII-XII intact - Musculoskeletal Musculoskeletal: Present: generalized weakness, strength equal bilaterally - Psychiatric Psychiatric Comment(s): Weak, lethargic, difficult to arouse - Labs CBC & Chem 7: 01/27/18 05:03 01/27/18 05:03 Labs: Abnormal Lab Results - Last 24 Hours (Table) 01/26/18 01/26/18 01/26/18 Range/Units 04:10 17:02 17:27 RBC (3.80-5.40) m/uL Hgb (11.4-16.0) gm/dL Hct (34.0-46.0) % MCV (80.0-100.0) fL MCH (25.0-35.0) pg MCHC (31.0-37.0) g/dL RDW (11.5-15.5) % Plt Count (150-450) k/uL Lymphocytes # (Manual) (1.0-4.8) k/uL Nucleated RBCs (0-0) /100 WBC PT (9.0-12.0) sec INR (<1.2) Potassium (3.5-5.1) mmol/L Chloride (98-107) mmol/L Carbon Dioxide (22-30) mmol/L BUN (7-17) mg/dL Creatinine (0.52-1.04) mg/dL Glucose (74-99) mg/dL POC Glucose (mg/dL) 228 H 210 H (75-99) mg/dL Phosphorus (2.5-4.5) mg/dL Ferritin >39287.0 H (10.0-291.0) ng/mL Total Bilirubin (0.2-1.3) mg/dL AST (14-36) U/L ALT (9-52) U/L Alkaline Phosphatase (38-126) U/L Total Protein (6.3-8.2) g/dL Albumin (3.5-5.0) g/dL 01/26/18 01/27/18 01/27/18 Range/Units 20:38 05:03 05:03 RBC 2.60 L (3.80-5.40) m/uL Hgb 9.7 L (11.4-16.0) gm/dL Hct 31.6 L (34.0-46.0) % MCV 121.5 H (80.0-100.0) fL MCH 37.4 H (25.0-35.0) pg MCHC 30.8 L (31.0-37.0) g/dL RDW 24.9 H (11.5-15.5) % Plt Count 26 L (150-450) k/uL Lymphocytes # (Manual) 0.87 L (1.0-4.8) k/uL Nucleated RBCs 13 H (0-0) /100 WBC PT (9.0-12.0) sec INR (<1.2) Potassium 5.3 H (3.5-5.1) mmol/L Chloride 111 H (98-107) mmol/L Carbon Dioxide 12 L (22-30) mmol/L BUN 72 H (7-17) mg/dL Creatinine 1.87 H (0.52-1.04) mg/dL Glucose 183 H (74-99) mg/dL POC Glucose (mg/dL) 242 H (75-99) mg/dL Phosphorus 5.9 H (2.5-4.5) mg/dL Ferritin (10.0-291.0) ng/mL Total Bilirubin 8.7 H (0.2-1.3) mg/dL AST 352 H (14-36) U/L ALT 363 H (9-52) U/L Alkaline Phosphatase 268 H (38-126) U/L Total Protein 6.0 L (6.3-8.2) g/dL Albumin 2.9 L (3.5-5.0) g/dL 01/27/18 01/27/18 01/27/18 Range/Units 05:03 07:26 12:34 RBC (3.80-5.40) m/uL Hgb (11.4-16.0) gm/dL Hct (34.0-46.0) % MCV (80.0-100.0) fL MCH (25.0-35.0) pg MCHC (31.0-37.0) g/dL RDW (11.5-15.5) % Plt Count (150-450) k/uL Lymphocytes # (Manual) (1.0-4.8) k/uL Nucleated RBCs (0-0) /100 WBC PT 18.2 H (9.0-12.0) sec INR 2.0 H (<1.2) Potassium (3.5-5.1) mmol/L Chloride (98-107) mmol/L Carbon Dioxide (22-30) mmol/L BUN (7-17) mg/dL Creatinine (0.52-1.04) mg/dL Glucose (74-99) mg/dL POC Glucose (mg/dL) 184 H 193 H (75-99) mg/dL Phosphorus (2.5-4.5) mg/dL Ferritin (10.0-291.0) ng/mL Total Bilirubin (0.2-1.3) mg/dL AST (14-36) U/L ALT (9-52) U/L Alkaline Phosphatase (38-126) U/L Total Protein (6.3-8.2) g/dL Albumin (3.5-5.0) g/dL Microbiology - Last 24 Hours (Table) 01/25/18 01:45 Blood Culture - Preliminary Blood No Growth after 48 hours 01/25/18 01:30 Blood Culture - Preliminary Blood No Growth after 48 hours 01/26/18 17:30 Urine Culture - Preliminary Urine,Catheterized Assessment and Plan (1) Coagulopathy Narrative/Plan: The patient's coagulopathy is due to her liver insufficiency. She likely has underlying liver damage from iron overload, exacerbated by acute injury from her hypotension. INR was 2 today. As her platelets are low, the patient will need reversal of her INR to reduce risk of bleeding. IV vitamin K was given. Current Visit: Yes Status: Acute Code(s): D68.9 - COAGULATION DEFECT, UNSPECIFIED SNOMED Code(s): 10459069 (2) MDS (myelodysplastic syndrome) Narrative/Plan: Diagnostic and therapeutic circumstances as noted in initial consult. The patient continues to have bicytopenia. Hemoglobin is actually better than her usual baseline, in the 9 range. Platelets were 26,000 today. As noted vitamin K has been given her INR reversal. If she has any evidence of active bleeding, she will require platelet transfusions. Current Visit: Yes Status: Chronic Priority: Medium Code(s): D46.9 - MYELODYSPLASTIC SYNDROME, UNSPECIFIED SNOMED Code(s): 713919174 (3) Cardiogenic shock Narrative/Plan: Sepsis versus decompensation from underlying iron overload related organ damage. She is not a candidate for aggressive cardiac intervention because of her low platelets and inability to have anticoagulation. She is being treated for presumed sepsis aggressively. Defer to cardiology and critical care medicine for continued management Current Visit: Yes Status: Acute Code(s): R57.0 - CARDIOGENIC SHOCK SNOMED Code(s): 28752490
[2018-01-27 17:28] LABS: Glucose,Whole Blood 246 mg/dL (75-99)
--- NOTE | 2018-01-27 20:06 | PCN ---
PROCEDURE NOTE TRIPLE LUMEN CATHETER PLACEMENT: Indication Hemodynamic monitoring/Intravenous access. A time-out was completed verifying correct patient, procedure, site, positioning, and implant(s) or special equipment if applicable. The patient was placed in a dependent position appropriate for triple lumen catheter placement based on the vein to be cannulated. The patient's right/left shoulder or right/left neck or right groin was prepped and draped in sterile fashion. 1% Lidocaine was used to anesthetize the surrounding skin area. A triple lumen 9F Cordis catheter was introduced into the common femoral vein using Seldinger technique. The catheter was threaded smoothly over the guide wire and appropriate blood return was obtained. Each lumen of the catheter was evacuated of air and flushed with sterile saline. The catheter was then sutured in place to the skin and a sterile dressing applied. Perfusion to the extremity distal to the point of catheter insertion was checked and found to be adequate. MMODL / IJN: [id number] /
--- NOTE | 2018-01-27 20:12 | PCN ---
PROCEDURE NOTE PREOPERATIVE DIAGNOSIS: Cardiogenic shock. POSTOPERATIVE DIAGNOSIS: Cardiogenic shock. ARTERIAL LINE PLACEMENT: Indications: Hemodynamic monitoring. A time-out was completed verifying correct patient, procedure, site, positioning, and implant(s) or special equipment if applicable. Nigel's test was performed to ensure adequate perfusion. The patient's left groin was prepped and draped in sterile fashion. 1% Lidocaine was used to anesthetize the area. An 18G Arrow arterial line was introduced into the femoral artery. The catheter was threaded over the guide wire and the needle was removed with appropriate pulsatile blood return. Blood loss was minimal. The catheter was then sutured in place to the skin and a sterile dressing applied. Perfusion to the extremity distal to the point of catheter insertion was checked and found to be adequate. The patient tolerated the procedure well and there were no bedside complications or bleeding. MMODL / JANEEN: [id number] /
[2018-01-27 21:10] LABS: Glucose,Whole Blood 230 mg/dL (75-99)
--- NOTE | 2018-01-27 21:21 | P.PN ---
Subjective This is a pleasant 67 years old female with past medical history of COPD, insulin-dependent diabetes mellitus, GERD, sleep apnea , myelodysplastic syndrome, leukemia on chemotherapy, blood transfusion reaction [times/itching] and MRSA infection. Presents because of chest pain on the left side, nonradiating, comes and goes over the last 2 days associated with dyspnea, orthopnea and generalized weakness. Patient denies any change in urine or bowel habits. She denies fever. And emergency room patient was noticed to be slightly tachycardic at 102-103. TROPONIN WERE ELEVATED AT 0.191, PREVIOUS TROPONIN WERE 0.08 AND 0.04 ON 2017. WBC 4.4, HEMOGLOBIN 8.9. PLATELETS LOW AT 24 01/24/2018 Patient feels a little better, she still have some chest discomfort and still dyspneic. No change in mental status. No fever. Labs reviewed showing pancytopenia with a drop in platelets 219. WBC 3.7K and hemoglobin 8.7. Oncology team evaluated patient and recommended to transfuse platelets when less than 10 K however no need for more chemotherapy, transfuse as needed and follow-up as an outpatient, however they recommended aren't chilly tip therapy with GA DD continue for iron overload from previous multiple red blood cell transfusions. Cardiology was consulted evaluated the patient We'll check liver ultrasound and hepatitis panel. We'll consult GI DC IV fluids as per cardiology 01/25/2018 last night pt BP start dropping with systolic blood pressure in 70-80s. depsite fluis boluses , pt was transfered to the ICU with she had central line placed and pt was started on norepinephrine drip and her Blood pressure improved today , pt lethargy and generalized weakness are improved too. pt antibiotic were changed from aztreonam to vancomycin iv and invanze as per critical care team for pt is with septic shock . combined with cardiogenic shock in view of drop in her EF from 55% to 20% during this admission. also pt is found to have elevated creatinine ahd hyperkalemia , nephrology team were consulted too . liver enz are elevated with negative liver US , GI team evaluation is appreciated 01/26/2018 pt is still on shock state, mostly cardiogenic shock , pt is on norepinephrine drip , pt lethargy and generalized weakness are improved too. however pt remains confused. pt antibiotic were changed from aztreonam to vancomycin iv and invanze as per critical care team for pt is with septic shock. combined with cardiogenic shock in view of drop in her EF from 55% to 20% during this admission. also pt is found to have elevated creatinine ahd hyperkalemia , nephrology team were consulted too . liver enz are elevated with negative liver US ,pt is making 90 cc of urine in the last 2 hours (45 Ml/hr) 01/27/2018 pt was lying in bed , she was awake and interactive however she was slightly confused , was at bed side . pt denies chest pain . she is still lethargic. however her blood pressure is improved . pt is on antibiotic. she is also was started on lasix drip and oral amiodarone for her arrhythmia . cultures are pending . his elevated liver enz is mostly due to shock state , she has negative liver US however liver enz and creatinine are worsening , creatinine up to 1.8 . pt is still with high lactic acid , hemoglin is stable , no leukocytosis but INR is 2.0 medications: Jadenu, Epoetin Chris, norepinephrine , zofran, protonix, novolg, ertapenem, iv vancomyin , Objective - Vital Signs Vital signs: Vital Signs Temp 98.5 F 01/27/18 16:00 Pulse 145 H 01/27/18 19:00 Resp 15 01/27/18 19:00 BP 111/61 01/27/18 19:00 Pulse Ox 100 01/27/18 19:00 Intake & Output 01/27/18 01/27/18 01/28/18 06:59 18:59 06:59 Intake Total 0356.014 0527.922 105 Output Total 197 325 70 Balance 1032.882 953.922 35 Weight 73.6 kg 73.6 kg Intake: IV 950 995 105 0.9NS 110 20 Dextrose 5%-0.9% NaCl 1, 75 750 75 000 ml @ 75 mls/hr IV . [id number] [facility] with Sodium Bicarb (1 Meq/ml) 150 ml Rx#:[id number] Furosemide 250 mg In 60 10 Sodium Chloride 0.9% 225 ml @ 10 MG/HR 10 mls/hr IVP .Q24H [facility] Rx#: [id number] Sodium Chloride 0.9% 1, 750 75 000 ml @ 75 mls/hr IV . [id number] [facility] Rx#:[id number] Vancomycin 1,500 mg In 125 Sodium Chloride 0.9% 250 ml @ 125 mls/hr IVPB Q24H [facility] Rx#:[id number] Intake, IV Titration 279.882 283.922 Amount Amiodarone 450 mg In 215.813 Dextrose 5% in Water 250 ml @ 1 MG/MIN 34.53 mls/ hr IV .Q7H31M [facility] Rx#: [id number] Milrinone-D5w Pmx 20 mg 19.421 In Dextrose/Water 1 100ml .bag @ 0.3 MCG/KG/MIN 6. 62 mls/hr IV .Q15H7M [facility] Rx#:[id number] Norepinephrine 16 mg In 64.069 264.501 Sodium Chloride 0.9% 250 ml @ Titrate IV .Q0M [facility] Rx#:[id number] Output: Urine 197 325 70 Other: Voiding Method Indwelling Catheter Indwelling Catheter # Bowel Movements 1 ABP, PAP, CO, CI - Last Documented Arterial Blood Pressure 110/63 - Exam GENERAL: The patient is alert and oriented x3, not in any acute distress. Well developed, well nourished. HEENT: Pupils are round and equally reacting to light. EOMI. No scleral icterus. No conjunctival pallor. Normocephalic, atraumatic. No pharyngeal erythema. No thyromegaly. CARDIOVASCULAR: S1 and S2 present. No murmurs, rubs, or gallops. PULMONARY: Chest is clear to auscultation, no wheezing or crackles. ABDOMEN: Soft, nontender, nondistended, normoactive bowel sounds. No palpable organomegaly. MUSCULOSKELETAL: No joint swelling or deformity. EXTREMITIES: No cyanosis, clubbing, or pedal edema. NEUROLOGICAL: Gross neurological examination did not reveal any focal deficits. SKIN: No rashes. - Labs CBC & Chem 7: 01/27/18 05:03 01/27/18 05:03 Labs: Abnormal Lab Results - Last 24 Hours (Table) 01/27/18 01/27/18 01/27/18 Range/Units 05:03 05:03 05:03 RBC 2.60 L (3.80-5.40) m/uL Hgb 9.7 L (11.4-16.0) gm/dL Hct 31.6 L (34.0-46.0) % MCV 121.5 H (80.0-100.0) fL MCH 37.4 H (25.0-35.0) pg MCHC 30.8 L (31.0-37.0) g/dL RDW 24.9 H (11.5-15.5) % Plt Count 26 L (150-450) k/uL Lymphocytes # (Manual) 0.87 L (1.0-4.8) k/uL Nucleated RBCs 13 H (0-0) /100 WBC PT 18.2 H (9.0-12.0) sec INR 2.0 H (<1.2) Potassium 5.3 H (3.5-5.1) mmol/L Chloride 111 H (98-107) mmol/L Carbon Dioxide 12 L (22-30) mmol/L BUN 72 H (7-17) mg/dL Creatinine 1.87 H (0.52-1.04) mg/dL Glucose 183 H (74-99) mg/dL POC Glucose (mg/dL) (75-99) mg/dL Phosphorus 5.9 H (2.5-4.5) mg/dL Total Bilirubin 8.7 H (0.2-1.3) mg/dL AST 352 H (14-36) U/L ALT 363 H (9-52) U/L Alkaline Phosphatase 268 H (38-126) U/L Total Protein 6.0 L (6.3-8.2) g/dL Albumin 2.9 L (3.5-5.0) g/dL 01/27/18 01/27/18 01/27/18 Range/Units 07:26 12:34 17:26 RBC (3.80-5.40) m/uL Hgb (11.4-16.0) gm/dL Hct (34.0-46.0) % MCV (80.0-100.0) fL MCH (25.0-35.0) pg MCHC (31.0-37.0) g/dL RDW (11.5-15.5) % Plt Count (150-450) k/uL Lymphocytes # (Manual) (1.0-4.8) k/uL Nucleated RBCs (0-0) /100 WBC PT (9.0-12.0) sec INR (<1.2) Potassium (3.5-5.1) mmol/L Chloride (98-107) mmol/L Carbon Dioxide (22-30) mmol/L BUN (7-17) mg/dL Creatinine (0.52-1.04) mg/dL Glucose (74-99) mg/dL POC Glucose (mg/dL) 184 H 193 H 246 H (75-99) mg/dL Phosphorus (2.5-4.5) mg/dL Total Bilirubin (0.2-1.3) mg/dL AST (14-36) U/L ALT (9-52) U/L Alkaline Phosphatase (38-126) U/L Total Protein (6.3-8.2) g/dL Albumin (3.5-5.0) g/dL Microbiology - Last 24 Hours (Table) 01/25/18 01:45 Blood Culture - Preliminary Blood No Growth after 48 hours 01/25/18 01:30 Blood Culture - Preliminary Blood No Growth after 48 hours 01/26/18 17:30 Urine Culture - Preliminary Urine,Catheterized Assessment and Plan Assessment: septic and cardiogenic shock MICHAEL elevated liver enz , possible shock liver Chest pain with Elevated troponin, rule out cardiac cause. sports marketing specialist is consulted Fatigue and dyspnea h/o COPD insulin-dependent diabetes mellitus Iron overload from previous multiple blood transfusions GERD sleep apnea h/o myelodysplastic syndrome Pancytopenia with Chronic anemia and thrombocytopenia h/o blood transfusion reaction [times/itching] h/o MRSA infection. Plan: This is a pleasant 67 years old female presents with fatigue and dyspnea, found to have elevated troponin Continue with same treatment. Continue with symptomatic treatment. Resume home medications. Monitor lytes and vitals. Cardiology consult.Hematology/Oncology input for myelodysplastic syndrome and history of leukemia. DVT and GI prophylaxis. pt is mostly has cardiogenic shock is some elements of septic shock , she has signifiant drop of EF to 20% and less. she is on lasix, and oral amiodarone, critical care team are following the case closely DVT prophylaxis: No heparin in view of low platelets GI prophylaxis: Pepcid PT/OT: Hold for now Prognosis is guarded and very poor Further recommendation is based on the clinical course of the patient
[2018-01-27] MEDS: traMADol 50 MG TAB PO PRN (22:35)
[2018-01-27] MEDS ORDERED: DIGOXIN 250 MCG/ML 2 ML AMP IVP STA (22:49)
[2018-01-27] MEDS ORDERED: DEXTROSE 5% IN WATER 100 ML with AMIODARONE 150 MG IV ONE ×2 (23:27→23:38)
[2018-01-28] MEDS: AMIODARONE 450 MG in DEXTROSE 5% IN WATER 250 ML IV SCH ×4 (00:31→10:04)
[2018-01-28] MEDS: DEXTROSE 5% IN WATER 1,000 ML with SOD BICARB SYR 8.4% (1 MEQ/ML) 150 ML IV SCH (01:03)
[2018-01-28] MEDS: MILRINONE-D5W PMX 20 MG in DEXTROSE/WATER 1 100ML.BAG IV SCH ×2 (02:05→19:03)
[2018-01-28 04:36] LABS: Anisocytosis Marked; HCT 23.4 % (34.0-46.0); Hypochromasia Marked; MCH 38.3 pg (25.0-35.0); MCHC 31.6 g/dL (31.0-37.0); MCV 121.2 fL (80.0-100.0); Macrocytosis Marked; Mean Platelet Volume 13.8; Poikilocytosis Slight; RBC 1.93 m/uL (3.80-5.40)
[2018-01-28 04:42] LABS: RDW 26.2 % (11.5-15.5)
[2018-01-28 04:43] LABS: HGB 7.4 gm/dL (11.4-16.0)
[2018-01-28 04:44] LABS: Platelet Count 12 k/uL (150-450)
[2018-01-28 04:45] LABS: Prothrombin Time 18.5 sec (9.0-12.0)
[2018-01-28 04:55] LABS: Calcium 7.5 mg/dL (8.4-10.2); Magnesium 1.7 mg/dL (1.6-2.3); Phosphorus 4.9 mg/dL (2.5-4.5); Potassium 3.6 mmol/L (3.5-5.1); Total Bilirubin 9.1 mg/dL (0.2-1.3); Total Protein 4.5 g/dL (6.3-8.2)
[2018-01-28 05:17] LABS: Neutrophils % (M) 80 %; Nucleated Red Blood Cells 13 /100 WBC (0-0); Total Cells Counted 200
[2018-01-28 05:18] LABS: Lymphocytes # (M) 0.74 k/uL (1.0-4.8); Monocytes # (M) 0.32 k/uL (0-1.0); Neutrophils # (M) 4.24 k/uL (1.3-7.7); Target Cells Present; WBC 5.3 k/uL (3.8-10.6)
[2018-01-28 05:46] LABS: Anisocytosis Marked; HCT 24.6 % (34.0-46.0); HGB 7.8 gm/dL (11.4-16.0); Hypochromasia Marked; MCH 38.4 pg (25.0-35.0); MCHC 31.7 g/dL (31.0-37.0); MCV 120.9 fL (80.0-100.0); Macrocytosis Marked; Mean Platelet Volume 12.8; Poikilocytosis Slight; RBC 2.03 m/uL (3.80-5.40)
[2018-01-28 05:48] LABS: RDW 26.4 % (11.5-15.5)
[2018-01-28 05:49] LABS: Platelet Count 16 k/uL (150-450)
[2018-01-28 05:56] LABS: Calcium 7.9 mg/dL (8.4-10.2); Magnesium 1.8 mg/dL (1.6-2.3); Phosphorus 5.3 mg/dL (2.5-4.5); Potassium 3.9 mmol/L (3.5-5.1)
[2018-01-28 06:30] LABS: Lymphocytes # (M) 1.01 k/uL (1.0-4.8); Monocytes # (M) 0.32 k/uL (0-1.0); Myelocytes # (M) 0.06 k/uL (0); Myelocytes % 1 %; Neutrophils # (M) 4.98 k/uL (1.3-7.7); Neutrophils % (M) 79 %; Nucleated Red Blood Cells 7 /100 WBC (0-0); Total Cells Counted 200; WBC 6.3 k/uL (3.8-10.6)
[2018-01-28 06:31] LABS: Polychromasia Present
[2018-01-28] MEDS ORDERED: PHYTONADIONE 10 MG in SODIUM CHLORIDE 0.9% 50 ML IVPB STA (06:57)
--- NOTE | 2018-01-28 06:58 | XR ---
EXAMINATION TYPE: XR chest 1V DATE OF EXAM: 01/28/2018 HISTORY: shortness of breath. REFERENCE: Previous study dated 01/27/2018. FINDINGS: A battery pack projects over the left chest. There is a Mediport in place via a right inter nal jugular approach. Its tip is at the cavoatrial junction. There is bibasilar airspace disease, worse on the left than the right. There are bilateral effusions, worse on the left than the right. There is multichamber cardiac enlargement. IMPRESSION: 1. CARDIOMEGALY. 2. BIBASILAR INFILTRATES. 3. BILATERAL EFFUSIONS.
--- NOTE | 2018-01-28 07:41 | P.PN ---
Subjective Progress Note Date: 01/28/18 67-year-old female patient with known history of mild dysplasia maintained on a combination of Gleevec and Decadron in addition to history of diabetes, hyperlipidemia and COPD and obstructive sleep apnea. The patient has had chronic complications of mild dysplasia including chronic anemia and thrombocytopenia requiring multiple blood transfusions in the past. The patient came in yesterday to the hospital because of chest pain. She had heaviness in her chest and she had also some increased shortness of breath. No cough. No sputum production. No pleurisy. No hemoptysis. She had a previous echocardiogram that showed a preserved LV function of ejection fraction of 55%. EKG that was performed during this current admission shows some nonspecific ST segment changes. Chest x-ray showed a left-sided pleural effusion. Subsequently the echocardiogram was repeated based on an elevated BNP level of 10,000 and the patient was found to have profound impairment of the LV function with an ejection fraction dropping down to less than 20%. RV is mildly enlarged. There is mild to moderate mitral regurgitation. Moderate pulmonary hypertension with a PA pressure of around 39. The IVC is dilated and there is poor respiratory collapse consistent with estimated right atrial pressure of about 15. There is also a moderate degree of pleural effusion on the left. Troponins were 0.2 0.2 respectively 2. The patient was seen by cardiology. Conservative management was recommended based on her comorbidities and chronic, cytopenia. Around 3 AM this morning, the patient becomes progressively more hypotensive. Her lactic acid was slightly elevated at 2.5 and 2.1. The patient was given a total of 3 L of IV fluids. She coaches for to the ICU. Artline catheter was inserted. She is currently on 20 mics of norepinephrine infusion for blood pressure support. Urine output is also drop. Morning blood work shows a non-anion gap metabolic acidosis with a bicarb level of 18, anion gap of 9, creatinine of 1.1, and the white cell count is at 3.8 with hemoglobin of 9.4. The patient is awake. She is a poor historian. I think she does have an underlying dementia. She does not have a good recollection of the events that led to her coming to the hospital. No she is much aware of her past medical history. LFTs were slightly abnormal yet that is no acute abnormalities on the ultrasound of the liver and gallbladder. The patient has a Mediport and the patient also has a vagal nerve stimulator. No skin rashes. No open wounds or ulceration. No abdominal distention. No nausea. No vomiting. Extremities are somewhat cold and clammy at this point with diminished pulses. On 01/27/2000 milligrams in this patient for a follow-up. As mentioned, the patient got into the intensive care unit because of profound hypotension. Further workup showed a drop in the left with an ejection fraction which was measured to be less than 20%. As such this shock is most likely of a cardiogenic in nature. I also cover this patient for her septic shock knowing that she has had infections in the past with ESBL producing organisms and MRSA. I cover this patient with a combination of Invanz and vancomycin. Nevertheless, the cultures of been negative and the patient has not spiked any fever and a white cell count is at 6.7. The patient was given volume and she responded initially in the pressors dose was gradually wean down to 10-15 mics per norepinephrine infusion per minute. This morning, the she was noted to have a lower urine output. She was given a dose of Lasix. Subsequently was advised to give her dobutamine. Following dobutamine administration, the patient went into atrial fibrillation with rapid ventricular response and he she became hypotensive with systolic blood pressure dropped in the mid 70s. I was about to give the patient amiodarone. During this time the patient converted back to normal sinus rhythm after dobutamine was discontinued. Blood pressure subsequently improved. She is receiving a bicarb infusion knowing that she has a component of non-anion gap metabolic acidosis and this is running at the rate of 75 mL an hour. She has developed an acute kidney injury , probably related to her hypotension and cardiorenal factors. Creatinine is up to 1.5 and a BNP is at 64. Urine output is nor that of 20 mL an hour. Chest x-ray shows some worsening in the volume status and the patient has developed small better pleural effusion and a component of 4 vessel congestion. She is currently on room air oxygen and her pulse ox is above 90%. No chest pain. No angina. Hematologic profile is consistent with myelodysplasia. Her liver function is also worse. Bilirubin is up to 5.9. She had an AST of 297 with a ALP of 306 with an phosphatase of 27. Albumin Is at 2.5. INR Is at 1.8 with a PT of 16.7. Most Recent Lactic Acid Level Is at 3.7. On 01/27/2018, Penny is being seen for a follow-up. The patient is doing poorly and she is in cardiogenic shock. I discussed this case at length with cardiology. Note that yesterday there was an attempt to put the patient on dobutamine however this attempt failed as the patient became tachycardic and she went into atrial fibrillation with rapid ventricular response. Based on that, dobutamine was stopped and the patient subsequently went back to normal sinus rhythm. On and off she was having still some runs of atrial fibrillation. The patient is awake and alert. She is on room air oxygen. Chest x-ray is showing cardiomegaly and small bilateral pleural effusion and pulmonary asked her congestion and early edema. Hemodynamically she has hypotensive and she has required pressors and currently she is on norepinephrine infusion running at 50 g per KG per minute. Urine output has been low in the order of 20 mL an hour and this was obviously a concern throughout the night. She was given fluid boluses and the net fluid balance is +3.5 L over the past 24 hours yet this was not enough to improve the urine output nor for the blood pressure. The patient is cold and clammy and she has diminished pulses. She has also developed an acute kidney injury in the creatinine is up to 1.8 and the patient has a component of anion and non-anion gap metabolic acidosis. Anion gap is at 16 with a bicarb level of 12 and the patient's creatinine is at 72 with a creatinine of 1.8. Nephrology saw the patient and patient was started on bicarb drip that liver function tests are improving gradually getting worse. Bilirubin is up to 8.7. AST is at 352 with an ALT of sounds 63. Albumin is down to 2.9. The calcium level is at 8.6. Today's potassium level is at 5.3 and the sodium is 139. Sugar is at 193. She is afebrile. The patient's cultures of been all negative. Stop the vancomycin. I kept the patient on IV Invanz as an empiric antibiotic coverage. The patient remains quite thrombocytopenic regarding her underlying lung some mild dysplasia. 2017 of seeing this patient for a follow-up. She remains critically ill and sick. She remains in cardiogenic shock. She was attempted on Primacor drip yesterday and as dose was being titrated, the patient went into atrial fibrillation with rapid ventricular response. Her heart rate was in the 140s in the 150s range. The patient accordingly was taken off the Primacor. Amiodarone was restarted in the form of an infusion currently she is on 0.5 mg per minute and last night she converted back to normal sinus rhythm. She is on Lasix drip at 10 mg an hour. Urine output is around 10-20 mL an hour. She remains on a bicarb drip at the rate of 75 mL an hour and the patient's serum bicarbs up to 21. She is oliguric. Urine output is diminished. The net fluid balance is order of +1.8 L for yesterday. She is still on norepinephrine infusion running at 18 g per KG per minute. Clinically, she is awake and alert. No significant respiratory distress. She is on room air oxygen. No nausea. No vomiting. No abdominal pain. She has some increased edema both in upper and lower extremity. Follow-up chest x-ray from today shows small bilateral pleural effusion and cardiomegaly. Meanwhile, the patient's hemoglobin is at 7.8, platelet counts is 16,000, creatinine is at 1.89, LFTs are abnormal with an AST of 386, ALT of 346, bilirubin of 9.1. Stool for C. diff is negative. IV antibiotics include Invanz. As an empiric antibiotic coverage. Coagulation profile is off and the patient has some mild coagulopathy with an INR of 2.0 and a PT of 18.5 no chest pain. No fever. No altered mentation. No other complaints otherwise for now. Cardiology is on the case. Hematology oncology is on the case. The findings on the case. Objective - Vital Signs Vital signs: Vital Signs Temp 98.1 F 01/28/18 01:15 Pulse 100 01/28/18 05:15 Resp 17 01/28/18 05:15 BP 102/68 01/28/18 05:00 Pulse Ox 99 01/28/18 05:15 Intake & Output 01/27/18 01/28/18 01/28/18 18:59 06:59 18:59 Intake Total 9391.862 3075 Output Total 325 500 Balance 953.922 550 Weight 73.6 kg 75 kg Intake: IV 995 1050 0.9NS 110 200 Dextrose 5%-0.9% NaCl 1, 750 750 000 ml @ 75 mls/hr IV . [id number] [facility] with Sodium Bicarb (1 Meq/ml) 150 ml Rx#:[id number] Furosemide 250 mg In 60 100 Sodium Chloride 0.9% 225 ml @ 10 MG/HR 10 mls/hr IVP .Q24H [facility] Rx#: [id number] Sodium Chloride 0.9% 1, 75 000 ml @ 75 mls/hr IV . [id number] [facility] Rx#:[id number] Intake, IV Titration 283.922 Amount Milrinone-D5w Pmx 20 mg 19.421 In Dextrose/Water 1 100ml .bag @ 0.3 MCG/KG/MIN 6. 62 mls/hr IV .Q15H7M [facility] Rx#:[id number] Norepinephrine 16 mg In 264.501 Sodium Chloride 0.9% 250 ml @ Titrate IV .Q0M [facility] Rx#:[id number] Output: Urine 325 500 Other: Voiding Method Indwelling Catheter Indwelling Catheter # Bowel Movements 1 ABP, PAP, CO, CI - Last Documented Arterial Blood Pressure 124/52 - Exam Gen. appearance, comfortable awake following commands and answering questions. not acute distress. Not agitated. The patient is jaundiced Head exam was generally normal. There was scleral icterus / corneal arcus. Mucous membranes were moist. Neck was supple and with jugular venous distension, thyromegaly, or carotid bruits. Carotids were easily palpable bilaterally. There was no adenopathy. Lungs sounds are diminished bilaterally especially left lung base along with dullness to percussion. There are crackles in lung bases bilaterally. Heart sounds are regular, positive S1-S2 and there is no significant murmurs appreciated. The patient has a Mediport over the right anterior chest area. A nerve stimulator is also present over the left lateral chest area also. Abdominal exam revealed normal bowel sounds. The abdomen was soft, non-tender, and without masses, organomegaly, or appreciable enlargement of the abdominal aorta. Examination of the extremities revealed diminished pulses in the radial, femoral and pedal pulses. There was no cyanosis, clubbing and there is increased edema both in the upper and lower extremities bilaterally. The patient has a Artline catheter in the left femoral artery and the patient has a triple lumen catheter in the right femoral artery. Examination of the skin revealed no evidence of significant rashes, suspicious appearing nevi or other concerning lesions. Neurologic patient will go proximity is without any focal limitation. - Labs CBC & Chem 7: 01/28/18 05:35 01/28/18 05:35 Labs: Abnormal Lab Results - Last 24 Hours (Table) 01/27/18 01/27/18 01/27/18 Range/Units 12:34 17:26 21:09 RBC (3.80-5.40) m/uL Hgb (11.4-16.0) gm/dL Hct (34.0-46.0) % MCV (80.0-100.0) fL MCH (25.0-35.0) pg RDW (11.5-15.5) % Plt Count (150-450) k/uL Lymphocytes # (Manual) (1.0-4.8) k/uL Myelocytes # (Manual) (0) k/uL Nucleated RBCs (0-0) /100 WBC PT (9.0-12.0) sec INR (<1.2) Sodium (137-145) mmol/L Carbon Dioxide (22-30) mmol/L BUN (7-17) mg/dL Creatinine (0.52-1.04) mg/dL Glucose (74-99) mg/dL POC Glucose (mg/dL) 193 H 246 H 230 H (75-99) mg/dL Calcium (8.4-10.2) mg/dL Phosphorus (2.5-4.5) mg/dL Total Bilirubin (0.2-1.3) mg/dL AST (14-36) U/L ALT (9-52) U/L Alkaline Phosphatase (38-126) U/L Total Protein (6.3-8.2) g/dL Albumin (3.5-5.0) g/dL 01/28/18 01/28/18 01/28/18 Range/Units 04:30 04:30 04:30 RBC 1.93 L (3.80-5.40) m/uL Hgb 7.4 L D (11.4-16.0) gm/dL Hct 23.4 L (34.0-46.0) % MCV 121.2 H (80.0-100.0) fL MCH 38.3 H (25.0-35.0) pg RDW 26.2 H (11.5-15.5) % Plt Count 12 L* D (150-450) k/uL Lymphocytes # (Manual) 0.74 L (1.0-4.8) k/uL Myelocytes # (Manual) (0) k/uL Nucleated RBCs 13 H (0-0) /100 WBC PT 18.5 H (9.0-12.0) sec INR 2.0 H (<1.2) Sodium 136 L (137-145) mmol/L Carbon Dioxide 20 L (22-30) mmol/L BUN 76 H (7-17) mg/dL Creatinine 1.75 H (0.52-1.04) mg/dL Glucose 203 H (74-99) mg/dL POC Glucose (mg/dL) (75-99) mg/dL Calcium 7.5 L (8.4-10.2) mg/dL Phosphorus 4.9 H (2.5-4.5) mg/dL Total Bilirubin 9.1 H (0.2-1.3) mg/dL AST 386 H (14-36) U/L ALT 346 H (9-52) U/L Alkaline Phosphatase 192 H (38-126) U/L Total Protein 4.5 L (6.3-8.2) g/dL Albumin 2.0 L (3.5-5.0) g/dL 01/28/18 01/28/18 Range/Units 05:35 05:35 RBC 2.03 L (3.80-5.40) m/uL Hgb 7.8 L (11.4-16.0) gm/dL Hct 24.6 L (34.0-46.0) % MCV 120.9 H (80.0-100.0) fL MCH 38.4 H (25.0-35.0) pg RDW 26.4 H (11.5-15.5) % Plt Count 16 L* (150-450) k/uL Lymphocytes # (Manual) (1.0-4.8) k/uL Myelocytes # (Manual) 0.06 H (0) k/uL Nucleated RBCs 7 H (0-0) /100 WBC PT (9.0-12.0) sec INR (<1.2) Sodium 134 L (137-145) mmol/L Carbon Dioxide 21 L (22-30) mmol/L BUN 78 H (7-17) mg/dL Creatinine 1.89 H (0.52-1.04) mg/dL Glucose 227 H (74-99) mg/dL POC Glucose (mg/dL) (75-99) mg/dL Calcium 7.9 L (8.4-10.2) mg/dL Phosphorus 5.3 H (2.5-4.5) mg/dL Total Bilirubin (0.2-1.3) mg/dL AST (14-36) U/L ALT (9-52) U/L Alkaline Phosphatase (38-126) U/L Total Protein (6.3-8.2) g/dL Albumin (3.5-5.0) g/dL Microbiology - Last 24 Hours (Table) 01/25/18 01:45 Blood Culture - Preliminary Blood No Growth after 72 hours 01/25/18 01:30 Blood Culture - Preliminary Blood No Growth after 72 hours 01/26/18 17:30 Urine Culture - Final Urine,Catheterized Assessment and Plan Plan: Assessment 1 cardiogenic shock with signs of multisystem organ failure. The patient failed to respond to dobutamine. The patient failed to respond to milrinone as the patient went into atrial fibrillation with rapid ventricular response. Currently on amiodarone drip at 0.5 mg /minmaintenance. Urine output remains low. Continues to have organ dysfunction including renal dysfunction, hepatic dysfunction and low urine output. The patient remains in shock and she is still pressor dependent on norepinephrine infusion. 2 metabolic acidosis , recovered with a bicarb drip 3 CHF with impairment ejection fraction of less than 20% 4 questionable non-ST segment elevation myocardial infarction based on elevated troponins 5 paroxysmal atrial fibrillation and the patient is going back and forth between sinus rhythm and atrial fibrillation 6 myelodysplasia with chronic anemia and thrombocytopenia, maintained on Revlimid and Decadron outpatient basis 7 acute kidney injury, secondary to low cardiac output state and cardiorenal factors. 8 diabetes mellitus type 2 9 COPD 10 vagal nerve stimulator 11 Mediport 12 previous history of infection with Enterobacter and MRSA and these are essentially urine checked infections occurred back in 11/02/2017 and 02/08/2017 respectively 13 obstructive sleep apnea 14 acute hepatic insufficiency with elevated bilirubins and LFTs secondary to above, and there is been an underlying coagulopathy in association with hepatic dysfunction. Plan Critically ill female patient with advanced cardiomyopathy and cardiogenic shock and signs of multisystem organ failure. Unfortunately not much of a progress has been done since yesterday. I'm going to take of the bicarb drip and put the patient normal saline infusions a rate of 75 mL an hour. Continue the norepinephrine infusion and monitor the blood pressure and urine output and titrate the dose accordingly to maintain a mean artery pressure above 65. Continue monitoring the renal output. Continue monitoring electrolytes and renal function. The patient will be kept on amiodarone drip for now. We'll discuss with cardiology this and options. Unfortunately, not much can be offered specially the patient has underlying myelodysplasia and chronic abnormalities and hematologic profile including thrombocytopenia. Condition is critical. Prognosis poor baseline above-mentioned comorbidities. We'll continue to follow make further recommendations based on her progress. Discussed the case with the patient. Discussed the case with the at the bedside.
[2018-01-28 07:49] LABS: Glucose,Whole Blood 223 mg/dL (75-99)
[2018-01-28] MEDS: SODIUM CHLORIDE 0.9% 1,000 ML IV SCH ×2 (07:50→21:25)
[2018-01-28] MEDS: PANTOPRAZOLE 40 MG/10 ML VIAL IVP SCH (08:17)
[2018-01-28] MEDS: ERTAPENEM 0.5 GM in SODIUM CHLORIDE 0.9% 50 ML IVPB SCH (08:25)
[2018-01-28] MEDS: INSULIN ASPART 100 UNIT/ML 1 ML 10 ML VIAL SQ SCH ×4 (08:37→21:24)
[2018-01-28] MEDS: JADENU 180 MG PO SCH (08:38)
[2018-01-28] MEDS: JADENU PO SCH (08:38)
[2018-01-28] MEDS: traMADol 50 MG TAB PO PRN ×2 (08:48→21:26)
[2018-01-28] MEDS: FUROSEMIDE 250 MG in SODIUM CHLORIDE 0.9% 225 ML IVP SCH (10:03)
[2018-01-28] MEDS: NOREPINEPHRINE 16 MG in SODIUM CHLORIDE 0.9% 250 ML IV SCH (10:22)
--- NOTE | 2018-01-28 11:13 | P.PN ---
Subjective Progress Note Date: 01/28/18 Principal diagnosis: This is a 67-year-old female known with the myelodysplastic syndrome, diabetes mellitus, COPD. Admitted with chest pain has a poor ejection fraction of 20%. She was hypotensive. She has been on dopamine which caused atrial fibrillation and then was changed to milrinone. She is off of it now. Currently she is on Lasix drip, levo fed and is being tapered down and is on amiodranoe drip. She is somewhat anxious. Her urine output is down from 4 90 mL to 240 mL to 115 mL over the last 3 shifts off 8 hours each. She is comfortable on nasal cannula. Denies any shortness of breath cough fever chills nausea vomiting diarrhea abdominal pain. She has severe thrombocytopenia but there is no bleeding from any site. Her troponins are 0.22. Objective - Vital Signs Vital signs: Vital Signs Temp 98.5 F 01/28/18 08:00 Pulse 110 H 01/28/18 10:00 Resp 16 01/28/18 10:00 BP 110/72 01/28/18 10:00 Pulse Ox 97 01/28/18 10:00 Intake & Output 01/27/18 01/28/18 01/28/18 18:59 06:59 18:59 Intake Total 5342.885 2409 1184.097 Output Total 325 535 115 Balance 953.110 382 8776.097 Weight 73.6 kg 75 kg Intake: IV 995 1260 265 0.9NS 110 240 20 Dextrose 5%-0.9% NaCl 1, 750 900 75 000 ml @ 75 mls/hr IV . [id number] [facility] with Sodium Bicarb (1 Meq/ml) 150 ml Rx#:[id number] Ertapenem 1 gm In Sodium 150 Chloride 0.9% 50 ml @ 100 mls/hr IVPB DAILY [facility] Rx #:[id number] Furosemide 250 mg In 60 120 20 Sodium Chloride 0.9% 225 ml @ 10 MG/HR 10 mls/hr IVP .Q24H [facility] Rx#: [id number] Sodium Chloride 0.9% 1, 75 000 ml @ 75 mls/hr IV . [id number] [facility] Rx#:[id number] Intake, IV Titration 283.922 769.097 Amount Amiodarone 450 mg In 250 Dextrose 5% in Water 250 ml @ 1 MG/MIN 33.33 mls/ hr IV .Q7H31M [facility] Rx#: [id number] Furosemide 250 mg In 222.667 Sodium Chloride 0.9% 225 ml @ 10 MG/HR 10 mls/hr IVP .Q24H [facility] Rx#: [id number] Milrinone-D5w Pmx 20 mg 19.421 In Dextrose/Water 1 100ml .bag @ 0.3 MCG/KG/MIN 6. 62 mls/hr IV .Q15H7M [facility] Rx#:[id number] Norepinephrine 16 mg In 264.501 171.43 Sodium Chloride 0.9% 250 ml @ Titrate IV .Q0M [facility] Rx#:[id number] Phytonadione 10 mg In 50 Sodium Chloride 0.9% 50 ml @ 100 mls/hr IVPB ONCE [facility] Rx#:[id number] Sodium Chloride 0.9% 1, 75 000 ml @ 75 mls/hr IV . [id number] [facility] Rx#:[id number] Oral 150 Output: Urine 325 535 115 Other: Voiding Method Indwelling Catheter Indwelling Catheter Indwelling Catheter # Bowel Movements 1 ABP, PAP, CO, CI - Last Documented Arterial Blood Pressure 121/60 On examination she is awake alert oriented anxious comfortable. HEENT exam no JVP neck is supple no facial asymmetry Lungs are clear to auscultation fairly good air entry bilaterally Heart sounds are unremarkable for any murmur rub gallop. Normal sinus rhythm on the monitor. Abdomen soft nontender except on deep palpation there was some pain in the right upper quadrant. Extremity examination reveals trace edema Neurologically awake alert oriented - Labs CBC & Chem 7: 01/28/18 05:35 01/28/18 05:35 Labs: Abnormal Lab Results - Last 24 Hours (Table) 01/27/18 01/27/18 01/27/18 Range/Units 12:34 17:26 21:09 RBC (3.80-5.40) m/uL Hgb (11.4-16.0) gm/dL Hct (34.0-46.0) % MCV (80.0-100.0) fL MCH (25.0-35.0) pg RDW (11.5-15.5) % Plt Count (150-450) k/uL Lymphocytes # (Manual) (1.0-4.8) k/uL Myelocytes # (Manual) (0) k/uL Nucleated RBCs (0-0) /100 WBC PT (9.0-12.0) sec INR (<1.2) Sodium (137-145) mmol/L Carbon Dioxide (22-30) mmol/L BUN (7-17) mg/dL Creatinine (0.52-1.04) mg/dL Glucose (74-99) mg/dL POC Glucose (mg/dL) 193 H 246 H 230 H (75-99) mg/dL Calcium (8.4-10.2) mg/dL Phosphorus (2.5-4.5) mg/dL Total Bilirubin (0.2-1.3) mg/dL AST (14-36) U/L ALT (9-52) U/L Alkaline Phosphatase (38-126) U/L Total Protein (6.3-8.2) g/dL Albumin (3.5-5.0) g/dL 01/28/18 01/28/18 01/28/18 Range/Units 04:30 04:30 04:30 RBC 1.93 L (3.80-5.40) m/uL Hgb 7.4 L D (11.4-16.0) gm/dL Hct 23.4 L (34.0-46.0) % MCV 121.2 H (80.0-100.0) fL MCH 38.3 H (25.0-35.0) pg RDW 26.2 H (11.5-15.5) % Plt Count 12 L* D (150-450) k/uL Lymphocytes # (Manual) 0.74 L (1.0-4.8) k/uL Myelocytes # (Manual) (0) k/uL Nucleated RBCs 13 H (0-0) /100 WBC PT 18.5 H (9.0-12.0) sec INR 2.0 H (<1.2) Sodium 136 L (137-145) mmol/L Carbon Dioxide 20 L (22-30) mmol/L BUN 76 H (7-17) mg/dL Creatinine 1.75 H (0.52-1.04) mg/dL Glucose 203 H (74-99) mg/dL POC Glucose (mg/dL) (75-99) mg/dL Calcium 7.5 L (8.4-10.2) mg/dL Phosphorus 4.9 H (2.5-4.5) mg/dL Total Bilirubin 9.1 H (0.2-1.3) mg/dL AST 386 H (14-36) U/L ALT 346 H (9-52) U/L Alkaline Phosphatase 192 H (38-126) U/L Total Protein 4.5 L (6.3-8.2) g/dL Albumin 2.0 L (3.5-5.0) g/dL 01/28/18 01/28/18 01/28/18 Range/Units 05:35 05:35 07:48 RBC 2.03 L (3.80-5.40) m/uL Hgb 7.8 L (11.4-16.0) gm/dL Hct 24.6 L (34.0-46.0) % MCV 120.9 H (80.0-100.0) fL MCH 38.4 H (25.0-35.0) pg RDW 26.4 H (11.5-15.5) % Plt Count 16 L* (150-450) k/uL Lymphocytes # (Manual) (1.0-4.8) k/uL Myelocytes # (Manual) 0.06 H (0) k/uL Nucleated RBCs 7 H (0-0) /100 WBC PT (9.0-12.0) sec INR (<1.2) Sodium 134 L (137-145) mmol/L Carbon Dioxide 21 L (22-30) mmol/L BUN 78 H (7-17) mg/dL Creatinine 1.89 H (0.52-1.04) mg/dL Glucose 227 H (74-99) mg/dL POC Glucose (mg/dL) 223 H (75-99) mg/dL Calcium 7.9 L (8.4-10.2) mg/dL Phosphorus 5.3 H (2.5-4.5) mg/dL Total Bilirubin (0.2-1.3) mg/dL AST (14-36) U/L ALT (9-52) U/L Alkaline Phosphatase (38-126) U/L Total Protein (6.3-8.2) g/dL Albumin (3.5-5.0) g/dL Microbiology - Last 24 Hours (Table) 01/25/18 01:45 Blood Culture - Preliminary Blood No Growth after 72 hours 01/25/18 01:30 Blood Culture - Preliminary Blood No Growth after 72 hours 01/26/18 17:30 Urine Culture - Final Urine,Catheterized Assessment and Plan Assessment: Impression 1. Acute kidney injury secondary to cardiorenal syndrome, cardiogenic shock with poor ejection fraction. Currently on levo fed which is being tapered off. She is in normal sinus rhythm converted back from atrial fibrillation. Urine output is minimal and creatinine is going up from 1.75-1.89 this morning. 2. Mild hyponatremia with sodium 134 secondary to acute kidney injury. 3. Mild non-gap acidosis, bicarb is 21 and anion gap is 9 secondary to acute kidney injury. Off off bicarbonate drip this morning. Previously she had lactic acidosis with lactic acid in the 3 range. This could still be lactic acidosis as the anion gap has been wearing in her baseline is difficult to ascertain 4. Chest pain with poor ejection fraction possible coronary artery syndrome. 5.. Myelodysplastic syndrome with severe thrombocytopenia. 6. Abnormal liver function tests likely from perfusion. Recommendation. 1. Maintain blood pressure with inotropes as necessary with a mean arterial pressure of about 65. 2. Agree with discontinuation of bicarb drip for right now but may need to be started on oral bicarb, the aim is to have a bicarb of 22. We will watch it for right now. 3. Would give a lactic acid level and 4. Monitor labs on a daily basis Discussed with ICU team Dr. Simental
[2018-01-28 11:18] LABS: Glucose,Whole Blood 212 mg/dL (75-99)
[2018-01-28] MEDS: AMIODARONE 200 MG TAB PO SCH ×2 (11:27→21:17)
--- NOTE | 2018-01-28 13:32 | P.PN ---
Subjective Patient lying in bed comfortably. Does not appear to be short of breath. Icteric Back in sinus rhythm blood pressure 100/68 mmHg pulse rate in the 80s and 90s Breath sounds are reduced bilaterally Heart sounds are soft Impression Severe LV systolic dysfunction on levo fed Intolerant of inotropes Very symptomatic atrial fibrillation Currently on amiodarone Suggest Continue current medications Prognosis is very poor Objective - Vital Signs Vital signs: Vital Signs Temp 98.7 F 01/28/18 12:00 Pulse 95 01/28/18 12:15 Resp 17 01/28/18 12:15 BP 100/68 01/28/18 12:15 Pulse Ox 98 01/28/18 12:15 Intake & Output 01/27/18 01/28/18 01/28/18 18:59 06:59 18:59 Intake Total 1956.662 4403 1214.097 Output Total 325 535 150 Balance 953.534 545 2572.097 Weight 73.6 kg 75 kg Intake: IV 995 1260 265 0.9NS 110 240 20 Dextrose 5%-0.9% NaCl 1, 750 900 75 000 ml @ 75 mls/hr IV . [id number] [facility] with Sodium Bicarb (1 Meq/ml) 150 ml Rx#:[id number] Ertapenem 1 gm In Sodium 150 Chloride 0.9% 50 ml @ 100 mls/hr IVPB DAILY [facility] Rx #:[id number] Furosemide 250 mg In 60 120 20 Sodium Chloride 0.9% 225 ml @ 10 MG/HR 10 mls/hr IVP .Q24H [facility] Rx#: [id number] Sodium Chloride 0.9% 1, 75 000 ml @ 75 mls/hr IV . [id number] [facility] Rx#:[id number] Intake, IV Titration 283.922 769.097 Amount Amiodarone 450 mg In 250 Dextrose 5% in Water 250 ml @ 1 MG/MIN 33.33 mls/ hr IV .Q7H31M [facility] Rx#: [id number] Furosemide 250 mg In 222.667 Sodium Chloride 0.9% 225 ml @ 10 MG/HR 10 mls/hr IVP .Q24H [facility] Rx#: [id number] Milrinone-D5w Pmx 20 mg 19.421 In Dextrose/Water 1 100ml .bag @ 0.3 MCG/KG/MIN 6. 62 mls/hr IV .Q15H7M [facility] Rx#:[id number] Norepinephrine 16 mg In 264.501 171.43 Sodium Chloride 0.9% 250 ml @ Titrate IV .Q0M [facility] Rx#:[id number] Phytonadione 10 mg In 50 Sodium Chloride 0.9% 50 ml @ 100 mls/hr IVPB ONCE [facility] Rx#:[id number] Sodium Chloride 0.9% 1, 75 000 ml @ 75 mls/hr IV . [id number] [facility] Rx#:[id number] Oral 180 Output: Urine 325 535 150 Other: Voiding Method Indwelling Catheter Indwelling Catheter Indwelling Catheter # Bowel Movements 1 ABP, PAP, CO, CI - Last Documented Arterial Blood Pressure 109/55 - Labs CBC & Chem 7: 01/28/18 05:35 01/28/18 05:35 Labs: Abnormal Lab Results - Last 24 Hours (Table) 01/27/18 01/27/18 01/28/18 Range/Units 17:26 21:09 04:30 RBC (3.80-5.40) m/uL Hgb (11.4-16.0) gm/dL Hct (34.0-46.0) % MCV (80.0-100.0) fL MCH (25.0-35.0) pg RDW (11.5-15.5) % Plt Count (150-450) k/uL Lymphocytes # (Manual) (1.0-4.8) k/uL Myelocytes # (Manual) (0) k/uL Nucleated RBCs (0-0) /100 WBC PT (9.0-12.0) sec INR (<1.2) Sodium 136 L (137-145) mmol/L Carbon Dioxide 20 L (22-30) mmol/L BUN 76 H (7-17) mg/dL Creatinine 1.75 H (0.52-1.04) mg/dL Glucose 203 H (74-99) mg/dL POC Glucose (mg/dL) 246 H 230 H (75-99) mg/dL Calcium 7.5 L (8.4-10.2) mg/dL Phosphorus 4.9 H (2.5-4.5) mg/dL Total Bilirubin 9.1 H (0.2-1.3) mg/dL AST 386 H (14-36) U/L ALT 346 H (9-52) U/L Alkaline Phosphatase 192 H (38-126) U/L Total Protein 4.5 L (6.3-8.2) g/dL Albumin 2.0 L (3.5-5.0) g/dL 01/28/18 01/28/18 01/28/18 Range/Units 04:30 04:30 05:35 RBC 1.93 L 2.03 L (3.80-5.40) m/uL Hgb 7.4 L D 7.8 L (11.4-16.0) gm/dL Hct 23.4 L 24.6 L (34.0-46.0) % MCV 121.2 H 120.9 H (80.0-100.0) fL MCH 38.3 H 38.4 H (25.0-35.0) pg RDW 26.2 H 26.4 H (11.5-15.5) % Plt Count 12 L* D 16 L* (150-450) k/uL Lymphocytes # (Manual) 0.74 L (1.0-4.8) k/uL Myelocytes # (Manual) 0.06 H (0) k/uL Nucleated RBCs 13 H 7 H (0-0) /100 WBC PT 18.5 H (9.0-12.0) sec INR 2.0 H (<1.2) Sodium (137-145) mmol/L Carbon Dioxide (22-30) mmol/L BUN (7-17) mg/dL Creatinine (0.52-1.04) mg/dL Glucose (74-99) mg/dL POC Glucose (mg/dL) (75-99) mg/dL Calcium (8.4-10.2) mg/dL Phosphorus (2.5-4.5) mg/dL Total Bilirubin (0.2-1.3) mg/dL AST (14-36) U/L ALT (9-52) U/L Alkaline Phosphatase (38-126) U/L Total Protein (6.3-8.2) g/dL Albumin (3.5-5.0) g/dL 01/28/18 01/28/18 01/28/18 Range/Units 05:35 07:48 11:16 RBC (3.80-5.40) m/uL Hgb (11.4-16.0) gm/dL Hct (34.0-46.0) % MCV (80.0-100.0) fL MCH (25.0-35.0) pg RDW (11.5-15.5) % Plt Count (150-450) k/uL Lymphocytes # (Manual) (1.0-4.8) k/uL Myelocytes # (Manual) (0) k/uL Nucleated RBCs (0-0) /100 WBC PT (9.0-12.0) sec INR (<1.2) Sodium 134 L (137-145) mmol/L Carbon Dioxide 21 L (22-30) mmol/L BUN 78 H (7-17) mg/dL Creatinine 1.89 H (0.52-1.04) mg/dL Glucose 227 H (74-99) mg/dL POC Glucose (mg/dL) 223 H 212 H (75-99) mg/dL Calcium 7.9 L (8.4-10.2) mg/dL Phosphorus 5.3 H (2.5-4.5) mg/dL Total Bilirubin (0.2-1.3) mg/dL AST (14-36) U/L ALT (9-52) U/L Alkaline Phosphatase (38-126) U/L Total Protein (6.3-8.2) g/dL Albumin (3.5-5.0) g/dL Microbiology - Last 24 Hours (Table) 01/25/18 01:45 Blood Culture - Preliminary Blood No Growth after 72 hours 01/25/18 01:30 Blood Culture - Preliminary Blood No Growth after 72 hours 01/26/18 17:30 Urine Culture - Final Urine,Catheterized
[2018-01-28 17:17] LABS: Glucose,Whole Blood 149 mg/dL (75-99)
--- NOTE | 2018-01-28 17:18 | P.PN ---
Subjective This is a pleasant 67 years old female with past medical history of COPD, insulin-dependent diabetes mellitus, GERD, sleep apnea , myelodysplastic syndrome, leukemia on chemotherapy, blood transfusion reaction [times/itching] and MRSA infection. Presents because of chest pain on the left side, nonradiating, comes and goes over the last 2 days associated with dyspnea, orthopnea and generalized weakness. Patient denies any change in urine or bowel habits. She denies fever. And emergency room patient was noticed to be slightly tachycardic at 102-103. TROPONIN WERE ELEVATED AT 0.191, PREVIOUS TROPONIN WERE 0.08 AND 0.04 ON 2017. WBC 4.4, HEMOGLOBIN 8.9. PLATELETS LOW AT 24 01/24/2018 Patient feels a little better, she still have some chest discomfort and still dyspneic. No change in mental status. No fever. Labs reviewed showing pancytopenia with a drop in platelets 219. WBC 3.7K and hemoglobin 8.7. Oncology team evaluated patient and recommended to transfuse platelets when less than 10 K however no need for more chemotherapy, transfuse as needed and follow-up as an outpatient, however they recommended aren't chilly tip therapy with GA DD continue for iron overload from previous multiple red blood cell transfusions. Cardiology was consulted evaluated the patient We'll check liver ultrasound and hepatitis panel. We'll consult GI DC IV fluids as per cardiology 01/25/2018 last night pt BP start dropping with systolic blood pressure in 70-80s. depsite fluis boluses , pt was transfered to the ICU with she had central line placed and pt was started on norepinephrine drip and her Blood pressure improved today , pt lethargy and generalized weakness are improved too. pt antibiotic were changed from aztreonam to vancomycin iv and invanze as per critical care team for pt is with septic shock . combined with cardiogenic shock in view of drop in her EF from 55% to 20% during this admission. also pt is found to have elevated creatinine ahd hyperkalemia , nephrology team were consulted too . liver enz are elevated with negative liver US , GI team evaluation is appreciated 01/26/2018 pt is still on shock state, mostly cardiogenic shock , pt is on norepinephrine drip , pt lethargy and generalized weakness are improved too. however pt remains confused. pt antibiotic were changed from aztreonam to vancomycin iv and invanze as per critical care team for pt is with septic shock. combined with cardiogenic shock in view of drop in her EF from 55% to 20% during this admission. also pt is found to have elevated creatinine ahd hyperkalemia , nephrology team were consulted too . liver enz are elevated with negative liver US ,pt is making 90 cc of urine in the last 2 hours (45 Ml/hr) 01/27/2018 pt was lying in bed , she was awake and interactive however she was slightly confused , was at bed side . pt denies chest pain . she is still lethargic. however her blood pressure is improved . pt is on antibiotic. she is also was started on lasix drip and oral amiodarone for her arrhythmia . cultures are pending . his elevated liver enz is mostly due to shock state , she has negative liver US however liver enz and creatinine are worsening , creatinine up to 1.8 . pt is still with high lactic acid , hemoglobin is stable , no leukocytosis but INR is 2.0 . Platelets 16 K 01/28/2018 pt was lying in bed , confused pt denies chest pain . she is still lethargic. however her blood pressure is improved . pt is on antibiotic. she is on oral amiodarone and drip for her arrhythmia. Continue with lasix drip. Cardiology are following the case. cultures are pending . his elevated liver enz is mostly due to shock state , she has negative liver US . creatinine up to 1.8 . pt is still with high lactic acid , hemoglin is stable , no leukocytosis but INR is 2.0 medications: Jadenu, Epoetin Chris, norepinephrine , zofran, protonix, novolg, ertapenem, iv vancomyin , and amiodarone Objective - Vital Signs Vital signs: Vital Signs Temp 98.7 F 01/28/18 12:00 Pulse 93 01/28/18 16:00 Resp 20 01/28/18 16:00 BP 89/59 01/28/18 16:00 Pulse Ox 98 01/28/18 16:00 Intake & Output 01/27/18 01/28/18 01/28/18 18:59 06:59 18:59 Intake Total 3647.937 0493 1859.771 Output Total 325 535 180 Balance 953.244 481 6029.771 Weight 73.6 kg 75 kg Intake: IV 995 1260 325 0.9NS 110 240 20 Dextrose 5%-0.9% NaCl 1, 750 900 75 000 ml @ 75 mls/hr IV . [id number] [facility] with Sodium Bicarb (1 Meq/ml) 150 ml Rx#:[id number] Ertapenem 1 gm In Sodium 150 Chloride 0.9% 50 ml @ 100 mls/hr IVPB DAILY [facility] Rx #:[id number] Furosemide 250 mg In 60 120 80 Sodium Chloride 0.9% 225 ml @ 10 MG/HR 10 mls/hr IVP .Q24H [facility] Rx#: [id number] Sodium Chloride 0.9% 1, 75 000 ml @ 75 mls/hr IV . [id number] [facility] Rx#:[id number] Intake, IV Titration 269.230 4582.771 Amount Amiodarone 450 mg In 250 Dextrose 5% in Water 250 ml @ 1 MG/MIN 33.33 mls/ hr IV .Q7H31M [facility] Rx#: [id number] Furosemide 250 mg In 222.667 Sodium Chloride 0.9% 225 ml @ 10 MG/HR 10 mls/hr IVP .Q24H [facility] Rx#: [id number] Milrinone-D5w Pmx 20 mg 19.421 In Dextrose/Water 1 100ml .bag @ 0.3 MCG/KG/MIN 6. 62 mls/hr IV .Q15H7M [facility] Rx#:[id number] Norepinephrine 16 mg In 264.501 222.104 Sodium Chloride 0.9% 250 ml @ Titrate IV .Q0M [facility] Rx#:[id number] Phytonadione 10 mg In 50 Sodium Chloride 0.9% 50 ml @ 100 mls/hr IVPB ONCE STA Rx#:[id number] Sodium Chloride 0.9% 1, 450 000 ml @ 75 mls/hr IV . [id number] [facility] Rx#:[id number] Oral 340 Output: Urine 325 535 180 Other: Voiding Method Indwelling Catheter Indwelling Catheter Indwelling Catheter # Bowel Movements 1 1 ABP, PAP, CO, CI - Last Documented Arterial Blood Pressure 111/56 - Exam GENERAL: The patient is alert and oriented x3, not in any acute distress. Well developed, well nourished. HEENT: Pupils are round and equally reacting to light. EOMI. No scleral icterus. No conjunctival pallor. Normocephalic, atraumatic. No pharyngeal erythema. No thyromegaly. CARDIOVASCULAR: S1 and S2 present. No murmurs, rubs, or gallops. PULMONARY: Chest is clear to auscultation, no wheezing or crackles. ABDOMEN: Soft, nontender, nondistended, normoactive bowel sounds. No palpable organomegaly. MUSCULOSKELETAL: No joint swelling or deformity. EXTREMITIES: No cyanosis, clubbing, or pedal edema. NEUROLOGICAL: Gross neurological examination did not reveal any focal deficits. SKIN: No rashes. - Labs CBC & Chem 7: 01/28/18 05:35 01/28/18 05:35 Labs: Abnormal Lab Results - Last 24 Hours (Table) 01/27/18 01/27/18 01/28/18 Range/Units 17:26 21:09 04:30 RBC (3.80-5.40) m/uL Hgb (11.4-16.0) gm/dL Hct (34.0-46.0) % MCV (80.0-100.0) fL MCH (25.0-35.0) pg RDW (11.5-15.5) % Plt Count (150-450) k/uL Lymphocytes # (Manual) (1.0-4.8) k/uL Myelocytes # (Manual) (0) k/uL Nucleated RBCs (0-0) /100 WBC PT (9.0-12.0) sec INR (<1.2) Sodium 136 L (137-145) mmol/L Carbon Dioxide 20 L (22-30) mmol/L BUN 76 H (7-17) mg/dL Creatinine 1.75 H (0.52-1.04) mg/dL Glucose 203 H (74-99) mg/dL POC Glucose (mg/dL) 246 H 230 H (75-99) mg/dL Calcium 7.5 L (8.4-10.2) mg/dL Phosphorus 4.9 H (2.5-4.5) mg/dL Total Bilirubin 9.1 H (0.2-1.3) mg/dL AST 386 H (14-36) U/L ALT 346 H (9-52) U/L Alkaline Phosphatase 192 H (38-126) U/L Total Protein 4.5 L (6.3-8.2) g/dL Albumin 2.0 L (3.5-5.0) g/dL 01/28/18 01/28/18 01/28/18 Range/Units 04:30 04:30 05:35 RBC 1.93 L 2.03 L (3.80-5.40) m/uL Hgb 7.4 L D 7.8 L (11.4-16.0) gm/dL Hct 23.4 L 24.6 L (34.0-46.0) % MCV 121.2 H 120.9 H (80.0-100.0) fL MCH 38.3 H 38.4 H (25.0-35.0) pg RDW 26.2 H 26.4 H (11.5-15.5) % Plt Count 12 L* D 16 L* (150-450) k/uL Lymphocytes # (Manual) 0.74 L (1.0-4.8) k/uL Myelocytes # (Manual) 0.06 H (0) k/uL Nucleated RBCs 13 H 7 H (0-0) /100 WBC PT 18.5 H (9.0-12.0) sec INR 2.0 H (<1.2) Sodium (137-145) mmol/L Carbon Dioxide (22-30) mmol/L BUN (7-17) mg/dL Creatinine (0.52-1.04) mg/dL Glucose (74-99) mg/dL POC Glucose (mg/dL) (75-99) mg/dL Calcium (8.4-10.2) mg/dL Phosphorus (2.5-4.5) mg/dL Total Bilirubin (0.2-1.3) mg/dL AST (14-36) U/L ALT (9-52) U/L Alkaline Phosphatase (38-126) U/L Total Protein (6.3-8.2) g/dL Albumin (3.5-5.0) g/dL 01/28/18 01/28/18 01/28/18 Range/Units 05:35 07:48 11:16 RBC (3.80-5.40) m/uL Hgb (11.4-16.0) gm/dL Hct (34.0-46.0) % MCV (80.0-100.0) fL MCH (25.0-35.0) pg RDW (11.5-15.5) % Plt Count (150-450) k/uL Lymphocytes # (Manual) (1.0-4.8) k/uL Myelocytes # (Manual) (0) k/uL Nucleated RBCs (0-0) /100 WBC PT (9.0-12.0) sec INR (<1.2) Sodium 134 L (137-145) mmol/L Carbon Dioxide 21 L (22-30) mmol/L BUN 78 H (7-17) mg/dL Creatinine 1.89 H (0.52-1.04) mg/dL Glucose 227 H (74-99) mg/dL POC Glucose (mg/dL) 223 H 212 H (75-99) mg/dL Calcium 7.9 L (8.4-10.2) mg/dL Phosphorus 5.3 H (2.5-4.5) mg/dL Total Bilirubin (0.2-1.3) mg/dL AST (14-36) U/L ALT (9-52) U/L Alkaline Phosphatase (38-126) U/L Total Protein (6.3-8.2) g/dL Albumin (3.5-5.0) g/dL Microbiology - Last 24 Hours (Table) 01/25/18 01:45 Blood Culture - Preliminary Blood No Growth after 72 hours 01/25/18 01:30 Blood Culture - Preliminary Blood No Growth after 72 hours 01/26/18 17:30 Urine Culture - Final Urine,Catheterized Assessment and Plan Assessment: septic and cardiogenic shock MICHAEL elevated liver enz , possible shock liver Chest pain with Elevated troponin, rule out cardiac cause. 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 Plan: This is a pleasant 67 years old female presents with fatigue and dyspnea, found to have elevated troponin Continue with same treatment. Continue with symptomatic treatment. Resume home medications. Monitor lytes and vitals. Cardiology consult.Hematology/Oncology input for myelodysplastic syndrome and history of leukemia. DVT and GI prophylaxis. pt is mostly has cardiogenic shock is some elements of septic shock , she has signifiant drop of EF to 20% and less. she is on lasix, and oral amiodarone, critical care team are following the case closely DVT prophylaxis: No heparin in view of low platelets GI prophylaxis: Pepcid PT/OT: Hold for now Prognosis is guarded and very poor Further recommendation is based on the clinical course of the patient
[2018-01-28 21:17] LABS: Glucose,Whole Blood 145 mg/dL (75-99)
[2018-01-29] MEDS: AMIODARONE 450 MG in DEXTROSE 5% IN WATER 250 ML IV SCH ×6 (00:12→14:37)
[2018-01-29] MEDS: NOREPINEPHRINE 16 MG in SODIUM CHLORIDE 0.9% 250 ML IV SCH (00:13)
[2018-01-29] MEDS: traMADol 50 MG TAB PO PRN ×3 (02:37→17:34)
[2018-01-29 04:28] LABS: Anisocytosis Marked; HCT 22.9 % (34.0-46.0); HGB 7.1 gm/dL (11.4-16.0); Hypochromasia Marked; MCH 37.5 pg (25.0-35.0); MCHC 31.2 g/dL (31.0-37.0); MCV 120.1 fL (80.0-100.0); Macrocytosis Marked; Mean Platelet Volume 14.9; Poikilocytosis Slight; RBC 1.91 m/uL (3.80-5.40)
[2018-01-29 04:30] LABS: RDW 25.4 % (11.5-15.5)
[2018-01-29 04:31] LABS: Platelet Count 13 k/uL (150-450)
[2018-01-29 04:35] LABS: Calcium 7.7 mg/dL (8.4-10.2); Magnesium 1.7 mg/dL (1.6-2.3); Phosphorus 5.4 mg/dL (2.5-4.5); Potassium 3.6 mmol/L (3.5-5.1); Total Protein 4.6 g/dL (6.3-8.2)
[2018-01-29 05:07] LABS: Myelocytes % 1 %; Neutrophils % (M) 77 %; Nucleated Red Blood Cells 3 /100 WBC (0-0); Total Cells Counted 200
[2018-01-29 05:08] LABS: Lymphocytes # (M) 0.81 k/uL (1.0-4.8); Monocytes # (M) 0.38 k/uL (0-1.0); Myelocytes # (M) 0.05 k/uL (0); Neutrophils # (M) 4.16 k/uL (1.3-7.7); Polychromasia Present; WBC 5.4 k/uL (3.8-10.6)
[2018-01-29] MEDS ORDERED: POTASSIUM CHLORIDE ER 20 MEQ TAB.ER PO STA (06:40)
--- NOTE | 2018-01-29 06:52 | XR ---
EXAMINATION TYPE: XR chest 1V DATE OF EXAM: 01/29/2018 HISTORY: shortness of breath. REFERENCE: Previous study dated 01/28/2018. FINDINGS: There is a battery pack projecting over the left chest. There is a Mediport in place via a right internal jugular approach. Its tip is in the superior vena cava. The heart is enlarged. There are bilateral effusions. There is bibasilar airspace disease. IMPRESSION: NO SIGNIFICANT INTERVAL CHANGE IN THE CHEST.
[2018-01-29 07:12] LABS: Glucose,Whole Blood 109 mg/dL (75-99)
[2018-01-29] MEDS: MAGNESIUM SULFATE-D5W PMX 1 GM in DEXTROSE/WATER 1 100ML.BAG IVPB SCH ×2 (07:22→08:30)
[2018-01-29] MEDS: INSULIN ASPART 100 UNIT/ML 1 ML 10 ML VIAL SQ SCH ×4 (07:30→20:52)
[2018-01-29] MEDS ORDERED: DEXTROSE 5% IN WATER 100 ML with AMIODARONE 150 MG IV ONE (08:15)
--- NOTE | 2018-01-29 08:27 | P.PN ---
Subjective Progress Note Date: 01/29/18 Principal diagnosis: This is a 67-year-old female known with the myelodysplastic syndrome, diabetes mellitus, COPD. Admitted with chest pain has a poor ejection fraction of 20%. She was hypotensive. She has been on dopamine which caused atrial fibrillation and then was changed to milrinone. She is off of it now. Currently she is on Lasix drip, levo fed and amiodranoe drip. She is somewhat anxious. She is on room air. Her urine output is 8 and 60 mL for daily for yesterday and 6 and 50 mL for last 24 hours. Somewhat down. She is in atrial fibrillation again. She complains of pain in her toes. Her toes and feet are cold she is on levo fed. Denies any shortness of breath cough fever chills nausea vomiting diarrhea abdominal pain. She has severe thrombocytopenia but there is no bleeding from any site. Her troponins were 0.22. Objective - Vital Signs Vital signs: Vital Signs Temp 97.9 F 01/29/18 01:00 Pulse 90 01/29/18 07:30 Resp 18 01/29/18 07:30 BP 97/62 01/29/18 07:00 Pulse Ox 94 L 01/29/18 07:30 Intake & Output 01/28/18 01/29/18 01/29/18 18:59 06:59 18:59 Intake Total 2089.771 1443.424 85 Output Total 225 425 30 Balance 9162.787 3456.424 55 Weight 76.8 kg Intake: IV 345 945 85 0.9NS 20 Dextrose 5%-0.9% NaCl 1, 75 000 ml @ 75 mls/hr IV . [id number] [facility] with Sodium Bicarb (1 Meq/ml) 150 ml Rx#:[id number] Ertapenem 1 gm In Sodium 150 Chloride 0.9% 50 ml @ 100 mls/hr IVPB DAILY [facility] Rx #:[id number] Furosemide 250 mg In 100 120 10 Sodium Chloride 0.9% 225 ml @ 10 MG/HR 10 mls/hr IVP .Q24H [facility] Rx#: [id number] Sodium Chloride 0.9% 1, 300 000 ml @ 75 mls/hr IV . [id number] [facility] Rx#:[id number] Sodium Chloride 0.9% 1, 525 75 000 ml @ 75 mls/hr IV . [id number] [facility] Rx#:[id number] Intake, IV Titration 1344.771 448.424 Amount Amiodarone 450 mg In 250 250 Dextrose 5% in Water 250 ml @ 1 MG/MIN 33.33 mls/ hr IV .Q7H31M [facility] Rx#: [id number] Furosemide 250 mg In 222.667 Sodium Chloride 0.9% 225 ml @ 10 MG/HR 10 mls/hr IVP .Q24H [facility] Rx#: [id number] Norepinephrine 16 mg In 222.104 123.424 Sodium Chloride 0.9% 250 ml @ Titrate IV .Q0M [facility] Rx#:[id number] Phytonadione 10 mg In 50 Sodium Chloride 0.9% 50 ml @ 100 mls/hr IVPB ONCE [facility] Rx#:[id number] Sodium Chloride 0.9% 1, 600 75 000 ml @ 75 mls/hr IV . [id number] [facility] Rx#:[id number] Oral 400 50 Output: Urine 225 425 30 Other: Voiding Method Indwelling Catheter Indwelling Catheter # Bowel Movements 1 1 ABP, PAP, CO, CI - Last Documented Arterial Blood Pressure 138/56 Awake alert oriented anxious pale. She is on room air. HEENT exam no JVP neck is supple no facial asymmetry Lungs are clear to auscultation with diminished air entry in the bases Heart sounds are unremarkable for any murmur rub gallop she is in normal sinus rhythm and atrial fibrillation on and off. Currently in atrial fibrillation. Abdomen is soft nontender nondistended Extremity exam was moderate edema. Cool and pale. Neurologically awake alert oriented but generalized weakness - Labs CBC & Chem 7: 01/29/18 04:15 01/29/18 04:15 Labs: Abnormal Lab Results - Last 24 Hours (Table) 01/28/18 01/28/18 01/28/18 Range/Units 11:16 17:16 21:14 RBC (3.80-5.40) m/uL Hgb (11.4-16.0) gm/dL Hct (34.0-46.0) % MCV (80.0-100.0) fL MCH (25.0-35.0) pg RDW (11.5-15.5) % Plt Count (150-450) k/uL Lymphocytes # (Manual) (1.0-4.8) k/uL Myelocytes # (Manual) (0) k/uL Nucleated RBCs (0-0) /100 WBC Carbon Dioxide (22-30) mmol/L BUN (7-17) mg/dL Creatinine (0.52-1.04) mg/dL Glucose (74-99) mg/dL POC Glucose (mg/dL) 212 H 149 H 145 H (75-99) mg/dL Calcium (8.4-10.2) mg/dL Phosphorus (2.5-4.5) mg/dL Total Bilirubin (0.2-1.3) mg/dL AST (14-36) U/L ALT (9-52) U/L Alkaline Phosphatase (38-126) U/L Total Protein (6.3-8.2) g/dL Albumin (3.5-5.0) g/dL 01/29/18 01/29/18 01/29/18 Range/Units 04:15 04:15 07:10 RBC 1.91 L (3.80-5.40) m/uL Hgb 7.1 L (11.4-16.0) gm/dL Hct 22.9 L (34.0-46.0) % MCV 120.1 H (80.0-100.0) fL MCH 37.5 H (25.0-35.0) pg RDW 25.4 H (11.5-15.5) % Plt Count 13 L* (150-450) k/uL Lymphocytes # (Manual) 0.81 L (1.0-4.8) k/uL Myelocytes # (Manual) 0.05 H (0) k/uL Nucleated RBCs 3 H (0-0) /100 WBC Carbon Dioxide 19 L (22-30) mmol/L BUN 77 H (7-17) mg/dL Creatinine 1.94 H (0.52-1.04) mg/dL Glucose 114 H (74-99) mg/dL POC Glucose (mg/dL) 109 H (75-99) mg/dL Calcium 7.7 L (8.4-10.2) mg/dL Phosphorus 5.4 H (2.5-4.5) mg/dL Total Bilirubin 11.0 H (0.2-1.3) mg/dL AST 390 H (14-36) U/L ALT 355 H (9-52) U/L Alkaline Phosphatase 193 H (38-126) U/L Total Protein 4.6 L (6.3-8.2) g/dL Albumin 2.0 L (3.5-5.0) g/dL Microbiology - Last 24 Hours (Table) 01/25/18 01:45 Blood Culture - Preliminary Blood No Growth after 96 hours 01/25/18 01:30 Blood Culture - Preliminary Blood No Growth after 96 hours Assessment and Plan Assessment: Impression 1. Acute kidney injury secondary to cardiorenal syndrome, cardiogenic shock with poor ejection fraction. Currently on levo fed. She is also on Lasix drip. She is on room air and therefore we can try to reduce the Lasix. Hopefully this will improve her intravascular volume and may improve renal perfusion. Her creatinine has gone up slowly to 1.94 2. Mild hyponatremia with sodium 134 secondary to acute kidney injury. Improved to 137 this morning 3. Mild non-gap acidosis, bicarb is down from 21 to 19 and anion gap is and anion gap is up from 9 to 11, secondary to acute kidney injury. Off off bicarbonate drip this morning. Previously she had lactic acidosis with lactic acid in the 3 range. This could still be lactic acidosis as the anion gap has been wearing in her baseline is difficult to ascertain 4. Chest pain with poor ejection fraction possible coronary artery syndrome. Chest pain free 5.. Myelodysplastic syndrome with severe thrombocytopenia. 6. Abnormal liver function tests likely from perfusion. 7. Hypomagnesemia and hypokalemia secondary to diuretic and reduced intake Recommendation. 1. Maintain blood pressure with inotropes as necessary with a mean arterial pressure of about 65. 2. Discontinue Lasix drip and use Lasix 40 mg every 8 hours 3. Check lactic acid with next blood draw 4. Monitor labs on a daily basis 5. Replace magnesium 2 g and potassium 40 mEq Discussed with ICU team Dr. Simental
[2018-01-29] MEDS: MILRINONE-D5W PMX 20 MG in DEXTROSE/WATER 1 100ML.BAG IV SCH (08:40)
[2018-01-29] MEDS: AMIODARONE 200 MG TAB PO SCH (08:41)
[2018-01-29] MEDS: SODIUM BICARBONATE TAB 650 MG TAB PO SCH ×4 (08:44→22:11)
[2018-01-29] MEDS: ERTAPENEM 0.5 GM in SODIUM CHLORIDE 0.9% 50 ML IVPB SCH (08:44)
[2018-01-29] MEDS: PANTOPRAZOLE 40 MG/10 ML VIAL IVP SCH (08:48)
[2018-01-29] MEDS: JADENU 180 MG PO SCH (10:05)
[2018-01-29] MEDS: JADENU PO SCH (10:07)
[2018-01-29] MEDS ORDERED: PHYTONADIONE 5 MG in SODIUM CHLORIDE 0.9% 50 ML IVPB STA (10:18)
--- NOTE | 2018-01-29 10:18 | P.PN ---
Subjective Progress Note Date: 01/29/18 The patient continues on milrinone and Lasix drip. She is obviously jaundiced. There is marked generalized weakness. No overt fevers or chills, nausea or vomiting. She has had some oozing from the triple-lumen catheter sites in the groin. She also had some bleeding from the neck when she pulled out her IV, that resolved with local pressure. There does appear to be some blood in the Keller catheter. Objective - Vital Signs Vital signs: Vital Signs Temp 97.9 F 01/29/18 01:00 Pulse 88 01/29/18 10:00 Resp 22 01/29/18 10:00 BP 93/53 01/29/18 10:00 Pulse Ox 96 01/29/18 10:00 Intake & Output 01/28/18 01/29/18 01/29/18 18:59 06:59 18:59 Intake Total 2089.771 1443.424 590 Output Total 225 425 90 Balance 2181.957 9053.424 500 Weight 76.8 kg Intake: IV 345 945 330 0.9NS 20 Dextrose 5%-0.9% NaCl 1, 75 000 ml @ 75 mls/hr IV . [id number] [facility] with Sodium Bicarb (1 Meq/ml) 150 ml Rx#:[id number] Ertapenem 1 gm In Sodium 150 Chloride 0.9% 50 ml @ 100 mls/hr IVPB DAILY [facility] Rx #:[id number] Furosemide 250 mg In 100 120 30 Sodium Chloride 0.9% 225 ml @ 10 MG/HR 10 mls/hr IVP .Q24H [facility] Rx#: [id number] Sodium Chloride 0.9% 1, 300 000 ml @ 75 mls/hr IV . [id number] [facility] Rx#:[id number] Sodium Chloride 0.9% 1, 525 300 000 ml @ 75 mls/hr IV . [id number] [facility] Rx#:[id number] Intake, IV Titration 1344.771 448.424 200 Amount Amiodarone 450 mg In 250 250 Dextrose 5% in Water 250 ml @ 1 MG/MIN 33.33 mls/ hr IV .Q7H31M [facility] Rx#: [id number] Furosemide 250 mg In 222.667 Sodium Chloride 0.9% 225 ml @ 10 MG/HR 10 mls/hr IVP .Q24H [facility] Rx#: [id number] Magnesium Sulfate-D5w Pmx 200 1 gm In Dextrose/Water 1 100ml.bag @ 100 mls/hr IVPB Q1H [facility] Rx#: [id number] Norepinephrine 16 mg In 222.104 123.424 Sodium Chloride 0.9% 250 ml @ Titrate IV .Q0M [facility] Rx#:[id number] Phytonadione 10 mg In 50 Sodium Chloride 0.9% 50 ml @ 100 mls/hr IVPB ONCE STA Rx#:[id number] Sodium Chloride 0.9% 1, 600 75 000 ml @ 75 mls/hr IV . [id number] [facility] Rx#:[id number] Oral 400 50 60 Output: Urine 225 425 90 Other: Voiding Method Indwelling Catheter Indwelling Catheter # Bowel Movements 1 1 ABP, PAP, CO, CI - Last Documented Arterial Blood Pressure 124/51 - Constitutional General appearance: Present: no acute distress - EENT Eyes: Present: scleral icterus ENT: Present: hearing grossly normal - Respiratory Respiratory: bilateral: diminished - Cardiovascular Rhythm: regular Heart sounds: normal: S1, S2 - Gastrointestinal General gastrointestinal: Present: decreased bowel sounds, soft - Integumentary Integumentary: Present: jaundiced - Neurologic Neurologic: Present: CNII-XII intact - Musculoskeletal Musculoskeletal: Present: generalized weakness, strength equal bilaterally - Psychiatric Psychiatric: Present: A&O x's 3 - Labs CBC & Chem 7: 01/29/18 04:15 01/29/18 04:15 Labs: Abnormal Lab Results - Last 24 Hours (Table) 01/28/18 01/28/18 01/28/18 Range/Units 11:16 17:16 21:14 RBC (3.80-5.40) m/uL Hgb (11.4-16.0) gm/dL Hct (34.0-46.0) % MCV (80.0-100.0) fL MCH (25.0-35.0) pg RDW (11.5-15.5) % Plt Count (150-450) k/uL Lymphocytes # (Manual) (1.0-4.8) k/uL Myelocytes # (Manual) (0) k/uL Nucleated RBCs (0-0) /100 WBC Carbon Dioxide (22-30) mmol/L BUN (7-17) mg/dL Creatinine (0.52-1.04) mg/dL Glucose (74-99) mg/dL POC Glucose (mg/dL) 212 H 149 H 145 H (75-99) mg/dL Calcium (8.4-10.2) mg/dL Phosphorus (2.5-4.5) mg/dL Total Bilirubin (0.2-1.3) mg/dL AST (14-36) U/L ALT (9-52) U/L Alkaline Phosphatase (38-126) U/L Total Protein (6.3-8.2) g/dL Albumin (3.5-5.0) g/dL 01/29/18 01/29/18 01/29/18 Range/Units 04:15 04:15 07:10 RBC 1.91 L (3.80-5.40) m/uL Hgb 7.1 L (11.4-16.0) gm/dL Hct 22.9 L (34.0-46.0) % MCV 120.1 H (80.0-100.0) fL MCH 37.5 H (25.0-35.0) pg RDW 25.4 H (11.5-15.5) % Plt Count 13 L* (150-450) k/uL Lymphocytes # (Manual) 0.81 L (1.0-4.8) k/uL Myelocytes # (Manual) 0.05 H (0) k/uL Nucleated RBCs 3 H (0-0) /100 WBC Carbon Dioxide 19 L (22-30) mmol/L BUN 77 H (7-17) mg/dL Creatinine 1.94 H (0.52-1.04) mg/dL Glucose 114 H (74-99) mg/dL POC Glucose (mg/dL) 109 H (75-99) mg/dL Calcium 7.7 L (8.4-10.2) mg/dL Phosphorus 5.4 H (2.5-4.5) mg/dL Total Bilirubin 11.0 H (0.2-1.3) mg/dL AST 390 H (14-36) U/L ALT 355 H (9-52) U/L Alkaline Phosphatase 193 H (38-126) U/L Total Protein 4.6 L (6.3-8.2) g/dL Albumin 2.0 L (3.5-5.0) g/dL Microbiology - Last 24 Hours (Table) 01/25/18 01:45 Blood Culture - Preliminary Blood No Growth after 96 hours 01/25/18 01:30 Blood Culture - Preliminary Blood No Growth after 96 hours Assessment and Plan (1) Coagulopathy Narrative/Plan: This persists, with INR of 2, despite IV vitamin K supplementation. This is due to liver insufficiency. Continue vitamin K supplementation to prevent worsening at least, since liver function appears to be deteriorating. Current Visit: Yes Status: Acute Code(s): D68.9 - COAGULATION DEFECT, UNSPECIFIED SNOMED Code(s): 14244015 (2) MDS (myelodysplastic syndrome) Narrative/Plan: Blood counts continued to be significantly low. We will transfuse platelets today as she has been having some bleeding. Hemoglobin has slowly declined from 9, into the low 7 range. Transfuse PRBC for hemoglobin less than 7. Current Visit: Yes Status: Chronic Priority: Medium Code(s): D46.9 - MYELODYSPLASTIC SYNDROME, UNSPECIFIED SNOMED Code(s): 182431843 (3) Cardiogenic shock Narrative/Plan: Case was discussed with critical care medicine. The patient's cultures are negative. She continues on antibiotics. At this time sepsis due to infection appears to be less likely per CCM. Therefore at this time, decompensation due to underlying hemochromatosis, acutely precipitated by minor cardiac injury, seems more likely. The patient has improved with aggressive supportive care, and is off pressors at this time. She is continuing to require milrinone for inotropic support. She has evidence of end organ damage, with increasing liver enzymes, and creatinine. She is being followed by nephrology, and is on a Lasix drip with some increase in urine output. Based on the above, prognosis continues to be very guarded. She was advised that the best case scenario would be improvement in cardiac output and blood pressure with ongoing aggressive supportive treatment, to where we start to see recovery of end organ function. Continue current management for CCM and other consultants Current Visit: Yes Status: Acute Code(s): R57.0 - CARDIOGENIC SHOCK SNOMED Code(s): 33145960
--- NOTE | 2018-01-29 11:15 | P.PN ---
Subjective Progress Note Date: 01/29/18 67-year-old female patient with known history of mild dysplasia maintained on a combination of Gleevec and Decadron in addition to history of diabetes, hyperlipidemia and COPD and obstructive sleep apnea. The patient has had chronic complications of mild dysplasia including chronic anemia and thrombocytopenia requiring multiple blood transfusions in the past. The patient came in yesterday to the hospital because of chest pain. She had heaviness in her chest and she had also some increased shortness of breath. No cough. No sputum production. No pleurisy. No hemoptysis. She had a previous echocardiogram that showed a preserved LV function of ejection fraction of 55%. EKG that was performed during this current admission shows some nonspecific ST segment changes. Chest x-ray showed a left-sided pleural effusion. Subsequently the echocardiogram was repeated based on an elevated BNP level of 10,000 and the patient was found to have profound impairment of the LV function with an ejection fraction dropping down to less than 20%. RV is mildly enlarged. There is mild to moderate mitral regurgitation. Moderate pulmonary hypertension with a PA pressure of around 39. The IVC is dilated and there is poor respiratory collapse consistent with estimated right atrial pressure of about 15. There is also a moderate degree of pleural effusion on the left. Troponins were 0.2 0.2 respectively 2. The patient was seen by cardiology. Conservative management was recommended based on her comorbidities and chronic, cytopenia. Around 3 AM this morning, the patient becomes progressively more hypotensive. Her lactic acid was slightly elevated at 2.5 and 2.1. The patient was given a total of 3 L of IV fluids. She coaches for to the ICU. Artline catheter was inserted. She is currently on 20 mics of norepinephrine infusion for blood pressure support. Urine output is also drop. Morning blood work shows a non-anion gap metabolic acidosis with a bicarb level of 18, anion gap of 9, creatinine of 1.1, and the white cell count is at 3.8 with hemoglobin of 9.4. The patient is awake. She is a poor historian. I think she does have an underlying dementia. She does not have a good recollection of the events that led to her coming to the hospital. No she is much aware of her past medical history. LFTs were slightly abnormal yet that is no acute abnormalities on the ultrasound of the liver and gallbladder. The patient has a Mediport and the patient also has a vagal nerve stimulator. No skin rashes. No open wounds or ulceration. No abdominal distention. No nausea. No vomiting. Extremities are somewhat cold and clammy at this point with diminished pulses. On 01/27/2000 milligrams in this patient for a follow-up. As mentioned, the patient got into the intensive care unit because of profound hypotension. Further workup showed a drop in the left with an ejection fraction which was measured to be less than 20%. As such this shock is most likely of a cardiogenic in nature. I also cover this patient for her septic shock knowing that she has had infections in the past with ESBL producing organisms and MRSA. I cover this patient with a combination of Invanz and vancomycin. Nevertheless, the cultures of been negative and the patient has not spiked any fever and a white cell count is at 6.7. The patient was given volume and she responded initially in the pressors dose was gradually wean down to 10-15 mics per norepinephrine infusion per minute. This morning, the she was noted to have a lower urine output. She was given a dose of Lasix. Subsequently was advised to give her dobutamine. Following dobutamine administration, the patient went into atrial fibrillation with rapid ventricular response and he she became hypotensive with systolic blood pressure dropped in the mid 70s. I was about to give the patient amiodarone. During this time the patient converted back to normal sinus rhythm after dobutamine was discontinued. Blood pressure subsequently improved. She is receiving a bicarb infusion knowing that she has a component of non-anion gap metabolic acidosis and this is running at the rate of 75 mL an hour. She has developed an acute kidney injury , probably related to her hypotension and cardiorenal factors. Creatinine is up to 1.5 and a BNP is at 64. Urine output is nor that of 20 mL an hour. Chest x-ray shows some worsening in the volume status and the patient has developed small better pleural effusion and a component of 4 vessel congestion. She is currently on room air oxygen and her pulse ox is above 90%. No chest pain. No angina. Hematologic profile is consistent with myelodysplasia. Her liver function is also worse. Bilirubin is up to 5.9. She had an AST of 297 with a ALP of 306 with an phosphatase of 27. Albumin Is at 2.5. INR Is at 1.8 with a PT of 16.7. Most Recent Lactic Acid Level Is at 3.7. On 01/27/2018, Penny is being seen for a follow-up. The patient is doing poorly and she is in cardiogenic shock. I discussed this case at length with cardiology. Note that yesterday there was an attempt to put the patient on dobutamine however this attempt failed as the patient became tachycardic and she went into atrial fibrillation with rapid ventricular response. Based on that, dobutamine was stopped and the patient subsequently went back to normal sinus rhythm. On and off she was having still some runs of atrial fibrillation. The patient is awake and alert. She is on room air oxygen. Chest x-ray is showing cardiomegaly and small bilateral pleural effusion and pulmonary asked her congestion and early edema. Hemodynamically she has hypotensive and she has required pressors and currently she is on norepinephrine infusion running at 50 g per KG per minute. Urine output has been low in the order of 20 mL an hour and this was obviously a concern throughout the night. She was given fluid boluses and the net fluid balance is +3.5 L over the past 24 hours yet this was not enough to improve the urine output nor for the blood pressure. The patient is cold and clammy and she has diminished pulses. She has also developed an acute kidney injury in the creatinine is up to 1.8 and the patient has a component of anion and non-anion gap metabolic acidosis. Anion gap is at 16 with a bicarb level of 12 and the patient's creatinine is at 72 with a creatinine of 1.8. Nephrology saw the patient and patient was started on bicarb drip that liver function tests are improving gradually getting worse. Bilirubin is up to 8.7. AST is at 352 with an ALT of sounds 63. Albumin is down to 2.9. The calcium level is at 8.6. Today's potassium level is at 5.3 and the sodium is 139. Sugar is at 193. She is afebrile. The patient's cultures of been all negative. Stop the vancomycin. I kept the patient on IV Invanz as an empiric antibiotic coverage. The patient remains quite thrombocytopenic regarding her underlying lung some mild dysplasia. 01/28 of seeing this patient for a follow-up. She remains critically ill and sick. She remains in cardiogenic shock. She was attempted on Primacor drip yesterday and as dose was being titrated, the patient went into atrial fibrillation with rapid ventricular response. Her heart rate was in the 140s in the 150s range. The patient accordingly was taken off the Primacor. Amiodarone was restarted in the form of an infusion currently she is on 0.5 mg per minute and last night she converted back to normal sinus rhythm. She is on Lasix drip at 10 mg an hour. Urine output is around 10-20 mL an hour. She remains on a bicarb drip at the rate of 75 mL an hour and the patient's serum bicarbs up to 21. She is oliguric. Urine output is diminished. The net fluid balance is order of +1.8 L for yesterday. She is still on norepinephrine infusion running at 18 g per KG per minute. Clinically, she is awake and alert. No significant respiratory distress. She is on room air oxygen. No nausea. No vomiting. No abdominal pain. She has some increased edema both in upper and lower extremity. Follow-up chest x-ray from today shows small bilateral pleural effusion and cardiomegaly. Meanwhile, the patient's hemoglobin is at 7.8, platelet counts is 16,000, creatinine is at 1.89, LFTs are abnormal with an AST of 386, ALT of 346, bilirubin of 9.1. Stool for C. diff is negative. IV antibiotics include Invanz. As an empiric antibiotic coverage. Coagulation profile is off and the patient has some mild coagulopathy with an INR of 2.0 and a PT of 18.5 no chest pain. No fever. No altered mentation. No other complaints otherwise for now. Cardiology is on the case. Hematology oncology is on the case. The findings on the case. On 01/29/2018, the patient is doing poorly still. She is having diffuse body aches mainly in lower extremities bilaterally. She is cold and clammy and diminished pulses in the feet and somewhat cyanotic. She is nauseated. No chest pain. No significant shortness of breath. She is having episodes of atrial fibrillation with rapid ventricular response. After converting back to normal sinus rhythm the patient went again to A. fib RVR and she is going back and forth. She remains on amiodarone drip for age of fibrillation at the rate of 0.5 mg per minute. She is also on pressors and she is on norepinephrine infusion at 50 g per KG per minute. This was further weaned down to 30 g. Urine output is low. The patient is not producing much of urine output. She is progressively getting more edematous especially in the upper and lower extremities bilaterally. No chest pain. No altered mentation. She is progressively more jaundiced. Liver function tests progressively getting worse. Renal function is also progressively getting worse with a creatinine of 1.94 and the patient has a component of non-anion gap metabolic acidosis with a bicarb level of 19. The patient is currently on Lasix drip at 10 mg an hour. Discussed the case with nephrology and we decided to consult on the diuresis and put the patient on Lasix 40 mg IV push every 8 hours. No fever. No chills. No aspiration. Chest x-ray is consistent with CHF and cardiomegaly. Unfortunately not much of her progress has been done this patient's case. His hematologic profile is also significantly abnormal with the plated count of 13 and a hemoglobin of 7.1. Objective - Vital Signs Vital signs: Vital Signs Temp 97.9 F 01/29/18 01:00 Pulse 88 01/29/18 10:00 Resp 22 01/29/18 10:00 BP 93/53 01/29/18 10:00 Pulse Ox 96 01/29/18 10:00 Intake & Output 01/28/18 01/29/18 01/29/18 18:59 06:59 18:59 Intake Total 2089.771 1443.424 590 Output Total 225 425 90 Balance 1220.249 8380.424 500 Weight 76.8 kg Intake: IV 345 945 330 0.9NS 20 Dextrose 5%-0.9% NaCl 1, 75 000 ml @ 75 mls/hr IV . [id number] [facility] with Sodium Bicarb (1 Meq/ml) 150 ml Rx#:[id number] Ertapenem 1 gm In Sodium 150 Chloride 0.9% 50 ml @ 100 mls/hr IVPB DAILY [facility] Rx #:[id number] Furosemide 250 mg In 100 120 30 Sodium Chloride 0.9% 225 ml @ 10 MG/HR 10 mls/hr IVP .Q24H [facility] Rx#: [id number] Sodium Chloride 0.9% 1, 300 000 ml @ 75 mls/hr IV . [id number] [facility] Rx#:[id number] Sodium Chloride 0.9% 1, 525 300 000 ml @ 75 mls/hr IV . [id number] [facility] Rx#:[id number] Intake, IV Titration 1344.771 448.424 200 Amount Amiodarone 450 mg In 250 250 Dextrose 5% in Water 250 ml @ 1 MG/MIN 33.33 mls/ hr IV .Q7H31M [facility] Rx#: [id number] Furosemide 250 mg In 222.667 Sodium Chloride 0.9% 225 ml @ 10 MG/HR 10 mls/hr IVP .Q24H [facility] Rx#: [id number] Magnesium Sulfate-D5w Pmx 200 1 gm In Dextrose/Water 1 100ml.bag @ 100 mls/hr IVPB Q1H [facility] Rx#: [id number] Norepinephrine 16 mg In 222.104 123.424 Sodium Chloride 0.9% 250 ml @ Titrate IV .Q0M [facility] Rx#:[id number] Phytonadione 10 mg In 50 Sodium Chloride 0.9% 50 ml @ 100 mls/hr IVPB ONCE STA Rx#:[id number] Sodium Chloride 0.9% 1, 600 75 000 ml @ 75 mls/hr IV . [id number] [facility] Rx#:[id number] Oral 400 50 60 Output: Urine 225 425 90 Other: Voiding Method Indwelling Catheter Indwelling Catheter # Bowel Movements 1 1 ABP, PAP, CO, CI - Last Documented Arterial Blood Pressure 124/51 - Exam Gen. appearance, comfortable awake following commands and answering questions. not acute distress. Not agitated. The patient is jaundiced Head exam was generally normal. There was scleral icterus / corneal arcus. Mucous membranes were moist. Neck was supple and with jugular venous distension, thyromegaly, or carotid bruits. Carotids were easily palpable bilaterally. There was no adenopathy. Lungs sounds are diminished bilaterally especially left lung base along with dullness to percussion. There are crackles in lung bases bilaterally. Heart sounds are regular, positive S1-S2 and there is no significant murmurs appreciated. The patient has a Mediport over the right anterior chest area. A nerve stimulator is also present over the left lateral chest area also. Abdominal exam revealed normal bowel sounds. The abdomen was soft, non-tender, and without masses, organomegaly, or appreciable enlargement of the abdominal aorta. Examination of the extremities revealed diminished pulses in the radial, femoral and pedal pulses. There was no cyanosis, clubbing and there is increased edema both in the upper and lower extremities bilaterally. The patient has a Artline catheter in the left femoral artery and the patient has a triple lumen catheter in the right femoral artery. Examination of the skin revealed no evidence of significant rashes, suspicious appearing nevi or other concerning lesions. Neurologic patient will go proximity is without any focal limitation. - Labs CBC & Chem 7: 01/29/18 04:15 01/29/18 04:15 Labs: Abnormal Lab Results - Last 24 Hours (Table) 01/28/18 01/28/18 01/28/18 Range/Units 11:16 17:16 21:14 RBC (3.80-5.40) m/uL Hgb (11.4-16.0) gm/dL Hct (34.0-46.0) % MCV (80.0-100.0) fL MCH (25.0-35.0) pg RDW (11.5-15.5) % Plt Count (150-450) k/uL Lymphocytes # (Manual) (1.0-4.8) k/uL Myelocytes # (Manual) (0) k/uL Nucleated RBCs (0-0) /100 WBC Carbon Dioxide (22-30) mmol/L BUN (7-17) mg/dL Creatinine (0.52-1.04) mg/dL Glucose (74-99) mg/dL POC Glucose (mg/dL) 212 H 149 H 145 H (75-99) mg/dL Calcium (8.4-10.2) mg/dL Phosphorus (2.5-4.5) mg/dL Total Bilirubin (0.2-1.3) mg/dL AST (14-36) U/L ALT (9-52) U/L Alkaline Phosphatase (38-126) U/L Total Protein (6.3-8.2) g/dL Albumin (3.5-5.0) g/dL 01/29/18 01/29/18 01/29/18 Range/Units 04:15 04:15 07:10 RBC 1.91 L (3.80-5.40) m/uL Hgb 7.1 L (11.4-16.0) gm/dL Hct 22.9 L (34.0-46.0) % MCV 120.1 H (80.0-100.0) fL MCH 37.5 H (25.0-35.0) pg RDW 25.4 H (11.5-15.5) % Plt Count 13 L* (150-450) k/uL Lymphocytes # (Manual) 0.81 L (1.0-4.8) k/uL Myelocytes # (Manual) 0.05 H (0) k/uL Nucleated RBCs 3 H (0-0) /100 WBC Carbon Dioxide 19 L (22-30) mmol/L BUN 77 H (7-17) mg/dL Creatinine 1.94 H (0.52-1.04) mg/dL Glucose 114 H (74-99) mg/dL POC Glucose (mg/dL) 109 H (75-99) mg/dL Calcium 7.7 L (8.4-10.2) mg/dL Phosphorus 5.4 H (2.5-4.5) mg/dL Total Bilirubin 11.0 H (0.2-1.3) mg/dL AST 390 H (14-36) U/L ALT 355 H (9-52) U/L Alkaline Phosphatase 193 H (38-126) U/L Total Protein 4.6 L (6.3-8.2) g/dL Albumin 2.0 L (3.5-5.0) g/dL Microbiology - Last 24 Hours (Table) 01/25/18 01:45 Blood Culture - Preliminary Blood No Growth after 96 hours 01/25/18 01:30 Blood Culture - Preliminary Blood No Growth after 96 hours Assessment and Plan Plan: Assessment 1 cardiogenic shock with signs of multisystem organ failure. The patient has failed inotropes due to complications of A. fib/RVR. She remains in multisystem organ failure with progressive worsening in the renal and hepatic function. Unfortunately the urine output remains low. The patient is still requiring pressors currently on norepinephrine infusion at 13 g per KG per minute. Chest x-ray is consistent with CHF and cardiomegaly and bilateral pleural effusion. 2 metabolic acidosis , of a non-anion gap type. Serum bicarb is at 19. 3 CHF with impairment ejection fraction of less than 20% 4 questionable non-ST segment elevation myocardial infarction based on elevated troponins 5 paroxysmal atrial fibrillation and the patient is going back and forth between sinus rhythm and atrial fibrillation 6 myelodysplasia with chronic anemia and thrombocytopenia, maintained on Revlimid and Decadron outpatient basis 7 acute kidney injury, secondary to low cardiac output state and cardiorenal factors. Patient remains oliguric. 8 diabetes mellitus type 2 9 COPD 10 vagal nerve stimulator 11 Mediport 12 previous history of infection with Enterobacter and MRSA and these are essentially urine checked infections occurred back in 11/02/2017 and 02/08/2017 respectively 13 obstructive sleep apnea 14 acute hepatic insufficiency with elevated bilirubins and LFTs secondary to above, and there is been an underlying coagulopathy in association with hepatic dysfunction. 15 severe thrombocytopenia 16 chronic anemia Plan We'll continue the supportive care. I think we'll gradually losing ground on this patient was an obvious cardiogenic shock. Based on cardiology, nothing much can be offered to this patient at this point in time. She may have a component of hemochromatosis involving her heart and probably she went into acute decompensated heart failure following her most recent non-ST segment elevation myocardial infarction. She has a very poor EF. She has signs of multisystem organ failure. She is pressor dependent. The treatment essentially supportive. The poor prognosis was explained to the patient's . Lasix has been switched to IV push as per nephrology. We'll continue to follow and will need to address her CODE STATUS also.
[2018-01-29] MEDS: SODIUM CHLORIDE 0.9% 1,000 ML IV SCH (11:19)
[2018-01-29 11:26] LABS: Glucose,Whole Blood 161 mg/dL (75-99)
[2018-01-29 13:55] LABS: Prothrombin Time 18.5 sec (9.0-12.0)
--- NOTE | 2018-01-29 14:25 | P.PN ---
Subjective This is a pleasant 67 years old female with past medical history of COPD, insulin-dependent diabetes mellitus, GERD, sleep apnea , myelodysplastic syndrome, leukemia on chemotherapy, blood transfusion reaction [times/itching] and MRSA infection. Presents because of chest pain on the left side, nonradiating, comes and goes over the last 2 days associated with dyspnea, orthopnea and generalized weakness. Patient denies any change in urine or bowel habits. She denies fever. And emergency room patient was noticed to be slightly tachycardic at 102-103. TROPONIN WERE ELEVATED AT 0.191, PREVIOUS TROPONIN WERE 0.08 AND 0.04 ON 2017. WBC 4.4, HEMOGLOBIN 8.9. PLATELETS LOW AT 24 01/24/2018 Patient feels a little better, she still have some chest discomfort and still dyspneic. No change in mental status. No fever. Labs reviewed showing pancytopenia with a drop in platelets 219. WBC 3.7K and hemoglobin 8.7. Oncology team evaluated patient and recommended to transfuse platelets when less than 10 K however no need for more chemotherapy, transfuse as needed and follow-up as an outpatient, however they recommended aren't chilly tip therapy with GA DD continue for iron overload from previous multiple red blood cell transfusions. Cardiology was consulted evaluated the patient We'll check liver ultrasound and hepatitis panel. We'll consult GI DC IV fluids as per cardiology 01/25/2018 last night pt BP start dropping with systolic blood pressure in 70-80s. depsite fluis boluses , pt was transfered to the ICU with she had central line placed and pt was started on norepinephrine drip and her Blood pressure improved today , pt lethargy and generalized weakness are improved too. pt antibiotic were changed from aztreonam to vancomycin iv and invanze as per critical care team for pt is with septic shock . combined with cardiogenic shock in view of drop in her EF from 55% to 20% during this admission. also pt is found to have elevated creatinine ahd hyperkalemia , nephrology team were consulted too . liver enz are elevated with negative liver US , GI team evaluation is appreciated 01/26/2018 pt is still on shock state, mostly cardiogenic shock , pt is on norepinephrine drip , pt lethargy and generalized weakness are improved too. however pt remains confused. pt antibiotic were changed from aztreonam to vancomycin iv and invanze as per critical care team for pt is with septic shock. combined with cardiogenic shock in view of drop in her EF from 55% to 20% during this admission. also pt is found to have elevated creatinine ahd hyperkalemia , nephrology team were consulted too . liver enz are elevated with negative liver US ,pt is making 90 cc of urine in the last 2 hours (45 Ml/hr) 01/27/2018 pt was lying in bed , she was awake and interactive however she was slightly confused , was at bed side . pt denies chest pain . she is still lethargic. however her blood pressure is improved . pt is on antibiotic. she is also was started on lasix drip and oral amiodarone for her arrhythmia . cultures are pending . his elevated liver enz is mostly due to shock state , she has negative liver US however liver enz and creatinine are worsening , creatinine up to 1.8 . pt is still with high lactic acid , hemoglobin is stable , no leukocytosis but INR is 2.0 . Platelets 16 K 01/28/2018 pt was lying in bed , confused pt denies chest pain . she is still lethargic. however her blood pressure is improved . pt is on antibiotic. she is on oral amiodarone and drip for her arrhythmia. Continue with lasix drip. Cardiology are following the case. cultures are pending . his elevated liver enz is mostly due to shock state , she has negative liver US . creatinine up to 1.8 . pt is still with high lactic acid , hemoglin is stable , no leukocytosis but INR is 2.0 01/29/2018 pt was lying in bed , she is awake and answers questions appropriately however she still confused , she she is more tachypneic and congested today with some chest pain. No swelling and jaundice more pronounced . . she is still lethargic. however her blood pressure is improved . Critical care team are following the patient closely. pt is on antibiotic. she is on oral amiodarone and drip for her arrhythmia. Patient on IV Lasix. Nephrology team is consulted. Cardiology are following the case. cultures are pending . her elevated liver enz is mostly due to shock state , she has negative liver US . creatinine up to 1.9 . pt is still with high lactic acid , hemoglin is stable , no leukocytosis but INR is 2.0 . Prognosis is extremely poor. Family are not at bedside medications: Jadenu, Epoetin Chris, norepinephrine , zofran, protonix, novolg, ertapenem, iv vancomyin , and amiodarone Objective - Vital Signs Vital signs: Vital Signs Temp 97.2 F L 01/29/18 12:00 Pulse 87 01/29/18 13:00 Resp 19 01/29/18 13:00 BP 91/62 01/29/18 13:00 Pulse Ox 94 L 01/29/18 13:00 Intake & Output 01/28/18 01/29/18 01/29/18 18:59 06:59 18:59 Intake Total 2089.771 1530.277 3303 Output Total 225 425 135 Balance 8446.394 5667.424 885 Weight 76.8 kg Intake: IV 345 945 630 0.9NS 20 Dextrose 5%-0.9% NaCl 1, 75 000 ml @ 75 mls/hr IV . [id number] [facility] with Sodium Bicarb (1 Meq/ml) 150 ml Rx#:[id number] Ertapenem 1 gm In Sodium 150 Chloride 0.9% 50 ml @ 100 mls/hr IVPB DAILY [facility] Rx #:[id number] Furosemide 250 mg In 100 120 30 Sodium Chloride 0.9% 225 ml @ 10 MG/HR 10 mls/hr IVP .Q24H [facility] Rx#: [id number] Sodium Chloride 0.9% 1, 300 000 ml @ 75 mls/hr IV . [id number] [facility] Rx#:[id number] Sodium Chloride 0.9% 1, 525 600 000 ml @ 75 mls/hr IV . [id number] [facility] Rx#:[id number] Intake, IV Titration 1344.771 448.424 300 Amount Amiodarone 450 mg In 250 250 Dextrose 5% in Water 250 ml @ 1 MG/MIN 33.33 mls/ hr IV .[id number] [facility] Rx#: [id number] Furosemide 250 mg In 222.667 Sodium Chloride 0.9% 225 ml @ 10 MG/HR 10 mls/hr IVP .Q24H [facility] Rx#: [id number] Magnesium Sulfate-D5w Pmx 200 1 gm In Dextrose/Water 1 100ml.bag @ 100 mls/hr IVPB Q1H [facility] Rx#: [id number] Norepinephrine 16 mg In 222.104 123.424 Sodium Chloride 0.9% 250 ml @ Titrate IV .Q0M [facility] Rx#:[id number] Phytonadione 10 mg In 50 Sodium Chloride 0.9% 50 ml @ 100 mls/hr IVPB ONCE [facility] Rx#:[id number] Phytonadione 5 mg In 100 Sodium Chloride 0.9% 50 ml @ 100 mls/hr IVPB ONCE [facility] Rx#:[id number] Sodium Chloride 0.9% 1, 600 75 000 ml @ 75 mls/hr IV . [id number] [facility] Rx#:[id number] Oral 400 50 90 Output: Urine 225 425 135 Other: Voiding Method Indwelling Catheter Indwelling Catheter # Bowel Movements 1 1 1 ABP, PAP, CO, CI - Last Documented Arterial Blood Pressure 130/52 - Exam GENERAL: The patient is alert and oriented x3, not in any acute distress. Well developed, well nourished. HEENT: Pupils are round and equally reacting to light. EOMI. No scleral icterus. No conjunctival pallor. Normocephalic, atraumatic. No pharyngeal erythema. No thyromegaly. CARDIOVASCULAR: S1 and S2 present. No murmurs, rubs, or gallops. PULMONARY: Chest is clear to auscultation, no wheezing or crackles. ABDOMEN: Soft, nontender, nondistended, normoactive bowel sounds. No palpable organomegaly. MUSCULOSKELETAL: No joint swelling or deformity. EXTREMITIES: No cyanosis, clubbing, or pedal edema. NEUROLOGICAL: Gross neurological examination did not reveal any focal deficits. SKIN: No rashes. - Labs CBC & Chem 7: 01/29/18 04:15 01/29/18 04:15 Labs: Abnormal Lab Results - Last 24 Hours (Table) 01/28/18 01/28/18 01/29/18 Range/Units 17:16 21:14 04:15 RBC (3.80-5.40) m/uL Hgb (11.4-16.0) gm/dL Hct (34.0-46.0) % MCV (80.0-100.0) fL MCH (25.0-35.0) pg RDW (11.5-15.5) % Plt Count (150-450) k/uL Lymphocytes # (Manual) (1.0-4.8) k/uL Myelocytes # (Manual) (0) k/uL Nucleated RBCs (0-0) /100 WBC PT (9.0-12.0) sec INR (<1.2) Carbon Dioxide 19 L (22-30) mmol/L BUN 77 H (7-17) mg/dL Creatinine 1.94 H (0.52-1.04) mg/dL Glucose 114 H (74-99) mg/dL POC Glucose (mg/dL) 149 H 145 H (75-99) mg/dL Calcium 7.7 L (8.4-10.2) mg/dL Phosphorus 5.4 H (2.5-4.5) mg/dL Total Bilirubin 11.0 H (0.2-1.3) mg/dL AST 390 H (14-36) U/L ALT 355 H (9-52) U/L Alkaline Phosphatase 193 H (38-126) U/L Total Protein 4.6 L (6.3-8.2) g/dL Albumin 2.0 L (3.5-5.0) g/dL 01/29/18 01/29/18 01/29/18 Range/Units 04:15 07:10 11:25 RBC 1.91 L (3.80-5.40) m/uL Hgb 7.1 L (11.4-16.0) gm/dL Hct 22.9 L (34.0-46.0) % MCV 120.1 H (80.0-100.0) fL MCH 37.5 H (25.0-35.0) pg RDW 25.4 H (11.5-15.5) % Plt Count 13 L* (150-450) k/uL Lymphocytes # (Manual) 0.81 L (1.0-4.8) k/uL Myelocytes # (Manual) 0.05 H (0) k/uL Nucleated RBCs 3 H (0-0) /100 WBC PT (9.0-12.0) sec INR (<1.2) Carbon Dioxide (22-30) mmol/L BUN (7-17) mg/dL Creatinine (0.52-1.04) mg/dL Glucose (74-99) mg/dL POC Glucose (mg/dL) 109 H 161 H (75-99) mg/dL Calcium (8.4-10.2) mg/dL Phosphorus (2.5-4.5) mg/dL Total Bilirubin (0.2-1.3) mg/dL AST (14-36) U/L ALT (9-52) U/L Alkaline Phosphatase (38-126) U/L Total Protein (6.3-8.2) g/dL Albumin (3.5-5.0) g/dL 01/29/18 Range/Units 13:30 RBC (3.80-5.40) m/uL Hgb (11.4-16.0) gm/dL Hct (34.0-46.0) % MCV (80.0-100.0) fL MCH (25.0-35.0) pg RDW (11.5-15.5) % Plt Count (150-450) k/uL Lymphocytes # (Manual) (1.0-4.8) k/uL Myelocytes # (Manual) (0) k/uL Nucleated RBCs (0-0) /100 WBC PT 18.5 H (9.0-12.0) sec INR 2.0 H (<1.2) Carbon Dioxide (22-30) mmol/L BUN (7-17) mg/dL Creatinine (0.52-1.04) mg/dL Glucose (74-99) mg/dL POC Glucose (mg/dL) (75-99) mg/dL Calcium (8.4-10.2) mg/dL Phosphorus (2.5-4.5) mg/dL Total Bilirubin (0.2-1.3) mg/dL AST (14-36) U/L ALT (9-52) U/L Alkaline Phosphatase (38-126) U/L Total Protein (6.3-8.2) g/dL Albumin (3.5-5.0) g/dL Microbiology - Last 24 Hours (Table) 01/25/18 01:45 Blood Culture - Preliminary Blood No Growth after 96 hours 01/25/18 01:30 Blood Culture - Preliminary Blood No Growth after 96 hours Assessment and Plan Assessment: septic and cardiogenic shock MICHAEL elevated liver enz , possible shock liver Chest pain with Elevated troponin, rule out cardiac cause. piano assembler is consulted Fatigue and dyspnea h/o COPD insulin-dependent diabetes mellitus Iron overload from previous multiple blood transfusions GERD sleep apnea h/o myelodysplastic syndrome Pancytopenia with Chronic anemia and thrombocytopenia h/o blood transfusion reaction [times/itching] h/o MRSA infection. Plan: This is a pleasant 67 years old female presents with fatigue and dyspnea, found to have elevated troponin Continue with same treatment. Continue with symptomatic treatment. Resume home medications. Monitor lytes and vitals. Cardiology consult.Hematology/Oncology input for myelodysplastic syndrome and history of leukemia. DVT and GI prophylaxis. pt is mostly has cardiogenic shock is some elements of septic shock , she has signifiant drop of EF to 20% and less. she is on lasix, and oral amiodarone, critical care team are following the case closely DVT prophylaxis: No heparin in view of low platelets GI prophylaxis: Pepcid PT/OT: Hold for now Prognosis is guarded and very poor Further recommendation is based on the clinical course of the patient
[2018-01-29] MEDS: FUROSEMIDE 10 MG/ML 4 ML VIAL IV SCH (15:58)
[2018-01-29 17:11] LABS: Glucose,Whole Blood 131 mg/dL (75-99)
[2018-01-29 20:48] LABS: Glucose,Whole Blood 146 mg/dL (75-99)
[2018-01-30] MEDS: SODIUM CHLORIDE 0.9% 1,000 ML IV SCH (00:13)
[2018-01-30] MEDS: FUROSEMIDE 10 MG/ML 4 ML VIAL IV SCH ×3 (00:14→15:22)
[2018-01-30] MEDS: NOREPINEPHRINE 16 MG in SODIUM CHLORIDE 0.9% 250 ML IV SCH ×2 (00:25→21:30)
[2018-01-30] MEDS ORDERED: DILTIAZEM 50 MG in SODIUM CHLORIDE 0.9% 40 ML IV SCH (04:45)
[2018-01-30 05:17] LABS: Anisocytosis Marked; Basophils % (A) 0 %; Eosinophils % (A) 1 %; HCT 22.7 % (34.0-46.0); HGB 7.2 gm/dL (11.4-16.0); Hypochromasia Marked; Lymphocytes # (A) 1.3 k/uL (1.0-4.8); Lymphocytes % (A) 25 %; MCH 39.4 pg (25.0-35.0); MCHC 31.6 g/dL (31.0-37.0); MCV 124.6 fL (80.0-100.0); Macrocytosis Marked; Mean Platelet Volume 13.7; Monocytes # (A) 0.2 k/uL (0-1.0); Monocytes % (A) 5 %; Neutrophils # (A) 3.5 k/uL (1.3-7.7); Neutrophils % (A) 68 %; Poikilocytosis Slight; RBC 1.82 m/uL (3.80-5.40); WBC 5.1 k/uL (3.8-10.6)
[2018-01-30] MEDS: AMIODARONE 450 MG in DEXTROSE 5% IN WATER 250 ML IV SCH ×4 (05:17→17:43)
[2018-01-30 05:21] LABS: Platelet Count 14 k/uL (150-450); RDW 25.6 % (11.5-15.5)
[2018-01-30 05:28] LABS: Calcium 7.8 mg/dL (8.4-10.2); Magnesium 2.1 mg/dL (1.6-2.3); Phosphorus 6.4 mg/dL (2.5-4.5); Potassium 4.5 mmol/L (3.5-5.1); Total Bilirubin 11.6 mg/dL (0.2-1.3); Total Protein 4.6 g/dL (6.3-8.2)
[2018-01-30 06:03] LABS: Target Cells Present
[2018-01-30 06:05] LABS: Howell-Jolly Bodies Present
[2018-01-30 07:53] LABS: Glucose,Whole Blood 144 mg/dL (75-99)
[2018-01-30] MEDS: ERTAPENEM 0.5 GM in SODIUM CHLORIDE 0.9% 50 ML IVPB SCH (08:17)
[2018-01-30] MEDS: INSULIN ASPART 100 UNIT/ML 1 ML 10 ML VIAL SQ SCH ×4 (08:17→21:22)
[2018-01-30] MEDS: PANTOPRAZOLE 40 MG/10 ML VIAL IVP SCH (08:18)
[2018-01-30] MEDS: SODIUM BICARBONATE TAB 650 MG TAB PO SCH ×3 (08:18→21:26)
--- NOTE | 2018-01-30 08:31 | XR ---
EXAMINATION TYPE: XR chest 1V DATE OF EXAM: 01/30/2018 HISTORY: Shortness of breath. COMPARISON: 01/29/2018 TECHNIQUE: Single view of the chest is submitted. FINDINGS: Demonstrated are scattered senescent parenchymal change. Basilar pleural effusions and underlying infiltrates and/or atelectasis remains stable. Continued car diomegaly. Hilar and mediastinal structures are within normal limits. Degenerative changes are seen of the dorsal spine. IMPRESSION: 1. Basilar pleural effusions and underlying infiltrates and/or atelectasis remains stable. Continued cardiomegaly.
[2018-01-30] MEDS: JADENU 180 MG PO SCH (08:36)
[2018-01-30] MEDS: JADENU PO SCH (08:36)
[2018-01-30 09:33] LABS: T4, Free (Free Thyroxine) 2.87 ng/dL (0.78-2.19)
[2018-01-30] MEDS: HYDROmorphone 1 MG/ML 1 ML SYRINGE IVP PRN ×2 (09:58→13:20)
--- NOTE | 2018-01-30 10:06 | P.PN ---
Subjective Patient is seen in follow-up for acute kidney injury. Renal function is worsening with creatinine up to 2.17 today. Patient was noted to have systolic CHF with ejection fraction of less than 20%. Patient developed atrial fibrillation with Primacor which has now been discontinued. She's now on IV amiodarone. Urine output is about 20 mL an hour. She is currently receiving Lasix 40 mg IV 3 times daily and is also on normal saline at 75 mL an hour. Oral intake is poor. She is on 10 mics of Levophed. Vital signs are stable. Currently on 10 mics of Levophed. General: The patient appeared well nourished and normally developed. HEENT: Head exam is unremarkable. Neck is without jugular venous distension. LUNGS: Breath sounds decreased. HEART: Rate and Rhythm are regular. First and second heart sounds normal. No murmurs, rubs or gallops. ABDOMEN: Abdominal exam reveals normal bowel sounds. Non-tender and non- distended. No evidence of peritonitis. EXTREMITITES: 2+ edema. Objective - Vital Signs Vital signs: Vital Signs Temp 97.5 F L 01/30/18 08:00 Pulse 90 01/30/18 09:00 Resp 17 01/30/18 09:00 BP 87/49 01/30/18 09:00 Pulse Ox 98 01/30/18 09:00 Intake & Output 01/29/18 01/30/18 01/30/18 18:59 06:59 18:59 Intake Total 8363.209 6008.507 361 Output Total 195 161 57 Balance 1943.198 6603.507 304 Weight 80.3 kg Intake: IV 930 900 325 Ertapenem 1 gm In Sodium 100 Chloride 0.9% 50 ml @ 100 mls/hr IVPB DAILY [facility] Rx #:[id number] Furosemide 250 mg In 30 Sodium Chloride 0.9% 225 ml @ 10 MG/HR 10 mls/hr IVP .Q24H [facility] Rx#: [id number] Sodium Chloride 0.9% 1, 900 900 225 000 ml @ 75 mls/hr IV . [id number] [facility] Rx#:[id number] Intake, IV Titration 495.692 341.507 36 Amount Amiodarone 450 mg In 244.347 Dextrose 5% in Water 250 ml @ 0.5 MG/MIN 16.66 mls /hr IV .Q15H1M [facility] Rx#: [id number] Magnesium Sulfate-D5w Pmx 200 1 gm In Dextrose/Water 1 100ml.bag @ 100 mls/hr IVPB Q1H [facility] Rx#: [id number] Norepinephrine 16 mg In 195.692 97.160 36 Sodium Chloride 0.9% 250 ml @ Titrate IV .Q0M [facility] Rx#:[id number] Phytonadione 5 mg In 100 Sodium Chloride 0.9% 50 ml @ 100 mls/hr IVPB ONCE [facility] Rx#:[id number] Oral 120 Output: Urine 195 161 57 Other: Voiding Method Indwelling Catheter Indwelling Catheter Indwelling Catheter # Bowel Movements 1 ABP, PAP, CO, CI - Last Documented Arterial Blood Pressure 138/57 - Labs CBC & Chem 7: 01/30/18 05:05 01/30/18 05:05 Labs: Abnormal Lab Results - Last 24 Hours (Table) 01/29/18 01/29/18 01/29/18 Range/Units 11:25 13:30 17:09 RBC (3.80-5.40) m/uL Hgb (11.4-16.0) gm/dL Hct (34.0-46.0) % MCV (80.0-100.0) fL MCH (25.0-35.0) pg RDW (11.5-15.5) % Plt Count (150-450) k/uL PT 18.5 H (9.0-12.0) sec INR 2.0 H (<1.2) Sodium (137-145) mmol/L Carbon Dioxide (22-30) mmol/L BUN (7-17) mg/dL Creatinine (0.52-1.04) mg/dL Glucose (74-99) mg/dL POC Glucose (mg/dL) 161 H 131 H (75-99) mg/dL Calcium (8.4-10.2) mg/dL Phosphorus (2.5-4.5) mg/dL Total Bilirubin (0.2-1.3) mg/dL AST (14-36) U/L ALT (9-52) U/L Alkaline Phosphatase (38-126) U/L Total Protein (6.3-8.2) g/dL Albumin (3.5-5.0) g/dL Free T4 (0.78-2.19) ng/dL 01/29/18 01/30/18 01/30/18 Range/Units 20:47 05:05 05:05 RBC 1.82 L (3.80-5.40) m/uL Hgb 7.2 L (11.4-16.0) gm/dL Hct 22.7 L (34.0-46.0) % MCV 124.6 H (80.0-100.0) fL MCH 39.4 H (25.0-35.0) pg RDW 25.6 H (11.5-15.5) % Plt Count 14 L* (150-450) k/uL PT (9.0-12.0) sec INR (<1.2) Sodium 135 L (137-145) mmol/L Carbon Dioxide 16 L (22-30) mmol/L BUN 84 H (7-17) mg/dL Creatinine 2.17 H (0.52-1.04) mg/dL Glucose 135 H (74-99) mg/dL POC Glucose (mg/dL) 146 H (75-99) mg/dL Calcium 7.8 L (8.4-10.2) mg/dL Phosphorus 6.4 H (2.5-4.5) mg/dL Total Bilirubin 11.6 H (0.2-1.3) mg/dL AST 340 H (14-36) U/L ALT 324 H (9-52) U/L Alkaline Phosphatase 200 H (38-126) U/L Total Protein 4.6 L (6.3-8.2) g/dL Albumin 2.0 L (3.5-5.0) g/dL Free T4 (0.78-2.19) ng/dL 01/30/18 01/30/18 Range/Units 07:51 08:50 RBC (3.80-5.40) m/uL Hgb (11.4-16.0) gm/dL Hct (34.0-46.0) % MCV (80.0-100.0) fL MCH (25.0-35.0) pg RDW (11.5-15.5) % Plt Count (150-450) k/uL PT (9.0-12.0) sec INR (<1.2) Sodium (137-145) mmol/L Carbon Dioxide (22-30) mmol/L BUN (7-17) mg/dL Creatinine (0.52-1.04) mg/dL Glucose (74-99) mg/dL POC Glucose (mg/dL) 144 H (75-99) mg/dL Calcium (8.4-10.2) mg/dL Phosphorus (2.5-4.5) mg/dL Total Bilirubin (0.2-1.3) mg/dL AST (14-36) U/L ALT (9-52) U/L Alkaline Phosphatase (38-126) U/L Total Protein (6.3-8.2) g/dL Albumin (3.5-5.0) g/dL Free T4 2.87 H (0.78-2.19) ng/dL Microbiology - Last 24 Hours (Table) 01/25/18 01:45 Blood Culture - Preliminary Blood No Growth after 120 hours 01/25/18 01:30 Blood Culture - Preliminary Blood No Growth after 120 hours Assessment and Plan Plan: Assessment: 1. Acute kidney injury secondary to ATN secondary to hypotension and cardiorenal syndrome. Creatinine up to 2.17 today. 2. Atrial fibrillation with RVR maintained on IV amiodarone. 3. Systolic CHF with ejection fraction of 20%. 4. Volume overload. 5. Hypotension maintained on 10 mics of Levophed. 6. Metabolic acidosis secondary to acute kidney injury. 7. Hyperphosphatemia secondary to acute kidney injury. Plan: Hep-Lock IV fluids. Maintain Lasix 40 mg IV 3 times daily. Maintain Levophed for now. Add oral sodium bicarbonate 1300 mg twice daily. Add PhosLo with meals. Continue to monitor renal function and urine output closely.
[2018-01-30 12:02] LABS: Glucose,Whole Blood 141 mg/dL (75-99)
--- NOTE | 2018-01-30 13:08 | P.PN ---
Subjective This is a pleasant 67 years old female with past medical history of COPD, insulin-dependent diabetes mellitus, GERD, sleep apnea , myelodysplastic syndrome, leukemia on chemotherapy, blood transfusion reaction [times/itching] and MRSA infection. Presents because of chest pain on the left side, nonradiating, comes and goes over the last 2 days associated with dyspnea, orthopnea and generalized weakness. Patient denies any change in urine or bowel habits. She denies fever. And emergency room patient was noticed to be slightly tachycardic at 102-103. TROPONIN WERE ELEVATED AT 0.191, PREVIOUS TROPONIN WERE 0.08 AND 0.04 ON 2017. WBC 4.4, HEMOGLOBIN 8.9. PLATELETS LOW AT 24 01/24/2018 Patient feels a little better, she still have some chest discomfort and still dyspneic. No change in mental status. No fever. Labs reviewed showing pancytopenia with a drop in platelets 219. WBC 3.7K and hemoglobin 8.7. Oncology team evaluated patient and recommended to transfuse platelets when less than 10 K however no need for more chemotherapy, transfuse as needed and follow-up as an outpatient, however they recommended aren't chilly tip therapy with GA DD continue for iron overload from previous multiple red blood cell transfusions. Cardiology was consulted evaluated the patient We'll check liver ultrasound and hepatitis panel. We'll consult GI DC IV fluids as per cardiology 01/25/2018 last night pt BP start dropping with systolic blood pressure in 70-80s. depsite fluis boluses , pt was transfered to the ICU with she had central line placed and pt was started on norepinephrine drip and her Blood pressure improved today , pt lethargy and generalized weakness are improved too. pt antibiotic were changed from aztreonam to vancomycin iv and invanze as per critical care team for pt is with septic shock . combined with cardiogenic shock in view of drop in her EF from 55% to 20% during this admission. also pt is found to have elevated creatinine ahd hyperkalemia , nephrology team were consulted too . liver enz are elevated with negative liver US , GI team evaluation is appreciated 01/26/2018 pt is still on shock state, mostly cardiogenic shock , pt is on norepinephrine drip , pt lethargy and generalized weakness are improved too. however pt remains confused. pt antibiotic were changed from aztreonam to vancomycin iv and invanze as per critical care team for pt is with septic shock. combined with cardiogenic shock in view of drop in her EF from 55% to 20% during this admission. also pt is found to have elevated creatinine ahd hyperkalemia , nephrology team were consulted too . liver enz are elevated with negative liver US ,pt is making 90 cc of urine in the last 2 hours (45 Ml/hr) 01/27/2018 pt was lying in bed , she was awake and interactive however she was slightly confused , was at bed side . pt denies chest pain . she is still lethargic. however her blood pressure is improved . pt is on antibiotic. she is also was started on lasix drip and oral amiodarone for her arrhythmia . cultures are pending . his elevated liver enz is mostly due to shock state , she has negative liver US however liver enz and creatinine are worsening , creatinine up to 1.8 . pt is still with high lactic acid , hemoglobin is stable , no leukocytosis but INR is 2.0 . Platelets 16 K 01/28/2018 pt was lying in bed , confused pt denies chest pain . she is still lethargic. however her blood pressure is improved . pt is on antibiotic. she is on oral amiodarone and drip for her arrhythmia. Continue with lasix drip. Cardiology are following the case. cultures are pending . his elevated liver enz is mostly due to shock state , she has negative liver US . creatinine up to 1.8 . pt is still with high lactic acid , hemoglin is stable , no leukocytosis but INR is 2.0 01/29/2018 pt was lying in bed , she is awake and answers questions appropriately however she still confused , she she is more tachypneic and congested today with some chest pain. No swelling and jaundice more pronounced . . she is still lethargic. however her blood pressure is improved . Critical care team are following the patient closely. pt is on antibiotic. she is on oral amiodarone and drip for her arrhythmia. Patient on IV Lasix. Nephrology team is consulted. Cardiology are following the case. cultures are pending . her elevated liver enz is mostly due to shock state , she has negative liver US . creatinine up to 1.9 . pt is still with high lactic acid , hemoglin is stable , no leukocytosis but INR is 2.0 . Prognosis is extremely poor. Family are not at bedside 01/30/2018 Patient mental status not much change from yesterday. She is still awake answer questions but confused. Her breathing is less tachypneic than yesterday however patient still feeling like heavy.. Patient with jaundice and lethargy. Blood pressure on the low side. Critical care input is appreciated. Patient continue with antibiotics and antiarrhythmic medications. Nephrology input is also appreciated. And to continue only Levophed with IV Lasix. While holding IV fluids for now. Patient with elevated liver enzymes. Poor prognosis. No family at bedside medications: Jadenu, Epoetin Chris, norepinephrine , zofran, protonix, novolg, ertapenem, iv vancomyin , and amiodarone Objective - Vital Signs Vital signs: Vital Signs Temp 97.5 F L 01/30/18 08:00 Pulse 88 01/30/18 11:00 Resp 11 L 01/30/18 11:00 BP 87/59 01/30/18 10:45 Pulse Ox 93 L 01/30/18 11:00 Intake & Output 01/29/18 01/30/18 01/30/18 18:59 06:59 18:59 Intake Total 6770.479 2069.507 466.989 Output Total 195 161 79 Balance 4317.330 1234.507 387.989 Weight 80.3 kg Intake: IV 930 900 400 Ertapenem 1 gm In Sodium 100 Chloride 0.9% 50 ml @ 100 mls/hr IVPB DAILY [facility] Rx #:[id number] Furosemide 250 mg In 30 Sodium Chloride 0.9% 225 ml @ 10 MG/HR 10 mls/hr IVP .Q24H [facility] Rx#: [id number] Sodium Chloride 0.9% 1, 900 900 300 000 ml @ 75 mls/hr IV . [id number] [facility] Rx#:[id number] Intake, IV Titration 495.692 341.507 66.989 Amount Amiodarone 450 mg In 244.347 Dextrose 5% in Water 250 ml @ 0.5 MG/MIN 16.66 mls /hr IV .Q15H1M [facility] Rx#: [id number] Magnesium Sulfate-D5w Pmx 200 1 gm In Dextrose/Water 1 100ml.bag @ 100 mls/hr IVPB Q1H [facility] Rx#: [id number] Norepinephrine 16 mg In 195.692 97.160 66.989 Sodium Chloride 0.9% 250 ml @ Titrate IV .Q0M [facility] Rx#:[id number] Phytonadione 5 mg In 100 Sodium Chloride 0.9% 50 ml @ 100 mls/hr IVPB ONCE [facility] Rx#:[id number] Oral 120 Output: Urine 195 161 79 Other: Voiding Method Indwelling Catheter Indwelling Catheter Indwelling Catheter # Bowel Movements 1 1 ABP, PAP, CO, CI - Last Documented Arterial Blood Pressure 135/51 - Exam GENERAL: The patient is alert and oriented x3, not in any acute distress. Well developed, well nourished. HEENT: Pupils are round and equally reacting to light. EOMI. No scleral icterus. No conjunctival pallor. Normocephalic, atraumatic. No pharyngeal erythema. No thyromegaly. CARDIOVASCULAR: S1 and S2 present. No murmurs, rubs, or gallops. PULMONARY: Chest is clear to auscultation, no wheezing or crackles. ABDOMEN: Soft, nontender, nondistended, normoactive bowel sounds. No palpable organomegaly. MUSCULOSKELETAL: No joint swelling or deformity. EXTREMITIES: No cyanosis, clubbing, or pedal edema. NEUROLOGICAL: Gross neurological examination did not reveal any focal deficits. SKIN: No rashes. - Labs CBC & Chem 7: 01/30/18 05:05 01/30/18 05:05 Labs: Abnormal Lab Results - Last 24 Hours (Table) 01/29/18 01/29/18 01/29/18 Range/Units 13:30 17:09 20:47 RBC (3.80-5.40) m/uL Hgb (11.4-16.0) gm/dL Hct (34.0-46.0) % MCV (80.0-100.0) fL MCH (25.0-35.0) pg RDW (11.5-15.5) % Plt Count (150-450) k/uL PT 18.5 H (9.0-12.0) sec INR 2.0 H (<1.2) Sodium (137-145) mmol/L Carbon Dioxide (22-30) mmol/L BUN (7-17) mg/dL Creatinine (0.52-1.04) mg/dL Glucose (74-99) mg/dL POC Glucose (mg/dL) 131 H 146 H (75-99) mg/dL Calcium (8.4-10.2) mg/dL Phosphorus (2.5-4.5) mg/dL Total Bilirubin (0.2-1.3) mg/dL AST (14-36) U/L ALT (9-52) U/L Alkaline Phosphatase (38-126) U/L Total Protein (6.3-8.2) g/dL Albumin (3.5-5.0) g/dL Free T4 (0.78-2.19) ng/dL 01/30/1818 01/30/18 Range/Units 05:05 05:05 07:51 RBC 1.82 L (3.80-5.40) m/uL Hgb 7.2 L (11.4-16.0) gm/dL Hct 22.7 L (34.0-46.0) % MCV 124.6 H (80.0-100.0) fL MCH 39.4 H (25.0-35.0) pg RDW 25.6 H (11.5-15.5) % Plt Count 14 L* (150-450) k/uL PT (9.0-12.0) sec INR (<1.2) Sodium 135 L (137-145) mmol/L Carbon Dioxide 16 L (22-30) mmol/L BUN 84 H (7-17) mg/dL Creatinine 2.17 H (0.52-1.04) mg/dL Glucose 135 H (74-99) mg/dL POC Glucose (mg/dL) 144 H (75-99) mg/dL Calcium 7.8 L (8.4-10.2) mg/dL Phosphorus 6.4 H (2.5-4.5) mg/dL Total Bilirubin 11.6 H (0.2-1.3) mg/dL AST 340 H (14-36) U/L ALT 324 H (9-52) U/L Alkaline Phosphatase 200 H (38-126) U/L Total Protein 4.6 L (6.3-8.2) g/dL Albumin 2.0 L (3.5-5.0) g/dL Free T4 (0.78-2.19) ng/dL 01/30/18 01/30/18 Range/Units 08:50 12:01 RBC (3.80-5.40) m/uL Hgb (11.4-16.0) gm/dL Hct (34.0-46.0) % MCV (80.0-100.0) fL MCH (25.0-35.0) pg RDW (11.5-15.5) % Plt Count (150-450) k/uL PT (9.0-12.0) sec INR (<1.2) Sodium (137-145) mmol/L Carbon Dioxide (22-30) mmol/L BUN (7-17) mg/dL Creatinine (0.52-1.04) mg/dL Glucose (74-99) mg/dL POC Glucose (mg/dL) 141 H (75-99) mg/dL Calcium (8.4-10.2) mg/dL Phosphorus (2.5-4.5) mg/dL Total Bilirubin (0.2-1.3) mg/dL AST (14-36) U/L ALT (9-52) U/L Alkaline Phosphatase (38-126) U/L Total Protein (6.3-8.2) g/dL Albumin (3.5-5.0) g/dL Free T4 2.87 H (0.78-2.19) ng/dL Microbiology - Last 24 Hours (Table) 01/25/18 01:45 Blood Culture - Preliminary Blood No Growth after 120 hours 01/25/18 01:30 Blood Culture - Preliminary Blood No Growth after 120 hours Assessment and Plan Assessment: septic and cardiogenic shock MICHAEL elevated liver enz , possible shock liver Chest pain with Elevated troponin, rule out cardiac cause. sales and service change leader is consulted Fatigue and dyspnea h/o COPD insulin-dependent diabetes mellitus Iron overload from previous multiple blood transfusions GERD sleep apnea h/o myelodysplastic syndrome Pancytopenia with Chronic anemia and thrombocytopenia h/o blood transfusion reaction [times/itching] h/o MRSA infection. Plan: This is a pleasant 67 years old female presents with fatigue and dyspnea, found to have elevated troponin Continue with same treatment. Continue with symptomatic treatment. Resume home medications. Monitor lytes and vitals. Cardiology consult.Hematology/Oncology input for myelodysplastic syndrome and history of leukemia. DVT and GI prophylaxis. pt is mostly has cardiogenic shock is some elements of septic shock , she has signifiant drop of EF to 20% and less. she is on lasix, and oral amiodarone, critical care team are following the case closely DVT prophylaxis: No heparin in view of low platelets GI prophylaxis: Pepcid PT/OT: Hold for now Prognosis is guarded and very poor Further recommendation is based on the clinical course of the patient
--- NOTE | 2018-01-30 13:16 | P.PN ---
Subjective Progress Note Date: 01/30/18 Principal diagnosis: Acute cardiogenic shock with signs of multisystem organ failure. 67-year-old female patient with known history of mild dysplasia maintained on a combination of Gleevec and Decadron in addition to history of diabetes, hyperlipidemia and COPD and obstructive sleep apnea. The patient has had chronic complications of mild dysplasia including chronic anemia and thrombocytopenia requiring multiple blood transfusions in the past. The patient came in yesterday to the hospital because of chest pain. She had heaviness in her chest and she had also some increased shortness of breath. No cough. No sputum production. No pleurisy. No hemoptysis. She had a previous echocardiogram that showed a preserved LV function of ejection fraction of 55%. EKG that was performed during this current admission shows some nonspecific ST segment changes. Chest x-ray showed a left-sided pleural effusion. Subsequently the echocardiogram was repeated based on an elevated BNP level of 10,000 and the patient was found to have profound impairment of the LV function with an ejection fraction dropping down to less than 20%. RV is mildly enlarged. There is mild to moderate mitral regurgitation. Moderate pulmonary hypertension with a PA pressure of around 39. The IVC is dilated and there is poor respiratory collapse consistent with estimated right atrial pressure of about 15. There is also a moderate degree of pleural effusion on the left. Troponins were 0.2 0.2 respectively 2. The patient was seen by cardiology. Conservative management was recommended based on her comorbidities and chronic, cytopenia. Around 3 AM this morning, the patient becomes progressively more hypotensive. Her lactic acid was slightly elevated at 2.5 and 2.1. The patient was given a total of 3 L of IV fluids. She coaches for to the ICU. Artline catheter was inserted. She is currently on 20 mics of norepinephrine infusion for blood pressure support. Urine output is also drop. Morning blood work shows a non-anion gap metabolic acidosis with a bicarb level of 18, anion gap of 9, creatinine of 1.1, and the white cell count is at 3.8 with hemoglobin of 9.4. The patient is awake. She is a poor historian. I think she does have an underlying dementia. She does not have a good recollection of the events that led to her coming to the hospital. No she is much aware of her past medical history. LFTs were slightly abnormal yet that is no acute abnormalities on the ultrasound of the liver and gallbladder. The patient has a Mediport and the patient also has a vagal nerve stimulator. No skin rashes. No open wounds or ulceration. No abdominal distention. No nausea. No vomiting. Extremities are somewhat cold and clammy at this point with diminished pulses. On 01/27/2000 milligrams in this patient for a follow-up. As mentioned, the patient got into the intensive care unit because of profound hypotension. Further workup showed a drop in the left with an ejection fraction which was measured to be less than 20%. As such this shock is most likely of a cardiogenic in nature. I also cover this patient for her septic shock knowing that she has had infections in the past with ESBL producing organisms and MRSA. I cover this patient with a combination of Invanz and vancomycin. Nevertheless, the cultures of been negative and the patient has not spiked any fever and a white cell count is at 6.7. The patient was given volume and she responded initially in the pressors dose was gradually wean down to 10-15 mics per norepinephrine infusion per minute. This morning, the she was noted to have a lower urine output. She was given a dose of Lasix. Subsequently was advised to give her dobutamine. Following dobutamine administration, the patient went into atrial fibrillation with rapid ventricular response and he she became hypotensive with systolic blood pressure dropped in the mid 70s. I was about to give the patient amiodarone. During this time the patient converted back to normal sinus rhythm after dobutamine was discontinued. Blood pressure subsequently improved. She is receiving a bicarb infusion knowing that she has a component of non-anion gap metabolic acidosis and this is running at the rate of 75 mL an hour. She has developed an acute kidney injury , probably related to her hypotension and cardiorenal factors. Creatinine is up to 1.5 and a BNP is at 64. Urine output is nor that of 20 mL an hour. Chest x-ray shows some worsening in the volume status and the patient has developed small better pleural effusion and a component of 4 vessel congestion. She is currently on room air oxygen and her pulse ox is above 90%. No chest pain. No angina. Hematologic profile is consistent with myelodysplasia. Her liver function is also worse. Bilirubin is up to 5.9. She had an AST of 297 with a ALP of 306 with an phosphatase of 27. Albumin Is at 2.5. INR Is at 1.8 with a PT of 16.7. Most Recent Lactic Acid Level Is at 3.7. On 01/27/2018, Penny is being seen for a follow-up. The patient is doing poorly and she is in cardiogenic shock. I discussed this case at length with cardiology. Note that yesterday there was an attempt to put the patient on dobutamine however this attempt failed as the patient became tachycardic and she went into atrial fibrillation with rapid ventricular response. Based on that, dobutamine was stopped and the patient subsequently went back to normal sinus rhythm. On and off she was having still some runs of atrial fibrillation. The patient is awake and alert. She is on room air oxygen. Chest x-ray is showing cardiomegaly and small bilateral pleural effusion and pulmonary asked her congestion and early edema. Hemodynamically she has hypotensive and she has required pressors and currently she is on norepinephrine infusion running at 50 g per KG per minute. Urine output has been low in the order of 20 mL an hour and this was obviously a concern throughout the night. She was given fluid boluses and the net fluid balance is +3.5 L over the past 24 hours yet this was not enough to improve the urine output nor for the blood pressure. The patient is cold and clammy and she has diminished pulses. She has also developed an acute kidney injury in the creatinine is up to 1.8 and the patient has a component of anion and non-anion gap metabolic acidosis. Anion gap is at 16 with a bicarb level of 12 and the patient's creatinine is at 72 with a creatinine of 1.8. Nephrology saw the patient and patient was started on bicarb drip that liver function tests are improving gradually getting worse. Bilirubin is up to 8.7. AST is at 352 with an ALT of sounds 63. Albumin is down to 2.9. The calcium level is at 8.6. Today's potassium level is at 5.3 and the sodium is 139. Sugar is at 193. She is afebrile. The patient's cultures of been all negative. Stop the vancomycin. I kept the patient on IV Invanz as an empiric antibiotic coverage. The patient remains quite thrombocytopenic regarding her underlying lung some mild dysplasia. 01/28 of seeing this patient for a follow-up. She remains critically ill and sick. She remains in cardiogenic shock. She was attempted on Primacor drip yesterday and as dose was being titrated, the patient went into atrial fibrillation with rapid ventricular response. Her heart rate was in the 140s in the 150s range. The patient accordingly was taken off the Primacor. Amiodarone was restarted in the form of an infusion currently she is on 0.5 mg per minute and last night she converted back to normal sinus rhythm. She is on Lasix drip at 10 mg an hour. Urine output is around 10-20 mL an hour. She remains on a bicarb drip at the rate of 75 mL an hour and the patient's serum bicarbs up to 21. She is oliguric. Urine output is diminished. The net fluid balance is order of +1.8 L for yesterday. She is still on norepinephrine infusion running at 18 g per KG per minute. Clinically, she is awake and alert. No significant respiratory distress. She is on room air oxygen. No nausea. No vomiting. No abdominal pain. She has some increased edema both in upper and lower extremity. Follow-up chest x-ray from today shows small bilateral pleural effusion and cardiomegaly. Meanwhile, the patient's hemoglobin is at 7.8, platelet counts is 16,000, creatinine is at 1.89, LFTs are abnormal with an AST of 386, ALT of 346, bilirubin of 9.1. Stool for C. diff is negative. IV antibiotics include Invanz. As an empiric antibiotic coverage. Coagulation profile is off and the patient has some mild coagulopathy with an INR of 2.0 and a PT of 18.5 no chest pain. No fever. No altered mentation. No other complaints otherwise for now. Cardiology is on the case. Hematology oncology is on the case. The findings on the case. On 01/29/2018, the patient is doing poorly still. She is having diffuse body aches mainly in lower extremities bilaterally. She is cold and clammy and diminished pulses in the feet and somewhat cyanotic. She is nauseated. No chest pain. No significant shortness of breath. She is having episodes of atrial fibrillation with rapid ventricular response. After converting back to normal sinus rhythm the patient went again to A. fib RVR and she is going back and forth. She remains on amiodarone drip for age of fibrillation at the rate of 0.5 mg per minute. She is also on pressors and she is on norepinephrine infusion at 50 g per KG per minute. This was further weaned down to 30 g. Urine output is low. The patient is not producing much of urine output. She is progressively getting more edematous especially in the upper and lower extremities bilaterally. No chest pain. No altered mentation. She is progressively more jaundiced. Liver function tests progressively getting worse. Renal function is also progressively getting worse with a creatinine of 1.94 and the patient has a component of non-anion gap metabolic acidosis with a bicarb level of 19. The patient is currently on Lasix drip at 10 mg an hour. Discussed the case with nephrology and we decided to consult on the diuresis and put the patient on Lasix 40 mg IV push every 8 hours. No fever. No chills. No aspiration. Chest x-ray is consistent with CHF and cardiomegaly. Unfortunately not much of her progress has been done this patient's case. His hematologic profile is also significantly abnormal with the plated count of 13 and a hemoglobin of 7.1. On 01/30/2018, patient is doing very poorly. She continues to have findings of multi-organ system failure, remains hypotensive requiring norepinephrine, she is presently on 11 g of levo fed. She had intermittent episodes of A. fib with RVR, alternating with normal sinus rhythm. Remains on amiodarone drip. And so far we cannot wean her off norepinephrine. Urine output remains marginal in spite of Lasix IV push. Her jaundice is getting worse, and liver profile is also getting worse, with worsening renal profile. WBC count today is 5.1 hemoglobin is 7.2, platelets are 14,000. BUN is 84 creatinine 2.17., Gradually worsening since admission over the last few days. Chest x-ray shows pulmonary edema with bilateral pleural effusions. Patient is complaining of severe back pain, obviously it is chronic in nature. She has been followed by many consultants. And today I had a chance to discuss her condition with her and her at bedside. Explained to her and her the severity of her condition, and the fact that she is not doing well. Discussed even the CODE STATUS, and both agreed to DO NOT RESUSCITATE CODE STATUS. May even have to consider comfort care measures if the patient continues to decline. Objective - Vital Signs Vital signs: Vital Signs Temp 97.5 F L 01/30/18 13:03 Pulse 85 01/30/18 13:03 Resp 12 01/30/18 13:03 BP 141/58 01/30/18 13:03 Pulse Ox 93 L 01/30/18 11:00 Intake & Output 01/29/18 01/30/18 01/30/18 18:59 06:59 18:59 Intake Total 2693.560 5372.507 466.989 Output Total 195 161 79 Balance 5788.669 0228.507 387.989 Weight 80.3 kg Intake: IV 930 900 400 Ertapenem 1 gm In Sodium 100 Chloride 0.9% 50 ml @ 100 mls/hr IVPB DAILY [facility] Rx #:[id number] Furosemide 250 mg In 30 Sodium Chloride 0.9% 225 ml @ 10 MG/HR 10 mls/hr IVP .Q24H [facility] Rx#: [id number] Sodium Chloride 0.9% 1, 900 900 300 000 ml @ 75 mls/hr IV . [id number] [facility] Rx#:[id number] Intake, IV Titration 495.692 341.507 66.989 Amount Amiodarone 450 mg In 244.347 Dextrose 5% in Water 250 ml @ 0.5 MG/MIN 16.66 mls /hr IV .Q15H1M [facility] Rx#: [id number] Magnesium Sulfate-D5w Pmx 200 1 gm In Dextrose/Water 1 100ml.bag @ 100 mls/hr IVPB Q1H [facility] Rx#: [id number] Norepinephrine 16 mg In 195.692 97.160 66.989 Sodium Chloride 0.9% 250 ml @ Titrate IV .Q0M [facility] Rx#:[id number] Phytonadione 5 mg In 100 Sodium Chloride 0.9% 50 ml @ 100 mls/hr IVPB ONCE [facility] Rx#:[id number] Oral 120 Output: Urine 195 161 79 Other: Voiding Method Indwelling Catheter Indwelling Catheter Indwelling Catheter # Bowel Movements 1 1 ABP, PAP, CO, CI - Last Documented Arterial Blood Pressure 135/51 - Exam Gen. appearance, comfortable awake following commands and answering questions. not acute distress. Not agitated. The patient is jaundiced Head exam was generally normal. There was scleral icterus / corneal arcus. Mucous membranes were moist. Neck was supple and with jugular venous distension, thyromegaly, or carotid bruits. Carotids were easily palpable bilaterally. There was no adenopathy. Lungs sounds are diminished bilaterally especially left lung base along with dullness to percussion. There are crackles in lung bases bilaterally. Heart sounds are regular, positive S1-S2 and there is no significant murmurs appreciated. The patient has a Mediport over the right anterior chest area. A nerve stimulator is also present over the left lateral chest area also. Abdominal exam revealed normal bowel sounds. The abdomen was soft, non-tender, and without masses, organomegaly, or appreciable enlargement of the abdominal aorta. Examination of the extremities revealed diminished pulses in the radial, femoral and pedal pulses. There was no cyanosis, clubbing and there is increased edema both in the upper and lower extremities bilaterally. The patient has a Artline catheter in the left femoral artery and the patient has a triple lumen catheter in the right femoral vein Examination of the skin revealed no evidence of significant rashes, suspicious appearing nevi or other concerning lesions. Neurologic patient will go proximity is without any focal limitation. - Labs CBC & Chem 7: 01/30/18 05:05 01/30/18 05:05 Labs: Abnormal Lab Results - Last 24 Hours (Table) 01/29/18 01/29/18 01/29/18 Range/Units 13:30 17:09 20:47 RBC (3.80-5.40) m/uL Hgb (11.4-16.0) gm/dL Hct (34.0-46.0) % MCV (80.0-100.0) fL MCH (25.0-35.0) pg RDW (11.5-15.5) % Plt Count (150-450) k/uL PT 18.5 H (9.0-12.0) sec INR 2.0 H (<1.2) Sodium (137-145) mmol/L Carbon Dioxide (22-30) mmol/L BUN (7-17) mg/dL Creatinine (0.52-1.04) mg/dL Glucose (74-99) mg/dL POC Glucose (mg/dL) 131 H 146 H (75-99) mg/dL Calcium (8.4-10.2) mg/dL Phosphorus (2.5-4.5) mg/dL Total Bilirubin (0.2-1.3) mg/dL AST (14-36) U/L ALT (9-52) U/L Alkaline Phosphatase (38-126) U/L Total Protein (6.3-8.2) g/dL Albumin (3.5-5.0) g/dL Free T4 (0.78-2.19) ng/dL 01/30/18 01/30/18 01/30/18 Range/Units 05:05 05:05 07:51 RBC 1.82 L (3.80-5.40) m/uL Hgb 7.2 L (11.4-16.0) gm/dL Hct 22.7 L (34.0-46.0) % MCV 124.6 H (80.0-100.0) fL MCH 39.4 H (25.0-35.0) pg RDW 25.6 H (11.5-15.5) % Plt Count 14 L* (150-450) k/uL PT (9.0-12.0) sec INR (<1.2) Sodium 135 L (137-145) mmol/L Carbon Dioxide 16 L (22-30) mmol/L BUN 84 H (7-17) mg/dL Creatinine 2.17 H (0.52-1.04) mg/dL Glucose 135 H (74-99) mg/dL POC Glucose (mg/dL) 144 H (75-99) mg/dL Calcium 7.8 L (8.4-10.2) mg/dL Phosphorus 6.4 H (2.5-4.5) mg/dL Total Bilirubin 11.6 H (0.2-1.3) mg/dL AST 340 H (14-36) U/L ALT 324 H (9-52) U/L Alkaline Phosphatase 200 H (38-126) U/L Total Protein 4.6 L (6.3-8.2) g/dL Albumin 2.0 L (3.5-5.0) g/dL Free T4 (0.78-2.19) ng/dL 01/30/18 01/30/18 Range/Units 08:50 12:01 RBC (3.80-5.40) m/uL Hgb (11.4-16.0) gm/dL Hct (34.0-46.0) % MCV (80.0-100.0) fL MCH (25.0-35.0) pg RDW (11.5-15.5) % Plt Count (150-450) k/uL PT (9.0-12.0) sec INR (<1.2) Sodium (137-145) mmol/L Carbon Dioxide (22-30) mmol/L BUN (7-17) mg/dL Creatinine (0.52-1.04) mg/dL Glucose (74-99) mg/dL POC Glucose (mg/dL) 141 H (75-99) mg/dL Calcium (8.4-10.2) mg/dL Phosphorus (2.5-4.5) mg/dL Total Bilirubin (0.2-1.3) mg/dL AST (14-36) U/L ALT (9-52) U/L Alkaline Phosphatase (38-126) U/L Total Protein (6.3-8.2) g/dL Albumin (3.5-5.0) g/dL Free T4 2.87 H (0.78-2.19) ng/dL Microbiology - Last 24 Hours (Table) 01/25/18 01:45 Blood Culture - Preliminary Blood No Growth after 120 hours 01/25/18 01:30 Blood Culture - Preliminary Blood No Growth after 120 hours Assessment and Plan Assessment: 1 cardiogenic shock with signs of multisystem organ failure. The patient has failed inotropes due to complications of A. fib/RVR. She remains in multisystem organ failure with progressive worsening in the renal and hepatic function. Unfortunately the urine output remains low. The patient is still requiring pressors currently on norepinephrine infusion at 11 g per KG per minute. Chest x-ray is consistent with CHF and cardiomegaly and bilateral pleural effusion. 2 metabolic acidosis , of a non-anion gap type. Serum bicarb is at 19. 3 CHF with impairment ejection fraction of less than 20% 4 questionable non-ST segment elevation myocardial infarction based on elevated troponins 5 paroxysmal atrial fibrillation and the patient is going back and forth between sinus rhythm and atrial fibrillation 6 myelodysplasia with chronic anemia and thrombocytopenia, maintained on Revlimid and Decadron outpatient basis 7 acute kidney injury, secondary to low cardiac output state and cardiorenal factors. Patient remains oliguric. 8 diabetes mellitus type 2 9 COPD 10 vagal nerve stimulator 11 Mediport 12 previous history of infection with Enterobacter and MRSA and these are essentially urine checked infections occurred back in 11/02/2017 and 02/08/2017 respectively 13 obstructive sleep apnea 14 acute hepatic insufficiency with elevated bilirubins and LFTs secondary to above, and there is been an underlying coagulopathy in association with hepatic dysfunction. 15 severe thrombocytopenia 16 chronic anemia Recommendation: After reviewing the patient's chart, and after examining the patient, I said down initially with the patient alone, and explained to her her poor prognosis. Patient asked me to discuss her condition with her , and later on we discussed the condition along with her and the patient, and we all agreed on DO NOT RESUSCITATE CODE STATUS. In the meantime we'll continue to control the pain, hence the patient will be given Dilaudid for back pain, will continue platelet transfusions, and in the next couple of days may have to consider comfort care measures or hospice. Overall picture is again very poor, and prognosis is poor. We'll continue to monitor in the ICU for now. Time with Patient: Less than 30
[2018-01-30] MEDS: CALCIUM ACETATE 667 MG CAP PO SCH ×2 (13:19→17:45)
[2018-01-30 13:53] LABS: Albumin 2.84 g/dL (3.80-4.90); Gamma Globulin 0.86 g/dL (0.70-1.50)
[2018-01-30 17:04] LABS: Glucose,Whole Blood 171 mg/dL (75-99)
[2018-01-30] MEDS ORDERED: FUROSEMIDE 10 MG/ML 10 ML VIAL IV ONE (19:00)
--- NOTE | 2018-01-30 19:24 | P.PN ---
Subjective Progress Note Date: 01/30/18 Principal diagnosis: Elevated liver enzymes, hypotension, MDS Patient seen lying in bed. No acute events. Patient minimally interactive. Objective - Vital Signs Vital signs: Vital Signs Temp 97.0 F L 01/30/18 16:00 Pulse 83 01/30/18 19:00 Resp 8 L 01/30/18 19:00 BP 70/57 01/30/18 17:30 Pulse Ox 96 01/30/18 19:00 Intake & Output 01/30/18 01/30/18 01/31/18 06:59 18:59 06:59 Intake Total 1241.507 937.561 Output Total 161 84 5 Balance 1080.507 853.561 -5 Weight 80.3 kg Intake: IV 900 400 Ertapenem 1 gm In Sodium 100 Chloride 0.9% 50 ml @ 100 mls/hr IVPB DAILY [facility] Rx #:[id number] Sodium Chloride 0.9% 1, 900 300 000 ml @ 75 mls/hr IV . [id number] [facility] Rx#:[id number] Intake, IV Titration 341.507 340.561 Amount Amiodarone 450 mg In 244.347 207.139 Dextrose 5% in Water 250 ml @ 0.5 MG/MIN 16.66 mls /hr IV .Q15H1M [facility] Rx#: [id number] Norepinephrine 16 mg In 97.160 133.422 Sodium Chloride 0.9% 250 ml @ Titrate IV .Q0M [facility] Rx#:[id number] Blood Product 197 Platelet Irr Pheresis 3 197 Acda Unit [id number] Output: Urine 161 84 5 Other: Voiding Method Indwelling Catheter Indwelling Catheter # Bowel Movements 1 ABP, PAP, CO, CI - Last Documented Arterial Blood Pressure 132/50 - Exam On physical examination, patient appears comfortable in no apparent distress. HEAD: Normocephalic, atraumatic. EYES: Scleral icterus. No conjunctival injection. MOUTH: No lesions, tongue midline. NECK: Trachea midline, no gross abnormalities. HEART: Iregular rhythm. ABDOMEN: Soft, obese. Bowel sounds are positive. No organomegaly. No guarding or rigidity. NEUROLOGIC: Alert, responsive but not oriented. No focal deficits. - Labs CBC & Chem 7: 01/30/18 05:05 01/30/18 05:05 Labs: Abnormal Lab Results - Last 24 Hours (Table) 01/26/18 01/29/18 01/30/18 Range/Units 04:10 20:47 05:05 RBC (3.80-5.40) m/uL Hgb (11.4-16.0) gm/dL Hct (34.0-46.0) % MCV (80.0-100.0) fL MCH (25.0-35.0) pg RDW (11.5-15.5) % Plt Count (150-450) k/uL Sodium 135 L (137-145) mmol/L Carbon Dioxide 16 L (22-30) mmol/L BUN 84 H (7-17) mg/dL Creatinine 2.17 H (0.52-1.04) mg/dL Glucose 135 H (74-99) mg/dL POC Glucose (mg/dL) 146 H (75-99) mg/dL Calcium 7.8 L (8.4-10.2) mg/dL Phosphorus 6.4 H (2.5-4.5) mg/dL Total Bilirubin 11.6 H (0.2-1.3) mg/dL AST 340 H (14-36) U/L ALT 324 H (9-52) U/L Alkaline Phosphatase 200 H (38-126) U/L Total Protein 4.6 L (6.3-8.2) g/dL Albumin 2.0 L (3.5-5.0) g/dL Albumin (PEP) 2.84 L (3.80-4.90) g/dL Xweqo-2-Gjstudnhc 0.43 L (0.60-1.00) g/dL Beta Globulins 0.55 L (0.60-1.30) g/dL Free T4 (0.78-2.19) ng/dL 01/30/18 01/30/18 01/30/18 Range/Units 05:05 07:51 08:50 RBC 1.82 L (3.80-5.40) m/uL Hgb 7.2 L (11.4-16.0) gm/dL Hct 22.7 L (34.0-46.0) % MCV 124.6 H (80.0-100.0) fL MCH 39.4 H (25.0-35.0) pg RDW 25.6 H (11.5-15.5) % Plt Count 14 L* (150-450) k/uL Sodium (137-145) mmol/L Carbon Dioxide (22-30) mmol/L BUN (7-17) mg/dL Creatinine (0.52-1.04) mg/dL Glucose (74-99) mg/dL POC Glucose (mg/dL) 144 H (75-99) mg/dL Calcium (8.4-10.2) mg/dL Phosphorus (2.5-4.5) mg/dL Total Bilirubin (0.2-1.3) mg/dL AST (14-36) U/L ALT (9-52) U/L Alkaline Phosphatase (38-126) U/L Total Protein (6.3-8.2) g/dL Albumin (3.5-5.0) g/dL Albumin (PEP) (3.80-4.90) g/dL Lprpl-7-Lsnvfwbtn (0.60-1.00) g/dL Beta Globulins (0.60-1.30) g/dL Free T4 2.87 H (0.78-2.19) ng/dL 18 18 Range/Units 12:01 16:55 RBC (3.80-5.40) m/uL Hgb (11.4-16.0) gm/dL Hct (34.0-46.0) % MCV (80.0-100.0) fL MCH (25.0-35.0) pg RDW (11.5-15.5) % Plt Count (150-450) k/uL Sodium (137-145) mmol/L Carbon Dioxide (22-30) mmol/L BUN (7-17) mg/dL Creatinine (0.52-1.04) mg/dL Glucose (74-99) mg/dL POC Glucose (mg/dL) 141 H 171 H (75-99) mg/dL Calcium (8.4-10.2) mg/dL Phosphorus (2.5-4.5) mg/dL Total Bilirubin (0.2-1.3) mg/dL AST (14-36) U/L ALT (9-52) U/L Alkaline Phosphatase (38-126) U/L Total Protein (6.3-8.2) g/dL Albumin (3.5-5.0) g/dL Albumin (PEP) (3.80-4.90) g/dL Cgrfn-6-Rcaxihkiw (0.60-1.00) g/dL Beta Globulins (0.60-1.30) g/dL Free T4 (0.78-2.19) ng/dL Microbiology - Last 24 Hours (Table) 01/25/18 01:45 Blood Culture - Preliminary Blood No Growth after 120 hours 01/25/18 01:30 Blood Culture - Preliminary Blood No Growth after 120 hours Assessment and Plan (1) Elevated liver enzymes Narrative/Plan: No improvement in liver enzymes with bilirubin trending up. It is likely that the elevation is multifactorial in the setting of hypotension, and congestive hepatopathy. Also neurologic testing for underlying liver disease has been negative to this point. Current Visit: Yes Status: Acute Code(s): R74.8 - ABNORMAL LEVELS OF OTHER SERUM ENZYMES SNOMED Code(s): 216052512 (2) Hypotension Current Visit: Yes Status: Acute Code(s): I95.9 - HYPOTENSION, UNSPECIFIED SNOMED Code(s): 72283066 (3) Iron overload due to repeated red blood cell transfusions Current Visit: Yes Status: Chronic Priority: Medium Code(s): E83.111 - HEMOCHROMATOSIS DUE TO REPEATED RED BLOOD CELL TRANSFUSIONS SNOMED Code(s): 827373841 (4) MDS (myelodysplastic syndrome) Current Visit: Yes Status: Chronic Priority: Medium Code(s): D46.9 - MYELODYSPLASTIC SYNDROME, UNSPECIFIED SNOMED Code(s): 618254917 Plan: Supportive care Appreciate ICU management Continue to monitor liver enzymes Continue to follow any serologic testing for intrinsic liver disease which has not him back at, to this point all testing has been negative and it is felt that the patient's elevation in liver enzymes are secondary to hypotension/ ischemia and congestive hepatopathy Discussed the case at length with the patient's who understands that in the setting of multiorgan failure liver transplant is not a viable option acute for allowing us to participate in the care of this patient we will continue to follow
[2018-01-30 21:24] LABS: Glucose,Whole Blood 145 mg/dL (75-99)
[2018-01-31 04:19] LABS: Anisocytosis Marked; HCT 22.1 % (34.0-46.0); Hypochromasia Marked; MCH 38.5 pg (25.0-35.0); MCHC 31.5 g/dL (31.0-37.0); MCV 122.4 fL (80.0-100.0); Mean Platelet Volume 13.9; Poikilocytosis Slight; RBC 1.81 m/uL (3.80-5.40); RDW 24.9 % (11.5-15.5); WBC 6.1 k/uL (3.8-10.6)
[2018-01-31 04:27] LABS: Macrocytosis Marked; Platelet Count 14 k/uL (150-450)
[2018-01-31 04:29] LABS: INR 1.8 (<1.2); Prothrombin Time 16.2 sec (9.0-12.0)
[2018-01-31 04:31] LABS: Albumin 2.1 g/dL (3.5-5.0); Calcium 8.2 mg/dL (8.4-10.2); Magnesium 2.1 mg/dL (1.6-2.3); Phosphorus 7.4 mg/dL (2.5-4.5); Potassium 4.6 mmol/L (3.5-5.1); Total Bilirubin 11.2 mg/dL (0.2-1.3); Total Protein 4.8 g/dL (6.3-8.2)
[2018-01-31 07:09] LABS: Glucose,Whole Blood 113 mg/dL (75-99)
[2018-01-31] MEDS ORDERED: FUROSEMIDE 10 MG/ML 4 ML VIAL IV SCH (08:00)
[2018-01-31] MEDS: HYDROmorphone 1 MG/ML 1 ML SYRINGE IVP PRN ×2 (08:03→12:09)
[2018-01-31] MEDS: PANTOPRAZOLE 40 MG/10 ML VIAL IVP SCH (08:19)
[2018-01-31] MEDS: JADENU 180 MG PO SCH (08:43)
[2018-01-31] MEDS: JADENU PO SCH (08:43)
[2018-01-31] MEDS: SODIUM BICARBONATE TAB 650 MG TAB PO SCH (08:46)
--- NOTE | 2018-01-31 08:53 | CDI ---
Last Revision, April 2017 Documentation Clarification Form Date: 01/31/18 From: Ofe Vang RN Admit Date: 01/23/2018 1:13:00 PM Patient Name: Penny Funez Visit Number: [id number] ATTENTION: The Clinical Documentation Specialists (CDI) and [facility] Coding Staff appreciate your assistance in clarifying documentation. Please respond to the clarification below the line at the bottom and electronically sign. The CDI & [facility] Coding staff will review the response and follow-up if needed. Please note: Queries are made part of the Legal Health Record. If you have any questions, please contact the author of this message via ITS. Dr. Nicolas Peralta, DO, Can you please render your opinion on the following documentation? Patient admitted with chest pain, elevated trops. and elevated liver enzymes. History/Risk Factors: Myelodysplastic syndrome, leukemia, myoblastic anemia, IDDM 2, COPD Clinical Indicators: On Admission BUN 60, CR 0.96, GFR 61, ON 01/31: BUN 90, CR 2.61, GFR [address] Grey on 01/26: Renal failure, 01/30 PN Acute Kidney injury. On PN multisystem organ failure. PN 01/29: Jaundice is more pronounced. PN 01/30: Jaundice getting worse Treatment: Pt. is in ICU closely monitored IVF bolus x 5. Sodium Bicarbonate In order to capture the severity of condition, please clarify if the condition signifies: Acute on chronic If chronic please stage: CKD Stage 2 (GFR 60-89) CKD Stage 3 (GFR 30-59) CKD Stage 4 (GFR 15-29) CKD Stage 5 (GFR <15) ESRD Other, please specify Unable to determine AKI, no CKD MTDD
--- NOTE | 2018-01-31 09:02 | XR ---
EXAMINATION TYPE: XR chest 1V portable DATE OF EXAM: 01/31/2018 Comparison: 01/30/2018 Clinical History: 67-year-old female shortness of breath Findings: Right anterior chest wall injection port with catheter tip near the cavoatrial junction. Left-sided c hest wall generator device. Heart not enlarged. Continued moderate left and small right pleural effus ions with adjacent bibasilar opacities. Effusion may be slightly smaller than the right. Impression: 1. Stable borderline cardiomegaly. 2. Continued moderate left and small right pleural effusions with adjacent atelectasis and/or consoli dation, minimally improved on the right.
[2018-01-31] MEDS: AMIODARONE 450 MG in DEXTROSE 5% IN WATER 250 ML IV SCH ×2 (09:05)
--- NOTE | 2018-01-31 09:11 | CDI ---
Documentation Clarification Form Date: 01/31/18 CDS: Ofe Vang RN Admit Date: 01/23/18 Patient Name: Penny Funez ATTENTION: The Clinical Documentation Specialists (CDI) and [facility] Coding Staff appreciate your assistance in clarifying documentation. Please respond to the clarification below the line at the bottom and electronically sign. The CDI & [facility] Coding staff will review the response and follow-up if needed. Please note: Queries are made part of the Legal Health Record. If you have any questions, please contact the author of this message via ITS. Dr. Ann Simental, Documentation of COPD is located in the 01/23 - 01/30. History/Risk Factors: Myelodysplastic syndrome, leukemia, myoblastic anemia, IDDM 2, COPD, GERD, APNEA, MRSA, ex-smoker, UTI Clinical Indicators: CXR: 01/23 increased left lower lobe density with pleural effusion. infiltrate or atelectasis not excluded. there is cardiomegaly. 01/30: basilar pleural effusions and underlying infiltrates and or atelectasis remains stable. cardiomegaly. Vital Signs on admission: T 98.0, P 103, R 18, 119/68, 99% RA, 01/30 on 3L Lung and Respiratory Assessment: diminished Treatment: O2 @ 3 liters Antibiotics: Vanco IVPB, Aztreonam IVPB, Ertapenem IVPB, Levofloxacin IVPB, In your professional opinion, can you please clarify if the above findings and treatment signify any of the following? Acute on Chronic Obstructive Asthma Acute on chronic bronchitis Chronic obstructive pulmonary disease with acute exacerbation Emphysema Other condition, please specify Unable to determine MTDD
[2018-01-31 09:26] VITALS: TEMP 97.6
[2018-01-31] MEDS: ERTAPENEM 0.5 GM in SODIUM CHLORIDE 0.9% 50 ML IVPB SCH (09:45)
[2018-01-31] MEDS ORDERED: PHYTONADIONE 5 MG in SODIUM CHLORIDE 0.9% 50 ML IVPB STA (10:09)
--- NOTE | 2018-01-31 10:41 | P.PN ---
Subjective Patient is seen in follow-up for acute kidney injury. Renal function is worsening with creatinine up to 2.61 today. Patient was noted to have systolic CHF with ejection fraction of less than 20%. Patient developed atrial fibrillation with Primacor which has now been discontinued. She's on IV amiodarone. Urine output is about 5-10 mL an hour. She is currently receiving Lasix 40 mg IV 3 times daily. Oral intake is poor. She is on 20 mics of Levophed. Denies active chest pain or shortness of breath. Vital signs are stable. Currently on 10 mics of Levophed. General: The patient appeared well nourished and normally developed. HEENT: Head exam is unremarkable. Neck is without jugular venous distension. LUNGS: Breath sounds decreased. HEART: Rate and Rhythm are regular. First and second heart sounds normal. No murmurs, rubs or gallops. ABDOMEN: Abdominal exam reveals normal bowel sounds. Non-tender and non- distended. No evidence of peritonitis. EXTREMITITES: 2+ edema. Objective - Vital Signs Vital signs: Vital Signs Temp 97.6 F 01/31/18 09:00 Pulse 89 01/31/18 09:00 Resp 11 L 01/31/18 09:00 BP 76/52 01/31/18 09:00 Pulse Ox 98 01/31/18 09:00 Intake & Output 01/30/18 01/31/18 01/31/18 18:59 06:59 18:59 Intake Total 937.561 151.555 404.862 Output Total 84 57 23 Balance 853.561 94.555 381.862 Weight 84.8 kg Intake: IV 400 80 30 0.9NS 80 30 Ertapenem 1 gm In Sodium 100 Chloride 0.9% 50 ml @ 100 mls/hr IVPB DAILY [facility] Rx #:[id number] Sodium Chloride 0.9% 1, 300 000 ml @ 75 mls/hr IV . [id number] [facility] Rx#:[id number] Intake, IV Titration 340.561 71.555 374.862 Amount Amiodarone 450 mg In 207.139 250 Dextrose 5% in Water 250 ml @ 0.5 MG/MIN 16.66 mls /hr IV .Q15H1M [facility] Rx#: [id number] Norepinephrine 16 mg In 133.422 71.555 124.862 Sodium Chloride 0.9% 250 ml @ Titrate IV .Q0M [facility] Rx#:[id number] Blood Product 197 Platelet Irr Pheresis 3 197 Acda Unit [id number] Output: Urine 84 57 23 Other: Voiding Method Indwelling Catheter Indwelling Catheter Indwelling Catheter # Bowel Movements 1 ABP, PAP, CO, CI - Last Documented Arterial Blood Pressure 96/45 - Labs CBC & Chem 7: 01/31/18 04:00 01/31/18 04:00 Labs: Abnormal Lab Results - Last 24 Hours (Table) 01/26/18 01/30/18 01/30/18 Range/Units 04:10 12:01 16:55 RBC (3.80-5.40) m/uL Hgb (11.4-16.0) gm/dL Hct (34.0-46.0) % MCV (80.0-100.0) fL MCH (25.0-35.0) pg RDW (11.5-15.5) % Plt Count (150-450) k/uL PT (9.0-12.0) sec INR (<1.2) Sodium (137-145) mmol/L Carbon Dioxide (22-30) mmol/L BUN (7-17) mg/dL Creatinine (0.52-1.04) mg/dL Glucose (74-99) mg/dL POC Glucose (mg/dL) 141 H 171 H (75-99) mg/dL Calcium (8.4-10.2) mg/dL Phosphorus (2.5-4.5) mg/dL Total Bilirubin (0.2-1.3) mg/dL AST (14-36) U/L ALT (9-52) U/L Alkaline Phosphatase (38-126) U/L Total Protein (6.3-8.2) g/dL Albumin (3.5-5.0) g/dL Albumin (PEP) 2.84 L (3.80-4.90) g/dL Qjtcb-5-Hqfulwvoh 0.43 L (0.60-1.00) g/dL Beta Globulins 0.55 L (0.60-1.30) g/dL 01/30/18 01/31/18 01/31/18 Range/Units 21:22 04:00 04:00 RBC 1.81 L (3.80-5.40) m/uL Hgb 7.0 L (11.4-16.0) gm/dL Hct 22.1 L (34.0-46.0) % MCV 122.4 H (80.0-100.0) fL MCH 38.5 H (25.0-35.0) pg RDW 24.9 H (11.5-15.5) % Plt Count 14 L* (150-450) k/uL PT (9.0-12.0) sec INR (<1.2) Sodium 134 L (137-145) mmol/L Carbon Dioxide 16 L (22-30) mmol/L BUN 90 H (7-17) mg/dL Creatinine 2.61 H (0.52-1.04) mg/dL Glucose 127 H (74-99) mg/dL POC Glucose (mg/dL) 145 H (75-99) mg/dL Calcium 8.2 L (8.4-10.2) mg/dL Phosphorus 7.4 H (2.5-4.5) mg/dL Total Bilirubin 11.2 H (0.2-1.3) mg/dL AST 343 H (14-36) U/L ALT 283 H (9-52) U/L Alkaline Phosphatase 175 H (38-126) U/L Total Protein 4.8 L (6.3-8.2) g/dL Albumin 2.1 L (3.5-5.0) g/dL Albumin (PEP) (3.80-4.90) g/dL Woxdi-3-Mmbigxzac (0.60-1.00) g/dL Beta Globulins (0.60-1.30) g/dL 01/31/18 01/31/18 Range/Units 04:00 07:08 RBC (3.80-5.40) m/uL Hgb (11.4-16.0) gm/dL Hct (34.0-46.0) % MCV (80.0-100.0) fL MCH (25.0-35.0) pg RDW (11.5-15.5) % Plt Count (150-450) k/uL PT 16.2 H (9.0-12.0) sec INR 1.8 H (<1.2) Sodium (137-145) mmol/L Carbon Dioxide (22-30) mmol/L BUN (7-17) mg/dL Creatinine (0.52-1.04) mg/dL Glucose (74-99) mg/dL POC Glucose (mg/dL) 113 H (75-99) mg/dL Calcium (8.4-10.2) mg/dL Phosphorus (2.5-4.5) mg/dL Total Bilirubin (0.2-1.3) mg/dL AST (14-36) U/L ALT (9-52) U/L Alkaline Phosphatase (38-126) U/L Total Protein (6.3-8.2) g/dL Albumin (3.5-5.0) g/dL Albumin (PEP) (3.80-4.90) g/dL Ezuet-2-Cmbqraajf (0.60-1.00) g/dL Beta Globulins (0.60-1.30) g/dL Microbiology - Last 24 Hours (Table) 01/25/18 01:45 Blood Culture - Final Blood No Growth after 144 hours 01/25/18 01:30 Blood Culture - Final Blood No Growth after 144 hours Assessment and Plan Plan: Assessment: 1. Acute kidney injury secondary to ATN secondary to hypotension and cardiorenal syndrome. Creatinine up to 2.61 today. 2. Atrial fibrillation with RVR maintained on IV amiodarone. 3. Systolic CHF with ejection fraction of 20%. 4. Volume overload. 5. Hypotension maintained on 20 mics of Levophed. 6. Metabolic acidosis secondary to acute kidney injury. 7. Hyperphosphatemia secondary to acute kidney injury. Plan: Increase lasix to 80 mg IV BID. Maintain Levophed. Maintain oral sodium bicarbonate 1300 mg twice daily. Continue PhosLo with meals. Continue to monitor renal function and urine output closely. Due to patient's hemodynamic instability and severe cardiac impairment, she was not be a candidate for renal replacement therapy. Overall prognosis poor.
--- NOTE | 2018-01-31 10:57 | P.PN ---
Subjective Progress Note Date: 01/31/18 Principal diagnosis: elevated liver enzymes 67-year-old female with a history of MDS admitted with profound hypotension low cardiac ejection fraction elevated liver enzymes. PT/INR stable at 1.8. Still receiving IV pressors Levophed, IV amiodarone. Poor urine output. Creatinine increased 2.6. Bilirubin elevated 11.2 previously 11.6.. AST 343. ALT 283. AP 175. Platelets 14,000. Hemoglobin 7. White count 6.1. Mild abdominal discomfort. Objective - Vital Signs Vital signs: Vital Signs Temp 97.6 F 01/31/18 09:00 Pulse 89 01/31/18 09:00 Resp 11 L 01/31/18 09:00 BP 76/52 01/31/18 09:00 Pulse Ox 98 01/31/18 09:00 Intake & Output 01/30/18 01/31/18 01/31/18 18:59 06:59 18:59 Intake Total 937.561 151.555 404.862 Output Total 84 57 23 Balance 853.561 94.555 381.862 Weight 84.8 kg Intake: IV 400 80 30 0.9NS 80 30 Ertapenem 1 gm In Sodium 100 Chloride 0.9% 50 ml @ 100 mls/hr IVPB DAILY [facility] Rx #:[id number] Sodium Chloride 0.9% 1, 300 000 ml @ 75 mls/hr IV . [id number] [facility] Rx#:[id number] Intake, IV Titration 340.561 71.555 374.862 Amount Amiodarone 450 mg In 207.139 250 Dextrose 5% in Water 250 ml @ 0.5 MG/MIN 16.66 mls /hr IV .Q15H1M [facility] Rx#: [id number] Norepinephrine 16 mg In 133.422 71.555 124.862 Sodium Chloride 0.9% 250 ml @ Titrate IV .Q0M [facility] Rx#:[id number] Blood Product 197 Platelet Irr Pheresis 3 197 Acda Unit [id number] Output: Urine 84 57 23 Other: Voiding Method Indwelling Catheter Indwelling Catheter Indwelling Catheter # Bowel Movements 1 ABP, PAP, CO, CI - Last Documented Arterial Blood Pressure 96/45 - Exam General appearance: The patient is alert, oriented, in no acute distress. Visibly jaundice. HET: Head is normocephalic and atraumatic. Pupils are equal and reactive. Sclerae icterus. Oropharynx is clear without lesions. Neck: Supple without lymphadenopathy. Trachea midline. Heart: S1 S2. Regular rate and rhythm. Lungs: Decreased by basilar fine crackles noted. Abdomen: Soft, mildly bloated mild tenderness to the mid epigastrium with bowel sounds. No peritoneal signs. No palpable organomegaly or masses. Extremities: Normal skin color and turgor. No cyanosis, rash, ulceration, clubbing, or edema. Radial and pedal pulses are 2/4 bilaterally. Keller dark concentrated martinez urine. Neurological: No focal deficits. Strength and sensation are grossly intact. - Labs CBC & Chem 7: 01/31/18 04:00 01/31/18 04:00 Labs: Abnormal Lab Results - Last 24 Hours (Table) 01/26/18 01/30/18 01/30/18 Range/Units 04:10 12:01 16:55 RBC (3.80-5.40) m/uL Hgb (11.4-16.0) gm/dL Hct (34.0-46.0) % MCV (80.0-100.0) fL MCH (25.0-35.0) pg RDW (11.5-15.5) % Plt Count (150-450) k/uL PT (9.0-12.0) sec INR (<1.2) Sodium (137-145) mmol/L Carbon Dioxide (22-30) mmol/L BUN (7-17) mg/dL Creatinine (0.52-1.04) mg/dL Glucose (74-99) mg/dL POC Glucose (mg/dL) 141 H 171 H (75-99) mg/dL Calcium (8.4-10.2) mg/dL Phosphorus (2.5-4.5) mg/dL Total Bilirubin (0.2-1.3) mg/dL AST (14-36) U/L ALT (9-52) U/L Alkaline Phosphatase (38-126) U/L Total Protein (6.3-8.2) g/dL Albumin (3.5-5.0) g/dL Albumin (PEP) 2.84 L (3.80-4.90) g/dL Aojcv-5-Qzjuebdku 0.43 L (0.60-1.00) g/dL Beta Globulins 0.55 L (0.60-1.30) g/dL 01/30/18 01/31/18 01/31/18 Range/Units 21:22 04:00 04:00 RBC 1.81 L (3.80-5.40) m/uL Hgb 7.0 L (11.4-16.0) gm/dL Hct 22.1 L (34.0-46.0) % MCV 122.4 H (80.0-100.0) fL MCH 38.5 H (25.0-35.0) pg RDW 24.9 H (11.5-15.5) % Plt Count 14 L* (150-450) k/uL PT (9.0-12.0) sec INR (<1.2) Sodium 134 L (137-145) mmol/L Carbon Dioxide 16 L (22-30) mmol/L BUN 90 H (7-17) mg/dL Creatinine 2.61 H (0.52-1.04) mg/dL Glucose 127 H (74-99) mg/dL POC Glucose (mg/dL) 145 H (75-99) mg/dL Calcium 8.2 L (8.4-10.2) mg/dL Phosphorus 7.4 H (2.5-4.5) mg/dL Total Bilirubin 11.2 H (0.2-1.3) mg/dL AST 343 H (14-36) U/L ALT 283 H (9-52) U/L Alkaline Phosphatase 175 H (38-126) U/L Total Protein 4.8 L (6.3-8.2) g/dL Albumin 2.1 L (3.5-5.0) g/dL Albumin (PEP) (3.80-4.90) g/dL Uthvu-3-Qpyzibvwz (0.60-1.00) g/dL Beta Globulins (0.60-1.30) g/dL 01/31/18 01/31/18 Range/Units 04:00 07:08 RBC (3.80-5.40) m/uL Hgb (11.4-16.0) gm/dL Hct (34.0-46.0) % MCV (80.0-100.0) fL MCH (25.0-35.0) pg RDW (11.5-15.5) % Plt Count (150-450) k/uL PT 16.2 H (9.0-12.0) sec INR 1.8 H (<1.2) Sodium (137-145) mmol/L Carbon Dioxide (22-30) mmol/L BUN (7-17) mg/dL Creatinine (0.52-1.04) mg/dL Glucose (74-99) mg/dL POC Glucose (mg/dL) 113 H (75-99) mg/dL Calcium (8.4-10.2) mg/dL Phosphorus (2.5-4.5) mg/dL Total Bilirubin (0.2-1.3) mg/dL AST (14-36) U/L ALT (9-52) U/L Alkaline Phosphatase (38-126) U/L Total Protein (6.3-8.2) g/dL Albumin (3.5-5.0) g/dL Albumin (PEP) (3.80-4.90) g/dL Dyboj-7-Befxdvxjf (0.60-1.00) g/dL Beta Globulins (0.60-1.30) g/dL Microbiology - Last 24 Hours (Table) 01/25/18 01:45 Blood Culture - Final Blood No Growth after 144 hours 01/25/18 01:30 Blood Culture - Final Blood No Growth after 144 hours Assessment and Plan (1) Elevated liver enzymes Narrative/Plan: 67-year-old female with a history of MDS presents with 1 month history of fatigue and weakness shortness of breath with profound hypotension, cardiac ejection fraction of 20%, elevated liver enzymes, elevated pro-BMP, and mild elevation of troponin suggestive of combination of passive venous congestion and ischemic hepatitis. Evidence of chronic elevated transaminases mild hyper- bilirubinemia over the past year cannot exclude an underlying chronic liver disease. Liver ultrasound reported no evidence of acute process recent hepatitis screen nonreactive. Liver enzymes have worsened today suggestive of decompensated liver failure suspect related to cardiogenic shock low ejection output. Current Visit: Yes Status: Acute Code(s): R74.8 - ABNORMAL LEVELS OF OTHER SERUM ENZYMES SNOMED Code(s): 481268393 (2) Hypotension Current Visit: Yes Status: Acute Code(s): I95.9 - HYPOTENSION, UNSPECIFIED SNOMED Code(s): 92732379 (3) CHF (congestive heart failure) Current Visit: Yes Status: Acute Code(s): I50.9 - HEART FAILURE, UNSPECIFIED SNOMED Code(s): 99624075 (4) Iron overload due to repeated red blood cell transfusions Current Visit: Yes Status: Chronic Priority: Medium Code(s): E83.111 - HEMOCHROMATOSIS DUE TO REPEATED RED BLOOD CELL TRANSFUSIONS SNOMED Code(s): 813377497 (5) MDS (myelodysplastic syndrome) Current Visit: Yes Status: Chronic Priority: Medium Code(s): D46.9 - MYELODYSPLASTIC SYNDROME, UNSPECIFIED SNOMED Code(s): 069178574 (6) Cardiogenic shock Narrative/Plan: Profound hypotension pressor dependent. Current Visit: Yes Status: Acute Code(s): R57.0 - CARDIOGENIC SHOCK SNOMED Code(s): 49359434 (7) Coagulopathy Current Visit: Yes Status: Acute Code(s): D68.9 - COAGULATION DEFECT, UNSPECIFIED SNOMED Code(s): 05557684 Plan: 1. Continue with ICU management. Overall prognosis is poor and guarded. Serologic workup for chronic liver disease so far has been negative. Multiorgan failure liver transplant is not available options this time. Possible family meeting today with [employer] worker discussed prognosis and plan of care. Assessment and plan a care discussed with Dr. Chaudhry
--- NOTE | 2018-01-31 11:15 | P.PN ---
Subjective Progress Note Date: 01/31/18 Principal diagnosis: Acute cardiogenic shock with signs of multisystem organ failure. 67-year-old female patient with known history of mild dysplasia maintained on a combination of Gleevec and Decadron in addition to history of diabetes, hyperlipidemia and COPD and obstructive sleep apnea. The patient has had chronic complications of mild dysplasia including chronic anemia and thrombocytopenia requiring multiple blood transfusions in the past. The patient came in yesterday to the hospital because of chest pain. She had heaviness in her chest and she had also some increased shortness of breath. No cough. No sputum production. No pleurisy. No hemoptysis. She had a previous echocardiogram that showed a preserved LV function of ejection fraction of 55%. EKG that was performed during this current admission shows some nonspecific ST segment changes. Chest x-ray showed a left-sided pleural effusion. Subsequently the echocardiogram was repeated based on an elevated BNP level of 10,000 and the patient was found to have profound impairment of the LV function with an ejection fraction dropping down to less than 20%. RV is mildly enlarged. There is mild to moderate mitral regurgitation. Moderate pulmonary hypertension with a PA pressure of around 39. The IVC is dilated and there is poor respiratory collapse consistent with estimated right atrial pressure of about 15. There is also a moderate degree of pleural effusion on the left. Troponins were 0.2 0.2 respectively 2. The patient was seen by cardiology. Conservative management was recommended based on her comorbidities and chronic, cytopenia. Around 3 AM this morning, the patient becomes progressively more hypotensive. Her lactic acid was slightly elevated at 2.5 and 2.1. The patient was given a total of 3 L of IV fluids. She coaches for to the ICU. Artline catheter was inserted. She is currently on 20 mics of norepinephrine infusion for blood pressure support. Urine output is also drop. Morning blood work shows a non-anion gap metabolic acidosis with a bicarb level of 18, anion gap of 9, creatinine of 1.1, and the white cell count is at 3.8 with hemoglobin of 9.4. The patient is awake. She is a poor historian. I think she does have an underlying dementia. She does not have a good recollection of the events that led to her coming to the hospital. No she is much aware of her past medical history. LFTs were slightly abnormal yet that is no acute abnormalities on the ultrasound of the liver and gallbladder. The patient has a Mediport and the patient also has a vagal nerve stimulator. No skin rashes. No open wounds or ulceration. No abdominal distention. No nausea. No vomiting. Extremities are somewhat cold and clammy at this point with diminished pulses. On 01/27/2000 milligrams in this patient for a follow-up. As mentioned, the patient got into the intensive care unit because of profound hypotension. Further workup showed a drop in the left with an ejection fraction which was measured to be less than 20%. As such this shock is most likely of a cardiogenic in nature. I also cover this patient for her septic shock knowing that she has had infections in the past with ESBL producing organisms and MRSA. I cover this patient with a combination of Invanz and vancomycin. Nevertheless, the cultures of been negative and the patient has not spiked any fever and a white cell count is at 6.7. The patient was given volume and she responded initially in the pressors dose was gradually wean down to 10-15 mics per norepinephrine infusion per minute. This morning, the she was noted to have a lower urine output. She was given a dose of Lasix. Subsequently was advised to give her dobutamine. Following dobutamine administration, the patient went into atrial fibrillation with rapid ventricular response and he she became hypotensive with systolic blood pressure dropped in the mid 70s. I was about to give the patient amiodarone. During this time the patient converted back to normal sinus rhythm after dobutamine was discontinued. Blood pressure subsequently improved. She is receiving a bicarb infusion knowing that she has a component of non-anion gap metabolic acidosis and this is running at the rate of 75 mL an hour. She has developed an acute kidney injury , probably related to her hypotension and cardiorenal factors. Creatinine is up to 1.5 and a BNP is at 64. Urine output is nor that of 20 mL an hour. Chest x-ray shows some worsening in the volume status and the patient has developed small better pleural effusion and a component of 4 vessel congestion. She is currently on room air oxygen and her pulse ox is above 90%. No chest pain. No angina. Hematologic profile is consistent with myelodysplasia. Her liver function is also worse. Bilirubin is up to 5.9. She had an AST of 297 with a ALP of 306 with an phosphatase of 27. Albumin Is at 2.5. INR Is at 1.8 with a PT of 16.7. Most Recent Lactic Acid Level Is at 3.7. On 01/27/2018, Penny is being seen for a follow-up. The patient is doing poorly and she is in cardiogenic shock. I discussed this case at length with cardiology. Note that yesterday there was an attempt to put the patient on dobutamine however this attempt failed as the patient became tachycardic and she went into atrial fibrillation with rapid ventricular response. Based on that, dobutamine was stopped and the patient subsequently went back to normal sinus rhythm. On and off she was having still some runs of atrial fibrillation. The patient is awake and alert. She is on room air oxygen. Chest x-ray is showing cardiomegaly and small bilateral pleural effusion and pulmonary asked her congestion and early edema. Hemodynamically she has hypotensive and she has required pressors and currently she is on norepinephrine infusion running at 50 g per KG per minute. Urine output has been low in the order of 20 mL an hour and this was obviously a concern throughout the night. She was given fluid boluses and the net fluid balance is +3.5 L over the past 24 hours yet this was not enough to improve the urine output nor for the blood pressure. The patient is cold and clammy and she has diminished pulses. She has also developed an acute kidney injury in the creatinine is up to 1.8 and the patient has a component of anion and non-anion gap metabolic acidosis. Anion gap is at 16 with a bicarb level of 12 and the patient's creatinine is at 72 with a creatinine of 1.8. Nephrology saw the patient and patient was started on bicarb drip that liver function tests are improving gradually getting worse. Bilirubin is up to 8.7. AST is at 352 with an ALT of sounds 63. Albumin is down to 2.9. The calcium level is at 8.6. Today's potassium level is at 5.3 and the sodium is 139. Sugar is at 193. She is afebrile. The patient's cultures of been all negative. Stop the vancomycin. I kept the patient on IV Invanz as an empiric antibiotic coverage. The patient remains quite thrombocytopenic regarding her underlying lung some mild dysplasia. 01/28 of seeing this patient for a follow-up. She remains critically ill and sick. She remains in cardiogenic shock. She was attempted on Primacor drip yesterday and as dose was being titrated, the patient went into atrial fibrillation with rapid ventricular response. Her heart rate was in the 140s in the 150s range. The patient accordingly was taken off the Primacor. Amiodarone was restarted in the form of an infusion currently she is on 0.5 mg per minute and last night she converted back to normal sinus rhythm. She is on Lasix drip at 10 mg an hour. Urine output is around 10-20 mL an hour. She remains on a bicarb drip at the rate of 75 mL an hour and the patient's serum bicarbs up to 21. She is oliguric. Urine output is diminished. The net fluid balance is order of +1.8 L for yesterday. She is still on norepinephrine infusion running at 18 g per KG per minute. Clinically, she is awake and alert. No significant respiratory distress. She is on room air oxygen. No nausea. No vomiting. No abdominal pain. She has some increased edema both in upper and lower extremity. Follow-up chest x-ray from today shows small bilateral pleural effusion and cardiomegaly. Meanwhile, the patient's hemoglobin is at 7.8, platelet counts is 16,000, creatinine is at 1.89, LFTs are abnormal with an AST of 386, ALT of 346, bilirubin of 9.1. Stool for C. diff is negative. IV antibiotics include Invanz. As an empiric antibiotic coverage. Coagulation profile is off and the patient has some mild coagulopathy with an INR of 2.0 and a PT of 18.5 no chest pain. No fever. No altered mentation. No other complaints otherwise for now. Cardiology is on the case. Hematology oncology is on the case. The findings on the case. On 01/29/2018, the patient is doing poorly still. She is having diffuse body aches mainly in lower extremities bilaterally. She is cold and clammy and diminished pulses in the feet and somewhat cyanotic. She is nauseated. No chest pain. No significant shortness of breath. She is having episodes of atrial fibrillation with rapid ventricular response. After converting back to normal sinus rhythm the patient went again to A. fib RVR and she is going back and forth. She remains on amiodarone drip for age of fibrillation at the rate of 0.5 mg per minute. She is also on pressors and she is on norepinephrine infusion at 50 g per KG per minute. This was further weaned down to 30 g. Urine output is low. The patient is not producing much of urine output. She is progressively getting more edematous especially in the upper and lower extremities bilaterally. No chest pain. No altered mentation. She is progressively more jaundiced. Liver function tests progressively getting worse. Renal function is also progressively getting worse with a creatinine of 1.94 and the patient has a component of non-anion gap metabolic acidosis with a bicarb level of 19. The patient is currently on Lasix drip at 10 mg an hour. Discussed the case with nephrology and we decided to consult on the diuresis and put the patient on Lasix 40 mg IV push every 8 hours. No fever. No chills. No aspiration. Chest x-ray is consistent with CHF and cardiomegaly. Unfortunately not much of her progress has been done this patient's case. His hematologic profile is also significantly abnormal with the plated count of 13 and a hemoglobin of 7.1. On 01/30/2018, patient is doing very poorly. She continues to have findings of multi-organ system failure, remains hypotensive requiring norepinephrine, she is presently on 11 g of levo fed. She had intermittent episodes of A. fib with RVR, alternating with normal sinus rhythm. Remains on amiodarone drip. And so far we cannot wean her off norepinephrine. Urine output remains marginal in spite of Lasix IV push. Her jaundice is getting worse, and liver profile is also getting worse, with worsening renal profile. WBC count today is 5.1 hemoglobin is 7.2, platelets are 14,000. BUN is 84 creatinine 2.17., Gradually worsening since admission over the last few days. Chest x-ray shows pulmonary edema with bilateral pleural effusions. Patient is complaining of severe back pain, obviously it is chronic in nature. She has been followed by many consultants. And today I had a chance to discuss her condition with her and her at bedside. Explained to her and her the severity of her condition, and the fact that she is not doing well. Discussed even the CODE STATUS, and both agreed to DO NOT RESUSCITATE CODE STATUS. May even have to consider comfort care measures if the patient continues to decline. On 01/31/2018, patient continues to do poorly, remains extremely jaundiced, requiring significant amount of pressors, she is presently on 20 g of levo fed per minutes. Very poor urine output, her renal functioning is getting worse, and liver profile is also significantly impaired. Platelets remain low hemoglobin is 7. Pain seems to be well-controlled, and she is receiving Dilaudid when necessary for pain. is at bedside, and I discussed her condition with the again. Patient is presently DO NOT RESUSCITATE, and I think we may be getting close to start discussing comfort care measures. Overall the patient is doing very poorly. Objective - Vital Signs Vital signs: Vital Signs Temp 97.6 F 01/31/18 09:00 Pulse 89 01/31/18 09:00 Resp 11 L 01/31/18 09:00 BP 76/52 01/31/18 09:00 Pulse Ox 98 01/31/18 09:00 Intake & Output 01/30/18 01/31/18 01/31/18 18:59 06:59 18:59 Intake Total 937.561 151.555 404.862 Output Total 84 57 23 Balance 853.561 94.555 381.862 Weight 84.8 kg Intake: IV 400 80 30 0.9NS 80 30 Ertapenem 1 gm In Sodium 100 Chloride 0.9% 50 ml @ 100 mls/hr IVPB DAILY [facility] Rx #:[id number] Sodium Chloride 0.9% 1, 300 000 ml @ 75 mls/hr IV . [id number] [facility] Rx#:[id number] Intake, IV Titration 340.561 71.555 374.862 Amount Amiodarone 450 mg In 207.139 250 Dextrose 5% in Water 250 ml @ 0.5 MG/MIN 16.66 mls /hr IV .Q15H1M [facility] Rx#: [id number] Norepinephrine 16 mg In 133.422 71.555 124.862 Sodium Chloride 0.9% 250 ml @ Titrate IV .Q0M [facility] Rx#:[id number] Blood Product 197 Platelet Irr Pheresis 3 197 Acda Unit [id number] Output: Urine 84 57 23 Other: Voiding Method Indwelling Catheter Indwelling Catheter Indwelling Catheter # Bowel Movements 1 ABP, PAP, CO, CI - Last Documented Arterial Blood Pressure 96/45 - Exam Gen. appearance, comfortable awake following commands and answering questions. not acute distress. Not agitated. The patient is jaundiced Head exam was generally normal. There was scleral icterus / corneal arcus. Mucous membranes were moist. Neck was supple and with jugular venous distension, thyromegaly, or carotid bruits. Carotids were easily palpable bilaterally. There was no adenopathy. Lungs sounds are diminished bilaterally especially left lung base along with dullness to percussion. There are crackles in lung bases bilaterally. Heart sounds are regular, positive S1-S2 and there is no significant murmurs appreciated. The patient has a Mediport over the right anterior chest area. A nerve stimulator is also present over the left lateral chest area also. Abdominal exam revealed normal bowel sounds. The abdomen was soft, non-tender, and without masses, organomegaly, or appreciable enlargement of the abdominal aorta. Examination of the extremities revealed diminished pulses in the radial, femoral and pedal pulses. There was no cyanosis, clubbing and there is increased edema both in the upper and lower extremities bilaterally. The patient has a Artline catheter in the left femoral artery and the patient has a triple lumen catheter in the right femoral vein Examination of the skin revealed no evidence of significant rashes, suspicious appearing nevi or other concerning lesions. Neurologic patient will go proximity is without any focal limitation. - Labs CBC & Chem 7: 01/31/18 04:00 01/31/18 04:00 Labs: Abnormal Lab Results - Last 24 Hours (Table) 01/26/18 01/30/18 01/30/18 Range/Units 04:10 12:01 16:55 RBC (3.80-5.40) m/uL Hgb (11.4-16.0) gm/dL Hct (34.0-46.0) % MCV (80.0-100.0) fL MCH (25.0-35.0) pg RDW (11.5-15.5) % Plt Count (150-450) k/uL PT (9.0-12.0) sec INR (<1.2) Sodium (137-145) mmol/L Carbon Dioxide (22-30) mmol/L BUN (7-17) mg/dL Creatinine (0.52-1.04) mg/dL Glucose (74-99) mg/dL POC Glucose (mg/dL) 141 H 171 H (75-99) mg/dL Calcium (8.4-10.2) mg/dL Phosphorus (2.5-4.5) mg/dL Total Bilirubin (0.2-1.3) mg/dL AST (14-36) U/L ALT (9-52) U/L Alkaline Phosphatase (38-126) U/L Total Protein (6.3-8.2) g/dL Albumin (3.5-5.0) g/dL Albumin (PEP) 2.84 L (3.80-4.90) g/dL Yaktp-[id number] 0.43 L (0.60-1.00) g/dL Beta Globulins 0.55 L (0.60-1.30) g/dL 01/30/18 01/31/18 01/31/18 Range/Units 21:22 04:00 04:00 RBC 1.81 L (3.80-5.40) m/uL Hgb 7.0 L (11.4-16.0) gm/dL Hct 22.1 L (34.0-46.0) % MCV 122.4 H (80.0-100.0) fL MCH 38.5 H (25.0-35.0) pg RDW 24.9 H (11.5-15.5) % Plt Count 14 L* (150-450) k/uL PT (9.0-12.0) sec INR (<1.2) Sodium 134 L (137-145) mmol/L Carbon Dioxide 16 L (22-30) mmol/L BUN 90 H (7-17) mg/dL Creatinine 2.61 H (0.52-1.04) mg/dL Glucose 127 H (74-99) mg/dL POC Glucose (mg/dL) 145 H (75-99) mg/dL Calcium 8.2 L (8.4-10.2) mg/dL Phosphorus 7.4 H (2.5-4.5) mg/dL Total Bilirubin 11.2 H (0.2-1.3) mg/dL AST 343 H (14-36) U/L ALT 283 H (9-52) U/L Alkaline Phosphatase 175 H (38-126) U/L Total Protein 4.8 L (6.3-8.2) g/dL Albumin 2.1 L (3.5-5.0) g/dL Albumin (PEP) (3.80-4.90) g/dL Ifttm-2-Etuahaukg (0.60-1.00) g/dL Beta Globulins (0.60-1.30) g/dL 01/31/18 01/31/18 Range/Units 04:00 07:08 RBC (3.80-5.40) m/uL Hgb (11.4-16.0) gm/dL Hct (34.0-46.0) % MCV (80.0-100.0) fL MCH (25.0-35.0) pg RDW (11.5-15.5) % Plt Count (150-450) k/uL PT 16.2 H (9.0-12.0) sec INR 1.8 H (<1.2) Sodium (137-145) mmol/L Carbon Dioxide (22-30) mmol/L BUN (7-17) mg/dL Creatinine (0.52-1.04) mg/dL Glucose (74-99) mg/dL POC Glucose (mg/dL) 113 H (75-99) mg/dL Calcium (8.4-10.2) mg/dL Phosphorus (2.5-4.5) mg/dL Total Bilirubin (0.2-1.3) mg/dL AST (14-36) U/L ALT (9-52) U/L Alkaline Phosphatase (38-126) U/L Total Protein (6.3-8.2) g/dL Albumin (3.5-5.0) g/dL Albumin (PEP) (3.80-4.90) g/dL Btvgk-0-Nzsvfbzis (0.60-1.00) g/dL Beta Globulins (0.60-1.30) g/dL Microbiology - Last 24 Hours (Table) 01/25/18 01:45 Blood Culture - Final Blood No Growth after 144 hours 01/25/18 01:30 Blood Culture - Final Blood No Growth after 144 hours Assessment and Plan Assessment: 1 cardiogenic shock with signs of multisystem organ failure. The patient has failed inotropes due to complications of A. fib/RVR. She remains in multisystem organ failure with progressive worsening in the renal and hepatic function. Unfortunately the urine output remains low. The patient is still requiring pressors currently on norepinephrine infusion at 20 g per KG per minute. Chest x-ray is consistent with CHF and cardiomegaly and bilateral pleural effusion. 2 metabolic acidosis , of a non-anion gap type. Serum bicarb is at 16 3 CHF with impairment ejection fraction of less than 20% 4 questionable non-ST segment elevation myocardial infarction based on elevated troponins 5 paroxysmal atrial fibrillation and the patient is going back and forth between sinus rhythm and atrial fibrillation 6 myelodysplasia with chronic anemia and thrombocytopenia, maintained on Revlimid and Decadron outpatient basis 7 acute kidney injury, secondary to low cardiac output state and cardiorenal factors. Patient remains oliguric. 8 diabetes mellitus type 2 9 COPD 10 vagal nerve stimulator 11 Mediport 12 previous history of infection with Enterobacter and MRSA and these are essentially urine checked infections occurred back in 11/02/2017 and 02/08/2017 respectively 13 obstructive sleep apnea 14 acute hepatic insufficiency with elevated bilirubins and LFTs secondary to above, and there is been an underlying coagulopathy in association with hepatic dysfunction. 15 severe thrombocytopenia 16 chronic anemia Recommendation: Continue present supportive care measures, discussed her condition with nephrology, and with the again, patient is basically getting worse, and I think it is about time we start discussing comfort care measures with the family and with the patient. May have to seriously consider hospice. Time with Patient: Less than 30
[2018-01-31 11:48] VITALS: BP 71/45
[2018-01-31 11:53] LABS: Glucose,Whole Blood 113 mg/dL (75-99)
[2018-01-31 12:00] VITALS: BMI 33.1
[2018-01-31] MEDS ORDERED: SODIUM CHLORIDE 0.9% 99 ML with VASOPRESSIN 20 UNIT IV SCH ×2 (12:00)
[2018-01-31] MEDS ORDERED: ARTIFICIAL TEARS-HYPROMELLOSE DROPS 15 ML BTL BOTH EYES PRN (12:48)
[2018-01-31] MEDS ORDERED: MORPHINE SULFATE 4 MG/ML SYRINGE IV PRN (12:48)
[2018-01-31] MEDS ORDERED: LORazepam 2 MG/ML INJ IV PRN (12:48)
[2018-01-31] MEDS ORDERED: DRY MOUTH SPRAY 44.3 SPRAY/44.3 ML SPRAY MUCOUS MEM PRN (12:48)
[2018-01-31] MEDS ORDERED: ATROPINE OPHTH SOLN 1% 5ML BTL SUBLINGUAL PRN (12:48)
[2018-01-31] MEDS ORDERED: MORPHINE SULFATE (100 MG/2 ML) 100 MG in SODIUM CHLORIDE 0.9% 100 ML IV SCH (13:00)
[2018-01-31] MEDS ORDERED: SCOPOLAMINE 1.5MG/72HR PATCH TRANSDERM SCH (13:00)
[2018-01-31] MEDS: CALCIUM ACETATE 667 MG CAP PO SCH (14:18)
[2018-01-31 15:32] VITALS: PULSE 0; RESP 0
[2018-01-31] MEDS ORDERED: FUROSEMIDE 10 MG/ML 10 ML VIAL IV SCH (16:00)
--- NOTE | 2018-01-31 17:40 | P.PN ---
Subjective Progress Note Date: 01/31/18 Principal diagnosis: Myelodysplastic syndrome, iron overload secondary to chronic transfusions Patient seen today in follow-up. She has family members at the bedside but, not her . LFTs and bilirubin continue to very slowly rise, patient's blood pressure is still requiring vasopressors at increasing doses without much improvement,Her renal function continues to decline as well. Patient is lethargic, she is oriented when discussing her situation, she states generalized discomforts, no nausea, hunger or need to go to the bathroom. Objective - Vital Signs Vital signs: Vital Signs Temp 97.6 F 01/31/18 09:00 Pulse 0 L 01/31/18 15:30 Resp 0 L 01/31/18 15:30 BP 71/45 01/31/18 11:30 Pulse Ox 97 01/31/18 13:30 Intake & Output 01/30/18 01/31/18 01/31/18 18:59 06:59 18:59 Intake Total 937.561 151.555 499.862 Output Total 84 57 44 Balance 853.561 94.555 455.862 Weight 84.8 kg 84.8 kg Intake: IV 400 80 75 0.9NS 80 75 Ertapenem 1 gm In Sodium 100 Chloride 0.9% 50 ml @ 100 mls/hr IVPB DAILY [facility] Rx #:[id number] Sodium Chloride 0.9% 1, 300 000 ml @ 75 mls/hr IV . [id number] [facility] Rx#:[id number] Intake, IV Titration 340.561 71.555 374.862 Amount Amiodarone 450 mg In 207.139 250 Dextrose 5% in Water 250 ml @ 0.5 MG/MIN 16.66 mls /hr IV .Q15H1M [facility] Rx#: [id number] Norepinephrine 16 mg In 133.422 71.555 124.862 Sodium Chloride 0.9% 250 ml @ Titrate IV .Q0M [facility] Rx#:[id number] Oral 50 Blood Product 197 Platelet Irr Pheresis 3 197 Acda Unit [id number] Output: Urine 84 57 44 Other: Voiding Method Indwelling Catheter Indwelling Catheter Indwelling Catheter # Bowel Movements 1 ABP, PAP, CO, CI - Last Documented Arterial Blood Pressure 10/19 - Exam lethargic, oriented to self, place and situation when awake, scleral jaundice, anasarca - Labs CBC & Chem 7: 01/31/18 04:00 01/31/18 04:00 Labs: Abnormal Lab Results - Last 24 Hours (Table) 01/30/18 01/31/18 01/31/18 Range/Units 21:22 04:00 04:00 RBC 1.81 L (3.80-5.40) m/uL Hgb 7.0 L (11.4-16.0) gm/dL Hct 22.1 L (34.0-46.0) % MCV 122.4 H (80.0-100.0) fL MCH 38.5 H (25.0-35.0) pg RDW 24.9 H (11.5-15.5) % Plt Count 14 L* (150-450) k/uL PT (9.0-12.0) sec INR (<1.2) Sodium 134 L (137-145) mmol/L Carbon Dioxide 16 L (22-30) mmol/L BUN 90 H (7-17) mg/dL Creatinine 2.61 H (0.52-1.04) mg/dL Glucose 127 H (74-99) mg/dL POC Glucose (mg/dL) 145 H (75-99) mg/dL Calcium 8.2 L (8.4-10.2) mg/dL Phosphorus 7.4 H (2.5-4.5) mg/dL Total Bilirubin 11.2 H (0.2-1.3) mg/dL AST 343 H (14-36) U/L ALT 283 H (9-52) U/L Alkaline Phosphatase 175 H (38-126) U/L Total Protein 4.8 L (6.3-8.2) g/dL Albumin 2.1 L (3.5-5.0) g/dL 01/31/18 01/31/18 01/31/18 Range/Units 04:00 07:08 11:52 RBC (3.80-5.40) m/uL Hgb (11.4-16.0) gm/dL Hct (34.0-46.0) % MCV (80.0-100.0) fL MCH (25.0-35.0) pg RDW (11.5-15.5) % Plt Count (150-450) k/uL PT 16.2 H (9.0-12.0) sec INR 1.8 H (<1.2) Sodium (137-145) mmol/L Carbon Dioxide (22-30) mmol/L BUN (7-17) mg/dL Creatinine (0.52-1.04) mg/dL Glucose (74-99) mg/dL POC Glucose (mg/dL) 113 H 113 H (75-99) mg/dL Calcium (8.4-10.2) mg/dL Phosphorus (2.5-4.5) mg/dL Total Bilirubin (0.2-1.3) mg/dL AST (14-36) U/L ALT (9-52) U/L Alkaline Phosphatase (38-126) U/L Total Protein (6.3-8.2) g/dL Albumin (3.5-5.0) g/dL Microbiology - Last 24 Hours (Table) 01/25/18 01:45 Blood Culture - Final Blood No Growth after 144 hours 01/25/18 01:30 Blood Culture - Final Blood No Growth after 144 hours Assessment and Plan (1) Anemia Current Visit: Yes Status: Chronic Priority: Medium Code(s): D64.9 - ANEMIA, UNSPECIFIED SNOMED Code(s): 499103561 (2) Iron overload due to repeated red blood cell transfusions Current Visit: Yes Status: Chronic Priority: Medium Code(s): E83.111 - HEMOCHROMATOSIS DUE TO REPEATED RED BLOOD CELL TRANSFUSIONS SNOMED Code(s): 726602060 (3) MDS (myelodysplastic syndrome) Current Visit: Yes Status: Chronic Priority: Medium Code(s): D46.9 - MYELODYSPLASTIC SYNDROME, UNSPECIFIED SNOMED Code(s): 113019762 (4) Thrombocytopenia Current Visit: No Status: Chronic Priority: High Code(s): D69.6 - THROMBOCYTOPENIA, UNSPECIFIED SNOMED Code(s): 726149706 Plan: Discussed with patient and family members at bedside, as well as the when he returned to the unit, that patient's condition is more suggestive of sequela of iron overload. Patient's ferritin was rechecked and found to be greater than 16,000. Patient and do remember the conversation with Dr. Esquivel last week that optimal scenario would be if patient had a treatable condition, i.e. infection and that anticipated outcome if pt condition would improve. It was also discussed that If patient's condition did not improve then the likely cause is end organ damage from hemochromatosis. Patient and are acutely aware that her situation is terminal and that her condition is not reversible despite best medical efforts and treatments. All of their questions were answered to the my best of my ability. I do believe that the family is opting for comfort measures and just deciding when to discontinue treatments that are sustaining pt. We remain available for any questions or concerns. Patient/ will report when they are ready to proceed with comfort only. Time with Patient: Greater than 30 (counseling and coordinating care)
--- NOTE | 2018-02-01 11:00 | CDI ---
Last Revision, April 2017 Documentation Clarification Form Date: 02/01/2018 10:39:34 AM From: Lauren Chan Phone: If you have a question about this query, please contact Deisy Lockhart Plant Accountant at [phone] between 8am and 5pm. Admit Date: 01/23/2018 1:13:00 PM Patient Name: Penny Funez Visit Number: [id number] Discharge Date: 01/31/18 ATTENTION: The Clinical Documentation Specialists (CDI) and [facility] Coding Staff appreciate your assistance in clarifying documentation. Please respond to the clarification below the line at the bottom and electronically sign. The CDI & [facility] Coding staff will review the response and follow-up if needed. Please note: Queries are made part of the Legal Health Record. If you have any questions, please contact the author of this message via ITS. Randolph Lutz MD Myocardial infarction is documented in pulmonary consult. Patient History/Risk Factors: EF 20%, myelodysplastic syndrome, CHF, HTN, hypotension. leukemia Clinical Indicators: Chest pain, SOB, elevated troponins Troponin: .191 .212 .209 EKG Results: abnormal cannot exclude anterior infarct, atrial flutter, AV block Treatment: Levophed for severe hypotension Consult: Cardiac, pulmonary In order to capture the severity of condition and necessary documentation specificity, please clarify if patient had IL or was it ruled out. Type of Infarction: STEMI NSTEMI Unable to determine Other Condition, please specify IL ruled out unable to determine MTDD
--- NOTE | 2018-02-04 09:51 | P.DS ---
Providers Date of admission: 01/23/18 13:13 Attending physician: Randolph Nolan MD Consults: 01/23/18 13:13 Consult Physician Urgent Consulting Provider: [facility] Consult Reason/Comments: Elevated troponin Do you want consulting provider notified?: Yes 01/23/18 14:19 Consult Physician Routine Consulting Provider: Curly Esquivel Consult Reason/Comments: Myelodysplastic syndrome and leukemia Do you want consulting provider notified?: Yes 01/24/18 15:09 Consult Physician Urgent Consulting Provider: Mireya Herrera Consult Reason/Comments: Elevated liver enzymes Do you want consulting provider notified?: Yes 01/25/18 01:24 Consult Physician Routine Consulting Provider: Ann Simental Consult Reason/Comments: Transfer to ICU; decreased BPs Do you want consulting provider notified?: Yes 01/25/18 10:22 Consult Physician Routine Consulting Provider: Nicolas Peralta Consult Reason/Comments: MICHAEL Do you want consulting provider notified?: Yes Primary care physician: [facility] Hospital Course: This is a pleasant 67 years old female with past medical history of COPD, insulin-dependent diabetes mellitus, GERD, sleep apnea , myelodysplastic syndrome, leukemia on chemotherapy, blood transfusion reaction [itching] and MRSA infection. Presents because of chest pain on the left side,over 2 days associated with dyspnea, orthopnea and generalized weakness. in emergency room patient was noticed to be slightly tachycardic at 102-103. TROPONIN WERE ELEVATED AT 0.191, PREVIOUS TROPONIN WERE 0.08 AND 0.04 ON 2017. WBC 4.4, HEMOGLOBIN 8.9. PLATELETS LOW AT 24.pt has been evaluated by cardiology and oncology teams. Oncology team evaluated patient and recommended to transfuse platelets when less than 10 K however no need for more chemotherapy ,and to Continue erythropoietin supplementation and iron chelation therapy with Jadenu as iron chelation therapy , and they advised If patient recovers with treatment then the underlying cause would be infection. If patient does not recover, the clinical picture becomes more suspicious for cardiac and liver dysfunction because of iron overload, which would be much more difficult to correct, if able to correct at all. As stated continue chelation therapy. DC IV fluids as per cardiology. pt continued to worsen pt BP start dropping with systolic blood pressure in 70-80s. depsite fluis boluses , pt was transfered to the ICU with she had central line placed and pt was started on norepinephrine drip and her Blood pressure improved temporarily. pt suffered cardiogenic shock rather than septic shock , pt was on antibiotic too and various drips including lasix, she kept doing poorly. pt has been followed by various consultants including cardiology , pulmonary/critical care, hematology/oncology, nephrology and gastroenterology. The patient and family eventually opted and wanted comfort care which was provided. pt subsequently on 01/31/2018. family were at bed side. Plan - Discharge Summary Discharge Rx Participant: Yes New Discharge Prescriptions: No Action Epoetin Chris [Procrit] 40,000 unit SQ REECE Gabapentin 600 mg PO QID Deferasirox [Jadenu] 90 mg PO DAILY Deferasirox [Jadenu] 720 mg PO DAILY Esomeprazole Magnesium [NexIUM] 40 mg PO DAILY Insulin Glargine [Lantus] 10 unit SQ HS Discharge Medication List Deferasirox [Jadenu] 90 mg PO DAILY 11/02/17 [History] Deferasirox [Jadenu] 720 mg PO DAILY 11/02/17 [History] Epoetin Chris [Procrit] 40,000 unit SQ REECE 11/02/17 [History] Gabapentin 600 mg PO QID 11/02/17 [History] Esomeprazole Magnesium [NexIUM] 40 mg PO DAILY 12/07/17 [History] Insulin Glargine [Lantus] 10 unit SQ HS 01/24/18 [History] Follow up Appointment(s)/Referral(s): [facility] [Provider Group] - 1 Week Curly Esquivel MD [STAFF PHYSICIAN] - 02/06/18 10:45 am Axel Perez MD [Primary Care Provider] - 1-2 days Angel Chaudhry MD [STAFF PHYSICIAN] - 03/03/18 3:15 pm Patient Instructions/Handouts: Pleural Effusion (DC) Discharge Disposition: - Preliminary Cause of Preliminary Cause of : cardiogenic shock
== END 2018-01-31 18:24 | disposition expired | DRG 642 ==
LOC: EC 10:35 → 6SEL 13:13 → 6ICU 01-25 02:13
PROVIDERS: ADMIT Internal Medicine; ATTEND Internal Medicine
PROC: 05HB33Z Insertion of Infusion Device into Right Basilic Vein, Percutaneous Approach (ICD-10-PCS; 2018-01-26)
PROC: 4A133B1 Monitoring of Arterial Pressure, Peripheral, Percutaneous Approach (ICD-10-PCS; 2018-01-27)
PROC: 4A133J1 Monitoring of Arterial Pulse, Peripheral, Percutaneous Approach (ICD-10-PCS; 2018-01-27)
PROC: 05HD33Z Insertion of Infusion Device into Right Cephalic Vein, Percutaneous Approach (ICD-10-PCS; 2018-01-27)
PROC: 02HV33Z Insertion of Infusion Device into Superior Vena Cava, Percutaneous Approach (ICD-10-PCS; principal; 2018-01-27 08:20)
PROC: 04HY32Z Insertion of Monitoring Device into Lower Artery, Percutaneous Approach (ICD-10-PCS; 2018-01-27 08:20)
DX: E83.111 Hemochromatosis due to repeated red blood cell transfusions (principal); A41.9 Sepsis, unspecified organism; I50.21 Acute systolic (congestive) heart failure; K72.00 Acute and subacute hepatic failure without coma; N17.0 Acute kidney failure with tubular necrosis; R65.21 Severe sepsis with septic shock; D61.818 Other pancytopenia; D68.9 Coagulation defect, unspecified; C95.90 Leukemia, unspecified not having achieved remission; E87.1 Hypo-osmolality and hyponatremia; E87.2 Acidosis; I13.0 Hypertensive heart and chronic kidney disease with heart failure and stage 1 through stage 4 chronic kidney disease, or unspecified chronic kidney disease; I42.9 Cardiomyopathy, unspecified; I48.92 Unspecified atrial flutter; I24.8 Other forms of acute ischemic heart disease; E27.40 Unspecified adrenocortical insufficiency; D46.9 Myelodysplastic syndrome, unspecified; E78.5 Hyperlipidemia, unspecified; E83.39 Other disorders of phosphorus metabolism; E83.42 Hypomagnesemia; E87.5 Hyperkalemia; E87.6 Hypokalemia; G47.33 Obstructive sleep apnea (adult) (pediatric); I27.20 Pulmonary hypertension, unspecified; I34.0 Nonrheumatic mitral (valve) insufficiency; I48.0 Paroxysmal atrial fibrillation; K21.9 Gastro-esophageal reflux disease without esophagitis; K76.1 Chronic passive congestion of liver; N18.9 Chronic kidney disease, unspecified; R57.0 Cardiogenic shock; T50.2X5A Adverse effect of carbonic-anhydrase inhibitors, benzothiadiazides and other diuretics, initial encounter; Z66 Do not resuscitate; Z79.4 Long term (current) use of insulin; Z79.82 Long term (current) use of aspirin; E11.22 Type 2 diabetes mellitus with diabetic chronic kidney disease; Z82.49 Family history of ischemic heart disease and other diseases of the circulatory system; Z86.14 Personal history of Methicillin resistant Staphylococcus aureus infection; Z87.891 Personal history of nicotine dependence; Z90.710 Acquired absence of both cervix and uterus; Z92.21 Personal history of antineoplastic chemotherapy; Z98.1 Arthrodesis status; Z81.1 Family history of alcohol abuse and dependence; Z98.42 Cataract extraction status, left eye; H26.9 Unspecified cataract; Z87.440 Personal history of urinary (tract) infections; Z79.899 Other long term (current) drug therapy; F03.90 Unspecified dementia, unspecified severity, without behavioral disturbance, psychotic disturbance, mood disturbance, and anxiety; Z88.2 Allergy status to sulfonamides; Z88.8 Allergy status to other drugs, medicaments and biological substances; Z88.5 Allergy status to narcotic agent; Z88.0 Allergy status to penicillin; Z91.013 Allergy to seafood; J44.9 Chronic obstructive pulmonary disease, unspecified; Z51.5 Encounter for palliative care; R74.8 Abnormal levels of other serum enzymes
CPT/HCPCS: 36415; 36569; 71045; 71046; 76705; 76937; 80048; 80053; 80074; 81001; 82103; 82390; 82533; 82550; 82553; 82728; 83036; 83516; 83605; 83735; 83880; 84100; 84165; 84439; 84443; 84450; 84460; 84484; 85025; 85027; 85379; 85610; 85730; 86038; 86376; 86850; 86900; 86901; 87040; 87086; 87324; 93005; 93306; 96374; 99285